=== PATIENT | female | born 1995 | race Caucasian/White ===

== ENCOUNTER 2023-06-14 | Outpatient (REF) | payer MEDICAID, SELFPAY | END 2023-06-14 00:01 | disposition home or self-care (01) | LOC: HO.HHCLNP | PROVIDERS: Visit Provider Nurse Practitioner Primary Care | DX: Z13.89 Encounter for screening for other disorder (principal) | CPT/HCPCS: 87480; 87510; 87660 ==

== ENCOUNTER 2023-06-15 09:51 | Outpatient (REF) | payer MEDICAID, SELFPAY ==
[2023-06-15 11:38] LABS: MANUAL DIFF FLAG NO
[2023-06-15 12:08] LABS: Basophils Absolute Auto 0.1 X10*3/uL (0.0-0.2); Eosinophils Absolute Auto 0.3 X10*3/uL (0.0-0.4); Eosinophils Percent Auto 3.2 % (0-4); Hematocrit 26.3 % (37.0-47.0); Imm Gran Abs Auto 0.04 X10*3/uL (0.00-0.03); Imm Gran Pct Auto 0.5 % (0.0-0.4); Lymphocytes Absolute Auto 1.9 X10*3/uL (1.2-4.9); Mean Corpuscular HGB Conc 30.4 g/dl (31.0-35.0); Mean Corpuscular Hemoglobin 23.3 pg (27.0-33.0); Mean Corpuscular Volume 76.5 fL (80.0-98.0); Mean Platelet Volume 12.6 fL (9.4-12.3); Monocytes Absolute Auto 0.7 X10*3/uL (0.1-1.2); Monocytes Percent Auto 8.8 % (2-11); Neutrophils Absolute Auto 4.8 x10*3/uL (2.0-8.3); Neutrophils Percent Auto 62.5 % (45-73); Platelet Count 315 X10*3/uL (160-400); Red Blood Count 3.44 X10*6/uL (4.20-5.50); Red Cell Distribution Width 16.1 % (11.0-16.0); White Blood Count 7.7 X10*3/uL (4.8-10.8)
[2023-06-15 12:40] LABS: Anion Gap 10 (12-20); Blood Urea Nitrogen 11 mg/dL (9-16); Calcium 9.9 mg/dL (8.4-10.2); Carbon Dioxide 26 mmol/L (22-29); Chloride 106 mmol/L (96-108); Estimated Glomerular Filt Rate > 60; Glucose Random 121 mg/dL (60-115); Iron 17 mcg/dL (30-160); Percent Iron Saturation 4 % (15-50); Potassium 3.5 mmol/L (3.3-5.1); Sodium 138 mmol/L (135-145); Total Iron Binding Capacity 432 mcg/dL (228-428); Unsaturated Iron Binding 415 ug/dL
[2023-06-15 12:44] LABS: HIV AB/AG Nonreactive (Nonreactive); HIV Num 1 0.04 S/CO (0.00-0.99); ~HepC Num1 0.12 S/CO (0.00-0.79); ~Hepatitis C Antibody Nonreactive (Nonreactive)
[2023-06-15 12:45] LABS: Syphilis Screen Nonreactive (Nonreactive)
[2023-06-15 13:37] LABS: Ferritin 7 ng/mL (10-122); TSH reflex Free T4 > 100.00 uIU/mL (0.32-4.0)
[2023-06-15 15:01] LABS: Free T4 (Free Thyroxine) 0.65 ng/dL (0.71-1.85)
[2023-06-16 17:48] LABS: Prolactin 63.1 ng/mL
== END 2023-06-15 09:52 | disposition home or self-care (01) ==
LOC: HO.HHCL 09:51
PROVIDERS: Visit Provider Nurse Practitioner Primary Care
DX: Z11.4 Encounter for screening for human immunodeficiency virus [HIV] (principal); Z11.3 Encounter for screening for infections with a predominantly sexual mode of transmission; N89.8 Other specified noninflammatory disorders of vagina; N64.3 Galactorrhea not associated with childbirth; R52 Pain, unspecified; D64.9 Anemia, unspecified; E11.65 Type 2 diabetes mellitus with hyperglycemia; Z79.4 Long term (current) use of insulin
CPT/HCPCS: 36415; 80048; 82728; 83540; 84146; 84439; 84443; 85025; 86780; 86803; 87389

== ENCOUNTER 2023-06-17 11:09 | Outpatient (REF) | payer MEDICAID, SELFPAY ==
[2023-06-17 14:12] LABS: Free T4 (Free Thyroxine) 0.68 ng/dL (0.71-1.85)
[2023-06-17 14:14] LABS: TSH reflex Free T4 > 100.00 uIU/mL (0.32-4.0)
[2023-06-18 12:07] LABS: BV Int Neg Control Negative (Negative); BV Int Pos Control Positive (Positive)
== END 2023-06-17 11:10 | disposition home or self-care (01) ==
LOC: HO.HHCL 11:09
PROVIDERS: Visit Provider Internal Medicine
DX: N89.8 Other specified noninflammatory disorders of vagina (principal); E03.9 Hypothyroidism, unspecified
CPT/HCPCS: 36415; 84439; 84443; 87480; 87510; 87660

== ENCOUNTER 2023-07-03 13:21 | Outpatient (REF) | payer MEDICAID, SELFPAY ==
--- NOTE | ~2023-07-03 | US_ITS ---
EXAMINATION: US PELVIS COMPLETE CLINICAL INFORMATION: Anemia, menorrhagia COMPARISON: None TECHNIQUE: Transabdominal and transvaginal imaging was performed. FINDINGS: The uterus is of normal size and echogenicity measuring 8.3 x 6.1 x 7.4 cm. The endometrium measures 0.6 cm in thickness with trace fluid within the endometrial canal. The right ovary is of normal size and echogenicity. The right measures 1.9 x 3.1 x 1.7 cm for a volume of 5.2 mL. The left measures 2.9 x 4.7 x 2.5 cm for a volume of 17.8 mL which is mildly enlarged with vascular flow present in multiple follicles. There is trace physiologic volume pelvic free fluid. US/US pelvic and transvaginal IMPRESSION: 1. Trace fluid within the endometrial canal. 2. Left ovary is mildly enlarged with multiple follicles, which could be seen in the setting of polycystic ovarian syndrome in the appropriate clinical setting.
== END 2023-07-03 13:22 | disposition home or self-care (01) ==
LOC: HO.US 13:21
PROVIDERS: Visit Provider Internal Medicine
DX: D50.0 Iron deficiency anemia secondary to blood loss (chronic) (principal)
CPT/HCPCS: 76830; 76856

== ENCOUNTER → 2023-07-10 11:00 | Outpatient (BNV) | payer MEDICAID, SELFPAY | PROVIDERS: Visit Provider Internal Medicine Medical Oncology | DX: D64.9 Anemia, unspecified (principal) | CPT/HCPCS: 99204 ==

== ENCOUNTER 2023-07-14 10:59 | Outpatient (REF) | payer MEDICAID, SELFPAY ==
--- NOTE | ~2023-07-14 | US_ITS ---
EXAMINATION: US DIAGNOSTIC ULTRASOUND BREAST, RIGHT CLINICAL INFORMATION: 27-year-old female complaining palpable focus of concern right breast approximate 8:00 axis, around 8 cm from the nipple. Mention of possible galactorrhea within the patient's order. COMPARISON: None available. Last imaging was [place], not available. TECHNIQUE: Ultrasound of the breast is performed with real-time alba scale imaging and color Doppler. Attention was given to the area of palpable concern as indicated by the patient in the right breast 8:00 axis. FINDINGS: There is no focal suspicious finding. There is a benign intramammary lymph node within the right breast at the 8:00 axis, 8 cm from the nipple, measuring 8 x 6 x 7 mm, with normal fatty hilum, normal feeding hilar vessels, and normal thickness cortex. This is a benign finding and appears to correlate well with the area of palpable concern. Scanning of the retroareolar region demonstrates minimal duct ectasia, with no discrete mass or filling defect seen. There is no additional solid mass, architectural abnormality, or edema in the soft tissue planes. Results were discussed with the patient at time of visit by the technologist. US/US breast RT limited mamm only IMPRESSION: Palpable abnormality right breast appears to be related to a benign intramammary lymph node at the 8:00 axis measuring up to 8 mm. Finding is benign and there are no suspicious findings. Clinical management recommended of this abnormality. ASSESSMENT: BI-RADS 2: Benign RECOMMENDATION: 1. Patient should be managed based on the clinical impression. 2. Otherwise, routine annual screening mammography at age 40. This patient's information was entered into a reminder system with a target due date for their next mammogram.
== END 2023-07-14 11:00 | disposition home or self-care (01) ==
LOC: HO.MAMMO 10:59
PROVIDERS: PCP Nurse Practitioner Primary Care; Visit Provider Nurse Practitioner Primary Care
DX: N64.3 Galactorrhea not associated with childbirth (principal); N63.13 Unspecified lump in the right breast, lower outer quadrant
CPT/HCPCS: 76642

== ENCOUNTER → 2023-07-14 11:00 | Outpatient (BNV) | payer MEDICAID, SELFPAY | PROVIDERS: PCP Nurse Practitioner Primary Care; Visit Provider Radiology Diagnostic Radiology | DX: R92.8 Other abnormal and inconclusive findings on diagnostic imaging of breast (principal) | CPT/HCPCS: 76642 ==

== ENCOUNTER 2023-08-21 10:32 | Outpatient (REF) | payer MEDICAID, SELFPAY ==
[2023-08-21 11:54] LABS: Estimated Average Glucose 189 mg/dL; Hemoglobin A1c % 8.2 % (<6.0)
[2023-08-21 12:24] LABS: Erythrocyte Sedimentation Rate 20 MM/HR (0-20)
[2023-08-21 12:57] LABS: C Reactive Protein 1.16 mg/dL (< or = 0.50); Cholesterol 137 mg/dL (<200); Free T4 (Free Thyroxine) 0.87 ng/dL (0.71-1.85); HDL Cholesterol 30 mg/dL (>40); LDL Cholesterol Calculated 90 mg/dL (<100); Thyroid Stimulating Hormone 40.46 uIU/mL (0.32-4.0); Triglycerides 89 mg/dL (<150)
[2023-08-21 13:13] LABS: Folate 13.1 ng/mL (> or = 4.0); Rheumatoid Factor < 13.0 IU/mL (<15.0); Vitamin B12 685 pg/mL (200-900)
[2023-08-21 14:23] LABS: Creatinine Urine 276.18 mg/dL; Microalbum/Creatinine Ratio Ur 10.1 ug/mg cr (<30)
[2023-08-21 15:15] LABS: CT PCR NOT DETECTED (Not Detect.); NG PCR NOT DETECTED (Not Detect.)
[2023-08-22 03:59] LABS: HBc Num1 0.14 S/CO (0.00-0.79); HBsAGNum1 0.42 S/CO (0.00-0.99); Hepatitis B Core Antibody Nonreactive (Nonreactive); Hepatitis B Surface Antigen Negative (Negative); ~Hepatitis B Surface Antibody REACTIVE (Nonreactive)
[2023-08-22 13:21] LABS: H Pylori Breath Test Negative (Negative)
[2023-08-23 11:14] LABS: Cyclic Citrullinated Peptide <16 UNITS
[2023-08-23 19:34] LABS: Lutenizing Hormone 4.9 mIU/mL; Prolactin 29.2 ng/mL
[2023-08-24 15:33] LABS: Anti Nuclear Antibody Screen NEGATIVE (NEGATIVE)
[2023-08-26 12:52] LABS: VITAMIN D (1,25 OH) D3 40 pg/mL; Vit D (1,25-Dihydroxy) Total 40 pg/mL (18-72); Vitamin D (1,25 OH) D2 <8 pg/mL
[2023-08-26 14:23] LABS: Testosterone, Free 1.1 pg/mL (0.1-6.4); Testosterone, Total 9 ng/dL (2-45)
== END 2023-08-21 10:33 | disposition home or self-care (01) ==
LOC: HO.HHCL 10:32
PROVIDERS: Visit Provider Student in an Organized Health Care Education/Training Program
DX: R10.13 Epigastric pain (principal); E11.65 Type 2 diabetes mellitus with hyperglycemia; E28.2 Polycystic ovarian syndrome; Z79.4 Long term (current) use of insulin
CPT/HCPCS: 0353U; 80061; 82043; 82570; 82607; 82652; 82746; 83001; 83002; 83013; 83036; 84146; 84402; 84403; 84439; 84443; 85652; 86038; 86140; 86200; 86431; 86704; 86706; 87340

== ENCOUNTER 2023-08-25 11:55 | Outpatient (REF) | payer MEDICAID, SELFPAY | END 2023-08-25 11:56 | disposition home or self-care (01) | LOC: HO.MDS 11:55 | PROVIDERS: Visit Provider Internal Medicine | DX: D50.8 Other iron deficiency anemias (principal) | CPT/HCPCS: 96365; J1756 ==

== ENCOUNTER 2023-08-31 11:02 | Outpatient (REF) | payer MEDICAID, SELFPAY | END 2023-08-31 11:03 | disposition home or self-care (01) | LOC: HO.MDS 11:02 | PROVIDERS: Visit Provider Internal Medicine | DX: D50.8 Other iron deficiency anemias (principal) | CPT/HCPCS: 96365; J1756 ==

== ENCOUNTER 2023-09-02 14:02 | Outpatient (REF) | payer MEDICAID, SELFPAY ==
[2023-09-02 16:19] LABS: Hematocrit 32.5 % (37.0-47.0); Hemoglobin 9.3 g/dl (12.0-16.0); Mean Corpuscular HGB Conc 28.6 g/dl (31.0-35.0); Mean Corpuscular Hemoglobin 18.4 pg (27.0-33.0); SCAN SMEAR FLAG 1
[2023-09-02 16:22] LABS: Basophils Absolute Auto 0.1 X10*3/uL (0.0-0.2); Basophils Percent Auto 1.2 % (0-2); Eosinophils Absolute Auto 0.4 X10*3/uL (0.0-0.4); Eosinophils Percent Auto 4.6 % (0-4); Imm Gran Abs Auto 0.03 X10*3/uL (0.00-0.03); Imm Gran Pct Auto 0.4 % (0.0-0.4); Lymphocytes Absolute Auto 2.1 X10*3/uL (1.2-4.9); Lymphocytes Percent Auto 26.4 % (20-40); MANUAL DIFF FLAG SCAN; Monocytes Absolute Auto 0.6 X10*3/uL (0.1-1.2); Monocytes Percent Auto 8.1 % (2-11); Neutrophils Absolute Auto 4.6 x10*3/uL (2.0-8.3); Neutrophils Percent Auto 59.3 % (45-73); PLT CLUMP 1; Red Blood Count 5.05 X10*6/uL (4.20-5.50); Red Cell Distribution Width 22.6 % (11.0-16.0)
[2023-09-02 16:30] LABS: Mean Corpuscular Volume 64.4 fL (80.0-98.0)
[2023-09-02 16:31] LABS: PLT ABN DIST 1
[2023-09-02 16:48] LABS: Platelet Count 340 X10*3/uL (160-400); White Blood Count 7.8 X10*3/uL (4.8-10.8)
[2023-09-02 16:50] LABS: SLIDE REVIEW VERIFIED
[2023-09-02 16:54] LABS: Free T4 (Free Thyroxine) 0.96 ng/dL (0.71-1.85); Thyroid Stimulating Hormone 49.82 uIU/mL (0.32-4.0)
[2023-09-02 17:03] LABS: Erythrocyte Sedimentation Rate 13 MM/HR (0-20)
[2023-09-02 17:09] LABS: Alanine Aminotransferase 53 U/L (0-31); Albumin Level 3.9 g/dL (3.5-5.0); Alkaline Phosphatase 78 U/L (39-117); Anion Gap 13 (12-20); Aspartate Amino Transferase 95 U/L (5-31); Bilirubin Total 0.3 mg/dL (0.0-1.0); Blood Urea Nitrogen 12 mg/dL (9-16); C Reactive Protein 1.24 mg/dL (< or = 0.50); Calcium 9.4 mg/dL (8.4-10.2); Carbon Dioxide 26 mmol/L (22-29); Chloride 99 mmol/L (96-108); Estimated Glomerular Filt Rate > 60; Glucose Random 441 mg/dL (60-115); Potassium 4.2 mmol/L (3.3-5.1); Sodium 134 mmol/L (135-145); Total Protein 7.6 g/dL (6.5-8.0)
== END 2023-09-02 14:03 | disposition home or self-care (01) ==
LOC: HO.HHCL 14:02
PROVIDERS: Visit Provider Student in an Organized Health Care Education/Training Program
DX: E03.9 Hypothyroidism, unspecified (principal); R52 Pain, unspecified; E11.65 Type 2 diabetes mellitus with hyperglycemia; Z79.4 Long term (current) use of insulin
CPT/HCPCS: 36415; 80053; 84439; 84443; 85025; 85652; 86140

== ENCOUNTER 2023-09-07 11:16 | Outpatient (REF) | payer MEDICAID, SELFPAY ==
[2023-09-07 11:39] LABS: MANUAL DIFF FLAG NO
[2023-09-07 11:46] LABS: Basophils Absolute Auto 0.1 X10*3/uL (0.0-0.2); Basophils Percent Auto 1.1 % (0-2); Eosinophils Absolute Auto 0.3 X10*3/uL (0.0-0.4); Hematocrit 34.3 % (37.0-47.0); Imm Gran Abs Auto 0.02 X10*3/uL (0.00-0.03); Imm Gran Pct Auto 0.3 % (0.0-0.4); Lymphocytes Absolute Auto 1.6 X10*3/uL (1.2-4.9); Lymphocytes Percent Auto 24.2 % (20-40); Mean Corpuscular HGB Conc 29.2 g/dl (31.0-35.0); Mean Corpuscular Volume 65.3 fL (80.0-98.0); Monocytes Absolute Auto 0.6 X10*3/uL (0.1-1.2); Monocytes Percent Auto 9.1 % (2-11); Neutrophils Percent Auto 60.3 % (45-73); Platelet Count 290 X10*3/uL (160-400); Red Blood Count 5.25 X10*6/uL (4.20-5.50); Red Cell Distribution Width 24.3 % (11.0-16.0); White Blood Count 6.6 X10*3/uL (4.8-10.8)
[2023-09-07 12:15] LABS: Ferritin 83 ng/mL (10-122)
== END 2023-09-07 11:17 | disposition home or self-care (01) ==
LOC: HO.MDS 11:16
PROVIDERS: Internal Medicine Medical Oncology; Visit Provider Internal Medicine
DX: D50.8 Other iron deficiency anemias (principal); N93.9 Abnormal uterine and vaginal bleeding, unspecified
CPT/HCPCS: 36415; 82728; 85025; 96365; 99202; J1756

== ENCOUNTER 2023-09-07 13:09 | Outpatient (AMB) | payer MEDICAID, SELFPAY ==
[2023-09-07 13:18] VITALS: BP 110/70; BMI 42.6
--- NOTE | 2023-09-07 13:18 | MHC.OFFVIS ---
Intake Vital Signs 09/07/23 13:18 Height 5 ft 8 in Weight 280 lb BMI 42.6 BP 110/70 Intake Visit Reasons: AUB/PCP referral Speech Coach Required: No Information Interpreted: non-clinical & clinical Newsstand Vendor: Newsstand Vendor Present (Kelle ALFRED) Accompanied by: Self / Same As Patient Allergies aspirin Adverse Reaction (Verified 09/07/23 13:27) Fatigued Is last menstrual period known: Yes HPI HPI Comments History of Present Illness Details The patient is presenting referred from PCP r regarding abnormal uterine bleeding, the patient has been complaining of irregular menstrual cycles associated passage of blood clots and pelvic cramping. Last Pap smear was? Pelvic ultrasound done on 07/03/2023 showed the following: The uterus is of normal size and echogenicity measuring 8.3 x 6.1 x 7.4 cm. The endometrium measures 0.6 cm in thickness with trace fluid within the endometrial canal. The right ovary is of normal size and echogenicity. The right measures 1.9 x 3.1 x 1.7 cm for a volume of 5.2 mL. The left measures 2.9 x 4.7 x 2.5 cm for a volume of 17.8 mL which is mildly enlarged with vascular flow present in multiple follicles. There is trace physiologic volume pelvic free fluid. FORMERLY [facility], [facility]1983 Medical History Hypothyroid Asthma Diabetes mellitus Family History Paternal Grandfather Lung cancer Social History Household Members: Family Alcohol intake: never Patient Tobacco Use Status: Never used Tobacco Substance Use Type: Marijuana service: No Current occupational status: unemployed Sexually active: No Sexual orientation: Straight/Heterosexual Gender identity: Female Physical Exam Vital Signs: BMI result Body Mass Index 42.6 Assessment & Plan Assessment & Plan (1) Abnormal uterine bleeding: Code(s): N93.9 - Abnormal uterine and vaginal bleeding, unspecified Plan: Pap smear take, GC and chlamydia taken CBC, TSH, prolactin, HCG, 17 hydroxyprogesterone, testosterone total and free order and pelvic ultrasound recently done. Discussed with the patient the different causes of abnormal bleeding including thyroid disorders, uterine and ovarian pathology, endometrial hyperplasia, carcinoma and other potential causes. Discussed with the patient the work up including CBC (to r/o anemia), TSH, pelvic Ultrasound, endometrial biopsy to r/o endometrial pathology. All questions answered and the patient verbalized understanding. Instructed the patient to schedule an appointment for an endometrial biopsy in 2 weeks. Orders: Orders TSH reflex Free T4 Today N93.9 - Abnormal uterine and vaginal bleeding, unspecified Prolactin Today N93.9 - Abnormal uterine and vaginal bleeding, unspecified HCG Quantitative Today N93.9 - Abnormal uterine and vaginal bleeding, unspecified 17 Hydroxyprogesterone Today N93.9 - Abnormal uterine and vaginal bleeding, unspecified Complete Blood Count no Diff Today N93.9 - Abnormal uterine and vaginal bleeding, unspecified Testosterone, Free/Total Today N93.9 - Abnormal uterine and vaginal bleeding, unspecified Coding Level of Care Code New Pt Level 3 (50510) Diagnoses Abnormal uterine bleeding N93.9
== END 2023-09-07 13:54 | disposition home or self-care (01) ==
LOC: HO.HWS 13:09
PROVIDERS: PCP Student in an Organized Health Care Education/Training Program; Visit Provider Obstetrics & Gynecology
DX: N93.9 Abnormal uterine and vaginal bleeding, unspecified (principal)
CPT/HCPCS: 99203

== ENCOUNTER 2023-09-07 13:47 | Outpatient (REF) | payer MEDICAID, SELFPAY ==
[2023-09-07 14:50] LABS: Hematocrit 34.1 % (37.0-47.0); Hemoglobin 9.9 g/dl (12.0-16.0); Mean Corpuscular Hemoglobin 18.8 pg (27.0-33.0); PLT CLUMP 1; Red Blood Count 5.27 X10*6/uL (4.20-5.50); Red Cell Distribution Width 24.2 % (11.0-16.0)
[2023-09-07 15:01] LABS: Mean Corpuscular Volume 64.7 fL (80.0-98.0); PLT ABN DIST 1; Platelet Count 304 X10*3/uL (160-400)
[2023-09-07 15:37] LABS: HCG Quantitative < 2 mIU/mL; TSH reflex Free T4 33.74 uIU/mL (0.32-4.0)
[2023-09-07 16:13] LABS: Free T4 (Free Thyroxine) 1.02 ng/dL (0.71-1.85)
[2023-09-08 09:09] LABS: Prolactin 33.1 ng/mL
[2023-09-08 11:00] LABS: CT PCR NOT DETECTED (Not Detect.); NG PCR NOT DETECTED (Not Detect.)
[2023-09-15 10:09] LABS: Testosterone, Total 8 ng/dL (2-45)
== END 2023-09-07 13:48 | disposition home or self-care (01) ==
LOC: HO.LAB 13:47
PROVIDERS: PCP Student in an Organized Health Care Education/Training Program; Visit Provider Obstetrics & Gynecology
DX: N93.9 Abnormal uterine and vaginal bleeding, unspecified (principal)
CPT/HCPCS: 0353U; 36415; 83498; 84146; 84402; 84403; 84439; 84443; 84702; 85027; 88142

== ENCOUNTER 2023-10-05 12:14 | Outpatient (REF) | payer MEDICAID, SELFPAY | END 2023-10-05 12:15 | disposition home or self-care (01) | LOC: HO.MDS 12:14 | PROVIDERS: Visit Provider Internal Medicine Medical Oncology | DX: D50.8 Other iron deficiency anemias (principal) | CPT/HCPCS: 96365; J2916 ==

== ENCOUNTER 2024-08-10 10:16 | Outpatient (REF) | payer MEDICAID, SELFPAY ==
[2024-08-10 11:58] LABS: Basophils Absolute Auto 0.1 X10*3/uL (0.0-0.2); Basophils Percent Auto 1.2 % (0-2); Eosinophils Absolute Auto 0.2 X10*3/uL (0.0-0.4); Eosinophils Percent Auto 3.4 % (0-4); Hematocrit 34.6 % (37.0-47.0); Hemoglobin 11.3 g/dl (12.0-16.0); Imm Gran Abs Auto 0.02 X10*3/uL (0.00-0.03); Imm Gran Pct Auto 0.3 % (0.0-0.4); Lymphocytes Absolute Auto 1.6 X10*3/uL (1.2-4.9); Lymphocytes Percent Auto 23.8 % (20-40); Mean Corpuscular HGB Conc 32.7 g/dl (31.0-35.0); Mean Corpuscular Hemoglobin 23.7 pg (27.0-33.0); Mean Corpuscular Volume 72.5 fL (80.0-98.0); Monocytes Absolute Auto 0.4 X10*3/uL (0.1-1.2); Monocytes Percent Auto 6.3 % (2-11); Neutrophils Absolute Auto 4.4 x10*3/uL (2.0-8.3); Red Blood Count 4.77 X10*6/uL (4.20-5.50); Red Cell Distribution Width 16.8 % (11.0-16.0)
[2024-08-10 12:02] LABS: Platelet Count 299 X10*3/uL (160-400); White Blood Count 6.8 X10*3/uL (4.8-10.8)
[2024-08-10 12:08] LABS: Estimated Average Glucose 283 mg/dL; Hemoglobin A1C 293.1305 umol/L; Hemoglobin A1c % 11.5 % (<6.0); Total Hemoglobin (HGBA1C) 2873.8209 umol/L
[2024-08-10 12:46] LABS: Anion Gap 14 (12-20); Blood Urea Nitrogen 13 mg/dL (9-16); Calcium 9.3 mg/dL (8.4-10.2); Carbon Dioxide 21 mmol/L (22-29); Chloride 100 mmol/L (96-108); Estimated Glomerular Filt Rate > 60; Free T4 (Free Thyroxine) < 0.42 ng/dL (0.71-1.85); HCG Quantitative < 2 mIU/mL; Potassium 4.1 mmol/L (3.3-5.1); Sodium 131 mmol/L (135-145); T4 Thyroxine < 3.0 ug/dL (4.5-12.0)
[2024-08-10 12:47] LABS: Alanine Aminotransferase 33 U/L (0-31); Albumin Level 4.1 g/dL (3.5-5.0); Alkaline Phosphatase 93 U/L (39-117); Aspartate Amino Transferase 32 U/L (5-31); Bilirubin Total 0.3 mg/dL (0.0-1.0); TSH reflex Free T4 > 100.00 uIU/mL (0.32-4.0); Total Protein 7.7 g/dL (6.5-8.0)
[2024-08-10 12:53] LABS: Ferritin 6 ng/mL (10-122)
[2024-08-10 13:52] LABS: Glucose Random 530 mg/dL (60-115)
[2024-08-11 17:44] LABS: Prolactin 25.2 ng/mL; Triiodothyronine T3 Free 1.1 pg/mL (2.3-4.2); Triiodothyronine T3 Total 40 ng/dL (76-181)
[2024-08-12 07:18] LABS: Follicle Stimulating Hormone 6.1 mIU/mL; Lutenizing Hormone 1.3 mIU/mL
[2024-08-14 16:29] LABS: Testosterone, Free 0.9 pg/mL (0.1-6.4); Testosterone, Total 5 ng/dL (2-45)
== END 2024-08-10 10:17 | disposition home or self-care (01) ==
LOC: HO.HHCL 10:16
PROVIDERS: Internal Medicine Medical Oncology; Nurse Practitioner Primary Care; Obstetrics & Gynecology; Visit Provider Internal Medicine
DX: E03.9 Hypothyroidism, unspecified (principal); N93.9 Abnormal uterine and vaginal bleeding, unspecified; E11.65 Type 2 diabetes mellitus with hyperglycemia; Z79.4 Long term (current) use of insulin; D64.9 Anemia, unspecified; N93.8 Other specified abnormal uterine and vaginal bleeding; N92.1 Excessive and frequent menstruation with irregular cycle; E28.2 Polycystic ovarian syndrome
CPT/HCPCS: 36415; 80053; 82728; 83001; 83002; 83036; 84146; 84402; 84403; 84436; 84439; 84443; 84480; 84481; 84702; 85025

== ENCOUNTER 2024-08-11 14:54 | Outpatient (AMB) | payer MEDICAID, SELFPAY ==
[2024-08-11 15:13] VITALS: BMI 42.6
--- NOTE | 2024-08-11 15:13 | A.OFFVIS_ITS ---
Vital Signs 08/11/24 15:13 Height 5 ft 8 in Weight 279 lb 15.793 oz BMI 42.6 Intake Visit Reasons: AUB Plant Breeder Required: No Information Interpreted: non-clinical & clinical Paving And Surfacing Labourer: Paving And Surfacing Labourer Present (Kelle ALFRED) Accompanied by: Self / Same As Patient Allergies aspirin Adverse Reaction (Verified 08/11/24 15:14) Fatigued HPI Comments Details: The patient is presenting for follow-up to discuss the results of her abnormal uterine bleeding workup and options of treatment. The following workup was done.: Most recent H&H= 11.3/34.6 TSH elevated, free T4 low, free T3 pending Prolactin elevated repeat prolactin pending hCG, GC and chlamydia were negative. Total testosterone within normal free not done, 17 hydroxy progesterone within normal, repeat free testosterone pending Co testing was done in 09/17 showed LSIL 07/18 Pelvic ultrasound showed the following: IMPRESSION: 1. Trace fluid within the endometrial canal. 2. Left ovary is mildly enlarged with multiple follicles, which could be seen in the setting of polycystic ovarian syndrome in the appropriate clinical setting. [facility] Medical History Hypothyroid Asthma Diabetes mellitus Family History Paternal Grandfather Lung cancer Social History Household Members: Family Alcohol intake: never Patient Tobacco Use Status: Never used Tobacco Substance Use Type: Marijuana service: No Current occupational status: unemployed Sexual orientation: Straight/Heterosexual Gender identity: Female Physical Exam Vital Signs: BMI result Body Mass Index 42.6 Office Procedures Colposcopy Colposcopy: Pre-Procedure Counseling: Before beginning the procedure, I conducted comprehensive counseling with the patient. We thoroughly discussed the procedure itself, including its details, alternatives, and all associated risks. This included but not limited to the following complications such as bleeding, infection, and injury to the vagina, bladder, and vessels, as well as the potential need for transfusion with all its associated risks. Subsequently, the patient sign the consent. Pap smear result: LSIL. Urine test in office = Negative Procedure: During the procedure, the following steps were performed: A speculum was inserted, and acetic acid was applied. Colposcopy was conducted, allowing visualization of the transformation zone. Acetowhite lesions were identified at the 11+12+1 o'clock position. Cervical biopsies were obtained from the 11+12+1 o'clock position, followed by an endocervical curettage (ECC). Vaginoscopy of the upper vagina revealed no evidence of aceto-white lesions. Hemostasis was achieved using Monsel solution, and the patient tolerated the procedure well. Post-Procedure Instructions: The patient was advised to promptly contact the office or the after hours answering service or go to the emergency room if experiencing a temperature exceeding 100.4?F, abdominal pain, nausea/vomiting, or bleeding. Additionally, the patient was instructed to abstain from vaginal intercourse and bathtub use. The patient confirmed understanding of these instructions. Discharge Instructions: The patient was instructed to schedule a follow-up appointment in 2 weeks for further evaluation and management. Please note that this note was generated using a voice recognition program, and errors may have occurred during revenue cycle consultant. [id number] of cervix including upper vagina with biopsy and ECC Procedure code (CPT) selection complete Endometrial Biopsy Details: The patient was counseled regarding the indication and benefits of endometrial sampling to rule out endometrial pathology including not limited to endometrial hyperplasia or endometrial cancer and others; The alternatives (Either do nothing vs. hysteroscopy D&C) & the risks were discussed with the patient including but not limited: pain, uterine perforation, bleeding, infection, possible injury to bladder, bowel, ureter, possible need for blood transfusion with all its possible risks. The patient verbalized understanding all questions answered and signed consent. Urine test done in the office was negative The patient was placed into the dorsal lithotomy position; a speculum was inserted in the vagina. Using aseptic technique for the procedure, the cervix was cleansed with Betadine. The anterior lip of the cervix was grasped with a single tooth tenaculum. The uterus was sounded to 7 cm with a 4 mm Pipelle was used. Tissues samples were obtained and placed in formalin, in a patient labeled container and sent to the pathology department. At the end of the procedure, there was minimal bleeding noted The patient tolerated the procedure well and was discharged in good condition with the following instructions: Nothing in the vagina until the bleeding stops. No sex until the bleeding stops, to call if any of the following occurs: fever (>100.4), flu-like symptoms, abdominal pain, heavy bleeding, four smelling vaginal discharge. The patient was instructed to schedule a Follow up appointment in 2 weeks to discuss pathology results of the biopsy and treatment options. This note was generated with a voice recognition program. Some errors may have been overlooked during the review of this note. Sometimes these errors may affect the content or meaning of a given sentence. [id number] Biopsy Results AMB Test Urine AMB Test Urine Negative Last Edit by Kelle Centeno CMA on 15:16 Results Reviewed Results Reviewed: Laboratory Last Values Tst Clinic Negative 08/11/24 15:15 Assessment & Plan Assessment & Plan (1) Abnormal uterine bleeding: Comment: Possible PCOS Code(s): N93.9 - Abnormal uterine and vaginal bleeding, unspecified Category: Medical Plan: GC/CT collected Free testosterone pending EMB done, see procedure note Instructions given to patient to schedule a follow-up appointment within a week for follow-up (2) LGSIL on Pap smear of cervix: Code(s): R87.612 - Low grade squamous intraepithelial lesion on cytologic smear of cervix (LGSIL) Category: Medical Plan: Discussed with the patient the result of her abnormal pap, its significance, risk of progression, persistence, and regression. the false positive/negative rate of a Pap smear as a screening test in detecting cervical cancer and the indication for a diagnostic test -colposcopy, biopsy, endocervical curettage. The patient verbalized understanding and agreed with the plan, all questions answered. Since last Pap was a year ago repeat Pap smear and proceed with Colposcopy biopsy/ECC done, see procedure (3) Increased prolactin level: Code(s): R79.89 - Other specified abnormal findings of blood chemistry Category: Medical Plan: Repeat prolactin test still pending will check the results and treat according (4) Abnormal thyroid function test: Code(s): R94.6 - Abnormal results of thyroid function studies Category: Medical Plan: The patient discuss the results with her PCP and is in the process of being refer to endocrinology Orders: Orders AMB Endometrial Biopsy Today N93.9 - Abnormal uterine and vaginal bleeding, unspecified AMB HCG Urine Test Today Z32.02 - Encounter for test, result negative AMB Colposcopy Today R87.612 - Low grade squamous intraepithelial lesion on cytologic smear of cervix (LGSIL) Coding Level of Care Code Est Pt Level 3 (92863) Procedure Only Diagnoses Abnormal uterine bleeding N93.9 LGSIL on Pap smear of cervix R87.612 Increased prolactin level R79.89 Abnormal thyroid function test R94.6 CPT Codes Colposcopy - CPT: 71328-Nxrisnqdc of cervix including upper vagina with biopsy and ECC ([id number]) Endometrial Biopsy - CPT: 45129-Nocxelplted Biopsy ([id number])
== END 2024-08-11 15:49 | disposition home or self-care (01) ==
PROVIDERS: PCP Student in an Organized Health Care Education/Training Program; Visit Provider Obstetrics & Gynecology
DX: N93.9 Abnormal uterine and vaginal bleeding, unspecified (principal); R87.612 Low grade squamous intraepithelial lesion on cytologic smear of cervix (LGSIL); R79.89 Other specified abnormal findings of blood chemistry; R94.6 Abnormal results of thyroid function studies; Z32.02 Encounter for pregnancy test, result negative
CPT/HCPCS: 57454; 58110; 99213

== ENCOUNTER 2024-08-11 14:54 | Outpatient (REF) | payer MEDICAID, SELFPAY ==
[2024-08-12 03:54] LABS: CT PCR NOT DETECTED (Not Detect.); NG PCR NOT DETECTED (Not Detect.)
[2024-08-18 16:23] LABS: HPV mRNA E6/E7 Detected (Not Detected)
== END 2024-08-11 14:55 | disposition home or self-care (01) ==
LOC: HO.LNP 14:54
PROVIDERS: PCP Student in an Organized Health Care Education/Training Program; Visit Provider Obstetrics & Gynecology
DX: Z12.4 Encounter for screening for malignant neoplasm of cervix (principal); Z11.51 Encounter for screening for human papillomavirus (HPV); N93.9 Abnormal uterine and vaginal bleeding, unspecified; R87.612 Low grade squamous intraepithelial lesion on cytologic smear of cervix (LGSIL); R79.89 Other specified abnormal findings of blood chemistry; R94.6 Abnormal results of thyroid function studies
CPT/HCPCS: 57454; 58110; 81025; 87491; 87591; 87624; 88175; 88305; 99212

== ENCOUNTER 2024-08-17 12:32 | Outpatient (AMB) | payer MEDICAID, SELFPAY ==
--- NOTE | 2024-08-17 13:05 | A.OFFVIS_ITS ---
Vital Signs 08/17/24 13:13 BP 122/64 Blood Pressure Location Rt brachial Intake Visit Reasons: follow up bx Intake Note: Pt has been having some light brown discharge with odor, some pelvic pain. Automotive Glass Specialist Required: No Allergies aspirin Adverse Reaction (Verified 08/17/24 13:08) Fatigued Post menopausal: No Patient : No Do you need a note to return to daycare/school/sports/work: No HPI Comments Details: Presenting post colpo for follow-up. The patient is doing well complaining of vaginal discharge associated with foul odor. In addition the patient is interested in discussing different options of control The pathology showed the following: A. Endocervix, curettage: Endocervical glandular epithelium; negative for dysplasia; no squamous epithelium present. B. Endometrium, biopsy: Predominantly blood with scant endocervical glandular epithelium and rare fragments of endometrium with breakdown; insufficient for endometrial evaluation. C. Cervix, 1:00, biopsy: Squamous and endocervical glandular mucosa with inflammation and focal atypia. D. Cervix, 11:00, biopsy: Low-grade squamous intraepithelial lesion (mild dysplasia, ABRAM 1), involving endocervical glands. E. Cervix, 12:00, biopsy: Squamous and endocervical glandular mucosa with inflammation and focal atypia [facility] Medical History Hypothyroid Asthma Diabetes mellitus Family History Paternal Grandfather Lung cancer Social History Household Members: Family Alcohol intake: never Patient Tobacco Use Status: Never used Tobacco Substance Use Type: Marijuana Patient : No service: No Current occupational status: unemployed Sexual orientation: Straight/Heterosexual Gender identity: Female Review of Systems Const All systems reviewed & are unremarkable except as noted in HPI and below Reports as per HPI and Reports no additional complaints GI Reports no additional complaints Reports no additional complaints Physical Exam Vital Signs: Last Vital Signs BP 122/64 08/17/24 13:13 General: Yes no CVA tenderness External Female Exam: normal external appearance and normal appearance of the urethra Speculum Exam - Vagina: normal appearance of the vagina, normal palpation, no lesions and no masses Speculum Exam - Cervix: normal appearance of the cervix, normal palpation, no lesions, no masses and nontender Bimanual exam- vagina & uterus: normal bimanual exam, normal palpation, uterine size normal, normal palpation, uterine shape normal, No Cervical tenderness present and non-tender Bimanual Exam- Adnexa, other: normal adnexae Back/Spine/Pelvis Back: no CVA tenderness Assessment & Plan Assessment & Plan (1) Dysplasia of cervix, low grade (ABRAM 1): Code(s): N87.0 - Mild cervical dysplasia Category: Medical Plan: Discussed with the patient the pathology results of the colposcopy biopsies & endocervical curettage ( mild dysplasia-ABRAM 1). Discussed with the patient the sensitivity specificity, positive and negative predictive value in detecting cervical cancer in addition discussed the regression, persistence and progression rates. Recommended co-testing in 12 months, if cytology and or HPV are abnormal will proceed was colposcopy biopsy and endocervical curettage, if lesions gets worse or stays persistent for 2 years will proceed with loop electric excision procedure. Instructions given to the patient to schedule a co test appointment in 1 year. All questions answered the patient verbalized understanding. (2) Bacterial vaginosis: Code(s): N76.0 - Acute vaginitis; B96.89 - Other specified bacterial agents as the cause of diseases classified elsewhere Category: Medical Plan: GC and chlamydia cultures with BV panel taken. Will treat with Flagyl 500 mg p.o. b.i.d. x 7 days, Instructions given to the patient to refrain from sexual activity or to use condoms consistently and correctly during the BV treatment regimen, not to douch, it might increase the risk for relapse, and to call if symptoms persist or recur. (3) Family planning: Code(s): Z30.09 - Encounter for other general counseling and advice on contraception Category: Social Hx Plan: Discussed with the patient the different options of control including control pills/Nuvaring, DMPA, different types of IUD ?s ( cu vs progesterone) , sterilization. All the pros, cons, risks and benefits of each were discussed with the patient. The patient decided to go ahead with Mirena IUD, so a more detailed discussion was carried on including mechanism of action, risks (infection, uterine perforation, failure with ectopic , septic AB, ovarian cyst and pelvic pain, increased breast cancer risk and others) benefits (efficient contraceptive method, others), GC/CG were taken and the patient was asked to call day one of next cycle for IUD insertion. Medications: New metronidazole 500 mg PO BID 7 days 14 tabs 0RF Coding Level of Care Code Est Pt Level 3 (37135) Diagnoses Dysplasia of cervix, low grade (ABRAM 1) N87.0 Bacterial vaginosis N76.0; B96.89 Family planning Z30.09
[2024-08-17 13:13] VITALS: BP 122/64
== END 2024-08-17 13:20 | disposition home or self-care (01) ==
PROVIDERS: PCP Student in an Organized Health Care Education/Training Program; Visit Provider Obstetrics & Gynecology
DX: N87.0 Mild cervical dysplasia (principal); N76.0 Acute vaginitis; B96.89 Other specified bacterial agents as the cause of diseases classified elsewhere; Z30.09 Encounter for other general counseling and advice on contraception
CPT/HCPCS: 99213

== ENCOUNTER 2024-08-17 12:32 | Outpatient (REF) | payer MEDICAID, SELFPAY ==
[2024-08-17 18:32] LABS: CT PCR NOT DETECTED (Not Detect.); NG PCR NOT DETECTED (Not Detect.)
[2024-08-18 11:25] LABS: Bacterial Vaginosis PCR POSITIVE (Negative); Candida Group PCR NOT DETECTED (Not Detect); Candida glab krusei PCR NOT DETECTED (Not Detect); Trichomonas vaginalis PCR NOT DETECTED (Not Detect)
== END 2024-08-17 12:33 | disposition home or self-care (01) ==
LOC: HO.LNP 12:32
PROVIDERS: PCP Student in an Organized Health Care Education/Training Program; Visit Provider Obstetrics & Gynecology
DX: N76.0 Acute vaginitis (principal); N87.0 Mild cervical dysplasia; B96.89 Other specified bacterial agents as the cause of diseases classified elsewhere; Z30.09 Encounter for other general counseling and advice on contraception
CPT/HCPCS: 0352U; 87491; 87591; 99212

== ENCOUNTER 2024-08-29 13:59 | Outpatient (AMB) | payer MEDICAID, SELFPAY ==
[2024-08-29 14:39] VITALS: BP 124/68; BMI 42.4
--- NOTE | 2024-08-29 14:39 | MHC.OFFVIS ---
Vital Signs 08/29/24 14:39 Height 5 ft 8 in Weight 279 lb BMI 42.4 BP 124/68 Blood Pressure Location Lt brachial Position Sitting Intake Visit Reasons: Iud insertion Allergies aspirin Adverse Reaction (Verified 08/29/24 14:39) Fatigued HPI Comments Details: Presenting for Mirena IUD insertion [facility] Medical History Hypothyroid Asthma Diabetes mellitus Family History Paternal Grandfather Lung cancer Social History Household Members: Family Alcohol intake: never Patient Tobacco Use Status: Never used Tobacco Substance Use Type: Marijuana service: No Current occupational status: unemployed Sexual orientation: Straight/Heterosexual Gender identity: Female Physical Exam Vital Signs: Last Vital Signs BP 124/68 08/29/24 14:39 BMI result Body Mass Index 42.4 Office Procedures IUD Insert/Removal Details Details: The patient is presenting for Mirena IUD insertion Urine test was done in the office and was negative; All the contraindications were excluded. The following possible complications were discussed with the patient: Intrauterine , Ectopic , Sepsis, Pelvic Infection, Irregular Bleeding and Amenorrhea, Perforation, Expulsion, Ovarian Cysts, Breast Cancer, The following adverse effects were discussed with the patient: alteration of menstrual bleeding pattern, including: unscheduled uterine bleeding decreased uterine bleeding increased scheduled uterine bleeding female genital tract bleeding ,amenorrhea , genital discharge , vulvovaginitis , breast pain , benign ovarian cyst and associated complications , dysmenorrhea , Gastrointestinal disorders abdominal/pelvic pain, headache/migraine , back pain , acne , depression Alternative options were discussed with the patient including but not limited: control pills, patch, NuvaRing, Depo-medroxyprogesterone acetate, Nexplanon, copper IUD, sterilization, vasectomy, others The procedure was explained in detail to patient , at the end patient signed the informed consent obtained. A no touch technique was used throughout the procedure. A speculum was placed into vagina and cervix was cleaned with betadine). A tenaculum was placed. A plastic sound was advanced through the external and internal os until it reached the fundus of the uterus, the depth was 8 cm. The sound was then withdrawn. The IUD was loaded in a sterile manner and advanced into position. The string was visualized and cut to 3 cm. Tenaculum site hemostatic. All instruments removed from vagina. Patient tolerated the procedure well. NO complications were noted. Patient was instructed to call for fever over 100.4, significant pain unrelieved by Motrin, IUD expulsion, heavy bleeding, or abnormal discharge. In addition, the following clinical considerations were discussed with the patient to call for removal: A stroke or heart attack ,Very severe or migraine headaches ,Unexplained fever ,Yellowing of the skin or whites of the eyes, as these may be signs of serious liver problems , or suspected , Pelvic pain or pain during sex ,HIV positive seroconversion in herself or her partner , Possible exposure to sexually transmitted infections Unusual vaginal discharge or genital sores , severe vaginal bleeding or bleeding that lasts a long time, or if she misses a menstrual period, Inability to feel Mirena's threads Counseled the patient that the IUD does not protect against STI's, recommended use of condoms for the first 7 days post insertion and explained to the patient that condoms are recommended for patients at risk for sexually transmitted infections. Informed the patient that Mirena IUD is FDA approved for 8 years for contraception for 5 years for the treatment of heavy menses Instructed the patient to schedule a Follow up appointment in 4 to 6 weeks following insertion. This note was generated with a voice recognition program. Some errors may have been overlooked during the review of this note. Sometimes these errors may affect the content or meaning of a given sentence. 12126-MZU Insertion Procedure code (CPT) selection complete Office Meds Mirena 21 mcg/24 hr (up to 8 years) 52 mg intrauterine device Performing Provider: Maxwell Felton MD [place]forming [place] [facility] [place] [facility] Documented (not given) by: Maxwell Felton MD on 08/29/24 14:54 Dose Route Admin Location Dispensed Lot Number Expiration Date [facility] Dress Finisher 1 device intrauterine ea Results AMB Test Urine AMB Test Urine Negative Last Edit by Emily Jaime CMA on 08/29/24 14:23 Results Reviewed Results Reviewed: Laboratory Last Values Tst Clinic Negative 08/29/24 14:23 Assessment & Plan Assessment & Plan (1) Encounter for IUD insertion: Code(s): Z30.430 - Encounter for insertion of intrauterine contraceptive device Category: Medical Plan: Mirena IUD inserted, see procedure note Orders: Orders AMB HCG Urine Test Today Z32.02 - Encounter for test, result negative AMB IUD Insertion/Removal - Practice Supplied Today Z30.430 - Encounter for insertion of intrauterine contraceptive device Medications: New Mirena (levonorgestrel) 1 device intrauterine ONCE 1 ea 0RF IUD insertion NS Z30.430 - Encounter for insertion of intrauterine contraceptive device Coding Level of Care Code Procedure Only Diagnoses Encounter for IUD insertion Z30.430 CPT Codes Details - CPT: 87461-AAI Insertion ([id number])
== END 2024-08-29 14:58 | disposition home or self-care (01) ==
LOC: HO.HWS 13:59
PROVIDERS: PCP Student in an Organized Health Care Education/Training Program; Visit Provider Obstetrics & Gynecology
DX: Z30.430 Encounter for insertion of intrauterine contraceptive device (principal); Z32.02 Encounter for pregnancy test, result negative
CPT/HCPCS: 58300

== ENCOUNTER → 2024-08-29 13:59 | Outpatient (BNVA) | payer MEDICAID, SELFPAY | PROVIDERS: PCP Student in an Organized Health Care Education/Training Program; Visit Provider Obstetrics & Gynecology | DX: Z30.430 Encounter for insertion of intrauterine contraceptive device (principal) | CPT/HCPCS: 58300; 81025; J7298 ==

== ENCOUNTER 2024-10-10 13:38 | Outpatient (AMB) | payer MEDICAID, SELFPAY ==
--- OUTSIDE RECORDS SUMMARY | 2024-10-10 13:41 | XMS_ITS | Continuity of Care Document ---
Author Organization [facility] Address [address] [place] [address]- Care Team Providers Care Sander Operator Name Role Phone Brenda ROWE, Brooke Lugo Primary Care Physician Encounter [facility] [place] Date(s): 08/17/24 - 09/16/24 [facility] [address] [place] [id number] Encounter Type: Triage Allergies, Adverse Reactions, Alerts No Known Allergies Medications Albuterol (Eqv-ProAir HFA) 1 puffs, Inhalation, Every 6 hours, 0 Refills, Maintenance, 08/10/24 11:15:00 PM EDT, Partial fill upon patient request if the prescription is for a schedule II opioid drug. Start Date: 08/10/24 Status: Ordered Repeat number: 1 amoxicillin 875 mg oral tablet TAKE 1 TABLET (875 MG) BY MOUTH 2 TIMES DAILY FOR 5 DAYS. Start Date: 09/08/23 Status: Ordered Repeat number: 1 Apri 0.15 mg-0.03 mg oral tablet 1 tablet, By Mouth, Daily, # 84 tablet, 0 Refills, Maintenance, 08/11/24 8:02:00 AM EDT, Tablet, [facility]/pharmacy #[id number], Partial fill upon patient request if the prescription is for a schedule II opioid drug., 1 tablet By Mouth Daily, 173, cm, 08/10/24 21:39:00 EDT, Height, 122.2, kg, 08/10/24 21:38:00EDT, Dry Weight Start Date: 08/11/24 Status: Ordered Quantity: 84.0 Unit: tablet Repeat number: 1 BD UF SHORT PEN NEEDLE [id number] BD UF SHORT PEN NEEDLE [id number], USE 4 TIMES A DAY WITH INSULIN Start Date: 09/08/23 Status: Ordered Repeat number: 1 escitalopram 10 mg oral tablet TAKE 1 TABLET BY MOUTH EVERY DAY IN THE MORNING Start Date: 09/08/23 Status: Ordered Repeat number: 1 famotidine 20 mg oral tablet TAKE 1 TABLET BY MOUTH EVERYDAY AT BEDTIME Start Date: 09/08/23 Status: Ordered Repeat number: 1 ferrous sulfate 325 mg oral enteric coated tablet TAKE 1 TABLET BY MOUTH WITH BREAKFAST AND WITH EVENING MEAL. DO NOT CRUSH, CHEW, OR SPLIT. Start Date: 09/08/23 Status: Ordered Repeat number: 1 FreeStyle Roxana Lite kit FreeStyle Roxana Lite kit, USE DIRECTED TO TEST BLOOD SUGAR DAILY IN THE MORNING Start Date: 09/08/23 Status: Ordered Repeat number: 1 FREESTYLE FREEDOM LITE METER FREESTYLE FREEDOM LITE METER, USE DIRECTED EVERY DAY IN THE MORNING Start Date: 09/08/23 Status: Ordered Repeat number: 1 FreeStyle Lite Strips FreeStyle Lite Strips, USE DIRECTED TO TEST BLOOD SUGAR THREE TIMES DAILY BEFORE A MEAL Start Date: 09/08/23 Status: Ordered Repeat number: 1 Humalog 100 u/ml subcutaneous injection = 30 units, Subcutaneous Infusion, 0 Refills, Maintenance, 08/10/24 11:13:00 PM EDT, Partial fill upon patient request if the prescription is for a schedule II opioid drug. Start Date: 08/10/24 Status: Ordered Repeat number: 1 hydrOXYzine hydrochloride 25 mg oral tablet TAKE 1/2-1 TABLET BY MOUTH TWICE A DAY NEEDED FOR ANXIETY ATTACKS, PANIC Start Date: 09/08/23 Status: Ordered Repeat number: 1 Insulin Lispro KwikPen 100 units/mL injectable solution INJECT 10 UNITS UNDER THE SKIN WITH BREAKFAST, WITH LUNCH, AND WITH EVENING MEAL. Start Date: 09/08/23 Status: Ordered Repeat number: 1 Lantus Solostar Pen 100 units/mL subcutaneous solution INJECT 60 UNITS UNDER THE SKIN AT BEDTIME. Start Date: 09/08/23 Status: Ordered Repeat number: 1 metFORMIN 500 mg oral tablet TAKE 1 TABLET (500 MG) BY MOUTH WITH BREAKFAST AND WITH EVENING MEAL Start Date: 09/08/23 Status: Ordered Repeat number: 1 sertraline 50 mg oral tablet PLEASE SEE ATTACHED FOR DETAILED DIRECTIONS Start Date: 09/08/23 Status: Ordered Repeat number: 1 Synthroid 0.112 mg oral tablet 2 tablet = 224 mcg, By Mouth, Daily, # 180 tablet, 3 Refills, Maintenance, 09/04/24 1:33:00 PM EST,Tablet, [facility]/pharmacy #[id number], Partial fill upon patient request if the prescription is for a scheduleII opioid drug., 172.3, cm, 09/08/23 9:56:00 EST, Height Start Date: 09/04/24 Stop Date: 08/30/25 Status: Ordered Quantity: 180.0 Unit: tablet Repeat number: 4 Indication: Hypothyroidism, unspecified traZODone 50 mg oral tablet TAKE 1 TABLET BY MOUTH AT BEDTIME NEEDED FOR INSOMNIA Start Date: 09/08/23 Status: Ordered Repeat number: 1 TRUEplus Lancets 33 gauge TRUEplus Lancets 33 gauge, USE DIRECTED TO TEST BLOOD SUGAR THREE TIMES DAILY BEFORE A MEAL Start Date: 09/08/23 Status: Ordered Repeat number: 1 Trulicity Pen 0.75 mg/0.5 mL subcutaneous solution INJECT ONE PEN (=0.75MG) SUBCUTANEOUSLY ONCE A WEEK DIRECTED Start Date: 09/08/23 Status: Ordered Repeat number: 1 Vitamin C 500 mg oral tablet TAKE 1 TABLET (500 MG) BY MOUTH IN THE MORNING Start Date: 09/08/23 Status: Ordered Repeat number: 1 Problem List Condition Confirmation Course Effective Dates Status Health Status Informant Hyperprolactinemia Confirmed Active Hypothyroidism Confirmed Active Severe obesity (BMI 35.0-39.9) with comorbidity Confirmed Active Type 2 diabetes mellitus Confirmed Active Patient Care team information Care Team Personnel Name: Brooke Gutierrez MD Position: [facility] Outreach Member Role: PCP Address: [address] [place] [address] Telecom: Care Team Related Persons Name: FAVIO MERCADO Insurance Providers Guarantor name: FRANCIE Health Plan Information #: 1 Payer: [employer] Member Number: NA Policy Number: NA Group Number: [id number]
--- NOTE | 2024-10-10 13:56 | MHC.OFFVIS ---
Intake Visit Reasons: 6 iud check Call Center Nurse: Call Center Nurse Present (Rohini) Accompanied by: Self / Same As Patient Allergies aspirin Adverse Reaction (Verified 10/10/24 13:56) Fatigued HPI Comments Details: The patient is presenting for IUD check after 1 st period following IUD insertion. The patient is having continuous vaginal bleeding since IUD insertion no associated pelvic pain or fever. In addition the patient is complaining of vaginal discharge associated with foul odor [facility] Medical History Hypothyroid Asthma Diabetes mellitus Family History Paternal Grandfather Lung cancer Social History Household Members: Family Alcohol intake: never Patient Tobacco Use Status: Never used Tobacco Substance Use Type: Marijuana service: No Current occupational status: unemployed Sexual orientation: Straight/Heterosexual Gender identity: Female Female Reproductive History Menstrual control method: progestin IUCD Review of Systems Const All systems reviewed & are unremarkable except as noted in HPI and below Physical Exam General: Yes no CVA tenderness External Female Exam: normal external appearance and normal appearance of the urethra Speculum Exam - Vagina: normal appearance of the vagina, normal palpation, no lesions and no masses Speculum Exam - Cervix: normal appearance of the cervix, normal palpation, no lesions, no masses, nontender and Other cervical findings present (IUD thread in place) Bimanual exam- vagina & uterus: normal bimanual exam, normal palpation, uterine size normal, normal palpation, uterine shape normal, No Cervical tenderness present and non-tender Bimanual Exam- Adnexa, other: normal adnexae Back/Spine/Pelvis Back: no CVA tenderness Assessment & Plan Assessment & Plan (1) IUD check up: Code(s): Z30.431 - Encounter for routine checking of intrauterine contraceptive device Category: Medical Plan: UPT done in the office was negative. Discussed with the patient the finding on physical exam, IUD string in place, the patient was reassured. Instructions given to patient to call in case of temperature above 100.4, severe cramping/pelvic pain, abnormal discharge or abnormal uterine bleeding or if she misses her menstrual cycle. Otherwise follow-up at her annual exam appointment. All questions answered, the patient verbalized understanding. (2) Bacterial vaginosis: Code(s): N76.0 - Acute vaginitis; B96.89 - Other specified bacterial agents as the cause of diseases classified elsewhere Category: Medical Plan: GC and chlamydia cultures with BV panel taken. Will treat with Flagyl 500 mg p.o. b.i.d. x 7 days, Instructions given to the patient to refrain from sexual activity or to use condoms consistently and correctly during the BV treatment regimen, not to douch, it might increase the risk for relapse, and to call if symptoms persist or recur. Medications: New metronidazole 500 mg PO BID 7 days 14 tabs 0RF Coding Level of Care Code Est Pt Level 3 (29659) Diagnoses IUD check up Z30.431 Bacterial vaginosis N76.0; B96.89
== END 2024-10-10 14:07 | disposition home or self-care (01) ==
PROVIDERS: PCP Student in an Organized Health Care Education/Training Program; Visit Provider Obstetrics & Gynecology
DX: Z30.431 Encounter for routine checking of intrauterine contraceptive device (principal); N76.0 Acute vaginitis; B96.89 Other specified bacterial agents as the cause of diseases classified elsewhere
CPT/HCPCS: 99213

== ENCOUNTER 2024-10-10 13:38 | Outpatient (REF) | payer MEDICAID, SELFPAY ==
[2024-10-10 18:23] LABS: Bacterial Vaginosis PCR POSITIVE (Negative); Candida Group PCR NOT DETECTED (Not Detect); Candida glab krusei PCR NOT DETECTED (Not Detect); Trichomonas vaginalis PCR NOT DETECTED (Not Detect)
[2024-10-10 18:55] LABS: CT PCR NOT DETECTED (Not Detect.); NG PCR NOT DETECTED (Not Detect.)
== END 2024-10-10 13:39 | disposition home or self-care (01) ==
LOC: HO.LNP 13:38
PROVIDERS: PCP Student in an Organized Health Care Education/Training Program; Visit Provider Obstetrics & Gynecology
DX: Z30.431 Encounter for routine checking of intrauterine contraceptive device (principal); N76.0 Acute vaginitis; B96.89 Other specified bacterial agents as the cause of diseases classified elsewhere
CPT/HCPCS: 0352U; 87491; 87591; 99212

== ENCOUNTER 2024-10-11 08:36 | Outpatient (REF) | payer MEDICAID, SELFPAY ==
--- NOTE | ~2024-10-11 | US_ITS ---
EXAMINATION: US ABDOMEN COMPLETE CLINICAL INFORMATION: History of recurrent upper abdominal pain with nausea and vomiting. COMPARISON: None available. TECHNIQUE: Real-time imaging of the abdominal viscera. Technically limited study secondary to bowel gas and body habitus. FINDINGS: PANCREAS: The visualized portion of the pancreas head and body are normal, portion of the pancreatic body and tail, not visualized are obscured by bowel gas. ABDOMINAL AORTA: The proximal, mid, and distal segments are normal in caliber. INFERIOR VENA CAVA: Visualized portions are normal. LIVER: The liver is normal in size. The liver contour is normal. Increased echogenicity of the liver parenchyma, this can be seen in the setting of hepatic steatosis or liver parenchymal disease. No focal hepatic lesion. There is no intrahepatic biliary duct dilatation seen. GALLBLADDER: The gallbladder is physiologically distended without evidence of stones, sludge, polyps, wall thickening or pericholecystic fluid. COMMON BILE DUCT: Normal in caliber measuring 0.4 cm in diameter. RIGHT KIDNEY: No hydronephrosis. No renal calculi or focal parenchymal lesions. The kidney measures 12.1 cm in maximum dimension. LEFT KIDNEY: No hydronephrosis. No renal calculi or focal parenchymal lesions. The kidney measures 12.6 cm in maximum dimension. SPLEEN: The spleen measures 12.1 cm in maximum dimension. FREE FLUID: None. US/US abdomen complete IMPRESSION: * Increased echogenicity of the liver parenchyma, this can be seen in the setting of hepatic steatosis or liver parenchymal disease. * No ultrasound evidence of gallbladder disease or gallstones. Electronically signed by: Yeison Simon MD 10/17/2024 05:53 PM [facility]
== END 2024-10-11 08:37 | disposition home or self-care (01) ==
LOC: HO.US 08:36
PROVIDERS: PCP Student in an Organized Health Care Education/Training Program; Visit Provider Emergency Medicine
DX: R10.10 Upper abdominal pain, unspecified (principal)
CPT/HCPCS: 76700

== ENCOUNTER 2024-12-14 17:16 | Emergency (ER) | payer MEDICAID, SELFPAY ==
--- NOTE | ~2024-12-14 | XR_ITS ---
CLINICAL HISTORY: trauma 3 view right 5th digit Comparison: None Findings: Small bony fragment of the base of the mid phalanx of the digit. No significant arthritic change. No erosions. No radiopaque foreign body. Soft tissue edema of the finger. IMPRESSION: Small avulsion fracture of the base of the mid phalanx of the 5th digit. This document has been electronically signed by: Amandeep Pena MD on 12/14/2024 19:03:36
[2024-12-14 18:10] VITALS: BP 112/68; PULSE 73; RESP 18; TEMP 36.8; O2SAT 100; BMI 41.8
--- NOTE | 2024-12-14 18:16 | ED.EXTPRO ---
HPI - Extremity Problem General Chief complaint: Extremity Injury, Upper Stated complaint: R hand pinky injury Time Seen by Provider: 12/14/24 19:34 Source: patient, RN notes reviewed and old records reviewed Mode of arrival: ambulatory Limitations: no limitations History of Present Illness ED Provider: Vivi HPI Narrative: 29-year-old female presents for evaluation right 5th finger pain. Patient reports she was sledding on Thursday, 3 days ago. She bent her right pinky finger backwards while sledding. She has been using Tylenol and ibuprofen for pain but her pain has been worsening. The finger is swollen and purple Denied any other injuries Related Data Home Medications ?Medication ?Instructions ?Recorded ?Confirmed albuterol sulfate 90 mcg/actuation 90 mcg inhalation DAILY 07/10/23 07/10/23 aerosol inhaler insulin glargine 100 unit/mL (3 60 unit subcut BEDTIME 07/10/23 07/10/23 mL) subcutaneous pen (Lantus Solostar U-100 Insulin) insulin lispro 100 unit/mL 10 unit subcut BID 07/10/23 07/10/23 subcutaneous pen levothyroxine 200 mcg tablet 200 mcg PO DAILY 07/10/23 07/10/23 (Synthroid) ascorbic acid (vitamin C) 500 mg 500 mg PO QAM 09/07/23 tablet (Vitamin C) dulaglutide 0.75 mg/0.5 mL mg subcut QWEEK 09/07/23 subcutaneous pen injector (Trulicity) famotidine 20 mg tablet 20 mg PO BEDTIME 09/07/23 hydroxyzine HCl 10 mg tablet 10 mg PO Q8H PRN itch 09/07/23 metformin 500 mg tablet 500 mg PO BID 09/07/23 sertraline 50 mg tablet mg PO 09/07/23 trazodone 50 mg tablet 50 mg PO BEDTIME PRN insomnia 09/07/23 Previous Rx's ?Medication ?Instructions ?Recorded metronidazole 500 mg tablet 500 mg PO BID 7 days #14 tabs 10/10/24 oxycodone 5 mg tablet 5 mg PO Q6H PRN pain #12 tabs 12/14/24 Allergies Allergy/AdvReac Type Severity Reaction Status Date / Time aspirin AdvReac Fatigued Verified 12/14/24 18:16 Review of Systems Constitutional: Constitutional: Denies body ache(s), Denies chills, Denies fever(s) and Denies headache(s) ENT: Denies headache(s) Musculoskeletal: Musculoskeletal: Reports arthralgias, Reports joint swelling and Reports limited range of motion Neurologic: Denies headache(s) [facility] Past Medical History Medical History Hypothyroid Asthma Diabetes mellitus Family History Family History Paternal Grandfather Lung cancer Social History Social History Household Members: Family Alcohol intake: never Patient Tobacco Use Status: Never used Tobacco Substance Use Type: Marijuana service: No Current occupational status: unemployed Sexual orientation: Straight/Heterosexual Gender identity: Female Physical Exam Vital Signs: Vital Signs: Last Vital Signs Temp 98.3 F 12/14/24 18:10 Pulse 73 12/14/24 18:10 Resp 18 12/14/24 18:10 BP 112/68 12/14/24 18:10 Pulse Ox 100 12/14/24 18:10 O2 Del Method Room Air 12/14/24 18:10 BMI result Body Mass Index 41.8 Const: General: healthy appearing, comfortable, no acute distress, alert and awake Nutritional Appearance: well nourished Orientation/consciousness: patient oriented x3 HEENT: Head: Yes normocephalic and Yes atraumatic Eyes: Eyelids: Yes eyelids normal Conjunctivae: conjunctivae normal Sclerae: sclerae normal Corneas: corneas normal Pupils: Equal, round and reactive pupils present EOM: EOMs intact bilaterally Neck: Neck: Yes full ROM Resp: Effort & Inspection: normal respiratory effort, able to speak in complete sentences and not labored Skin: General skin exam: elasticity normal Neuro: General: patient oriented x3 Cranial nerves: Yes Equal, round and reactive pupils present and Yes Bilaterally intact EOM present Cognition (Neuro): normal cognition Extrem: Other: Ecchymosis and edema to the ventral surface of the right 5th finger. She was tender to pretty much the entire finger but mostly exquisite over the PIP joint. Distal sensation intact Course Course Course Narrative: RME, this is a rapid medical exam performed by Javi Trinidad please refer to primary provider for complete H&P- 29-year-old female presents for evaluation of right 5th finger pain. She injured her finger while sledding 3 days ago. The finger is quite edematous and ecchymotic. Plan for x-rays Medical Decision Making Medical Decision Making MDM Narrative: 29-year-old female presents for evaluation of right 5th finger pain. She has a small avulsion fracture to the proximal aspect of the middle phalanx. She was put in a finger splint and cydney tape. She will be referred to hand surgery. Differential Diagnosis Differential Diagnoses: The differential diagnosis associated with the presentation includes Finger fracture Finger dislocation Contusion Finger sprain Ligamentous injury Independent Interpretation I performed an independent interpretation of an: Plain X-Ray Interpretation: Small avulsion fracture to the base of the middle phalanx Radiology Impression Discussion of test interpretation with radiology: I have reviewed the radiologist's reading. Radiologist Impression: Findings: Small bony fragment of the base of the mid phalanx of the digit. No significant arthritic change. No erosions. No radiopaque foreign body. Soft tissue edema of the finger. IMPRESSION: Small avulsion fracture of the base of the mid phalanx of the 5th digit. This document has been electronically signed by: Amandeep Pena MD on 12/14/2024 19:03:36 Discharge Plan Discharge Clinical Impression: Finger fracture, right Patient Disposition: Home, Self-Care Instructions: Finger Fracture (ED) Additional Instructions: Use ibuprofen/Tylenol for pain. You do have a tiny fracture to your right 5th finger. It is important that you follow up with Orthopedics, Dr. Melendez You may use oxycodone for severe breakthrough pain This may make you drowsy, do not drink alcohol or drive after taking it Prescriptions: New oxycodone 5 mg tablet 5 mg PO Q6H PRN (Reason: pain) Qty: 12 0RF Rx Instructions: Partial Fill upon patient request. No Action levothyroxine [Synthroid] 200 mcg Tablet 200 mcg PO DAILY albuterol sulfate 90 mcg/actuation Hfa Aerosol Inhaler 90 mcg INHALATION DAILY insulin lispro 100 unit/mL insulin pen 10 unit subcut BID insulin glargine [Lantus Solostar U-100 Insulin] 100 unit/mL (3 mL) insulin pen 60 unit subcut BEDTIME metronidazole 500 mg tablet 500 mg PO BID 7 Days Qty: 14 0RF Trulicity 0.75 mg/0.5 mL pen injector subcut QWEEK metformin 500 mg tablet 500 mg PO BID sertraline 50 mg tablet PO trazodone 50 mg tablet 50 mg PO BEDTIME PRN (Reason: insomnia) hydroxyzine HCl 10 mg tablet 10 mg PO Q8H PRN (Reason: itch) famotidine 20 mg tablet 20 mg PO BEDTIME ascorbic acid (vitamin C) [Vitamin C] 500 mg tablet 500 mg PO QAM Referrals: Sulma Melendez MD [Physician] - (5th finger fracture) Print Language: Mosotho
[2024-12-14 19:48] VITALS: BP 112/68; PULSE 73; RESP 18; TEMP 36.8; O2SAT 100
== END 2024-12-14 19:48 | disposition home or self-care (01) ==
PROVIDERS: Emergency Provider Emergency Medicine; PCP Student in an Organized Health Care Education/Training Program
DX: S62.626A Displaced fracture of middle phalanx of right little finger, initial encounter for closed fracture (principal); X50.1XXA Overexertion from prolonged static or awkward postures, initial encounter; M79.644 Pain in right finger(s); E11.9 Type 2 diabetes mellitus without complications; E03.9 Hypothyroidism, unspecified; Z79.4 Long term (current) use of insulin; Z79.899 Other long term (current) drug therapy; Z79.84 Long term (current) use of oral hypoglycemic drugs; Z79.85 Long-term (current) use of injectable non-insulin antidiabetic drugs; Y93.23 Activity, snow (alpine) (downhill) skiing, snowboarding, sledding, tobogganing and snow tubing; Y92.828 Other wilderness area as the place of occurrence of the external cause; Y99.9 Unspecified external cause status
CPT/HCPCS: 29130; 73140; 99282; 99283

== ENCOUNTER → 2024-12-14 18:16 | Outpatient (BNV) | payer MEDICAID, SELFPAY | PROVIDERS: Emergency Provider Emergency Medicine; PCP Student in an Organized Health Care Education/Training Program; Visit Provider Nuclear Medicine | DX: S62.356A Nondisplaced fracture of shaft of fifth metacarpal bone, right hand, initial encounter for closed fracture (principal) | CPT/HCPCS: 73140 ==

== ENCOUNTER 2024-12-21 11:06 | Outpatient (REF) | payer MEDICAID, SELFPAY ==
--- NOTE | ~2024-12-21 | XR_ITS ---
EXAMINATION: XR HAND, RIGHT CLINICAL INFORMATION: M79.641 - Pain in right hand COMPARISON: 12/14/2024. TECHNIQUE: PA, lateral, and oblique views of the right hand. FINDINGS: There is a comminuted intra-articular fracture with associated volar plate avulsion fracture of the proximal aspect middle phalanx, fifth digit. Minimal displacement. No gross bony healing evident. There are no additional fractures. There is no malalignment. There is no evidence of arthropathy. There is soft tissue swelling of the proximal fifth digit and dorsum of the hand. XR/XR hand RT min 3V IMPRESSION: Comminuted intra-articular fracture, with associated volar plate avulsion fracture, of the proximal aspect middle phalanx, fifth digit. Minimal displacement. Electronically signed by: Sameer Beard MD 12/21/2024 02:54 PM [place]
--- OUTSIDE RECORDS SUMMARY | 2024-12-21 13:57 | XMS_ITS | Encounter Summary ---
Author Organization [employer] Address [address] [facility] 7t [place] [address] Care Team Providers Care Executive Marketing Assistant Name Role Phone Brittney Collier MD Primary Care Pro vider Encounter Details Date Type Department Care Team (Late st Contact Info) Description 02/02/2024 Orders Only [facility] MEDICINE 230 [place], [place] [phone] Jen Leonardo ANP 230 [place] [address] Social History Tobacco Use Types Packs/Day Years Used Date Smoking Tobacco: Never Passive Smoke Exposure: Never Smokeless Tobacco: Never Alcohol Use Standard Drinks/Week Comments Not Currently 0 (1 standard drink = 0.6 oz pur e alcohol) Depression Answer Date Recorded Patient Health Questionnaire-9 Score 5 08/06/2023 Housing Stability Answer Date Recorded What is your housing situation today? I do not have housing (Staying with others, in a hotel, in a senior care, living outside on the street, on a beach, in a car, or in a park 08/06/[address] you li ve. Do you have problems with any of the following? None of the above 08/06/2023 Food Insecurity Answer Date Recorded Within the past 12 months, y ou worried that your food would run out before you got money to buy more: Never True 08/10/2023 Within the past 12 months,th e food you bought just didn't last and you didn't have enough money to get more: Never True Transportation Answer Date Recorded In the past 12 months, has l ack of transportation kept you from medical appts, meetings, work or from getting things needed for daily living? No 08/10/2023 Utilities Answer Date Recorded In the past 12 months, has t he [employer], [employer], oil or water company threatened to shut off services in your home? No 08/10/2023 Depression Answer Date Recorded Patient Health Questionnaire-2 Score 2 08/06/2023 Comments Unknown Sex and Gender Information Value Date Recorded Sex Assigned at Female 06/12/2023 2:35 PM EDT Legal Sex Female 2:33 PM EDT Gender Identity Female 06/12/2023 2:35 PM EDT Sexual Orientation Straight 06/12/2023 2: 36 PM EDT documented as of this encounter Plan of Treatment Not on file documented as of this encounter Visit Diagnoses Not on filedocumented in this encounter Additional Health Concerns Assessment Noted Time PHQ-9 Depression Total Score: 5 08/06/20 2:15 PM EDT documented as of this encounter Care Teams Executive Marketing Assistant Relationship Specialty Start Date End Date Brittney Collier MD [address] [place] [phone] PCP - General Internal Medicine 08/06/23 documented as of this encounter
--- OUTSIDE RECORDS SUMMARY | 2024-12-21 13:57 | XMS_ITS | Encounter Summary ---
Author Organization [employer] Address 75 [facility] 7 [place] [address] Care Team Providers Care Scalloper Name Role Phone Brittney Collier MD Primary Care Pro vider Reason for Visit * Reason Onset Date Comments Med Refill 12/20/2024 Encounter Details Date Type Department Care Team (Late st Contact Info) Description 12/20/2024 Refill [facility] MEDICINE 230 [place], [place] [phone] Brittney Collier MD 230 [place], [place] [phone] Type 2 diabetes mellitus with hyperglycemia, with long-term current use of insulin ([facility]); Acquired hypothyroidism Social History Tobacco Use Types Packs/Day Years Used Date Smoking Tobacco: Never Passive Smoke Exposure: Never Smokeless Tobacco: Never Alcohol Use Standard Drinks/Week Comments Not Currently 0 (1 standard drink = 0.6 oz pur e alcohol) Depression Answer Date Recorded Patient Health Questionnaire-9 Score 16 08/15/2024 Patient Health Questionnaire-9 Score 16 08/15/2024 Last PHQ-9: Questionnaire Data Not on file 1 Housing Stability Answer Date Recorded What is your housing situation today? I do not have housing (Staying with others, in a hotel, in a senior living, living outside on the street, on a [...] the past 12 months, has t he electric, gas, oil or water company threatened to shut off services in your home? No 08/10/2023 Depression Answer Date Recorded Patient Health Questionnaire-2 Score 4 08/15/2024 Comments Unknown Sex and Gender Information Value Date Recorded Sex Assigned at Female 06/12/2023 2:35 PM EDT Legal Sex Female 2:33 PM EDT Gender Identity Female 06/12/2023 2:35 PM EDT Sexual Orientation Straight 06/12/2023 2: 36 PM EDT documented as of this encounter Miscellaneous Notes * Telephone Encounter - Kendall Krishna - 12/20/2024 3:25 PM EST TC from pt requesting medication refill. Medications needing refill : cetirizine (ZyrTEC) 10 MG tablet hydrOXYzine HCl (Atarax) 25 MG tablet insulin glargine (Lantus SoloStar) 100 UNIT/ML pen omeprazole OTC (PriLOSEC OTC) 20 MG EC tablet ondansetron ODT (Zofran-ODT) 4 MG disintegrating tablet sertraline (Zoloft) 50 MG tablet Synthroid 112 MCG tablet Tirzepatide (Mounjaro) 2.5 MG/0.5ML solution auto-injector Ventolin HFA 108 (90 Base) MCG/ACT inhaler To be sent to: [facility] - [place], [place] - [address] [facility] documented in this encounter Plan of Treatment Not on file documented as of this encounter Visit Diagnoses Diagnosis Type 2 diabetes mellitus with hyperglycemia, with long-term current use of insulin ([facility]) Acquired hypothyroidism Unspecified hypothyroidism documented in this encounter Additional Health Concerns Assessment Noted Time PHQ-9 Depression Total Score: 16 024 2:07 PM EDT documented as of this encounter Care Teams Scalloper Relationship Specialty Start Date End Date Brittney Collier MD [address] [place] [phone] PCP - General Internal Medicine 08/06/23 documented as of this encounter
--- OUTSIDE RECORDS SUMMARY | 2024-12-21 13:57 | XMS_ITS | Encounter Summary ---
Author Organization [employer] Address 75 [facility] 7t [place] [address] Care Team Providers Care Quality Assurance Supervisor Final Name Role Phone Brittney Collier MD Primary Care Pro vider Encounter Details Date Type Department Care Team (Late st Contact Info) Description 11/19/2023 Abstract [facility] MEDICINE 230 [place], [place] [phone] Brittney Collier MD 230 [place], [place] [phone] Social History Tobacco Use Types Packs/Day Years [...] with others, in a hotel, in a penitentiary, living outside on the street, on a [...] t he electric, gas, oil or water [employer] threatened to shut off services in your [...] documented as of this encounter Care Teams Quality Assurance Supervisor Final Relationship Specialty Start Date End Date Brittney Collier MD [address] [place] [phone] PCP - General Internal Medicine 08/06/23 documented as of this encounter
--- OUTSIDE RECORDS SUMMARY | 2024-12-21 13:57 | XMS_ITS | Encounter Summary ---
Author Organization [employer] Address [address] [facility] 7t [place] [address] Care Team Providers Care Lining Mechanic Name Role Phone Brittney Collier MD Primary Care Pro vider Reason for Visit * Reason Comments Med Refill Encounter Details Date Type Department Care Team (Late st Contact Info) Description 12/31/2023 Refill [facility]ALK[facility] 230 [place], [place] [phone] Brooke Gutierrez MD 230 [place], [place] [phone] Social History Tobacco Use Types Packs/Day Years [...] with others, in a hotel, in a residential, living outside on the street, on a [...] documented as of this encounter Care Teams Lining Mechanic Relationship Specialty Start Date End Date Brittney Collier MD [address] [place] [phone] PCP - General Internal Medicine 08/06/23 documented as of this encounter
--- OUTSIDE RECORDS SUMMARY | 2024-12-21 13:57 | XMS_ITS | Encounter Summary ---
Author Organization [employer] Address [address] [facility] 7t [place] [address] Care Team Providers Care Manager Of Product Name Role Phone Brittney Collier MD Primary Care Pro vider Reason for Visit * Reason Comments Med Refill Encounter Details Date Type Department Care Team (Late st Contact Info) Description 05/11/2024 Refill [facility] MEDICINE 230 [place], [place] [phone] Brittney Collier MD 230 [place] [address] Social History Tobacco Use Types Packs/Day Years [...] with others, in a hotel, in a prison, living outside on the street, on a [...] documented as of this encounter Care Teams Manager Of Product Relationship Specialty Start Date End Date Brittney Collier MD [address] [place] [phone] PCP - General Internal Medicine 08/06/23 documented as of this encounter
--- OUTSIDE RECORDS SUMMARY | 2024-12-21 13:57 | XMS_ITS | Encounter Summary ---
Author Organization [employer] Address 75 [facility] 7t [place] [address] Care Team Providers Care Bench Grinder Name Role Phone Brittney Collier MD Primary Care Pro vider Reason for Visit * Reason Comments Med Refill Encounter Details Date Type Department Care Team (Late st Contact Info) Description 11/21/2024 Refill [facility] MEDICINE 230 [place], [place] [phone] Juanita Dye PharmD 230 [place], [place] [phone] Type 2 diabetes mellitus with hyperglycemia, with long-term current use of insulin ([facility]) Social History Tobacco Use Types Packs/Day Years [...] with others, in a hotel, in a detention, living outside on the street, on a [...] hyperglycemia, with long-term current use of insulin ([facility]) documented in this encounter Additional Health Concerns Assessment Noted Time PHQ-9 Depression Total Score: 16 024 2:07 PM EDT documented as of this encounter Care Teams Bench Grinder Relationship Specialty Start Date End Date Brittney Collier MD [address] [place] [phone] PCP - General Internal Medicine 08/06/23 documented as of this encounter
--- OUTSIDE RECORDS SUMMARY | 2024-12-21 13:57 | XMS_ITS | Encounter Summary ---
Author Organization [employer] Address [address] [facility] 7 [place] [address] Care Team Providers Care Healthcare Account Manager Name Role Phone Brittney Collier MD Primary Care Pro vider Reason for Visit * Reason Onset Date Comments Prior Authorization 12/13/2024 MATILDE RAMOS Reques t: Synthroid Encounter Details Date Type Department Care Team ([facility] st Contact Info) Description 12/13/2024 Telephone [facility] MEDICINE 230 [place], [place] [phone] Brittney Collier MD 230 [place], [place] [phone] Prior Authorization (MATILDE RAMOS Request: Synthroid) Social History Tobacco Use Types Packs/Day Years [...] with others, in a hotel, in a fdc, living outside on the street, on a [...] encounter Miscellaneous Notes * Telephone Encounter - Michelle Kirkland - 12/21/2024 11:34 AM EST PA for Synthroid signed and faxed to [employer]. Confirmation received and sent to [employer]. If patient calls to check status on above, please advise them to contact Pharmacy . * Telephone Encounter - Abril Galvan - 12/13/2024 2:06 PM EST PA for Synthroid from [employer] placed on PCP desk for signature. documented in this encounter Plan of Treatment Not on file documented as of this encounter Visit Diagnoses Not on filedocumented in this encounter Additional Health Concerns Assessment Noted Time PHQ-9 Depression Total Score: 16 024 2:07 PM EDT documented as of this encounter Care Teams Healthcare Account Manager Relationship Specialty Start Date End Date Brittney Collier MD [address] [place] [phone] PCP - General Internal Medicine 08/06/23 documented as of this encounter
--- OUTSIDE RECORDS SUMMARY | 2024-12-21 13:57 | XMS_ITS | Encounter Summary ---
Author Organization [employer] Address [address] [facility] 7t [place] [address] Care Team Providers Care Automotive Service Management Teacher Name Role Phone Brittney Collier MD Primary Care Pro vider Reason for Visit * Reason Comments Med Refill Encounter Details Date Type Department Care Team (Late st Contact Info) Description 09/20/2023 Refill [facility] WALK[facility] 230 [place], [place] [phone] Brooke Gutierrez MD 230 [place], [place] [phone] Social History Tobacco Use Types Packs/Day Years [...] with others, in a hotel, in a alf, living outside on the street, on a [...] documented as of this encounter Care Teams Automotive Service Management Teacher Relationship Specialty Start Date End Date Brittney Collier MD [address] [place] [phone] PCP - General Internal Medicine 08/06/23 documented as of this encounter
--- OUTSIDE RECORDS SUMMARY | 2024-12-21 13:57 | XMS_ITS | Encounter Summary ---
Author Organization [employer] Address [address] [facility] 7t [place] [address] Care Team Providers Care Manager Military Name Role Phone Brittney Collier MD Primary Care Pro vider Reason for Visit * Reason Onset Date Comments Med Refill 11/21/2024 Encounter Details Date Type Department Care Team (Late st Contact Info) Description 11/21/2024 Telephone [facility] MEDICINE 230 [place], [place] [phone] Brittney Collier MD 230 [place], [place] [phone] Med Refill Social History Tobacco Use Types Packs/Day Years [...] with others, in a hotel, in a fpc, living outside on the street, on a [...] encounter Miscellaneous Notes * Telephone Encounter - Melissa Lyn LPN - 11/21/2024 1:21 PM EST pended * Telephone Encounter - Adan Galvan - 11/21/2024 12:29 PM EST TC from pt requesting medication refill. Medications needing refill: insulin lispro (HumaLOG) 100 UNIT/ML injection Lantus SoloStar 100 UNIT/ML pen Tirzepatide (Mounjaro) 2.5 MG/0.5ML solution auto-injector hydrOXYzine HCl (Atarax) 25 MG tablet sertraline (Zoloft) 50 MG tablet To be sent to: [facility] - [place], [place] - [address] [place] [address] documented in this encounter Plan of Treatment Not on file documented as of this encounter Visit Diagnoses Not on filedocumented in this encounter Additional Health Concerns Assessment Noted Time PHQ-9 Depression Total Score: 16 024 2:07 PM EDT documented as of this encounter Care Teams Manager Military Relationship Specialty Start Date End Date Brittney Collier MD 230 [place] [phone] PCP - General Internal Medicine 08/06/23 documented as of this encounter
--- OUTSIDE RECORDS SUMMARY | 2024-12-21 13:57 | XMS_ITS | Encounter Summary ---
Author Organization [employer] Address [address] [facility] 7t [place] [address] Care Team Providers Care Middle School Librarian Name Role Phone Brittney Collier MD Primary Care Pro vider Reason for Visit * Reason Comments Med Refill Encounter Details Date Type Department Care Team (Late st Contact Info) Description 08/24/2023 Refill [facility] WALK[facility]IN C[facility] 230 [place], [place] [phone] Brooke Gutierrez MD 230 [place], [place] [phone] Social History Tobacco Use Types Packs/Day Years [...] with others, in a hotel, in a intermediate, living outside on the street, on a [...] documented as of this encounter Care Teams Middle School Librarian Relationship Specialty Start Date End Date Brittney Collier MD [address] [place] [phone] PCP - General Internal Medicine 08/06/23 documented as of this encounter
--- OUTSIDE RECORDS SUMMARY | 2024-12-21 13:57 | XMS_ITS | Encounter Summary ---
Author Organization [employer] Address [address] [facility] 7t [place] [address] Care Team Providers Care Plasma Specialist Name Role Phone Brittney Collier MD Primary Care Pro vider Reason for Visit * Reason Comments Med Refill Encounter Details Date Type Department Care Team (Late st Contact Info) Description 11/21/2024 Refill [facility] MEDICINE 230 [place], [place] [phone] Brittney Collier MD 230 [place] [address] Diabetic retinopathy screening; Type 2 diabetes mellitus with hyperglycemia, with long-term current use of insulin ([facility]); Depression with anxiety Social History Tobacco Use Types Packs/Day Years [...] as of this encounter Visit Diagnoses Diagnosis Diabetic retinopathy screening Type 2 diabetes mellitus with hyperglycemia, with long-term current use of insulin ([facility]) Depression with anxiety Dysthymic disorder documented in this encounter Additional Health Concerns Assessment Noted Time PHQ-9 Depression Total Score: 16 024 2:07 PM EDT documented as of this encounter Care Teams Plasma Specialist Relationship Specialty Start Date End Date Brittney Collier MD [address] [place], [place] [phone] PCP - General Internal Medicine 08/06/23 documented as of this encounter
--- OUTSIDE RECORDS SUMMARY | 2024-12-21 13:57 | XMS_ITS | Clinical Summary ---
Author Organization [employer] Address [address] [facility] [place] [address] Care Team Providers Care Metal Welder Name Role Phone Brittney Collier MD Primary Care Pro vider Allergies No known active allergies Medications * This document contains information received from the source organization and may not represent a complete record from that organization. Alcohol Swabs padsIndications: Type 2 diabetes mellitus with hyperglycemia, with long-term current use of insulin (CMS/HCC) 1 each if needed (to clean skin). 100 each 11 023 Active Blood Glucose Monitoring Suppl (FreeStyle Lite) w/Device kitIndications:T ype 2 diabetes mellitus with hyperglycemia, with long-term current use of insulin (CMS/HCC) 1 each in the morning. 1 kit 023 Active Continuous Blood Gluc Interior Specialist (FreeStyle Jose Angel 2 [place]) device Use as directed to monitor glucose ever 8 hours. 1 each 024 Active insulin pen needle (B-D ULTRAFINE III SHORT PEN) 31G X 8 mm miscIndications: Type 2 diabetes mellitus with hyperglycemia, with long-term current use of insulin (CMS/HCC) USE 4 TIMES PER DAY DIRECTED WITH INSULIN 100 each 2 024 Active Ascorbic Acid (vitamin C) 500 MG tablet TAKE 1 TABLET (500 MG) BY MOUTH IN THE MORNING 90 tablet 1 024 Active famotidine (Pepcid) 20 MG tablet TAKE 1 TABLET BY MOUTH EVERYDAY AT BEDTIME 90 tablet 024 Active glucose blood (FreeStyle Precision Maurilio Test) test strip Check three times a day if sensor not working 100 each 024 2024 Active FREESTYLE LITE test stripIndications :Type 2 diabetes mellitus with hyperglycemia, with long-term current use of insulin (CMS/HCC) Use to check blood sugar 3x daily Ac meals 150 each Active cetirizine (ZyrTEC) 10 MG tablet Take 1 tablet (10 mg) by mouth Once per day. 30 tablet 11 024 2024 Active omeprazole OTC (PriLOSEC OTC) 20 MG EC tablet Take 1 tablet (20 mg) by mouth before breakfast. Do not crush, chew, or split. 30 tablet 11 024 2024 Active ondansetron ODT (Zofran-ODT) 4 MG disintegrating tablet Take 1 tablet (4 mg) by mouth every 8 (eight) hours if needed for nausea or vomiting. 20 tablet Active Continuous Glucose Sensor (FreeStyle Jose Angel 2 Sensor) [facility] USE DIRECTED. CHANGE EVERY 14 DAYS 2 each 1 Active sertraline (Zoloft) 50 MG tablet TAKE 1 TABLET BY MOUTH EVERY DAY 90 tablet Active insulin lispro (HumaLOG) 100 UNIT/ML injectionIndicat ions:Diabetic retinopathy screening INJECT 10 UNITS UNDER THE SKIN WITH BREAKFAST, WITH LUNCH, AND WITH EVENING MEAL. 15 mL 2 025 Active insulin glargine (Lantus SoloStar) 100 UNIT/ML penIndications:D iabetic retinopathy screening INJECT 65 UNITS SUBCUTANEOUSLY AT BEDTIME 15 mL 1 025 Active hydrOXYzine HCl (Atarax) 25 MG tabletIndication s:Depression with anxiety TAKE 1/2-1 TABLET BY MOUTH TWICE A DAY NEEDED FOR ANXIETY ATTACKS, PANIC 40 tablet 025 Active albuterol (Ventolin HFA) 108 (90 Base) MCG/ACT inhaler Inhale 2 puffs every 6 (six) hours if needed for wheezing. INHALE 2 PUFFS EVERY 6 HOURS IF NEEDED FOR WHEEZING. 18 g 2 025 Active Tirzepatide (Mounjaro) 2.5 MG/0.5ML solution auto-injectorInd ications:Type 2 diabetes mellitus with hyperglycemia, with long-term current use of insulin ([facility]) Inject 2.5 mg under the skin 1 (one) time per week. 2 mL 025 Active Synthroid 112 MCG tabletIndication s:Acquired hypothyroidism Take 2 tablets (224 mcg) by mouth Once per day. 180 tablet 025 2025 Active Synthroid 112 MCG tabletIndication s:Acquired hypothyroidism Take 2 tablets (224 mcg) by mouth Once per day. 180 tablet 024 2024 Discontinued(R eorder (will not trigger notification to Pharmacy)) Ventolin HFA 108 (90 Base) MCG/ACT inhaler INHALE 2 PUFFS EVERY 6 HOURS IF NEEDED FOR WHEEZING. 18 g 2 024 2024 Discontinued(R eorder (will not trigger notification to Pharmacy)) Tirzepatide (Mounjaro) 2.5 MG/0.5ML solution auto-injectorInd ications:Type 2 diabetes mellitus with hyperglycemia, with long-term current use of insulin ([facility]) Inject 2.5 mg under the skin 1 (one) time per week. 2 mL 025 2024 Discontinued(R eorder (will not trigger notification to Pharmacy)) Active Problems Problem Noted Date Diagnosed Date Moderate depressive disorder 08/15/2024 Mild intermittent asthma with exacerbation 08/12 Tongue discoloration 08/12/2024 DUB (dysfunctional uterine bleeding) 08/09/2024 Assessment & Plan (08/09/2024 7:22 PM EDT): Patient has menorrhagia now, cycles have been more regular for 5m. Due to underlying conditions, I will order labs to ro uncontrolled hypothyroidism, hyepr PRL or PCOS. I explained that each one will require different rx, but there is no need to start an emergency rx now. She will fu with her PCP this week with labs, needs to rs endocrinology appt. Hb is minimally low, it doesn't need emergency rx now (she required transfusion and IV iron in the past ) and I gave her info re Iron rich meals as she apparently doesn't tolerate PO iron. Encouraged increased PO fluid intake. JYOTI (generalized anxiety disorder) 09/03/2023 Asthma 08/06/2023 Health care maintenance 08/06/2023 Morbid obesity 08/06/2023 Epigastric pain 08/06/2023 Irritability and anger 08/06/2023 Assessment & Plan (08/25/2023 11:55 AM EDT): Patient with anxiety symptoms. Self-harm thoughts with no plan or intent. Severe anxiety and family relocation from [place] to [place] are leading to an increase of symptoms. Connected with services for individual therapy with [facility]; attends sessions twice per week. Provided psychoeducation around anxiety, panic attacks and provided strategies to cope with anger. Plan is for patient to continue attending OP services and connect with clinician when needed to assess symptoms and provide support. At this time Rayna Benz Cole meets criteria for Visit Diagnoses: Problem List Items Addressed This Visit Other Anxiety Irritability and anger Patient ready to address current needs Yes Strengths include strong anaid and resilience. PLAN: 1. Follow up with [facility]: Not recommended for follow-up 2. Patient goal is to be able to control anger and continue attending therapy sessions 3. Behavioral Recommendations a. Incorporate breathing techniques into daily routine b. Continue attending therapy sessions with [facility] c. Contact [facility] program if needed for emergencies Assessment & Plan (08/10/2023 3:00 PM EDT): Patient with anxiety symptoms. Self-harm thought with no plan. Severe anxiety and family relocation from [place] to [place] are leading to an increase of symptoms. Connected with services for individual therapy with [facility]; attends sessions twice per week. Provided psychoeducation around anxiety, panic attacks and provided strategies to cope with anger. Plan is for patient to continue attending OP services and connect with clinician when needed to assess symptoms and provide support. At this time Rayna A Cole meets criteria for Visit Diagnoses: Problem List Items Addressed This Visit Other Anxiety Irritability and anger Patient ready to address current needs Yes Strengths include strong anaid and resilience. PLAN: 1. Follow up with [facility]: Not recommended for follow-up 2. Patient goal is to continue attending therapy sessions with [facility] 3. Behavioral Recommendations a. Incorporate breathing techniques into daily routine b. Continue attending therapy sessions c. Contact [facility] program if needed for emergencies PCOS (polycystic ovarian syndrome) 07/18/2023 Assessment & Plan (07/18/2023 12:40 PM EDT): Patient has irregular menstrual cycles + Pelvic US with numerous ovarian cysts. Refer to endocrinology Acquired hypothyroidism 07/18/2023 Assessment & Plan (07/18/2023 12:53 PM EDT): Uncontrolled, she was off meds for few months. Restarted levothyroxine 200mcg 1mo ago. Continue levothyroxine as above and fu TSH prior to PCP appt. Bilateral galactorrhea 06/25/2023 Assessment & Plan (07/18/2023 12:40 PM EDT): Likely related to hyperPRL Will refer to endocrinology. Iron deficiency anemia due to chronic blood loss 06/17/2023 Assessment & Plan (06/17/2023 11:11 AM EDT): Unclear if only from menstruation or also due to profound hypothyroidism. Start iron supplementation, pelvic US ordered and fu w new PCP Hyperprolactinemia 06/17/2023 Overview (07/18/2023): MRI Brain 06/2023: Enlarged pituitary gland 2cm. 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 Will refer to endocrinology given concomitant endocrinologic conditions: ?PCOS/hx hypothyroidism? Patient will bring MRI brain films with her to this appt. FU w PCP Assessment & Plan (06/17/2023 11:08 AM EDT): No prior known hx. Order MRI brain to ro prolactinoma. Diabetic retinopathy screening 06/17/2023 Type 2 diabetes mellitus wit h hyperglycemia, with long-term current use of insulin 06/17/2023 Assessment & Plan (12/30/2023 5:49 PM EST): Increase Lantus to 65y and Trulicity to 1.5mg/w, fu with PCP as scheduled. Humalog 6u today, no ketones present in urine. Continue Humalog tid ac meals 10-25u, she's not taking metformin due to nausea and abdominal pain. FU with PCP as scheduled. Assessment & Plan (06/17/2023 11:09 AM EDT): Continue Lantus 60u/d + humalog 10 tid ac meals, new rx sent to pharmacy. FU w new PCP DM supplies sent to [facility] pharmacy Resolved Problems Problem Noted Date Diagnosed Date Resolved Date Anemia 06/25/2023 08/06/2023 Encounters Date Type Department Care Team Description 12/20/2024 Refill [facility] MEDICINE [address] [place] [address] Brittney Collier MD Type 2 diabetes mellitus with hyperglycemia, with long-term current use of insulin ([facility]); Acquired hypothyroidism 12/14/2024 Orders Only [facility] External Provider, [facility] 12/13/2024 Telephone [facility] MEDICINE [address] [place] [address] Brittney Collier MD Prior Authorization ( [place] Request: Synthroid) 11/21/[address] [address] Brittney Collier MD Med Refill 11/21/2024 Refill [facility] MED[facility] [address] [place] [address] Juanita Dye, PharmD Type 2 diabetes mellitus with hyperglycemia, with long-term current use of insulin ([facility]) 11/21/2024 Refill [facility] MEDICINE [address] [place] [address] Brittney Collier MD Diabetic retinopathy screening; Type 2 diabetes mellitus with hyperglycemia, with long-term current use of insulin ([facility]); Depression with anxiety 10/21/2024 Telephone [facility] MEDICINE [address] [place] [address] Juanita Dye, PharmD 10/10/2024 Orders Only [facility]TERNAL DATA DEPARTMENT Provider, Generic External Data 10/04/2024 Refill [facility] MEDICINE [address] [place] [address] Brooke Gutierrez MD 10/03/[address] [address] Brittney Collier MD Appointment cancelation 10/03/2024 Telephone [facility] MED[facility]INE [address] [place] [address] Glenis Fiore [place] Appointment 09/29/2024 Travel 09/28/2024 2:20 PM EST Office Visit [facility] [address] [place] [address] Aleksey Morin MD Strep pharyngitis (Primary Dx); Pain of upper abdomen 09/28/2024 Travel 09/23/2024 Refill [facility] MEDICINE [address] [place] [address] Brittney Collier MD from Last 3 Months Family History Medical History Relation Name Comments Hypothyroidism Father Liver cancer Maternal Grandfather Hypertension Other Relation Name Status Comments Father Maternal Grandfather Other Social History Tobacco Use Types Packs/Day Years Used Date Smoking Tobacco: Never Passive Smoke Exposure: Never Smokeless Tobacco: Never Tobacco Cessation:Counseling Given: Not Answered Alcohol Use Standard Drinks/Week Comments Not Currently [...] Orientation Straight 06/12/2023 2: 36 PM EDT Last Filed Vital Signs Vital Sign Reading Time Taken Comments Blood Pressure 120/77 09/28/2024 1:51 PM EST Pulse 91 09/28/2024 1:51 PM EST Temperature 36.8 ??C (98.2 ??F) 09/28/2024 1:51 PM ES T Respiratory Rate 17 09/28/2024 1:51 PM EST Oxygen Saturation 100% 09/28/2024 1:51 PM EST Inhaled Oxygen Concentration - - Weight 124 kg (273 lb 9.6 oz) 09/28/2024 1:51 PM EST Height 172.7 cm (5' 8 ) 08/11/2024 10:46 AM EDT Body Mass Index 41.6 08/11/2024 10:46 AM EDT Plan of Treatment Health Maintenance Due Date Last Done Comments Dental Oral Exam 1995 Dental Prophylaxis 1995 Dental X-Ray: Bitewings 1995 Dental X-Ray: Full Mouth 1995 Diabetes: Foot Exam 2005 Eye Exam 2005 Alcohol/Substance Use Screening 2007 Family Planning (PISQ) 2010 DTaP/Tdap/Td Vaccines (1 - Tdap) 2014 Hepatitis B Vaccines (1 of 3 - 19+ 3-dose series) 2014 Pneumococcal Vaccine: Pediatrics (0 to 5 Years) and At-Risk Patients (6 to 49) Years) (1 of 2 - PCV) 2014 COVID-19 Vaccine (1 - season) 2024 Influenza Vaccine (#1) 2024 SDOH Screening 07/23/2024 07/23/2023 Diabetes: Urine Protein Screening 08/21/2024 08/21/2023 Lipid Panel 08/21/2024 08/21/2023 HPV/Cotest 09/07/2024 Pap Smear 09/07/2024 09/07/2023 Diabetes: Hemoglobin A1C 11/10/2024 024, 08/21/2023, 06/17/2023, Additional history exists Depression Monitoring (PHQ-9) 02/13/2025 08/15/2024, 08/15/2024 Depression Screening 08/15/2025 08/15/2024, 08/15/20 24 Tobacco Screening 09/28/2025 09/28/2024 Zoster Vaccines (1 of 2) 2045 RSV Patients and Patients Aged 60 years or older (1 - 1-dose 75+ series) 2070 HIV Screening Completed 06/15/2023 Hepatitis C Screening Completed 06/15/2023 HIB Vaccines Aged Out No longer eligi ble based on patient's age to complete this topic HPV Vaccines Aged Out No longer eligi ble based on patient's age to complete this topic Hepatitis A Vaccines Aged Out No long er eligible based on patient's age to complete this topic IPV Vaccines Aged Out No longer eligi ble based on patient's age to complete this topic Meningococcal Vaccine Aged Out No glenna cheikh eligible based on patient's age to complete this topic RSV under 20 months Aged Out No longe r eligible based on patient's age to complete this topic Rotavirus Vaccines Aged Out No longer eligible based on patient's age to complete this topic Procedures Procedure Name Priority Date/Time Associated Diagnosis Comments XR FINGERS 2+ VIEWS RIGHT Routine 12/14/2024 7:03 PM EST US ABDOMEN COMPLETE Routine 10/11/2024 8 :44 AM EST Pain of upper abdomen CHLAMYDIA/N. GONORRHOEAE RNA, TMA, UROGENITAL Routine 10/10/2024 1:38 PM EST BACTERIAL VAGINOSIS PANEL Routine 10/10/2024 1:38 PM EST POCT GLUCOSE Routine 09/29/2024 2:00 PM EST Type 2 diabetes mellitus with hyperglycemia, with long-term current use of insulin ([facility]) POCT INFLUENZA B (ID NOW RAPID MOLECULAR) Routine 09/28/2024 2:00 PM EST Strep pharyngitis POCT INFLUENZA A (ID NOW RAPID MOLECULAR) Routine 09/28/2024 2:00 PM EST Strep pharyngitis POCT RAPID STREP A Routine 09/28/2024 2: 00 PM EST Strep pharyngitis POCT RAPID COVID ANTIGEN Routine 09/28/2024 2:00 PM EST Strep pharyngitis HEMOGLOBIN A1C Routine 08/10/2024 10:20 AM EDT Type 2 diabetes mellitus with hyperglycemia, with long-term current use of insulin ([facility]) PAP SMEAR Routine 09/07/2023 1:47 PM EST ALBUMIN, RANDOM URINE W/CREATININE Routine 08/21/2023 10:40 AM EDT LIPID PANEL, STANDARD Routine 08/21/2023 10:40 AM EDT Type 2 diabetes mellitus with hyperglycemia, with long-term current use of insulin ([facility]) HEPATITIS C ANTIBODY REFLEX Routine 06/15/2023 10:00 AM EDT HIV ANTIBODY/ANTIGEN ([place] [facility]) Routine 06/15/2023 10:00 AM EDT from Last 3 Months or Most Recently Relevant to Health Maintenance Results * XR Fingers 2+ Views Right (12/14/2024 7:03 PM EST) Anatomical Region Laterality Modality Upper Extremities, Fingers Right Radio graphic Imaging 12/14/2024 7:03 PM EST Narrative 12/14/2024 7:05 PM EST ? [facility] ?[address] ?[place] [address] ?XRay Report ? Signed ? Patient: Cole,Rayna A ?MR#: MM ?? [id number] ? : 1995 ?Acct:[id number] ? Age/Sex: 29 / F ?ADM Date: 02/19/25 ? Loc: HO.ED ? Attending Dr: ? Ordering Physician: Gavin Trinidad ?? Date of Service: 12/14/24 ?? Procedure(s): XR finger RT min 2V ?? Accession Number(s): [id number] ? cc: Gavin Trinidad; Brittney Collier MD ? CLINICAL HISTORY: trauma ? 3 view right 5th digit ? Comparison: None ? Findings: ?? Small bony fragment of the base of the mid phalanx of the digit. ?? No significant arthritic change. ?? No erosions. No radiopaque foreign body. Soft tissue edema of the finger. ? IMPRESSION: ?? Small avulsion fracture of the base of the mid phalanx of the 5th digit. ? This document has been electronically signed by: Amandeep Pena MD on ?? 12/14/2024 19:03:36 ? Dictated By: ?Amandeep Pena MD ? Signed By: ?<Electronically signed by Amandeep Pena MD in OV> ? 12/14/24 1904 ? DD/ 1903 ? TD/TT: 12/14/241902 ? Mission Worker: ? Procedure Note Gilmer, Image - 12/14/2024 [place] [address] XRay Report Signed Patient: Rayna Galvan AMR#: [id number] : 1995Acct:[id number] Age/Sex: 29 FADM Date: 12/14/24 Loc: HO.ED Attending Dr: Ordering Physician: Gavin Trinidad Date of Service: 12/14/24 Procedure(s): XR finger RT min 2V Accession Number(s): [id number] cc: Gavin Trinidad; Brittney Collier MD CLINICAL HISTORY: trauma 3 view right 5th digit Comparison: None Findings: Small bony fragment of the base of the mid phalanx of the digit. No significant arthritic change. No erosions. No radiopaque foreign body. Soft tissue edema of the finger. IMPRESSION: Small avulsion fracture of the base of the mid phalanx of the 5th digit. This document has been electronically signed by: Amandeep Pena MD on 12/14/2024 19:03:36 Dictated By: Amandeep Pena MD Signed By: <Electronically signed by Amandeep Pena MD in OV> 12/14/241903 DD/ 02 TD/TT: 12/14/241902 Mission Worker: [facility] External Provider IMG XR PROCEDURES Final Result * US Abdomen Complete (10/11/2024 8:44 AM EST) Anatomical Region Laterality Modality Abdomen Ultrasound 10/11/2024 8:44 AM EST Narrative 10/17/2024 5:55 PM EST ? [facility] ?[address] ?[place] [address] ? Ultrasound Report ? Signed ? Patient: Yvette Galvannifer A ?MR#: MM ?? [id number] ? : 1995 ?Acct:[id number] ? Age/Sex: 28 / F ?ADM Date: 10/11/24 ? Loc: HO.US ? Attending Dr: Aleksey Morin MD ? Ordering Physician: ALEKSEY MORIN MD ?? Date of Service: 10/11/24 ?? Procedure(s): US abdomen complete ?? Accession Number(s): [id number] ? cc: ALEKSEY MORIN MD; Brittney Collier MD ? EXAMINATION: ?? US ABDOMEN COMPLETE ? CLINICAL INFORMATION: ?? History of recurrent upper abdominal pain with nausea and vomiting. ? COMPARISON: ?? None available. ? TECHNIQUE: ?? Real-time imaging of the abdominal viscera. Technically limited study ?? secondary to bowel gas and body habitus. ? FINDINGS: ? PANCREAS: The visualized portion of the pancreas head and body are ?? normal, portion of the pancreatic body and tail, not visualized are ?? obscured by bowel gas. ? ABDOMINAL AORTA: The proximal, mid, and distal segments are normal in ?? caliber. ? INFERIOR VENA CAVA: Visualized portions are normal. ? LIVER: The liver is normal in size. The liver contour is normal. ?? Increased echogenicity of the liver parenchyma, this can be seen in the ?? setting of hepatic steatosis or liver parenchymal disease. No focal ?? hepatic lesion. There is no intrahepatic biliary duct dilatation seen. ? GALLBLADDER: The gallbladder is physiologically distended without ?? evidence of stones, sludge, polyps, wall thickening or pericholecystic ?? fluid. ? COMMON BILE DUCT: Normal in caliber measuring 0.4 cm in diameter. ? RIGHT KIDNEY: No hydronephrosis. No renal calculi or focal parenchymal ?? lesions. The kidney measures 12.1 cm in maximum dimension. ? LEFT KIDNEY: No hydronephrosis. No renal calculi or focal parenchymal ?? lesions. The kidney measures 12.6 cm in maximum dimension. ? SPLEEN: The spleen measures 12.1 cm in maximum dimension. ? FREE FLUID: None. ? US/US abdomen complete ?? IMPRESSION: ? * ??Increased echogenicity of the liver parenchyma, this can be seen in ?? the setting of hepatic steatosis or liver parenchymal disease. ? * ??No ultrasound evidence of gallbladder disease or gallstones. ? Electronically signed by: ??Yeison Simon MD ??10/17/2024 05:53 PM EST ? Dictated By: ?Yeison Simon MD ? Signed By: ?<Electronically signed by Yeison Simon MD in OV> ?10/17/24 1753 ? DD/ 0844 ? TD/TT: 10/11/24 0859 ? Mission Worker: HS ? Procedure Note Gilmer, Lazaro - 10/17/[address] [address] Ultrasound Report Signed Patient: Rayna Galvan AMR#: [id number] : 1995Acct:[id number] Age/Sex: 28 / FADM Date: 10/11/24 Loc: HO.US Attending Dr: Aleksey Morin MD Ordering Physician: ALEKSEY MORIN MD Date of Service: 10/11/24 Procedure(s): US abdomen complete Accession Number(s): [id number] cc: ALEKSEY MORIN MD; Brittney Collier MD EXAMINATION: US ABDOMEN COMPLETE CLINICAL INFORMATION: History of recurrent upper abdominal pain with nausea and vomiting. COMPARISON: None available. TECHNIQUE: Real-time imaging of the abdominal viscera. Technically limited study secondary to bowel gas and body habitus. FINDINGS: PANCREAS: The visualized portion of the pancreas head and body are normal, portion of the pancreatic body and tail, not visualized are obscured by bowel gas. ABDOMINAL AORTA: The proximal, mid, and distal segments are normal in caliber. INFERIOR VENA CAVA: Visualized portions are normal. LIVER: The liver is normal in size. The liver contour is normal. Increased echogenicity of the liver parenchyma, this can be seen in the setting of hepatic steatosis or liver parenchymal disease. No focal hepatic lesion. There is no intrahepatic biliary duct dilatation seen. GALLBLADDER: The gallbladder is physiologically distended without evidence of stones, sludge, polyps, wall thickening or pericholecystic fluid. COMMON BILE DUCT: Normal in caliber measuring 0.4 cm in diameter. RIGHT KIDNEY: No hydronephrosis. No renal calculi or focal parenchymal lesions. The kidney measures 12.1 cm in maximum dimension. LEFT KIDNEY: No hydronephrosis. No renal calculi or focal parenchymal lesions. The kidney measures 12.6 cm in maximum dimension. SPLEEN: The spleen measures 12.1 cm in maximum dimension. FREE FLUID: None. US/US abdomen complete IMPRESSION: * Increased echogenicity of the liver parenchyma, this can be seen in the setting of hepatic steatosis or liver parenchymal disease. * No ultrasound evidence of gallbladder disease or gallstones. Electronically signed by: Yeison Simon MD 10/17/2024 05:53 PM EST Dictated By: Yeison Simon MD Signed By: <Electronically signed by Yeison Simon MD in OV> 10/17/24 1753 DD/ 0844 TD/TT: 10/11/24 0859 Mission Worker: HS us Aleksey Morin MD IM US PROCEDURES Final Result * (ABNORMAL) Bacterial Vaginosis (10/10/2024 1:38 PM EST) TRICHOMONAS VAGINALIS DETECTION BY PCR NOT DETECTED Not Detect [facility] BACTERIAL VAGINOSIS DETECTION BY PCR POSITIVE(A) Negative [facility] Comment:The BV organism targ ets of the Xpert Xpress MVP test can becommensal in women; Xpert Xpress MVP positive results forbacterial vaginosis should be considered in conjunction withother clinical and patient information to determine thedisease status. Organisms that are not detected by the XpertXpress MVP test have also been reported to be associatedwith BV and aerobic vaginitis.The Xpert Xpress MVP test performance has not been evaluatedin patients under the age of 14. CRISTINA GROUP DETECTION BY PCR NOT DETECTED Not Detect [facility] Cristina glab krusei PCR NOT DETECTED Not Detect [facility] 10/10/2024 1:38 PM EST 10/10/2024 3:24 PM EST us Generic External Data Provider LAB MICROBIOLOGY - GENERAL ORDERABLES Final Result [facility] [address] [place] [phone] * Chlamydia/N. Gonorrhoeae RNA, TMA, Urogenitial (10/10/2024 1:38 PM EST) CT PCR NOT DETECTED Not Detect. [facility] Comment:A not detected test result does not exclude the possibilityof infection because test results can be affected byimproper specimen collection, concurrent antibiotic therapy,or the number of organisms in the specimen which may bebelow the sensitivity of the test. As with many diagnostictests, results from the Xpert CT/NG assay should beinterpreted in conjunction with other laboratory andclinical data available to the clinician.Xpert CT/NG performance has not been evaluated in patientsless than 14 years of age. The assay should not be used forthe evaluationof suspected sexual abuse or for other medico-legalindications. Additional testing is recommended in anycircumstance when false positive or false negative resultscould lead to adverse medical, social or psychologicalconsequences. NG PCR NOT DETECTED Not Detect. [facility] Comment:A not detected test result does not exclude the possibilityof infection because test results can be affected byimproper specimen collection, concurrent antibiotic therapy,or the number of organisms in the specimen which may bebelow the sensitivity of the test. As with many diagnostictests, results from the Xpert CT/NG assay should beinterpreted in conjunction with other laboratory andclinical data available to the clinician.Xpert CT/NG performance has not been evaluated in patientsless than 14 years of age. The assay should not be used forthe evaluationof suspected sexual abuse or for other medico-legalindications. Additional testing is recommended in anycircumstance when false positive or false negative resultscould lead to adverse medical, social or psychologicalconsequences. 10/10/2024 1:38 PM EST 10/10/2024 3:24 PM EST Narrative [facility] - 10/10/2024 6:55 PM EST Vaginal Generic External Data Provider LAB MICROBIOLOGY - GENERAL ORDERABLES Final Result Performing Organization Address [facility]/ZIP Co de Phone Number [facility] [address] [place] [phone] * POCT Glucose (09/29/2024 2:00 PM EST) Glucose Blood, POC 155 60 - 200 mg/dL QC Media Lot # [id number] Lot# Expiration Date Blood Capillary blood specimen / Unknown 09/29/2024 2:00 PM EST Brittney Garcia MD POINT OF CARE VIKAS T ENTER/EDIT ORDERABLES Final Result * Influenza B (ID NOW Rapid Molecular) (09/28/2024 2:00 PM EST) Influenza B Negative Negative, Indeterminate [facility] Swab 09/28/2024 2:00 PM EST Aleksey Morin MD POINT OF CARE TEST ENTER/EDIT OR DERABLES Final Result Performing Organization Address City/[facility]/ZIP Co de Phone Number [facility] [address] [place] [phone] * Influenza A (ID NOW Rapid Molecular) (09/28/2024 2:00 PM EST) [facility] Influenza A Negative Negative, Indeterminate [facility] Swab 09/28/2024 2:00 PM EST us Aleksey Morin MD POINT OF CARE TEST ENTER/EDIT OR DERABLES Final Result Performing Organization Address [facility] de Phone Number [facility] [address] [place] [phone] * POCT Rapid COVID Ag (09/28/2024 2:00 PM EST) [facility] Rapid COVID Ag Negative [facility] Swab 09/28/2024 2:00 PM EST us Aleksey Morin MD POINT OF CARE TEST ENTER/EDIT OR DERABLES Final Result Performing Organization Address [facility] Co de Phone Number [facility] [address] [place] [phone] * (ABNORMAL) POCT rapid strep A manually resulted (09/28/2024 2:00 PM EST) [facility] Rapid Strep A Screen Positive( A) Negative, None Detected [facility] Swab 09/28/2024 2:00 PM EST us Aleksey Morin MD POINT OF CARE TEST ENTER/EDIT OR DERABLES Final Result Performing Organization Address [facility] de Phone Number [facility] [address] [place] [address] [phone] * (ABNORMAL) Hemoglobin A1c (08/10/2024 10:20 AM EDT) [facility] Hemoglobin A1c 11.5(H) <6.0 % [facility] Comment:Hemoglobin A1C Refer ence Range Adults: 4.8 - 6.0 % Non diabetic: < 6.0 % Goal: < 7.0 %Additional Action Suggested: > 8.0 %Note: Hemoglobin A1c results are invalid for patients with abnormal amounts of HbF. Blood transfusions may impact the HbA1c concentration in the patient sample. Estimated Average Glucose 283 mg/dL [facility] Comment:eAG = Estimated ave rage glucose which is %A1C expressed asaverage glucose, using the formula of the Y9E-FinoudnUezpxuw Glucose study (ADAG), Diabetes Care, Vol.31,#8,2007 Blood Venous blood specimen / Unknown 08/10/2024 10:20 AM EDT 08/10/2024 11:43 AM EDT us [facility] LAB BLOOD ORDERABLES Final Resul t [facility] [address] [place] [address] [phone] * Pap Smear (09/07/2023 1:47 PM EST) 09/07/2023 1:47 PM EST 09/08/2023 11:30 AM EST Narrative [facility] - 09/28/2023 9:19 AM EST ----- ------- Name: Rayna Galvan ? Age/Sex: 27/F ? : 1995 Unit#: [id number] ?? Attend Dr: Maxwell Felton MD ?Re09/07/23 ?Status: DEP REF ? Location: .LAB ?Disch: ? ----- ------- SPEC : [id number] ?RECD: 09/08/23 ? STATUS: ??SOUT ? REQ NUM: [id number] ? [place]: 09/07/236 ? SUBM DR: Maxwell Felton MD ? ENTERED: ??09/08/23 ?SP TYPE: Pap Smr ?OTHR DR: Brittney Collier MD ORDERED: ??Pap Smear, PAP path review ? Interpretation ?? General Category: ??Epithelial cell abnormality. ?? Adequacy: ? Endocervical component present. ?? Interpretation: ? Low grade squamous intraepithelial lesion (ABRAM I). ? HPV mRNA E6/E7: ?Not detected ? This assay detects E6/E7 viral messenger RNA (mRNA) from 14 high-risk HPV types (16, 18, ?? 31, 33, 35, 39, 45, 51, 52, 56, 58, 59, 66, 68) ?? HPV testing performed by [employer]. ??See reference laboratory ?? portion of the EMR for entire report. ?Clinical Information LMP: 07/18 Previous PAP test: Unknown date/findings Other history: Abnormal uterine and vaginal bleeding ? Material Received ?? ThinPrep-Cervical Copies To: ?? Brittney Collier MD ?? [address] [facility] ?? [place] ?? [phone] ?? Maxwell Felton MD ?? [address] [facility] ?? [place] ?? [phone] ----- ------- Signed (signature on file) Liberty Dimas MD 09/28/2319 ? ----- ------- ? END OF REPORT ? us Generic External Data Provider LAB CYTOLOGY DANA MALDONADO Final Result [facility] [address] [place] [phone] * Albumin, Random Urine W/Creatinine (08/21/2023 10:40 AM EDT) Creatinine, Urine 276.18 mg/dL [facility] Microalbumin Urine 28.0 mg/L [facility] Microalbum Creatinine Ratio Ur 10.1 <30 ug/mg cr [facility] Comment:Albumin/Creatinine R atio Reference Ranges: Normal: < 30 ug/mg creatinine Microalbuminuria: 30 - 300 ug/mg creatinineClinical Albuminuria: > 300 ug/mg creatinine 08/21/2023 10:4 0 AM EDT 08/21/2023 1:24 PM EDT us Brittney Garcia MD LAB URINE ORDERAB LES Final Result [facility] [address] [place] [address] [phone] * (ABNORMAL) Lipid Panel, Standard (08/21/2023 10:40 AM EDT) Triglycerides 89 <150 mg/dL [facility] Comment:Desirable Triglyceri de: less than 150 mg/dLBorderline High Triglyceride 150-199 mg/dLHigh Triglyceride: 200-499 mg/dLVery High Triglyceride: greater than or equal to 5OO mg/dL Cholesterol 137 <200 mg/dL [facility] Comment:Desirable Cholestero l: less than 200 mg/dLBorderline High Cholesterol: 200-239 mg/dLHigh Cholesterol: greater than 239 mg/dL LDL Cholesterol Calculated 90 <100 mg/dL [facility] Comment:Desirable LDL: less than 100 mg/dLNear Optimal/Above Optimal LDL: 110- 129 mg/dLBorderline High LDL: 130-159 mg/dLHigh LDL: 160-189 mg/dLVery High LDL: greater than or equal to 190 mg/dL HDL Cholesterol 30(L) >40 mg/dL [facility] Comment:Desirable HDL: great er than 40 mg/dL Note: This HDL assay may give artificially low results in patients with liver disease. Blood Venous blood specimen / Unknown 08/21/2023 10:40 AM EDT 08/21/2023 11:11 AM EDT Brittney Garcia MD LAB BLOOD ORDERAB LES Final Result Performing Organization Address [facility] de Phone Number [facility] [address] [place] [phone] * Hepatitis C Antibody Reflex (06/15/2023 10:00 AM EDT) Hepatitis C Antibody Nonreactive Nonreactive [facility] Comment:Antibodies to HCV no t detected; does not exclude early acuteHCV infection. 06/15/2023 10:0 0 AM EDT 06/15/2023 11:32 AM EDT Jen KNOWLES LAB BLOOD ORDERABLES Final Resul t Performing Organization Address [facility] Number [facility] [address] [place] [phone] * HIV Ab/Ag (MIKE MARR) (06/15/2023 10:00 AM EDT) HIV AB/AG Nonreactive Nonreactive [facility] Comment:HIV-1 p24 Ag and/or HIV-1/HIV-2 Ab not detected.A test result that is nonreactive does not exclude thepossibility of exposure to or infection with HIV-1 and/orHIV-2. Nonreactive results in this assay for individualswith prior exposure to HIV-1 and/or HIV-2 may be due toantigen and antibody levels that are below the limit ofdetection of this assay.The [employer] Configuration Specialist HIV Ag/Ab Combo assay result andsupplemental assay results should be interpreted inconjunction with the patient's clinical presentation,history and other laboratory results. If the results areinconsistent with clinical evidence, additional testing issuggested to confirm the result. 06/15/2023 10:0 0 AM EDT 06/15/2023 11:32 AM EDT Jen KNOWLES LAB BLOOD ORDERABLES Final Resul t [facility] [address] [place] [phone] from Last 3 Months or Most Recently Relevant to Health Maintenance Insurance [facility] STANDARD DENTAL-[facility] MEDICAID STAND ADULT Care Teams Metal Welder Relationship Specialty Start Date End Date Brittney Collier MD [address] [place] [phone] PCP - General Internal Medicine 08/06/23
--- OUTSIDE RECORDS SUMMARY | 2024-12-21 13:57 | XMS_ITS | Encounter Summary ---
Author Organization [employer] Address [address] [facility] 7t [place] [address] Care Team Providers Care Supervisor Fiber Locking Name Role Phone Brittney Collier MD Primary Care Pro vider Reason for Visit * Reason Onset Date Comments Reschedule 10/16/2023 Encounter Details Date Type Department Care Team ([facility] st Contact Info) Description 10/16/2023 Telephone [facility] MEDICINE [address] [place], [place] [phone] Brittney Collier MD [address] [place], [place] [phone] Reschedule Social History Tobacco Use Types Packs/Day Years [...] encounter Miscellaneous Notes * Telephone Encounter - Suzanna Bolivar - 10/16/2023 1:03 PM EST Tc from pt requesting r/s FUE appt with PCP, insurance underwriter attempted to r/s no availability. documented in this encounter Plan of Treatment Not on file documented as of this encounter Visit Diagnoses Not on filedocumented in this encounter Additional Health Concerns Assessment Noted Time PHQ-9 Depression Total Score: 5 08/06/20 2:15 PM EDT documented as of this encounter Care Teams Supervisor Fiber Locking Relationship Specialty Start Date End Date Brittney Collier MD [address] [place] [phone] PCP - General Internal Medicine 08/06/23 documented as of this encounter
--- OUTSIDE RECORDS SUMMARY | 2024-12-21 13:57 | XMS_ITS | Encounter Summary ---
Author Organization [employer] Address [address] [facility] 7t [place] [address] Care Team Providers Care Contracting Officer Name Role Phone Brittney Collier MD Primary Care Pro vider Encounter Details Date Type Department Care Team (Late st Contact Info) Description 12/14/2024 Orders Only [facility] External Provider, [facility] Social History Tobacco Use Types Packs/Day Years [...] with others, in a hotel, in a skilled nursing, living outside on the street, on a [...] on file documented as of this encounter Procedures Procedure Name Priority Date/Time Associated Diagnosis Comments XR FINGERS 2+ VIEWS RIGHT Routine 12/14/2024 7:03 PM EST documented in this encounter Results * XR Fingers 2+ Views Right (12/14/2024 7:03 PM EST) Anatomical Region Laterality Modality Upper Extremities, Fingers Right Radio graphic Imaging 12/14/2024 7:03 PM EST Narrative 12/14/2024 7:05 PM EST ? [facility] ?[address] ?[place] [address] ?XRay Report ? Signed ? Patient: Rayna Galvan ?MR#: [id number] ?? [id number] ? : 1995 ?Acct:[id number] ? Age/Sex: 29 / F ?ADM Date: 12/14/24 ? Loc: HO.ED ? Attending Dr: ? Ordering Physician: Gavin Trinidad ?? Date of Service: 12/14/24 ?? Procedure(s): XR finger RT min 2V ?? Accession Number(s): [id number] ? cc: Gavin Trinidad; Brittney Collier MD [...] by Amandeep Pena MD in OV> ? 12/14/241903 ? DD/ 02 ? TD/TT: 12/14/241902 ? Outside Machinist: ? Procedure Note Donotsachinter, Image - 12/14/[address] [address] XRay Report Signed Patient: Rayna Galvan AMR#: [id number] : 1995Acct:[id number] Age/Sex: 29 / FADM Date: 12/14/24 Loc: HO.ED Attending Dr: Ordering Physician: Gavin Trinidad Date of Service: 12/14/24 Procedure(s): XR finger RT min 2V Accession Number(s): [id number] cc: Gavin Trinidad; Brittney Collier MD CLINICAL [...] in OV> 12/14/241903 DD/ 02 TD/TT: 12/14/241902 Outside Machinist: [facility] External Provider IMG XR PROCEDURES Final Result documented in this encounter Visit Diagnoses Not on filedocumented in this encounter Additional Health Concerns Assessment Noted Time PHQ-9 Depression Total Score: 16 024 2:07 PM EDT documented as of this encounter Care Teams Contracting Officer Relationship Specialty Start Date End Date Brittney Collier MD [address] [place] [phone] PCP - General Internal Medicine 08/06/23 documented as of this encounter
--- OUTSIDE RECORDS SUMMARY | 2024-12-21 13:57 | XMS_ITS | Encounter Summary ---
Author Organization [employer] Address [address] [facility] 7t [place] [address] Care Team Providers Care Golf Club Repairer Name Role Phone Jen Leonardo Primary Care Provider [phone] Brittney Collier MD Primary Care Pro vider Reason for Visit * Reason Onset Date Comments New Patient 06/17/2023 Encounter Details Date Type Department Care Team (Late st Contact Info) Description 06/17/2023 Telephone [facility] MEDICINE [address] [place], [place] [phone] Eulogio Goldstein MD [address] [place], [place] [phone] New Patient Social History Tobacco Use Types Packs/Day Years Used Date Smoking Tobacco: Never Passive Smoke Exposure: Never Smokeless Tobacco: Never Alcohol Use Standard Drinks/Week Comments Not Currently 0 (1 standard drink = 0.6 oz pur e alcohol) Comments Unknown Sex and Gender Information Value Date Recorded Sex Assigned at Female 06/12/2023 2:35 PM EDT Legal Sex Female 2:33 PM EDT Gender Identity Female 06/12/2023 2:35 PM EDT Sexual Orientation Straight 06/12/2023 2: 36 PM EDT documented as of this encounter Miscellaneous Notes * Telephone Encounter - Margarita Canchola - 06/26/2023 2:50 PM EDT PAR Margarita Arora called pt to Offer SOLAR DESIGN ENGINEER appt. Pt demographics and insurance information were verified. Pt reports the following medical conditions: Thyroid, Asthma, Diabetic, and Anemic. Pt is currently taking medication: Synthroid, Lantus, Humalog, and Albuterol. Pt given SOLAR DESIGN ENGINEER appt with PCP CARMEN Spear on 07/29/2023 @ 2:15 Pm. Pt will be sent appt reminder card and medical release form and agrees to complete and to return to medical records prior to SOLAR DESIGN ENGINEER appt. * Telephone Encounter - Margarita Canchola - 06/17/2023 12:55 PM EDT Pt has been transfer over to wait list for SOLAR DESIGN ENGINEER. EFFECTIVE SINCE 06/17/2023 documented in this encounter Plan of Treatment Not on file documented as of this encounter Visit Diagnoses Not on filedocumented in this encounter Care Teams Golf Club Repairer Relationship Specialty Start Date End Date Jen Leonardo ANP [address] [place] [phone] PCP - General Family Medicine 07/10/23 08/05/23 Brittney Collier MD [address] [place] [phone] PCP - General Internal Medicine 08/06/23 documented as of this encounter
--- OUTSIDE RECORDS SUMMARY | 2024-12-21 13:57 | XMS_ITS | Encounter Summary ---
Author Organization [employer] Address [address] [place] [address] 7 [place] [address] Care Team Providers Care Experimental Mechanic Outboard Motors Name Role Phone Jen Leonardo Primary Care Provider [phone] Brittney Collier MD Primary Care Pro vider Reason for Visit * Reason Comments Med Refill Encounter Details Date Type Department Care Team (Late st Contact Info) Description 06/17/2023 Refill [facility] [address] [place] [address] [phone] Brooke Gutierrez MD [address] [place], [place] [phone] Iron deficiency anemia, unspecified iron deficiency anemia type Social History Tobacco Use Types Packs/Day Years [...] as of this encounter Visit Diagnoses Diagnosis Iron deficiency anemia, unspecified iron deficiency anemia type documented in this encounter Care Teams Experimental Mechanic Outboard Motors Relationship Specialty Start Date End Date Jen Leonardo ANP [address] [place] [address] [phone] PCP - General Family Medicine 07/10/23 08/05/23 Brittney Collier MD [address] [place] [phone] PCP - General Internal Medicine 08/06/23 documented as of this encounter
== END 2024-12-21 11:07 | disposition home or self-care (01) ==
LOC: HO.HOSX 11:06
PROVIDERS: Visit Provider Orthopaedic Surgery
DX: S62.626D Displaced fracture of middle phalanx of right little finger, subsequent encounter for fracture with routine healing (principal); M79.641 Pain in right hand; N93.9 Abnormal uterine and vaginal bleeding, unspecified; Z97.5 Presence of (intrauterine) contraceptive device; N76.0 Acute vaginitis
CPT/HCPCS: 26740; 73130; 99202; 99212

== ENCOUNTER 2024-12-21 11:07 | Outpatient (AMB) | payer MEDICAID, SELFPAY ==
--- NOTE | 2024-12-21 11:33 | A.OFFVIS_ITS ---
Vital Signs 12/21/24 11:34 Height 5 ft 8 in Weight 274 lb BMI 41.7 Intake Visit Reasons: FC-right 5th finger FC-DOI 12/12/24 Intake Note: Rayna 29 yr old right hand dominant female presents today for her right hand injury from DOI 12/12/24. States she went sledding and fell. Her right small finger went backwards. She didnt feel any pain at the moment but a few days la ter she noticed her small finger was turning black. Seen in [facility] where a fracture was confirm and her finger was splinted. Currently states she has pain, numbness only in her small finger. Denies locking of any finger. Patient is diabetic. 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 Allergies aspirin Adverse Reaction (Verified 12/21/24 11:38) Fatigued HPI HPI FC-right 5th finger FC-DOI 12/12/24: Details: Rayna is a 29 year old right hand dominant Diabetic woman who presents for a right small finger fracture, frod a sledding injury, DOI: 12/11/24. She was seen in the ED on 12/14/24 and fitted for a hand splint . She complains of pain & stiffness in her small finger. 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 Sexual orientation: Straight/Heterosexual Gender identity: Female Review of Systems Const All systems reviewed & are unremarkable except as noted in HPI and below Physical Exam Vital Signs: BMI result Body Mass Index 41.7 Const General: cooperative, healthy appearing and no acute distress Orientation/consciousness: patient oriented x3 HEENT Head: Yes normocephalic and Yes atraumatic Eyes EOM: EOMs intact bilaterally Resp Effort & Inspection: normal respiratory effort and able to speak in complete sentences Cardio Jugular venous distension: no JVD Skin General skin exam: turgor normal Rashes: no rashes Neuro General: patient oriented x3 Extrem Other: Evaluation of Right Upper Extremity: The patient is alert, oriented, and in no acute distress She has been wearing her finger splint, with her small finger held in extension since she was in the ED. Neuro: Median, Ulnar, Radial nerves motor and sensory intact Vascular: Cap refill brisk ROM: Initially she was hesitant to move her small finger when out of her splint, secondary to pain We worked on ROM exercises today in clinic Before leaving clinic she could bring her small finger from full extension, to the fingertip being about 1 cm from her palm. She will practices exercises every day while at home FDP & FDS tendons intact Skin: No lacerations or abrasions or evidence of open fracture She still has some tenderness over the volar aspect of the PIP joint. She initially had some pain when attempting range of motion, but I believe most of this was secondary to stiffness from having her finger splinted in extension for over a week. Radiographs: 3 views of the right hand were taken & viewed by me today in clinic. They show a small finger middle phalanx volar base small volar avulsion fracture Psych Appearance: grossly normal Affect: normal affect Attitude: cooperative Office Procedures AMB Fracture Care Details: Fracture care middle phalanx fracture, articular [id number] Fracture Billing Code: Fracture Billing Code Assessment & Plan Assessment & Plan (1) Fracture of middle phalanx of right little finger: Code(s): S62.626A - Displaced fracture of middle phalanx of right little finger, initial encounter for closed fracture Category: Medical Plan Assessment & Plan 1. Right small finger middle phalanx fracture, avulsion volar base From a sledding accident, DOI: 12/11/24 Seen in ED on 12/14/24 2. Right small finger numbness Improving, no lacerations I educated her about this condition I discussed operative and non-operative treatment options We will manage this conservatively, and she is in agreement This will be treated with cydney-taping as a Dynamic splint, to be worn for the next 4 weeks with daytime activities I discussed activity modifications, she is to lift nothing heavier than a cellphone for the next 3 weeks. 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 She was given a note for work today. She can also be on light duty for the next 3 weeks, 2 lb weight limit She will follow up in 4-6 weeks for [id number] check. Radiographs are necessary only if she is having trouble or re-injured the finger. Consider OT referral if she continues to have difficulty with ROM Scribed for Sulma Melendez MD by Jose Hyatt nuclear medical technologist, on 12/21/24 at 12:00 PM, EST. Orders: Orders XR hand RT min 3V Today M79.641 - Pain in right hand Coding Level of Care Code New Pt Level 4 (44765) Diagnoses Fracture of middle phalanx of right little finger S62.626A CPT Codes Fracture Care - Fracture Billing Code: Fracture Billing Code ([id number])
[2024-12-21 11:34] VITALS: BMI 41.7
== END 2024-12-21 12:18 | disposition home or self-care (01) ==
PROVIDERS: PCP Student in an Organized Health Care Education/Training Program; Visit Provider Orthopaedic Surgery
DX: S62.626A Displaced fracture of middle phalanx of right little finger, initial encounter for closed fracture (principal)
CPT/HCPCS: 26740; 99204

== ENCOUNTER → 2024-12-21 11:28 | Outpatient (BNV) | payer MEDICAID, SELFPAY | PROVIDERS: Visit Provider Radiology Diagnostic Radiology | DX: S62.626A Displaced fracture of middle phalanx of right little finger, initial encounter for closed fracture (principal); S63.436A Traumatic rupture of volar plate of right little finger at metacarpophalangeal and interphalangeal joint, initial encounter | CPT/HCPCS: 73130 ==

== ENCOUNTER 2024-12-21 12:52 | Outpatient (AMB) | payer MEDICAID, SELFPAY ==
--- NOTE | 2024-12-21 12:53 | MHC.OFFVIS ---
Intake Visit Reasons: Bleeding on Mirena Cigar Packer And Picker: Cigar Packer And Picker Present (Rohini) Accompanied by: Daughter Allergies aspirin Adverse Reaction (Verified 12/21/24 12:58) Fatigued HPI Comments Details: Presenting complaining of continuous vaginal bleeding since IUD insertion in addition to vaginal odor [facility] Medical History Hypothyroid Asthma Diabetes mellitus Family History Paternal Grandfather Lung cancer Social History Household Members: Family Alcohol intake: never Patient Tobacco Use Status: Never used Tobacco Substance Use Type: Marijuana service: No Current occupational status: employed 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 Sexual orientation: Straight/Heterosexual Gender identity: Female Review of Systems Const All systems reviewed & are unremarkable except as noted in HPI and below Physical Exam General: Yes no CVA tenderness External Female Exam: normal external appearance and normal appearance of the urethra Speculum Exam - Vagina: normal appearance of the vagina, normal palpation, no lesions and no masses Speculum Exam - Cervix: normal appearance of the cervix, normal palpation, no lesions, no masses, nontender and Other cervical findings present (IUD thread in place) Bimanual exam- vagina & uterus: normal bimanual exam, normal palpation, uterine size normal, normal palpation, uterine shape normal, No Cervical tenderness present and non-tender Bimanual Exam- Adnexa, other: normal adnexae Back/Spine/Pelvis Back: no CVA tenderness Assessment & Plan Assessment & Plan (1) Abnormal uterine bleeding: Comment: Possible PCOS Code(s): N93.9 - Abnormal uterine and vaginal bleeding, unspecified Category: Medical Plan: UPT done in the office was negative, GC/CT collected, will order CBC, TSH, hCG and pelvic ultrasound. Recommended EMB to rule out endometrial pathology including endometrial hyperplasia and/or malignancy . Instructions given the patient is schedule an appointment for EMB in a week after BV is cleared (2) Bacterial vaginosis: Code(s): N76.0 - Acute vaginitis; B96.89 - Other specified bacterial agents as the cause of diseases classified elsewhere Category: Medical Plan: GC and chlamydia cultures with BV panel taken. Per CDC recommendation, will screen for STI, HepBs Ag, HIV, RPR, Hep C Ab ordered. Will treat with Flagyl 500 mg p.o. b.i.d. x 7 days, Instructions given to the patient to refrain from sexual activity or to use condoms consistently and correctly during the BV treatment regimen, not to douch, it might increase the risk for relapse, and to call if symptoms persist or recur. Orders: Orders TSH reflex Free T4 Today N93.9 - Abnormal uterine and vaginal bleeding, unspecified HCG Quantitative Today N93.9 - Abnormal uterine and vaginal bleeding, unspecified US pelvic and transvaginal Today N93.9 - Abnormal uterine and vaginal bleeding, unspecified Syphilis Screen Today B96.89 - Other specified bacterial agents as the cause of diseases classified elsewhere, N76.0 - Acute vaginitis HIV Ab/Ag Today B96.89 - Other specified bacterial agents as the cause of diseases classified elsewhere, N76.0 - Acute vaginitis Hepatitis B Surface Antigen Today B96.89 - Other specified bacterial agents as the cause of diseases classified elsewhere, N76.0 - Acute vaginitis Hepatitis C Antibody Today B96.89 - Other specified bacterial agents as the cause of diseases classified elsewhere, N76.0 - Acute vaginitis Complete Blood Count no Diff Today N93.9 - Abnormal uterine and vaginal bleeding, unspecified Medications: New metronidazole 500 mg PO BID 7 days 14 tabs 0RF Coding Level of Care Code Est Pt Level 3 (30744) Diagnoses Abnormal uterine bleeding N93.9 Bacterial vaginosis N76.0; B96.89
--- OUTSIDE RECORDS SUMMARY | 2024-12-21 15:44 | XMS_ITS | Encounter Summary ---
Author Organization [email or web address] Address [address] [facility] 7 [place] [address] Care Team Providers Care Gyroscope Repairer Name Role Phone Brittney Collier MD Primary Care Pro vider Reason for Visit * Reason Onset Date Comments Prior Authorization 12/13/2024 MATILDE RAMOS Reques t: Synthroid Encounter Details Date Type Department Care Team ([facility] st Contact Info) Description 12/13/2024 Telephone [facility] MEDICINE [address] [place], [place] [phone] Brittney Collier MD [address] [place], [place] [phone] Prior Authorization (MATILDE RAMOS Request: Synthroid) Social [...] PA for Synthroid signed and faxed to [facility]. Confirmation received and sent to [employer]. If patient calls to check status on above, please advise them to contact Pharmacy . * Telephone Encounter - Abril Galvan - 12/13/2024 2:06 PM EST PA for Synthroid from [facility] placed on PCP desk for signature. documented in this encounter Plan of Treatment Not on file documented as of this encounter Visit Diagnoses Not on filedocumented in this encounter Additional Health Concerns Assessment Noted Time PHQ-9 Depression Total Score: 16 024 2:07 PM EDT documented as of this encounter Care Teams Gyroscope Repairer Relationship Specialty Start Date End Date Brittney Collier MD [address] [place] [phone] PCP - General Internal Medicine 08/06/23 documented as of this encounter
--- OUTSIDE RECORDS SUMMARY | 2024-12-21 15:44 | XMS_ITS | Encounter Summary ---
Author Organization [employer] Address [address] [facility] 7 [place] [address] Care Team Providers Care Wide Piece Goods Inspector Name Role Phone Brittney Collier MD Primary Care Pro vider Reason for Visit * Reason Onset Date Comments Med Refill 12/20/2024 Encounter Details Date Type Department Care Team (Late st Contact Info) Description 12/20/[address] [facility] MEDICINE [address] [place], [place] [phone] Brittney Collier MD [address] [place], [place] [phone] Type 2 diabetes mellitus with hyperglycemia, with long-term current use of insulin ([facility]); Acquired hypothyroidism Social History Tobacco Use [...] with others, in a hotel, in a nursing home, living outside on the street, on a [...] Base) MCG/ACT inhaler To be sent to: [facility] - [place], [place] - [address] [facility] documented in this encounter Plan of Treatment Not on file documented as of this encounter Visit Diagnoses Diagnosis Type 2 diabetes mellitus with hyperglycemia, with long-term current use of insulin ([facility]) Acquired hypothyroidism Unspecified hypothyroidism documented in this encounter Additional Health Concerns Assessment Noted Time PHQ-9 Depression Total Score: 16 024 2:07 PM EDT documented as of this encounter Care Teams Wide Piece Goods Inspector Relationship Specialty Start Date End Date Brittney Collier MD [address] [place] [phone] PCP - General Internal Medicine 08/06/23 documented as of this encounter
--- OUTSIDE RECORDS SUMMARY | 2024-12-21 15:44 | XMS_ITS | Encounter Summary ---
Author Organization [employer] Address [address] [facility] 7t [place] [address] Care Team Providers Care Brick And Tile Making Machine Operator Name Role Phone Brittney Collier MD Primary Care Pro vider Encounter Details Date Type Department Care Team (Late st Contact Info) Description 12/14/2024 Orders Only [facility] External Provider, [facility] Social History Tobacco Use Types Packs/Day Years [...] with others, in a hotel, in a mcc, living outside on the street, on a [...] EST Narrative 12/14/2024 7:05 PM EST ? [facility] ?[address] ?[place] [address] ?XRay Report ? Signed ? Patient: Rayna Galvan ?MR#: [id number] ?? [id number] ? : 1995 ?Acct:[id number] ? Age/Sex: 29 / F ?ADM Date: 12/14/24 ? Loc: HO.ED ? Attending Dr: ? Ordering Physician: Gavin Trinidad ?? Date of Service: 12/14/24 ?? Procedure(s): XR finger RT min 2V ?? Accession Number(s): [id number] ? cc: Gavin Trinidad; Brittney Collier MD [...] ? DD/ 02 ? TD/TT: 12/14/241902 ? Area Safety Manager: ? Procedure Note Donotsachinter, Image - 12/14/[address] [address] XRay Report Signed Patient: Rayna Galvan AMR#: [id number] : 1995Acct:[id number] Age/Sex: 29 / FADM Date: 12/14/24 Loc: HO.ED Attending Dr: Ordering Physician: Gavin Trinidad Date of Service: 12/14/24 Procedure(s): XR finger RT min 2V Accession Number(s): [id number] cc: Gavin Trinidad; Brittney Collier MD CLINICAL [...] in OV> 12/14/241903 DD/ 02 TD/TT: 12/14/241902 Area Safety Manager: [facility] External Provider IMG XR PROCEDURES Final Result documented in this encounter Visit Diagnoses Not on filedocumented in this encounter Additional Health Concerns Assessment Noted Time PHQ-9 Depression Total Score: 16 024 2:07 PM EDT documented as of this encounter Care Teams Brick And Tile Making Machine Operator Relationship Specialty Start Date End Date Brittney Collier MD [address] [place] [phone] PCP - General Internal Medicine 08/06/23 documented as of this encounter
--- OUTSIDE RECORDS SUMMARY | 2024-12-21 15:45 | XMS_ITS | Encounter Summary ---
Author Organization [employer] Address 75 [facility] 7t [place] [address] Care Team Providers Care Commercial Photographer Name Role Phone Brittney Collier MD Primary Care Pro vider Reason for Visit * Reason Comments Med Refill Encounter Details Date Type Department Care Team (Late st Contact Info) Description 12/31/2023 Refill [facility] [address] [place], [place] [phone] Brooke Gutierrez MD [address] [place], [place] [phone] Social History Tobacco Use Types Packs/Day Years [...] with others, in a hotel, in a jail, living outside on the street, on a [...] documented as of this encounter Care Teams Commercial Photographer Relationship Specialty Start Date End Date Brittney Collier MD [address] [place] [phone] PCP - General Internal Medicine 08/06/23 documented as of this encounter
--- OUTSIDE RECORDS SUMMARY | 2024-12-21 15:45 | XMS_ITS | Clinical Summary ---
Author Organization [employer] Address 75 [facility] 7t [place] [address] Care Team Providers Care Public Safety Director Name Role Phone Brittney Collier MD Primary [...] 1 kit 023 Active Continuous Blood Gluc Vmware Engineer (FreeStyle Jose Angel 2 [place]) device Use as directed to monitor glucose [...] Glucose Sensor (FreeStyle Jose Angel 2 Sensor) [facility] USE DIRECTED. CHANGE EVERY 14 DAYS 2 [...] hyperglycemia, with long-term current use of insulin ([facility]) Inject 2.5 mg under the skin 1 [...] hyperglycemia, with long-term current use of insulin ([facility]) Inject 2.5 mg under the skin 1 [...] intent. Severe anxiety and family relocation from [place] to [place] are leading to an increase of symptoms. Connected with services for individual therapy with [facility]; attends sessions twice per week. Provided [...] resilience. PLAN: 1. Follow up with [facility]: Not recommended for follow-up 2. Patient goal is to be able to control anger and continue attending therapy sessions 3. Behavioral Recommendations a. Incorporate breathing techniques into daily routine b. Continue attending therapy sessions with [facility] c. Contact [facility] program if needed for emergencies Assessment & Plan (08/10/2023 3:00 PM EDT): Patient with anxiety symptoms. Self-harm thought with no plan. Severe anxiety and family relocation from [place] to [place] are leading to an increase of symptoms. Connected with services for individual therapy with [facility]; attends sessions twice per week. Provided [...] resilience. PLAN: 1. Follow up with [facility]: Not recommended for follow-up 2. Patient goal is to continue attending therapy sessions with [facility] 3. Behavioral Recommendations a. Incorporate breathing [...] w new PCP DM supplies sent to [facility] pharmacy Resolved Problems Problem Noted Date Diagnosed Date Resolved Date Anemia 06/25/2023 08/06/2023 Encounters Date Type Department Care Team Description 12/20/2024 Refill [facility] [address] [place] [address] Brittney Collier MD Type 2 diabetes mellitus with hyperglycemia, with long-term current use of insulin ([facility]); Acquired hypothyroidism 12/14/2024 Orders Only [facility] External Provider, [facility] 12/13/2024 Telephone [facility] [address] [place] [address] Brittney Collier MD Prior Authorization ( [place] Request: Synthroid) 11/21/[address] [address] Brittney Collier MD Med Refill 11/21/2024 Refill [facility] [address] [place] [address] Juanita Dye, PharmD Type 2 diabetes mellitus with hyperglycemia, with long-term current use of insulin ([facility]) 11/21/2024 Refill [facility] [address] [place] [address] Brittney Collier MD Diabetic retinopathy screening; Type 2 diabetes mellitus with hyperglycemia, with long-term current use of insulin ([facility]); Depression with anxiety 10/21/2024 Telephone [facility] [address] [place] [address] Juanita Dye, PharmD 10/10/2024 Orders Only GENERIC EXTERNAL DATA DEPARTMENT Provider, Generic External Data 10/04/2024 Refill [facility] [address] [place] [address] Brooke Gutierrez MD 10/03/[address] [address] Brittney Collier MD Appointment cancelation 10/03/2024 Telephone [facility] [address] [place] [address] Glenis Fiore [place] Appointment 09/29/2024 Travel 09/28/2024 2:20 PM EST Office Visit [facility] [address] [place] [address] Aleksey Morin MD Strep pharyngitis (Primary Dx); Pain of upper abdomen 09/28/2024 Travel 09/23/2024 Refill [facility] [address] [place] [address] Brittney Collier MD from Last 3 Months [...] hyperglycemia, with long-term current use of insulin ([facility]) POCT INFLUENZA B (ID NOW RAPID MOLECULAR) [...] hyperglycemia, with long-term current use of insulin ([facility]) PAP SMEAR Routine 09/07/2023 1:47 PM EST ALBUMIN, RANDOM URINE W/CREATININE Routine 08/21/2023 10:40 AM EDT LIPID PANEL, STANDARD Routine 08/21/2023 10:40 AM EDT Type 2 diabetes mellitus with hyperglycemia, with long-term current use of insulin ([facility]) HEPATITIS C ANTIBODY REFLEX Routine 06/15/2023 10:00 AM EDT HIV ANTIBODY/ANTIGEN ([place] [facility]) Routine 06/15/2023 10:00 AM EDT from Last 3 Months or Most Recently Relevant to Health Maintenance Results * XR Fingers 2+ Views Right (12/14/2024 7:03 PM EST) Anatomical Region Laterality Modality Upper Extremities, Fingers Right Radio graphic Imaging 12/14/2024 7:03 PM EST Narrative 12/14/2024 7:05 PM EST ? [facility] ?[address] ?[place] [address] ?XRay Report ? Signed ? Patient: Cole,Rayna A ?MR#: MM ?? [id number] ? : 1995 ?Acct:[id number] ? Age/Sex: 29 / F ?ADM Date: 02/19/25 ? Loc: HO.ED ? Attending Dr: ? Ordering Physician: Gavin Trinidad ?? Date of Service: 12/14/24 ?? Procedure(s): XR finger RT min 2V ?? Accession Number(s): [id number] ? cc: Gavin Trinidad; Brittney Collier MD [...] ? DD/ 1903 ? TD/TT: 12/14/241902 ? Director Biomedical Engineering: ? Procedure Note Gilmer, Image - 12/14/2024 [place] [address] XRay Report Signed Patient: Rayna Galvan AMR#: [id number] : 1995Acct:[id number] Age/Sex: 29 FADM Date: 12/14/24 Loc: HO.ED Attending Dr: Ordering Physician: Gavin Trinidad Date of Service: 12/14/24 Procedure(s): XR finger RT min 2V Accession Number(s): [id number] cc: Gavin Trinidad; Brittney Collier MD CLINICAL [...] in OV> 12/14/241903 DD/ 02 TD/TT: 12/14/241902 Director Biomedical Engineering: [facility] External Provider IMG XR PROCEDURES Final Result * US Abdomen Complete (10/11/2024 8:44 AM EST) Anatomical Region Laterality Modality Abdomen Ultrasound 10/11/2024 8:44 AM EST Narrative 10/17/2024 5:55 PM EST ? [facility] ?[address] ?[place] [address] ? Ultrasound Report ? Signed ? Patient: Yvette Galvannifer A ?MR#: MM ?? [id number] ? : 1995 ?Acct:[id number] ? Age/Sex: 28 / F ?ADM Date: 10/11/24 ? Loc: HO.US ? Attending Dr: Aleksey Morin MD ? Ordering Physician: ALEKSEY MORIN MD ?? Date of Service: 10/11/24 ?? Procedure(s): US abdomen complete ?? Accession Number(s): [id number] ? cc: ALEKSEY MORIN MD; Brittney Collier [...] DD/ 0844 ? TD/TT: 10/11/24 0859 ? Director Biomedical Engineering: HS ? Procedure Note Gilmer, Lazaro - 10/17/[address] [address] Ultrasound Report Signed Patient: Rayna Galvan AMR#: [id number] : 1995Acct:[id number] Age/Sex: 28 / FADM Date: 10/11/24 Loc: HO.US Attending Dr: Aleksey Morin MD Ordering Physician: ALEKSEY MORIN MD Date of Service: 10/11/24 Procedure(s): US abdomen complete Accession Number(s): [id number] cc: ALEKSEY MORIN MD; Brittney Collier MD [...] 10/17/24 1753 DD/ 0844 TD/TT: 10/11/24 0859 Director Biomedical Engineering: HS us Aleksey Morin MD IM US PROCEDURES Final Result * (ABNORMAL) Bacterial Vaginosis (10/10/2024 1:38 PM EST) TRICHOMONAS VAGINALIS DETECTION BY PCR NOT DETECTED Not Detect [facility] BACTERIAL VAGINOSIS DETECTION BY PCR POSITIVE(A) Negative [facility] Comment:The BV organism targ ets [...] DETECTION BY PCR NOT DETECTED Not Detect [facility] Cristina glab krusei PCR NOT DETECTED Not Detect [facility] 10/10/2024 1:38 PM EST 10/10/2024 3:24 PM EST us Generic External Data Provider LAB MICROBIOLOGY - GENERAL ORDERABLES Final Result [facility] [address] [place] [phone] * Chlamydia/N. Gonorrhoeae RNA, TMA, Urogenitial (10/10/2024 1:38 PM EST) CT PCR NOT DETECTED Not Detect. [facility] Comment:A not detected test result [...] psychologicalconsequences. NG PCR NOT DETECTED Not Detect. [facility] Comment:A not detected test result [...] PM EST 10/10/2024 3:24 PM EST Narrative [facility] - 10/10/2024 6:55 PM EST Vaginal Generic External Data Provider LAB MICROBIOLOGY - GENERAL ORDERABLES Final Result Performing Organization Address [facility]/ZIP Co de Phone Number [facility] [address] [place] [phone] * POCT Glucose (09/29/2024 2:00 PM EST) Glucose Blood, POC 155 60 - 200 mg/dL QC Media Lot # [id number] Lot# Expiration Date Blood Capillary blood specimen / Unknown 09/29/2024 2:00 PM EST Brittney Garcia MD POINT OF CARE VIKAS T ENTER/EDIT ORDERABLES Final Result * Influenza B (ID NOW Rapid Molecular) (09/28/2024 2:00 PM EST) Influenza B Negative Negative, Indeterminate [facility] Swab 09/28/2024 2:00 PM EST Aleksey Morin MD POINT OF CARE TEST ENTER/EDIT OR DERABLES Final Result Performing Organization Address City/[facility]/ZIP Co de Phone Number [facility] [address] [place] [phone] * Influenza A (ID NOW Rapid Molecular) (09/28/2024 2:00 PM EST) [facility] Influenza A Negative Negative, Indeterminate [facility] Swab 09/28/2024 2:00 PM EST us Aleksey Morin MD POINT OF CARE TEST ENTER/EDIT OR DERABLES Final Result Performing Organization Address [facility] de Phone Number [facility] [address] [place] [phone] * POCT Rapid COVID Ag (09/28/2024 2:00 PM EST) [facility] Rapid COVID Ag Negative [facility] Swab 09/28/2024 2:00 PM EST us Aleksey Morin MD POINT OF CARE TEST ENTER/EDIT OR DERABLES Final Result Performing Organization Address [facility] Co de Phone Number [facility] [address] [place] [phone] * (ABNORMAL) POCT rapid strep A manually resulted (09/28/2024 2:00 PM EST) [facility] Rapid Strep A Screen Positive( A) Negative, None Detected [facility] Swab 09/28/2024 2:00 PM EST us Aleksey Morin MD POINT OF CARE TEST ENTER/EDIT OR DERABLES Final Result Performing Organization Address [facility] de Phone Number [facility] [address] [place] [phone] * (ABNORMAL) Hemoglobin A1c (08/10/2024 10:20 AM EDT) [facility] Hemoglobin A1c 11.5(H) <6.0 % [facility] Comment:Hemoglobin A1C Refer ence Range Adults: 4.8 - 6.0 % Non diabetic: < 6.0 % Goal: < 7.0 %Additional Action Suggested: > 8.0 %Note: Hemoglobin A1c results are invalid for patients with abnormal amounts of HbF. Blood transfusions may impact the HbA1c concentration in the patient sample. Estimated Average Glucose 283 mg/dL [facility] Comment:eAG = Estimated ave rage glucose which is %A1C expressed asaverage glucose, using the formula of the V8G-XbyzacrMcghtlv Glucose study (ADAG), Diabetes Care, Vol.31,#8,2007 Blood Venous blood specimen / Unknown 08/10/2024 10:20 AM EDT 08/10/2024 11:43 AM EDT us [facility] LAB BLOOD ORDERABLES Final Resul t [facility] [address] [place] [phone] * Pap Smear (09/07/2023 1:47 PM EST) 09/07/2023 1:47 PM EST 09/08/2023 11:30 AM EST Narrative [facility] - 09/28/2023 9:19 AM EST ----- ------- Name: Rayna Galvan ? Age/Sex: 27/F ? : 1995 Unit#: [id number] ?? Attend Dr: Maxwell Felton MD ?Re09/07/23 ?Status: DEP REF ? Location: .LAB ?Disch: ? ----- ------- SPEC : [id number] ?RECD: 09/08/23 ? STATUS: ??SOUT ? REQ NUM: [id number] ? BIBIA[place]: 09/07/239 ? SUBM DR: Maxwell Felton MD ? [...] 66, 68) ?? HPV testing performed by [place]. ??See reference laboratory ?? portion of the EMR for entire report. ?Clinical Information LMP: 07/18 Previous PAP test: Unknown date/findings Other history: Abnormal uterine and vaginal bleeding ? Material Received ?? ThinPrep-Cervical Copies To: ?? Brittney Collier MD ?? [address] [facility] ?? [place] ?? [phone] ?? Maxwell Felton MD ?? [address] [facility] [address] [facility] ?? [place] ?? [phone] ----- ------- Signed (signature on file) Liberty Dimas MD 09/28/2319 ? ----- ------- ? END OF REPORT ? us Generic External Data Provider LAB CYTOLOGY DANA MALDONADO Final Result [facility] [address] [place] [phone] * Albumin, Random Urine W/Creatinine (08/21/2023 10:40 AM EDT) Creatinine, Urine 276.18 mg/dL [facility] Microalbumin Urine 28.0 mg/L [facility] Microalbum Creatinine Ratio Ur 10.1 <30 ug/mg cr [facility] Comment:Albumin/Creatinine R atio Reference Ranges: Normal: < 30 ug/mg creatinine Microalbuminuria: 30 - 300 ug/mg creatinineClinical Albuminuria: > 300 ug/mg creatinine 08/21/2023 10:4 0 AM EDT 08/21/2023 1:24 PM EDT us Brittney Garcia MD LAB URINE ORDERAB LES Final Result [facility] [address] [place] [phone] * (ABNORMAL) Lipid Panel, Standard (08/21/2023 10:40 AM EDT) Triglycerides 89 <150 mg/dL [facility] Comment:Desirable Triglyceri de: less than 150 mg/dLBorderline High Triglyceride 150-199 mg/dLHigh Triglyceride: 200-499 mg/dLVery High Triglyceride: greater than or equal to 5OO mg/dL Cholesterol 137 <200 mg/dL [facility] Comment:Desirable Cholestero l: less than 200 mg/dLBorderline High Cholesterol: 200-239 mg/dLHigh Cholesterol: greater than 239 mg/dL LDL Cholesterol Calculated 90 <100 mg/dL [facility] Comment:Desirable LDL: less than 100 mg/dLNear Optimal/Above Optimal LDL: 110- 129 mg/dLBorderline High LDL: 130-159 mg/dLHigh LDL: 160-189 mg/dLVery High LDL: greater than or equal to 190 mg/dL HDL Cholesterol 30(L) >40 mg/dL [facility] Comment:Desirable HDL: great er than 40 mg/dL Note: This HDL assay may give artificially low results in patients with liver disease. Blood Venous blood specimen / Unknown 08/21/2023 10:40 AM EDT 08/21/2023 11:11 AM EDT Brittney Garcia MD LAB BLOOD ORDERAB LES Final Result Performing Organization Address [facility] de Phone Number [facility] [address] [place] [phone] * Hepatitis C Antibody Reflex (06/15/2023 10:00 AM EDT) Hepatitis C Antibody Nonreactive Nonreactive [facility] Comment:Antibodies to HCV no t detected; does not exclude early acuteHCV infection. 06/15/2023 10:0 0 AM EDT 06/15/2023 11:32 AM EDT Jen KNOWLES LAB BLOOD ORDERABLES Final Resul t Performing Organization Address [facility] Number [facility] [address] [place] [phone] * HIV Ab/Ag (MIKE MARR) (06/15/2023 10:00 AM EDT) HIV AB/AG Nonreactive Nonreactive [facility] Comment:HIV-1 p24 Ag and/or HIV-1/HIV-2 Ab not detected.A test result that is nonreactive does not exclude thepossibility of exposure to or infection with HIV-1 and/orHIV-2. Nonreactive results in this assay for individualswith prior exposure to HIV-1 and/or HIV-2 may be due toantigen and antibody levels that are below the limit ofdetection of this assay.The [employer] HIV Ag/Ab Combo assay result andsupplemental assay results should be interpreted inconjunction with the patient's clinical presentation,history and other laboratory results. If the results areinconsistent with clinical evidence, additional testing issuggested to confirm the result. 06/15/2023 10:0 0 AM EDT 06/15/2023 11:32 AM EDT Jen KNOWLES LAB BLOOD ORDERABLES Final Resul t [facility] [address] [place] [phone] from Last 3 Months or Most Recently Relevant to Health Maintenance Insurance [facility] STANDARD DENTAL-[facility] MEDICAID STAND ADULT Care Teams Public Safety Director Relationship Specialty Start Date End Date Brittney Collier MD [address] [place] [phone] PCP - General Internal Medicine 08/06/23
--- OUTSIDE RECORDS SUMMARY | 2024-12-21 15:45 | XMS_ITS | Encounter Summary ---
Author Organization [employer] Address 75 [facility] 7t [place] [address] Care Team Providers Care Ride Mechanic Name Role Phone Brittney Collier MD Primary Care Pro vider Encounter Details Date Type Department Care Team (Late st Contact Info) Description 11/19/2023 Abstract [facility] [address] [place], [place] [phone] Brittney Collier MD [address] [place], [place] [phone] Social History Tobacco Use Types Packs/Day Years [...] t he electric, gas, oil or water [employer] threatened to shut off services in your [...] documented as of this encounter Care Teams Ride Mechanic Relationship Specialty Start Date End Date Brittney Collier MD [address] [place] [phone] PCP - General Internal Medicine 08/06/23 documented as of this encounter
--- OUTSIDE RECORDS SUMMARY | 2024-12-21 15:45 | XMS_ITS | Encounter Summary ---
Author Organization [employer] Address 75 [facility] 7t [place] [address] Care Team Providers Care Advertising Sales Representative Name Role Phone Brittney Collier MD Primary Care Pro vider Reason for Visit * Reason Comments Med Refill Encounter Details Date Type Department Care Team (Late st Contact Info) Description 11/21/2024 Refill [facility] [address] [place], [place] [phone] Brittney Collier MD [address] [place] [address] Diabetic retinopathy screening; Type 2 diabetes mellitus with hyperglycemia, with long-term current use of insulin ([facility]); Depression with anxiety Social History Tobacco Use [...] with others, in a hotel, in a snf, living outside on the street, on a [...] hyperglycemia, with long-term current use of insulin ([facility]) Depression with anxiety Dysthymic disorder documented in this encounter Additional Health Concerns Assessment Noted Time PHQ-9 Depression Total Score: 16 024 2:07 PM EDT documented as of this encounter Care Teams Advertising Sales Representative Relationship Specialty Start Date End Date Brittney Collier MD [address] [place], [place] [phone] PCP - General Internal Medicine 08/06/23 documented as of this encounter
--- OUTSIDE RECORDS SUMMARY | 2024-12-21 15:45 | XMS_ITS | Encounter Summary ---
Author Organization [employer] Address 75 [facility] 7t [place] [address] Care Team Providers Care Food Selector Name Role Phone Brittney Collier MD Primary Care Pro vider Reason for Visit * Reason Onset Date Comments Med Refill 11/21/2024 Encounter Details Date Type Department Care Team (Late st Contact Info) Description 11/21/2024 Telephone [facility] [address] [place], [place] [phone] Brittney Collier MD [address] [place], [place] [phone] Med Refill Social History Tobacco Use Types [...] with others, in a hotel, in [place] [facility] [place], living outside on the street, on a [...] 50 MG tablet To be sent to: [facility] [place], [place] - [address] [place] [address] documented in this encounter Plan of Treatment Not on file documented as of this encounter Visit Diagnoses Not on filedocumented in this encounter Additional Health Concerns Assessment Noted Time PHQ-9 Depression Total Score: 16 024 2:07 PM EDT documented as of this encounter Care Teams Food Selector Relationship Specialty Start Date End Date Brittney Collier MD [address] [place] [address] PCP - General Internal Medicine 08/06/23 documented as of this encounter
--- OUTSIDE RECORDS SUMMARY | 2024-12-21 15:45 | XMS_ITS | Encounter Summary ---
Author Organization [employer] Address 75 [facility] 7t [place] [address] Care Team Providers Care Patroller Name Role Phone Jen Leonardo Primary Care Provider [phone] Brittney Collier MD Primary Care Pro vider Reason for Visit * Reason Onset Date Comments New Patient 06/17/2023 Encounter Details Date Type Department Care Team (Late st Contact Info) Description 06/17/2023 Telephone [facility] [address] [place], [place] [phone] Eulogio Goldstein MD [address] [place], [place] [phone] New Patient Social History Tobacco Use Types [...] PAR Margarita Arora called pt to Offer PROCESS INSPECTOR appt. Pt demographics and insurance information were verified. Pt reports the following medical conditions: Thyroid, Asthma, Diabetic, and Anemic. Pt is currently taking medication: Synthroid, Lantus, Humalog, and Albuterol. Pt given PROCESS INSPECTOR appt with PCP CARMEN Spear on 07/29/2023 @ 2:15 Pm. Pt will be sent appt reminder card and medical release form and agrees to complete and to return to medical records prior to PROCESS INSPECTOR appt. * Telephone Encounter - Margarita Canchola - 06/17/2023 12:55 PM EDT Pt has been transfer over to wait list for PROCESS INSPECTOR. EFFECTIVE SINCE 06/17/2023 documented in this encounter Plan of Treatment Not on file documented as of this encounter Visit Diagnoses Not on filedocumented in this encounter Care Teams Patroller Relationship Specialty Start Date End Date Jen Leonardo ANP [address] [place] [address] PCP - General Family Medicine 07/10/23 08/05/23 Brittney Collier MD [address] [place] [address] PCP - General Internal Medicine 08/06/23 documented as of this encounter
--- OUTSIDE RECORDS SUMMARY | 2024-12-21 15:45 | XMS_ITS | Encounter Summary ---
Author Organization [employer] Address [address] [facility] 7t [place] [address] Care Team Providers Care Commissary Officer Name Role Phone Brittney Collier MD Primary Care Pro vider Reason for Visit * Reason Comments Med Refill Encounter Details Date Type Department Care Team (Late st Contact Info) Description 09/20/2023 Refill [facility] 230 [place], [place] [phone] Brooke Gutierrez MD 230 [place], [place] [phone] Social History Tobacco Use Types Packs/Day Years [...] with others, in a hotel, in a correction, living outside on the street, on a [...] documented as of this encounter Care Teams Commissary Officer Relationship Specialty Start Date End Date Brittney Collier MD [address] [place] [phone] PCP - General Internal Medicine 08/06/23 documented as of this encounter
--- OUTSIDE RECORDS SUMMARY | 2024-12-21 15:45 | XMS_ITS | Encounter Summary ---
Author Organization [employer] Address 75 [facility] 7t [place] [address] Care Team Providers Care Wall Cleaner Name Role Phone Brittney Collier MD Primary Care Pro vider Encounter Details Date Type Department Care Team (Late st Contact Info) Description 02/02/2024 Orders Only [facility] 230 [place], [place] [phone] Jen Leonardo ANP 230 [place] [address] Social History Tobacco Use Types Packs/Day Years [...] the past 12 months, has t he [email or web address], [employer], oil or water company threatened to shut [...] documented as of this encounter Care Teams Wall Cleaner Relationship Specialty Start Date End Date Brittney Collier MD [address] [place] [phone] PCP - General Internal Medicine 08/06/23 documented as of this encounter
--- OUTSIDE RECORDS SUMMARY | 2024-12-21 15:45 | XMS_ITS | Encounter Summary ---
Author Organization [employer] Address 75 [facility] 7t [place] [address] Care Team Providers Care Industrial Machinery Mechanic Name Role Phone Brittney Collier MD Primary Care Pro vider Reason for Visit * Reason Onset Date Comments Reschedule 10/16/2023 Encounter Details Date Type Department Care Team ([facility] st Contact Info) Description 10/16/2023 Telephone [facility] 230 [place], [place] [phone] Brittney Collier MD 230 [place], [place] [phone] Reschedule Social History Tobacco Use Types Packs/Day [...] with others, in a hotel, in a mcfp, living outside on the street, on a [...] pt requesting r/s FUE appt with PCP, loan underwriter attempted to r/s no availability. documented in this encounter Plan of Treatment Not on file documented as of this encounter Visit Diagnoses Not on filedocumented in this encounter Additional Health Concerns Assessment Noted Time PHQ-9 Depression Total Score: 5 08/06/20 2:15 PM EDT documented as of this encounter Care Teams Industrial Machinery Mechanic Relationship Specialty Start Date End Date Brittney Collier MD [address] [place] [phone] PCP - General Internal Medicine 08/06/23 documented as of this encounter
--- OUTSIDE RECORDS SUMMARY | 2024-12-21 15:45 | XMS_ITS | Encounter Summary ---
Author Organization [employer] Address [address] [facility] 7t [place] [address] Care Team Providers Care Servicing Rep Name Role Phone Brittney Collier MD Primary Care Pro vider Reason for Visit * Reason Comments Med Refill Encounter Details Date Type Department Care Team (Late st Contact Info) Description 11/21/2024 Refill [facility] 230 [place], [place] [phone] Juanita Dye PharmD 230 [place], [place] [phone] Type 2 diabetes mellitus with hyperglycemia, with long-term current use of insulin ([facility]) Social History Tobacco Use Types Packs/Day Years [...] hyperglycemia, with long-term current use of insulin ([facility]) documented in this encounter Additional Health Concerns Assessment Noted Time PHQ-9 Depression Total Score: 16 024 2:07 PM EDT documented as of this encounter Care Teams Servicing Rep Relationship Specialty Start Date End Date Brittney Collier MD [address] [place] [phone] PCP - General Internal Medicine 08/06/23 documented as of this encounter
--- OUTSIDE RECORDS SUMMARY | 2024-12-21 15:45 | XMS_ITS | Encounter Summary ---
Author Organization [employer] Address 75 [facility] 7t [place] [address] Care Team Providers Care Magazine Writer Name Role Phone Brittney Collier MD Primary Care Pro vider Reason for Visit * Reason Comments Med Refill Encounter Details Date Type Department Care Team (Late st Contact Info) Description 08/24/2023 Refill [facility] 230 [place], [place] [phone] Brooke Gutierrez MD 230 [place], [place] [phone] Social History Tobacco Use Types Packs/Day Years [...] documented as of this encounter Care Teams Magazine Writer Relationship Specialty Start Date End Date Brittney Collier MD [address] [place] [phone] PCP - General Internal Medicine 08/06/23 documented as of this encounter
--- OUTSIDE RECORDS SUMMARY | 2024-12-21 15:45 | XMS_ITS | Encounter Summary ---
Author Organization [employer] Address [address] [place] [address] 7 [place] [address] Care Team Providers Care Cadworx Piping Designer Name Role Phone Jen Leonardo Primary Care Provider [phone] Brittney Collier MD Primary Care Pro vider Reason for Visit * Reason Comments Med Refill Encounter Details Date Type Department Care Team (Late st Contact Info) Description 06/17/2023 Refill [facility] WALK-IN CENTER [address] [place] [address] [phone] Brooke Gutierrez MD [address] [place], [place] [phone] Iron deficiency anemia, unspecified iron deficiency anemia [...] type documented in this encounter Care Teams Cadworx Piping Designer Relationship Specialty Start Date End Date Jen Leonardo ANP [address] [place] [address] [phone] PCP - General Family Medicine 07/10/23 08/05/23 Brittney Collier MD [address] [place] [phone] PCP - General Internal Medicine 08/06/23 documented as of this encounter
--- OUTSIDE RECORDS SUMMARY | 2024-12-21 15:45 | XMS_ITS | Encounter Summary ---
Author Organization [employer] Address 75 [facility] 7t [place] [address] Care Team Providers Care Cardiac Exercise Physiologist Name Role Phone Brittney Collier MD Primary Care Pro vider Reason for Visit * Reason Comments Med Refill Encounter Details Date Type Department Care Team (Late st Contact Info) Description 05/11/2024 Refill [facility] 230 [place], [place] [phone] Brittney Collier MD 230 [place] [address] Social History Tobacco Use Types Packs/Day Years [...] documented as of this encounter Care Teams Cardiac Exercise Physiologist Relationship Specialty Start Date End Date Brittney Collier MD [address] [place] [phone] PCP - General Internal Medicine 08/06/23 documented as of this encounter
== END 2024-12-21 13:51 | disposition home or self-care (01) ==
LOC: HO.HWS 12:52
PROVIDERS: PCP Student in an Organized Health Care Education/Training Program; Visit Provider Obstetrics & Gynecology
DX: N93.9 Abnormal uterine and vaginal bleeding, unspecified (principal); N76.0 Acute vaginitis; B96.89 Other specified bacterial agents as the cause of diseases classified elsewhere
CPT/HCPCS: 99213

== ENCOUNTER 2024-12-21 13:14 | Outpatient (REF) | payer MEDICAID, SELFPAY ==
--- OUTSIDE RECORDS SUMMARY | 2024-12-21 16:13 | XMS_ITS | Clinical Summary ---
Author Organization [employer] Address 75 [facility] 7t [place] [address] Care Team Providers Care Search Consultant Name Role Phone Brittney Collier MD Primary [...] 1 kit 023 Active Continuous Blood Gluc Hand Suture Winder (FreeStyle Jose Angel 2 [place]) device Use as directed to monitor glucose [...] Glucose Sensor (FreeStyle Jose Angel 2 Sensor) [facility] [place] DIRECTED. CHANGE EVERY 14 DAYS 2 [...] hyperglycemia, with long-term current use of insulin ([facility]) Inject 2.5 mg under the skin 1 [...] hyperglycemia, with long-term current use of insulin ([facility]) Inject 2.5 mg under the skin 1 [...] intent. Severe anxiety and family relocation from [place] to [place] are leading to an increase of symptoms. Connected with services for individual therapy with [facility]; attends sessions twice per week. Provided [...] and resilience. PLAN: 1. Follow up with [facility]: Not recommended for follow-up 2. Patient goal is to be able to control anger and continue attending therapy sessions 3. Behavioral Recommendations a. Incorporate breathing techniques into daily routine b. Continue attending therapy sessions with [facility] c. Contact [facility] program if needed for emergencies Assessment & Plan (08/10/2023 3:00 PM EDT): Patient with anxiety symptoms. Self-harm thought with no plan. Severe anxiety and family relocation from [place] to [place] are leading to an increase of symptoms. Connected with services for individual therapy with [facility]; attends sessions twice per week. Provided [...] and resilience. PLAN: 1. Follow up with [facility]: Not recommended for follow-up 2. Patient goal is to continue attending therapy sessions with [facility] 3. Behavioral Recommendations a. Incorporate breathing [...] w new PCP DM supplies sent to [facility] pharmacy Resolved Problems Problem Noted Date Diagnosed Date Resolved Date Anemia 06/25/2023 08/06/2023 Encounters Date Type Department Care Team Description 12/20/2024 Refill [facility] MEDICINE 230 [place] [address] Brittney Collier MD Type 2 diabetes mellitus with hyperglycemia, with long-term current use of insulin ([facility]); Acquired hypothyroidism 12/14/2024 Orders Only External Provider, [facility] 12/13/2024 Telephone [facility] MEDICINE 230 [place] [address] Brittney Collier MD Prior Authorization ( [place] Request: [employer]) 11/21/[address] [address] Brittney Collier MD Med Refill 11/21/2024 Refill [facility] MEDICINE 230 [place] [address] Juanita Dye, PharmD Type 2 diabetes mellitus with hyperglycemia, with long-term current use of insulin ([facility]) 11/21/2024 Refill [facility] MEDICINE 230 [place] [address] Brittney Collier MD Diabetic retinopathy screening; Type 2 diabetes mellitus with hyperglycemia, with long-term current use of insulin ([facility]); Depression with anxiety 10/21/2024 Telephone [facility] MEDICINE 230 [place] [address] Juanita Dye, PharmD 10/10/2024 Orders Only GENERIC EXTERNAL DATA DEPARTMENT Provider, Generic External Data 10/04/2024 Refill [facility] MEDICINE 230 [place] [address] Brooke Gutierrez MD 10/03/[address] [address] Brittney Collier MD Appointment cancelation 10/03/2024 Telephone [facility] MEDICINE 230 [place] [address] Glenis Fiore [place] Appointment 09/29/2024 Travel 09/28/2024 2:20 PM EST Office Visit [facility] WALK[facility]IN CENTER 230 [place] [address] Aleksey Morin MD Strep pharyngitis (Primary Dx); Pain of upper abdomen 09/28/2024 Travel 09/23/2024 Refill [facility] MEDICINE 230 [place] [address] Brittney Collier MD from Last 3 Months [...] with others, in a hotel, in a half-way, living outside on the street, on a [...] hyperglycemia, with long-term current use of insulin ([facility]) POCT INFLUENZA B (ID NOW RAPID MOLECULAR) [...] hyperglycemia, with long-term current use of insulin ([facility]) PAP SMEAR Routine 09/07/2023 1:47 PM EST ALBUMIN, RANDOM URINE W/CREATININE Routine 08/21/2023 10:40 AM EDT LIPID PANEL, STANDARD Routine 08/21/2023 10:40 AM EDT Type 2 diabetes mellitus with hyperglycemia, with long-term current use of insulin ([facility]) HEPATITIS C ANTIBODY REFLEX Routine 06/15/2023 10:00 AM EDT HIV ANTIBODY/ANTIGEN ([facility]) Routine 06/15/2023 10:00 AM EDT from Last 3 Months or Most Recently Relevant to Health Maintenance Results * XR Fingers 2+ Views Right (12/14/2024 7:03 PM EST) Anatomical Region Laterality Modality Upper Extremities, Fingers Right Radio graphic Imaging 12/14/2024 7:03 PM EST Narrative 12/14/2024 7:05 PM EST ? [facility] ?[address] ?[place] [address] ?XRay Report ? Signed ? Patient: Cole,Rayna A ?MR#: MM ?? [id number] ? : 1995 ?Acct:[id number] ? Age/Sex: 29 / F ?ADM Date: 02/19/25 ? Loc: HO.ED ? Attending Dr: ? Ordering Physician: Gavin Trinidad ?? Date of Service: 12/14/24 ?? Procedure(s): XR finger RT min 2V ?? Accession Number(s): [id number] ? cc: Gavin Trinidad; Brittney Collier MD [...] ? DD/ 1903 ? TD/TT: 12/14/241902 ? Pensionholder Information Clerk: ? Procedure Note Gilmer, Image - 12/14/2024 [place] [address] XRay Report Signed Patient: Rayna Galvan AMR#: [id number] : 1995Acct:[id number] Age/Sex: 29 FADM Date: 12/14/24 Loc: HO.ED Attending Dr: Ordering Physician: Gavin Trinidad Date of Service: 12/14/24 Procedure(s): XR finger RT min 2V Accession Number(s): [id number] cc: Gavin Trinidad; Brittney Collier MD CLINICAL [...] in OV> 12/14/241903 DD/ 02 TD/TT: 12/14/241902 Pensionholder Information Clerk: [facility] External Provider IMG XR PROCEDURES Final Result * US Abdomen Complete (10/11/2024 8:44 AM EST) Anatomical Region Laterality Modality Abdomen Ultrasound 10/11/2024 8:44 AM EST Narrative 10/17/2024 5:55 PM EST ? [facility] ?[address] ?[place] [address] ? Ultrasound Report ? Signed ? Patient: Yvette Galvannifer A ?MR#: [id number] ?? [id number] ? : 1995 ?Acct:[id number] ? Age/Sex: 28 / F ?ADM Date: 10/11/24 ? Loc: HO.US ? Attending Dr: Aleksey Morin MD ? Ordering Physician: ALEKSEY MORIN MD ?? Date of Service: 10/11/24 ?? Procedure(s): US abdomen complete ?? Accession Number(s): [id number] ? cc: ALEKSEY MORIN MD; Brittney Collier [...] DD/ 0844 ? TD/TT: 10/11/24 0859 ? Pensionholder Information Clerk: HS ? Procedure Note Gilmer, Lazaro - 10/17/[address] [address] Ultrasound Report Signed Patient: Rayna Galvan AMR#: [id number] : 1995Acct:[id number] Age/Sex: 28 / FADM Date: 10/11/24 Loc: HO.US Attending Dr: Aleksey Morin MD Ordering Physician: ALEKSEY MORIN MD Date of Service: 10/11/24 Procedure(s): US abdomen complete Accession Number(s): [id number] cc: ALEKSEY MORIN MD; Brittney Collier MD [...] 10/17/24 1753 DD/ 0844 TD/TT: 10/11/24 0859 Pensionholder Information Clerk: HS us Aleksey Morin MD IM US PROCEDURES Final Result * (ABNORMAL) Bacterial Vaginosis (10/10/2024 1:38 PM EST) TRICHOMONAS VAGINALIS DETECTION BY PCR NOT DETECTED Not Detect LABS BACTERIAL VAGINOSIS DETECTION BY PCR POSITIVE(A) Negative LABS Comment:The BV organism targ ets of [...] DETECTION BY PCR NOT DETECTED Not Detect LABS Cristina glab krusei PCR NOT DETECTED Not Detect LABS 10/10/2024 1:38 PM EST 10/10/2024 3:24 PM EST us Generic External Data Provider LAB MICROBIOLOGY - GENERAL ORDERABLES Final Result LABS [address] [place] [phone] * Chlamydia/N. Gonorrhoeae RNA, TMA, Urogenitial (10/10/2024 1:38 PM EST) CT PCR NOT DETECTED Not Detect. LABS Comment:A not detected test result does [...] psychologicalconsequences. NG PCR NOT DETECTED Not Detect. LABS Comment:A not detected test result does [...] PM EST 10/10/2024 3:24 PM EST Narrative LABS - 10/10/2024 6:55 PM EST Vaginal Generic External Data Provider LAB MICROBIOLOGY - GENERAL ORDERABLES Final Result Performing Organization Address [facility]/ZIP Co de Phone Number LABS [address] [place] [phone] * POCT Glucose (09/29/2024 2:00 PM EST) Glucose Blood, POC 155 60 - 200 mg/dL QC Media Lot # [id number] Lot# Expiration Date Blood Capillary blood specimen / Unknown 09/29/2024 2:00 PM EST Brittney Garcia MD POINT OF CARE VIKAS T ENTER/EDIT ORDERABLES Final Result * Influenza B (ID NOW Rapid Molecular) (09/28/2024 2:00 PM EST) Influenza B Negative Negative, Indeterminate LABS Swab 09/28/2024 2:00 PM EST Aleksey Morin MD POINT OF CARE TEST ENTER/EDIT OR DERABLES Final Result Performing Organization Address City/[facility]/ZIP Co de Phone Number LABS [address] [place] [phone] * Influenza A (ID NOW Rapid Molecular) (09/28/2024 2:00 PM EST) [facility] Influenza A Negative Negative, Indeterminate LABS Swab 09/28/2024 2:00 PM EST us Aleksey Morin MD POINT OF CARE TEST ENTER/EDIT OR DERABLES Final Result Performing Organization Address [facility] de Phone Number LABS [address] [place] [phone] * POCT Rapid COVID Ag (09/28/2024 2:00 PM EST) [facility] Rapid COVID Ag Negative [facility] Swab 09/28/2024 2:00 PM EST us Aleksey Morin MD POINT OF CARE TEST ENTER/EDIT OR DERABLES Final Result Performing Organization Address [facility] Co de Phone Number LABS [address] [place] [phone] * (ABNORMAL) POCT rapid strep A manually resulted (09/28/2024 2:00 PM EST) [facility] Rapid Strep A Screen Positive( A) Negative, None Detected LABS Swab 09/28/2024 2:00 PM EST us Aleksey Morin MD POINT OF CARE TEST ENTER/EDIT OR DERABLES Final Result Performing Organization Address [facility] de Phone Number LABS [address] [place] [phone] * (ABNORMAL) Hemoglobin A1c (08/10/2024 10:20 AM EDT) [facility] Hemoglobin A1c 11.5(H) <6.0 % [facility] Comment:Hemoglobin A1C Refer ence Range Adults: 4.8 - 6.0 % Non diabetic: < 6.0 % Goal: < 7.0 %Additional Action Suggested: > 8.0 %Note: Hemoglobin A1c results are invalid for patients with abnormal amounts of HbF. Blood transfusions may impact the HbA1c concentration in the patient sample. Estimated Average Glucose 283 mg/dL LABS Comment:eAG = Estimated ave rage glucose which is %A1C expressed asaverage glucose, using the formula of the M9K-QlnyzdpEvzkpzg Glucose study (ADAG), Diabetes Care, Vol.31,#8,2007 Blood Venous blood specimen / Unknown 08/10/2024 10:20 AM EDT 08/10/2024 11:43 AM EDT us [facility] LAB BLOOD ORDERABLES Final Resul t LABS [address] [place] [phone] * Pap Smear (09/07/2023 1:47 PM EST) 09/07/2023 1:47 PM EST 09/08/2023 11:30 AM EST Narrative LABS - 09/28/2023 9:19 AM EST ----- ------- Name: Rayna Galvan ? Age/Sex: 27/F ? : 1995 Unit#: [id number] ?? Attend Dr: Maxwell [place] MD ?Re09/07/23 ?Status: DEP REF ? Location: .LAB ?Disch: ? ----- ------- SPEC : [id number] ?RECD: 09/08/23 ? STATUS: ??SOUT ? REQ NUM: [id number] ? [place]: 09/07/23 ? SUBM DR: Maxwell [place] MD ? [...] 68) ?? HPV testing performed [place]. ??See reference laboratory ?? portion of the EMR for entire report. ?Clinical Information LMP: 07/18 Previous PAP test: Unknown date/findings Other history: Abnormal uterine and vaginal bleeding ? Material Received ?? ThinPrep-Cervical Copies To: ?? Brittney Collier MD ?? [address] [facility] ?? [place] ?? [phone] ?? Maxwell [place] MD ?? [address] [facility] [address] Sp[address] [facility] ?? [place] ?? [phone] ----- ------- Signed (signature on file) Liberty Dimas MD 09/28/2319 ? ----- ------- ? END OF REPORT ? us Generic External Data Provider LAB CYTOLOGY DANA MALDONADO Final Result LABS [address] [place] [phone] [phone] * Albumin, Random Urine W/Creatinine (08/21/2023 10:40 AM EDT) Creatinine, Urine 276.18 mg/dL [facility] Microalbumin Urine 28.0 mg/L [facility] Microalbum Creatinine Ratio Ur 10.1 <30 ug/mg cr LABS Comment:Albumin/Creatinine R atio Reference Ranges: Normal: < 30 ug/mg creatinine Microalbuminuria: 30 - 300 ug/mg creatinineClinical Albuminuria: > 300 ug/mg creatinine 08/21/2023 10:4 0 AM EDT 08/21/2023 1:24 PM EDT us Brittney Garcia MD LAB URINE ORDERAB LES Final Result LABS [address] [place] [phone] * (ABNORMAL) Lipid Panel, Standard (08/21/2023 10:40 AM EDT) Triglycerides 89 <150 mg/dL [facility] Comment:Desirable Triglyceri de: less than 150 mg/dLBorderline High Triglyceride 150-199 mg/dLHigh Triglyceride: 200-499 mg/dLVery High Triglyceride: greater than or equal to 5OO mg/dL Cholesterol 137 <200 mg/dL LABS Comment:Desirable Cholestero l: less than 200 mg/dLBorderline High Cholesterol: 200-239 mg/dLHigh Cholesterol: greater than 239 mg/dL LDL Cholesterol Calculated 90 <100 mg/dL LABS Comment:Desirable LDL: less than 100 mg/dLNear Optimal/Above Optimal LDL: 110- 129 mg/dLBorderline High LDL: 130-159 mg/dLHigh LDL: 160-189 mg/dLVery High LDL: greater than or equal to 190 mg/dL HDL Cholesterol 30(L) >40 mg/dL [facility] Comment:Desirable HDL: great er than 40 mg/dL Note: This HDL assay may give artificially low results in patients with liver disease. Blood Venous blood specimen / Unknown 08/21/2023 10:40 AM EDT 08/21/2023 11:11 AM EDT Brittney Garcia MD LAB BLOOD ORDERAB LES Final Result Performing Organization Address [facility] de Phone Number LABS [address] [place] [phone] * Hepatitis C Antibody Reflex (06/15/2023 10:00 AM EDT) Hepatitis C Antibody Nonreactive Nonreactive LABS Comment:Antibodies to HCV no t detected; does not exclude early acuteHCV infection. 06/15/2023 10:0 0 AM EDT 06/15/2023 11:32 AM EDT Jen KNOWLES LAB BLOOD ORDERABLES Final Resul t Performing Organization Address [facility] Number LABS [address] [place] [phone] * HIV Ab/Ag (MIKE MARR) (06/15/2023 10:00 AM EDT) HIV AB/AG Nonreactive Nonreactive [facility] Comment:HIV-1 p24 Ag and/or HIV-1/HIV-2 Ab not detected.A test result that is nonreactive does not exclude thepossibility of exposure to or infection with HIV-1 and/orHIV-2. Nonreactive results in this assay for individualswith prior exposure to HIV-1 and/or HIV-2 may be due toantigen and antibody levels that are below the limit ofdetection of this assay.The [employer] HIV Ag/Ab Combo assay result andsupplemental assay results should be interpreted inconjunction with the patient's clinical presentation,history and other laboratory results. If the results areinconsistent with clinical evidence, additional testing issuggested to confirm the result. 06/15/2023 10:0 0 AM EDT 06/15/2023 11:32 AM EDT Jen KNOWLES LAB BLOOD ORDERABLES Final Resul t LABS [address] [place] [phone] [phone] from Last 3 Months or Most Recently Relevant to Health Maintenance Insurance [facility] STANDARD DENTAL-[facility] MEDICAID STAND ADULT Care Teams Search Consultant Relationship Specialty Start Date End Date Brittney Collier MD [address] [place] [phone] PCP - General Internal Medicine 08/06/23
--- OUTSIDE RECORDS SUMMARY | 2024-12-21 16:13 | XMS_ITS | Encounter Summary ---
Author Organization [employer] Address 75 [facility] 7 [place] [address] Care Team Providers Care Blockman Name Role Phone Brittney Collier MD Primary Care Pro vider Reason for Visit * Reason Onset Date Comments Med Refill 12/20/2024 Encounter Details Date Type Department Care Team (Late st Contact Info) Description 12/20/2024 Refill [facility] MEDICINE 230 [place], [place] [phone] Brittney Collier MD 230 [place], [place] [phone] Type 2 diabetes mellitus with hyperglycemia, with long-term current use of insulin ([facility]); Acquired hypothyroidism Social History Tobacco Use Types [...] Base) MCG/ACT inhaler To be sent to: [facility] - [place], [place] - [address] [facility] documented in this encounter Plan of Treatment Not on file documented as of this encounter Visit Diagnoses Diagnosis Type 2 diabetes mellitus with hyperglycemia, with long-term current use of insulin ([facility]) Acquired hypothyroidism Unspecified hypothyroidism documented in this encounter Additional Health Concerns Assessment Noted Time PHQ-9 Depression Total Score: 16 024 2:07 PM EDT documented as of this encounter Care Teams Blockman Relationship Specialty Start Date End Date Brittney Collier MD [address] [place] [phone] PCP - General Internal Medicine 08/06/23 documented as of this encounter
--- OUTSIDE RECORDS SUMMARY | 2024-12-21 16:13 | XMS_ITS | Encounter Summary ---
Author Organization [employer] Address 75 [facility] 7t [place] [address] Care Team Providers Care Meat Apprentice Name Role Phone Brittney Collier MD Primary Care Pro vider Reason for Visit * Reason Comments Med Refill Encounter Details Date Type Department Care Team (Late st Contact Info) Description 08/24/2023 Refill [facility] 230 [place], [place] [phone] Brooke Gutierrez MD 230 [place], [place] [phone] Social History Tobacco Use Types Packs/Day Years [...] with others, in a hotel, in a retirement, living outside on the street, on a [...] documented as of this encounter Care Teams Meat Apprentice Relationship Specialty Start Date End Date Brittney Collier MD [address] [place] [phone] PCP - General Internal Medicine 08/06/23 documented as of this encounter
--- OUTSIDE RECORDS SUMMARY | 2024-12-21 16:13 | XMS_ITS | Encounter Summary ---
Author Organization [employer] Address 75 [facility] 7t [place] [address] Care Team Providers Care Services Tech Name Role Phone Brittney Collier MD Primary Care Pro vider Encounter Details Date Type Department Care Team (Late st Contact Info) Description 11/19/2023 Abstract [facility] MEDICINE 230 [place], [place] [phone] Brittney Collier MD 230 [place], [place] [phone] Social History Tobacco Use Types Packs/Day Years [...] t he electric, gas, oil or water [employer] threatened to shut off services in your [...] documented as of this encounter Care Teams Services Tech Relationship Specialty Start Date End Date Brittney Collier MD [address] [place] [address] PCP - General Internal Medicine 08/06/23 documented as of this encounter
--- OUTSIDE RECORDS SUMMARY | 2024-12-21 16:13 | XMS_ITS | Encounter Summary ---
Author Organization [employer] Address 75 [facility] 7t [place] [address] Care Team Providers Care Nissan Sales Consultant Name Role Phone Brittney Collier MD Primary Care Pro vider Reason for Visit * Reason Comments Med Refill Encounter Details Date Type Department Care Team (Late st Contact Info) Description 12/31/2023 Refill [facility] 230 [place], [place] [phone] Brooke Gutierrez MD 230 [place], [place] [phone] Social History Tobacco Use Types Packs/Day Years [...] with others, in a hotel, in a longterm, living outside on the street, on a [...] documented as of this encounter Care Teams Nissan Sales Consultant Relationship Specialty Start Date End Date Brittney Collier MD [address] [place] [phone] PCP - General Internal Medicine 08/06/23 documented as of this encounter
--- OUTSIDE RECORDS SUMMARY | 2024-12-21 16:13 | XMS_ITS | Encounter Summary ---
Author Organization [employer] Address 75 [facility] 7t [place] [address] Care Team Providers Care Supervisor Record Press Name Role Phone Brittney Collier MD Primary Care Pro vider Reason for Visit * Reason Comments Med Refill Encounter Details Date Type Department Care Team (Late st Contact Info) Description 11/21/2024 Refill [facility] MEDICINE 230 [place], [place] [phone] Juanita Dye PharmD 230 [place], [place] [phone] Type 2 diabetes mellitus with hyperglycemia, with long-term current use of insulin ([facility]) Social History Tobacco Use Types Packs/Day Years [...] hyperglycemia, with long-term current use of insulin ([facility]) documented in this encounter Additional Health Concerns Assessment Noted Time PHQ-9 Depression Total Score: 16 024 2:07 PM EDT documented as of this encounter Care Teams Supervisor Record Press Relationship Specialty Start Date End Date Brittney Collier MD [address] [place] [phone] PCP - General Internal Medicine 08/06/23 documented as of this encounter
--- OUTSIDE RECORDS SUMMARY | 2024-12-21 16:13 | XMS_ITS | Encounter Summary ---
Author Organization [employer] Address 75 [facility] 7 [place] [address] Care Team Providers Care Environmental Research Project Manager Name Role Phone Brittney Collier MD Primary Care Pro vider Reason for Visit * Reason Onset Date Comments Prior Authorization 12/13/2024 MATILDE RAMOS Reques t: Synthroid Encounter Details Date Type Department Care Team ([facility] st Contact Info) Description 12/13/[address] [facility] MEDICINE 230 [place], [place] [phone] Brittney Collier MD 230 [place], [place] [phone] Prior Authorization (MATILDE RAMOS Request: Synthroid) Social [...] with others, in a hotel, in a usp, living outside on the street, on a [...] PA for Synthroid signed and faxed to [employer]. Confirmation received and sent to [employer]. If patient calls to check status on above, please advise them to contact Pharmacy . * Telephone Encounter - Abril Galvan - 12/13/2024 2:06 PM EST PA for Synthroid from [employer] placed on PCP desk for signature. documented in this encounter Plan of Treatment Not on file documented as of this encounter Visit Diagnoses Not on filedocumented in this encounter Additional Health Concerns Assessment Noted Time PHQ-9 Depression Total Score: 16 024 2:07 PM EDT documented as of this encounter Care Teams Environmental Research Project Manager Relationship Specialty Start Date End Date Brittney Collier MD [address] [place] [address] PCP - General Internal Medicine 08/06/23 documented as of this encounter
--- OUTSIDE RECORDS SUMMARY | 2024-12-21 16:13 | XMS_ITS | Encounter Summary ---
Author Organization [employer] Address 75 [facility] 7t [place] [address] Care Team Providers Care Dray Truck Driver Name Role Phone Jen Leonardo Primary Care Provider [phone] Brittney Coliler MD Primary Care Pro vider Reason for Visit * Reason Onset Date Comments New Patient 06/17/2023 Encounter Details Date Type Department Care Team (Late st Contact Info) Description 06/17/[address] [facility] MEDICINE 230 [place], [place] [phone] Eulogio Goldstein MD 230 [place], [place] [phone] New Patient Social History Tobacco Use Types [...] PAR Margarita Arora called pt to Offer FIRMWARE ARCHITECT appt. Pt demographics and insurance information were verified. Pt reports the following medical conditions: Thyroid, Asthma, Diabetic, and Anemic. Pt is currently taking medication: Synthroid, Lantus, Humalog, and Albuterol. Pt given FIRMWARE ARCHITECT appt with PCP CARMEN Spear on 07/29/2023 @ 2:15 Pm. Pt will be sent appt reminder card and medical release form and agrees to complete and to return to medical records prior to FIRMWARE ARCHITECT appt. * Telephone Encounter - Margarita Canchola - 06/17/2023 12:55 PM EDT Pt has been transfer over to wait list for FIRMWARE ARCHITECT. EFFECTIVE SINCE 06/17/2023 documented in this encounter Plan of Treatment Not on file documented as of this encounter Visit Diagnoses Not on filedocumented in this encounter Care Teams Dray Truck Driver Relationship Specialty Start Date End Date Jen Leonardo ANP 230 [place] [address] PCP - General Family Medicine 07/10/23 08/05/23 Brittney Collier MD 230 [place] [address] PCP - General Internal Medicine 08/06/23 documented as of this encounter
--- OUTSIDE RECORDS SUMMARY | 2024-12-21 16:13 | XMS_ITS | Encounter Summary ---
Author Organization [employer] Address 75 [facility] 7t [place] [address] Care Team Providers Care Sorting Cows Worker Name Role Phone Brittney Collier MD Primary Care Pro vider Reason for Visit * Reason Onset Date Comments Med Refill 11/21/2024 Encounter Details Date Type Department Care Team (Late st Contact Info) Description 11/21/2024 Telephone [facility] MEDICINE 230 [place], [place] [phone] Brittney Collier MD 230 [place], [place] [phone] Med Refill Social History Tobacco Use Types [...] 50 MG tablet To be sent to: [facility] - [place], [place] - [address] [place] [address] documented in this encounter Plan of Treatment Not on file documented as of this encounter Visit Diagnoses Not on filedocumented in this encounter Additional Health Concerns Assessment Noted Time PHQ-9 Depression Total Score: 16 024 2:07 PM EDT documented as of this encounter Care Teams Sorting Cows Worker Relationship Specialty Start Date End Date Brittney Collier MD 230 [place] [address] PCP - General Internal Medicine 08/06/23 documented as of this encounter
--- OUTSIDE RECORDS SUMMARY | 2024-12-21 16:13 | XMS_ITS | Encounter Summary ---
Author Organization [employer] Address 75 [facility] 7t [place] [address] Care Team Providers Care Snowmaker Name Role Phone Brittney Collier MD Primary Care Pro vider Encounter Details Date Type Department Care Team (Late st Contact Info) Description 12/14/2024 Orders Only External Provider, [facility] Social History Tobacco Use Types Packs/Day Years [...] with others, in a hotel, in a custodial, living outside on the street, on a [...] EST Narrative 12/14/2024 7:05 PM EST ? [facility] ?[address] ?[place] [address] ?XRay Report ? Signed ? Patient: Rayna Galvan ?MR#: [id number] ?? [id number] ? : 1995 ?Acct:[id number] ? Age/Sex: 29 / F ?ADM Date: 12/14/24 ? Loc: HO.ED ? Attending Dr: ? Ordering Physician: Gavin Trinidad ?? Date of Service: 12/14/24 ?? Procedure(s): XR finger RT min 2V ?? Accession Number(s): [id number] ? cc: Gavin Trinidad; Brittney Collier MD [...] ? DD/ 02 ? TD/TT: 12/14/241902 ? Steel Pourer: ? Procedure Note Donotsachinter, Image - 12/14/[address] [address] XRay Report Signed Patient: Rayna Galvan [facility]#: [id number] : 1995Acct:[id number] Age/Sex: 29 / FADM Date: 12/14/24 Loc: HO.ED Attending Dr: Ordering Physician: Gavin Trinidad Date of Service: 12/14/24 Procedure(s): XR finger RT min 2V Accession Number(s): [id number] cc: Gavin Trinidad; Brittney Collier MD CLINICAL [...] in OV> 12/14/241903 DD/ 02 TD/TT: 12/14/241902 Steel Pourer: [facility] External Provider IMG XR PROCEDURES Final Result documented in this encounter Visit Diagnoses Not on filedocumented in this encounter Additional Health Concerns Assessment Noted Time PHQ-9 Depression Total Score: 16 024 2:07 PM EDT documented as of this encounter Care Teams Snowmaker Relationship Specialty Start Date End Date Brittney Collier MD [address] [place] [phone] PCP - General Internal Medicine 08/06/23 documented as of this encounter
--- OUTSIDE RECORDS SUMMARY | 2024-12-21 16:13 | XMS_ITS | Encounter Summary ---
Author Organization [employer] Address 75 [facility] 7t [place] [address] Care Team Providers Care Relationship Assoc Name Role Phone Brittney Collier MD Primary Care Pro vider Reason for Visit * Reason Comments Med Refill Encounter Details Date Type Department Care Team (Late st Contact Info) Description 09/20/2023 Refill [facility] 230 [place], [place] [phone] Brooke Gutierrez MD 230 [place], [place] [phone] Social History Tobacco Use Types Packs/Day Years [...] with others, in a hotel, in a assisted, living outside on the street, on a [...] documented as of this encounter Care Teams Relationship Assoc Relationship Specialty Start Date End Date Brittney Collier MD [address] [place] [phone] PCP - General Internal Medicine 08/06/23 documented as of this encounter
--- OUTSIDE RECORDS SUMMARY | 2024-12-21 16:13 | XMS_ITS | Encounter Summary ---
Author Organization [employer] Address 75 [facility] 7t [place] [address] Care Team Providers Care Wealth Management Advisor Name Role Phone Brittney Collier MD Primary Care Pro vider Encounter Details Date Type Department Care Team (Late st Contact Info) Description 02/02/2024 Orders Only [facility] MEDICINE 230 [place], [place] [phone] Jen Leonardo ANP 230 [place] [address] Social History Tobacco Use Types Packs/Day Years [...] the past 12 months, has t he [employer], [employer], oil or water company threatened to shut [...] documented as of this encounter Care Teams Wealth Management Advisor Relationship Specialty Start Date End Date Brittney Collier MD [address] [place] [address] PCP - General Internal Medicine 08/06/23 documented as of this encounter
--- OUTSIDE RECORDS SUMMARY | 2024-12-21 16:13 | XMS_ITS | Encounter Summary ---
Author Organization [employer] Address 75 [facility] 7t [place] [address] Care Team Providers Care Senior Cost Estimator Name Role Phone Brittney Collier MD Primary Care Pro vider Reason for Visit * Reason Onset Date Comments Reschedule 10/16/2023 Encounter Details Date Type Department Care Team ([facility] st Contact Info) Description 10/16/2023 Telephone [facility] MEDICINE 230 [place], [place] [phone] Brittney Collier MD 230 [place], [place] [phone] Reschedule Social History Tobacco Use Types Packs/Day [...] pt requesting r/s FUE appt with PCP, promotion writer attempted to r/s no availability. documented in this encounter Plan of Treatment Not on file documented as of this encounter Visit Diagnoses Not on filedocumented in this encounter Additional Health Concerns Assessment Noted Time PHQ-9 Depression Total Score: 5 08/06/20 2:15 PM EDT documented as of this encounter Care Teams Senior Cost Estimator Relationship Specialty Start Date End Date Brittney Collier MD [address] [place] [phone] PCP - General Internal Medicine 08/06/23 documented as of this encounter
--- OUTSIDE RECORDS SUMMARY | 2024-12-21 16:13 | XMS_ITS | Encounter Summary ---
Author Organization [employer] Address [address] [place] [address] 7 [place] [address] Care Team Providers Care Beef Pluck Trimmer Name Role Phone Jen Leonardo Primary Care Provider [phone] Brittney Collier MD Primary Care Pro vider Reason for Visit * Reason Comments Med Refill Encounter Details Date Type Department Care Team (Late st Contact Info) Description 06/17/2023 Refill [facility] [address] [place] [address] [phone] Brooke Gutierrez MD 230 [place], [place] [phone] Iron deficiency anemia, unspecified iron deficiency anemia [...] type documented in this encounter Care Teams Beef Pluck Trimmer Relationship Specialty Start Date End Date Jen Leonardo ANP [address] [place] [address] [phone] PCP - General Family Medicine 07/10/23 08/05/23 Brittney Collier MD [address] [place] [phone] PCP - General Internal Medicine 08/06/23 documented as of this encounter
--- OUTSIDE RECORDS SUMMARY | 2024-12-21 16:13 | XMS_ITS | Encounter Summary ---
Author Organization [employer] Address 75 [facility] 7t [place] [address] Care Team Providers Care Yarn Worker Name Role Phone Brittney Collier MD Primary Care Pro vider Reason for Visit * Reason Comments Med Refill Encounter Details Date Type Department Care Team (Late st Contact Info) Description 11/21/2024 Refill [facility] MEDICINE 230 [place], [place] [phone] Brittney Collier MD 230 [place] [address] Diabetic retinopathy screening; Type 2 diabetes mellitus with hyperglycemia, with long-term current use of insulin ([facility]); Depression with anxiety Social History [...] hyperglycemia, with long-term current use of insulin ([facility]) Depression with anxiety Dysthymic disorder documented in this encounter Additional Health Concerns Assessment Noted Time PHQ-9 Depression Total Score: 16 024 2:07 PM EDT documented as of this encounter Care Teams Yarn Worker Relationship Specialty Start Date End Date Brittney Collier MD [address] [place], [place] [phone] PCP - General Internal Medicine 08/06/23 documented as of this encounter
--- OUTSIDE RECORDS SUMMARY | 2024-12-21 16:13 | XMS_ITS | Encounter Summary ---
Author Organization [employer] Address 75 [facility] 7t [place] [address] Care Team Providers Care Ladle Pourer Name Role Phone Brittney Collier MD Primary Care Pro vider Reason for Visit * Reason Comments Med Refill Encounter Details Date Type Department Care Team (Late st Contact Info) Description 05/11/2024 Refill [facility] MEDICINE 230 [place], [place] [phone] Brittney Collier MD 230 [place] [address] Social History Tobacco Use Types Packs/Day Years [...] with others, in a hotel, in a chcf, living outside on the street, on a [...] documented as of this encounter Care Teams Ladle Pourer Relationship Specialty Start Date End Date Brittney Collier MD [address] [place] [address] PCP - General Internal Medicine 08/06/23 documented as of this encounter
[2024-12-21 22:02] LABS: Bacterial Vaginosis PCR POSITIVE (Negative); Candida Group PCR NOT DETECTED (Not Detect); Candida glab krusei PCR NOT DETECTED (Not Detect); Trichomonas vaginalis PCR NOT DETECTED (Not Detect)
[2024-12-21 23:52] LABS: CT PCR NOT DETECTED (Not Detect.); NG PCR NOT DETECTED (Not Detect.)
== END 2024-12-21 13:15 | disposition home or self-care (01) ==
LOC: HO.LAB 13:14
PROVIDERS: PCP Student in an Organized Health Care Education/Training Program; Visit Provider Obstetrics & Gynecology
DX: N93.9 Abnormal uterine and vaginal bleeding, unspecified (principal)
CPT/HCPCS: 81515; 84146; 84439; 84443; 84702; 85027; 86780; 86803; 87340; 87389; 87491; 87591

== ENCOUNTER 2024-12-21 13:17 | Outpatient (REF) | payer MEDICAID, SELFPAY ==
[2024-12-21 14:00] LABS: Hematocrit 29.9 % (37.0-47.0); Hemoglobin 9.5 g/dl (12.0-16.0); Mean Corpuscular HGB Conc 31.8 g/dl (31.0-35.0); Mean Corpuscular Volume 72.4 fL (80.0-98.0); Platelet Count 303 X10*3/uL (160-400); Red Blood Count 4.13 X10*6/uL (4.20-5.50); Red Cell Distribution Width 22.3 % (11.0-16.0); White Blood Count 7.3 X10*3/uL (4.8-10.8)
[2024-12-21 14:43] LABS: HCG Quantitative < 2 mIU/mL; TSH reflex Free T4 > 100.00 uIU/mL (0.32-4.0)
[2024-12-21 15:16] LABS: Free T4 (Free Thyroxine) < 0.42 ng/dL (0.71-1.85)
[2024-12-22 08:22] LABS: Syphilis Screen Nonreactive (Nonreactive)
[2024-12-22 08:53] LABS: HBsAGNum1 0.34 S/CO (0.00-0.99); HIV AB/AG Nonreactive (Nonreactive); HIV Num 1 0.05 S/CO (0.00-0.99); Hepatitis B Surface Antigen Negative (Negative); ~HepC Num1 0.14 S/CO (0.00-0.79); ~Hepatitis C Antibody Nonreactive (Nonreactive)
[2024-12-22 18:23] LABS: Prolactin 48.3 ng/mL
== END 2024-12-21 13:18 | disposition home or self-care (01) ==
LOC: HO.LNP 13:17
PROVIDERS: Visit Provider Obstetrics & Gynecology
DX: N93.9 Abnormal uterine and vaginal bleeding, unspecified (principal); N76.0 Acute vaginitis; B96.89 Other specified bacterial agents as the cause of diseases classified elsewhere
CPT/HCPCS: 84146; 84439; 84443; 84702; 85027; 86780; 86803; 87340; 87389

== ENCOUNTER 2025-01-06 15:42 | Emergency (ER) | payer MEDICAID, SELFPAY ==
[2025-01-06 15:52] VITALS: BP 114/66; PULSE 79; RESP 18; TEMP 36.6; O2SAT 98; BMI 41.6
--- NOTE | 2025-01-06 15:52 | ED_ITS ---
HPI - General Adult General Chief complaint: General Medical Stated complaint: feeling weak Time Seen by Provider: 01/06/25 19:43 History of Present Illness ED Provider: Evan PAN narrative: The patient is a 29-year-old female who received an IUD 4-1/2 months ago. She has been having ongoing low grade vaginal bleeding ever since. She says she has not really been having regular menses but has had persistent low-grade bleeding for several months. She says that over the last few days she has had episodes of lightheadedness and dizziness. Sometimes she feels short of breath on exertion. She says that in her lifetime she has had significant anemia related to vaginal bleeding. she says that she has required blood transfusions 3 or 4 times in her life because of this although her last blood transfusion was a few years ago. She wondered whether she might be sufficiently anemic on this occasion that she might need a blood transfusion and therefore came to the emergency room today. No chest pain or pleuritic pain. No pain or swelling in her legs. She estimates that she goes through about 5 or 6 pads per day. Related Data Home Medications ?Medication ?Instructions ?Recorded ?Confirmed albuterol sulfate 90 mcg/actuation 90 mcg inhalation DAILY 07/10/23 07/10/23 aerosol inhaler insulin glargine 100 unit/mL (3 60 unit subcut BEDTIME 07/10/23 07/10/23 mL) subcutaneous pen (Lantus Solostar U-100 Insulin) insulin lispro 100 unit/mL 10 unit subcut BID 07/10/23 07/10/23 subcutaneous pen levothyroxine 200 mcg tablet 200 mcg PO DAILY 07/10/23 07/10/23 (Synthroid) ascorbic acid (vitamin C) 500 mg 500 mg PO QAM 09/07/23 tablet (Vitamin C) dulaglutide 0.75 mg/0.5 mL mg subcut QWEEK 09/07/23 subcutaneous pen injector (Trulicity) famotidine 20 mg tablet 20 mg PO BEDTIME 09/07/23 hydroxyzine HCl 10 mg tablet 10 mg PO Q8H PRN itch 09/07/23 metformin 500 mg tablet 500 mg PO BID 09/07/23 sertraline 50 mg tablet mg PO 09/07/23 trazodone 50 mg tablet 50 mg PO BEDTIME PRN insomnia 09/07/23 Previous Rx's ?Medication ?Instructions ?Recorded metronidazole 500 mg tablet 500 mg PO BID 7 days #14 tabs 10/10/24 oxycodone 5 mg tablet 5 mg PO Q6H PRN pain #12 tabs 12/14/24 metronidazole 500 mg tablet 500 mg PO BID 7 days #14 tabs 12/21/24 metronidazole 500 mg tablet 500 mg PO BID 7 days #14 tabs 12/22/24 tranexamic acid 650 mg tablet 1,300 mg (2 x 650 mg) PO TID 5 01/06/25 days #30 tabs Allergies Allergy/AdvReac Type Severity Reaction Status Date / Time aspirin AdvReac Fatigued Verified 01/06/25 15:54 Review of Systems 2 Review of Systems: Yes all other systems are reviewed and are negative [facility] Past Medical History Medical History Hypothyroid Asthma Diabetes mellitus Family History Family History Paternal Grandfather Lung cancer Social History Social History Household Members: Family Alcohol intake: never Patient Tobacco Use Status: Never used Tobacco Smoked in Last 30 Days: No Use of substances other than those prescribed or required for medical reasons: Yes Substance Use Type: Marijuana Advance Directives: No Advance Directives Information Provided: No Do you have a plan to hurt others: No Plan Patient : No service: No Current occupational status: employed 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 Sexual orientation: Straight/Heterosexual Gender identity: Female Physical Exam ED Vital Signs: Vital Signs - 24 hr 01/06/25 15:52 01/06/25 19:37 01/06/25 20:59 Temperature 97.8 F 97.3 F 97.3 F Pulse Rate 79 73 73 Respiratory Rate 18 16 16 Blood Pressure 114/66 109/66 109/66 Pulse Oximetry 98 100 100 Oxygen Delivery Method Room Air Room Air Room Air BMI result Body Mass Index 41.6 Const Other: The patient is awake, alert, pleasant, cooperative. She does not appear in acute distress. She does not appear obviously acutely ill in any way. No signs of respiratory difficulty. HENMT Other: Face is symmetrical. Mucous membranes moist. Eyes General: appearance normal, both eyes and all related structures Neck Neck: Yes full ROM Resp Effort & Inspection: normal respiratory effort Auscultation: clear to auscultation bilaterally Cardio Rate: regular rate Rhythm: regular rhythm Heart sounds: S1 normal heart sound present and S2 normal heart sound present GI Other: Abdomen is soft nontender Skin Other: skin is pale and dry Neuro Other: the patient is awake and alert with normal mental status. Cranial nerves are grossly intact. She moves her extremities normally. She has normal gait. Extrem Other: No calf swelling or tenderness or asymmetry. Course Course Course Narrative: This is a rapid medical exam performed by Flaca Goldstein NP: Additional HPI, ROS, PE not included below will be deferred to primary provider. Patient is a 29-year-old female with history of anemia, DM presenting to the ED with complaint of weakness, dizziness, shortness of breath x 4 days. Has required transfusions in the past. Currently menstuating and feels this has worsened her symptoms. Appears pale in triage. Plan: labs, T&S Medical Decision Making Medical Decision Making MDM Narrative: The patient is a 29-year-old female who presents because of over 4 months of persistent low-grade vaginal bleeding. She became concerned that she might need a blood transfusion as she has required blood transfusions in the past for problems related to vaginal bleeding. Her test is negative. She does not appear ill. Her vital signs are normal. She is PERC negative. Her hemoglobin is 9.1. I do not see an indication for blood transfusion Or any other acute intervention. The patient is seen at our gynaecology Clinic. She apparently has some upcoming testing next week. I will prescribe 5 days of tranexamic acid. She should stay in touch with the gynecology office to discuss this ongoing problem for further management. Lab Data 01/06/25 15:59 01/06/25 15:59 Labs: Lab Results 01/06/25 Range/Units 15:59 WBC 6.8 (4.8-10.8) X10*3/uL RBC 4.00 L (4.20-5.50) X10*6/uL Hgb 9.1 L (12.0-16.0) g/dl Hct 28.6 L (37.0-47.0) % MCV 71.5 L (80.0-98.0) fL MCH 22.8 L (27.0-33.0) pg MCHC 31.8 (31.0-35.0) g/dl RDW 19.5 H (11.0-16.0) % Plt Count 278 (160-400) X10*3/uL MPV 10.8 (9.4-12.3) fL Immature Gran % (Auto) 0.3 (0.0-0.4) % Neut % (Auto) 52.8 (45-73) % Lymph % (Auto) 34.9 (20-40) % Brewster % (Auto) 6.9 (2-11) % Eos % (Auto) 4.1 H (0-4) % Baso % (Auto) 1.0 (0-2) % Lymph # (Auto) 2.4 (1.2-4.9) X10*3/uL Brewster # (Auto) 0.5 (0.1-1.2) X10*3/uL Eos # (Auto) 0.3 (0.0-0.4) X10*3/uL Baso # (Auto) 0.1 (0.0-0.2) X10*3/uL Abs Immat Gran (auto) 0.02 (0.00-0.03) X10*3/uL Absolute Neuts (auto) 3.6 (2.0-8.3) x10*3/uL Absolute Nucleated RBC 0.000 (0.0-0.012) X10*3/uL Nucleated RBC % (auto) 0.0 (0.0-0.2) /100WBC Sodium 140 (135-145) mmol/L Potassium 3.6 (3.3-5.1) mmol/L Chloride 107 (96-108) mmol/L Carbon Dioxide 25 (22-29) mmol/L Anion Gap 12 (12-20) BUN 12 (9-16) mg/dL Creatinine 1.14 (0.5-1.4) mg/dL Estim Creat Clear Calc 101.2 Estimated GFR 56 Random Glucose 121 H (60-115) mg/dL Calcium 9.1 (8.4-10.2) mg/dL Total Bilirubin 0.3 (0.0-1.0) mg/dL AST 27 (5-31) U/L ALT 16 (0-31) U/L Alkaline Phosphatase 57 (39-117) U/L Total Protein 7.9 (6.5-8.0) g/dL Albumin 4.1 (3.5-5.0) g/dL Beta HCG, Quant < 2 mIU/mL Discharge Plan Discharge Clinical Impression: Vaginal bleeding Patient Disposition: Home, Self-Care Additional Instructions: I have sent a prescription for medication called TXA to your pharmacy. Please take this medication 3 times a day for the next 5 days. My hope is that this will reduce the bleeding you has been experiencing. Your blood tests were good enough today that you do not need a blood transfusion. Please follow up with your telecommunications officer to discuss this bleeding further. Also please follow up with the Hematology office as recommended by your telecommunications officer. Return to the emergency room if significantly worse. Prescriptions: New tranexamic acid 650 mg tablet 1,300 mg PO TID 5 Days Qty: 30 0RF No Action metronidazole 500 mg tablet 500 mg PO BID 7 Days Qty: 14 0RF Rx Instructions: Take with food, Avoid alcohol and vinegar products levothyroxine [Synthroid] 200 mcg Tablet 200 mcg PO DAILY albuterol sulfate 90 mcg/actuation Hfa Aerosol Inhaler 90 mcg INHALATION DAILY insulin lispro 100 unit/mL insulin pen 10 unit subcut BID insulin glargine [Lantus Solostar U-100 Insulin] 100 unit/mL (3 mL) insulin pen 60 unit subcut BEDTIME oxycodone 5 mg tablet 5 mg PO Q6H PRN (Reason: pain) Qty: 12 0RF Rx Instructions: Partial Fill upon patient request. metronidazole 500 mg tablet 500 mg PO BID 7 Days Qty: 14 0RF metronidazole 500 mg tablet 500 mg PO BID 7 Days Qty: 14 0RF Trulicity 0.75 mg/0.5 mL pen injector subcut QWEEK metformin 500 mg tablet 500 mg PO BID sertraline 50 mg tablet PO trazodone 50 mg tablet 50 mg PO BEDTIME PRN (Reason: insomnia) hydroxyzine HCl 10 mg tablet 10 mg PO Q8H PRN (Reason: itch) famotidine 20 mg tablet 20 mg PO BEDTIME ascorbic acid (vitamin C) [Vitamin C] 500 mg tablet 500 mg PO QAM Interventions: ED Discharge Assessment Last Done: 01/06/25 20:59 Discharge Date/Time: 01/06/25 21:00 Print Language: Mongolian
[2025-01-06 16:03] LABS: MANUAL DIFF FLAG NO
[2025-01-06 16:08] LABS: Basophils Absolute Auto 0.1 X10*3/uL (0.0-0.2); Eosinophils Absolute Auto 0.3 X10*3/uL (0.0-0.4); Eosinophils Percent Auto 4.1 % (0-4); Hematocrit 28.6 % (37.0-47.0); Hemoglobin 9.1 g/dl (12.0-16.0); Imm Gran Abs Auto 0.02 X10*3/uL (0.00-0.03); Imm Gran Pct Auto 0.3 % (0.0-0.4); Lymphocytes Absolute Auto 2.4 X10*3/uL (1.2-4.9); Lymphocytes Percent Auto 34.9 % (20-40); Mean Corpuscular HGB Conc 31.8 g/dl (31.0-35.0); Mean Corpuscular Hemoglobin 22.8 pg (27.0-33.0); Mean Corpuscular Volume 71.5 fL (80.0-98.0); Mean Platelet Volume 10.8 fL (9.4-12.3); Monocytes Absolute Auto 0.5 X10*3/uL (0.1-1.2); Monocytes Percent Auto 6.9 % (2-11); Neutrophils Absolute Auto 3.6 x10*3/uL (2.0-8.3); Neutrophils Percent Auto 52.8 % (45-73); Platelet Count 278 X10*3/uL (160-400); Red Cell Distribution Width 19.5 % (11.0-16.0); White Blood Count 6.8 X10*3/uL (4.8-10.8)
[2025-01-06 16:25] LABS: Alanine Aminotransferase 16 U/L (0-31); Albumin Level 4.1 g/dL (3.5-5.0); Anion Gap 12 (12-20); Aspartate Amino Transferase 27 U/L (5-31); Bilirubin Total 0.3 mg/dL (0.0-1.0); Blood Urea Nitrogen 12 mg/dL (9-16); Calcium 9.1 mg/dL (8.4-10.2); Carbon Dioxide 25 mmol/L (22-29); Chloride 107 mmol/L (96-108); Creatinine Clr Calc Pharmacy 101.2; Estimated Glomerular Filt Rate 56; Glucose Random 121 mg/dL (60-115); Potassium 3.6 mmol/L (3.3-5.1); Sodium 140 mmol/L (135-145); Total Protein 7.9 g/dL (6.5-8.0)
--- OUTSIDE RECORDS SUMMARY | 2025-01-06 16:48 | XMS_ITS | Encounter Summary ---
Author Organization [employer] Address [address] [facility] 7t [place] [address] Care Team Providers Care Central Service Tech Name Role Phone Brittney Collier MD Primary Care Pro vider Reason for Visit * Reason Onset Date Comments medication request 01/02/2025 Encounter Details Date Type Department Care Team ([facility] st Contact Info) Description 01/02/2025 Telephone [facility] MEDICINE [address] [place], [place] [phone] Brittney Collier MD 230 [place], [place] [phone] medication request Social History Tobacco Use Types Packs/Day Years [...] * Telephone Encounter - Kendall Krishna - 01/02/2025 4:02 PM EDT Tc from pt requesting pen needles to be sent to [facility] pharmacy documented in this encounter Plan of Treatment Upcoming Encounters Date Type Department Care Team (Late st Contact Info) Description 03/01/2025 9:45 AM EDT Office Visit [facility] MED[facility]INE [address] [place] [phone] Brittney Collier MD [address] [place] [phone] documented as of this encounter Visit Diagnoses Not on filedocumented in this encounter Additional Health Concerns Assessment Noted Time PHQ-9 Depression Total Score: 16 024 2:07 PM EDT documented as of this encounter Care Teams Central Service Tech Relationship Specialty Start Date End Date Brittney Collier MD [address] [place] [address] [phone] PCP - General Internal Medicine 08/06/23 documented as of this encounter
--- OUTSIDE RECORDS SUMMARY | 2025-01-06 16:48 | XMS_ITS | Encounter Summary ---
Author Organization [employer] [facility] Address [address] [place] [address] [address] [place] [address] Care Team Providers Care Culinary Worker Name Role Phone Jen Leonardo Primary Care Provider [phone] Brittney Collier MD Primary Care Pro vider Reason for Visit * Reason Comments Med Refill Encounter Details Date Type Department Care Team (Late Contact Info) Description 06/17/2023 Refill [facility] [address] [place] [address] [phone] Brooke Gutierrez MD [address] [place] [address] [phone] Iron deficiency anemia, unspecified iron deficiency anemia [...] as of this encounter Plan of Treatment Upcoming Encounters Date Type Department Care Team (Late st Contact Info) Description 03/01/2025 9:45 AM EDT Office Visit [facility] [address] [place] [address] [phone] Brittney Collier MD [address] [place] [address] [phone] documented as of this encounter Visit Diagnoses Diagnosis Iron deficiency anemia, unspecified iron deficiency anemia type documented in this encounter Care Teams Culinary Worker Relationship Specialty Start Date End Date Jen Leonardo ANP 230 [place] [address] PCP - General Family Medicine 07/10/23 08/05/23 Brittney Collier MD 230 [place] [phone] PCP - General Internal Medicine 08/06/23 documented as of this encounter
--- OUTSIDE RECORDS SUMMARY | 2025-01-06 16:48 | XMS_ITS | Encounter Summary ---
Author Organization [employer] Address [address] [facility] 7t [place] [address] Care Team Providers Care Spindle Maker Name Role Phone Brittney Collier MD Primary Care Pro vider Reason for Visit * Reason Onset Date Comments Prior Authorization 12/13/2024 MATILDE RAMOS Reques t: Synthroid Encounter Details Date Type Department Care Team ([facility] st Contact Info) Description 12/13/2024 Telephone [facility] MEDICINE [address] [place], [place] [phone] Brittney Collier MD [address] [place] [address] Prior Authorization (MATILDE RAMOS Request: Synthroid) Social [...] with others, in a hotel, in a group home, living outside on the street, on [...] * Telephone Encounter - Michelle Kirkland - 12/23/2024 12:02 PM EST PA approval received for Synthroid. Scanned into [employer]. * Telephone Encounter - Michelle Kirkland - 12/21/2024 11:34 AM EST PA for Synthroid signed and faxed to [employer]. Confirmation received and sent to [employer]. If patient calls to check status on above, please advise them to contact Pharmacy . * Telephone Encounter - Abril Galvan - 12/13/2024 2:06 PM EST PA for Synthroid from [employer] placed on PCP desk for signature. documented in this encounter Plan of Treatment Upcoming Encounters Date Type Department Care Team (Late st Contact Info) Description 03/01/2025 9:45 AM EDT Office Visit [facility] MEDICINE [address] [place] [phone] Brittney Collier MD [address] [place] [address] documented as of this encounter Visit Diagnoses Not on filedocumented in this encounter Additional Health Concerns Assessment Noted Time PHQ-9 Depression Total Score: 16 024 2:07 PM EDT documented as of this encounter Care Teams Spindle Maker Relationship Specialty Start Date End Date Brittney Collier MD [address] [place] [phone] PCP - General Internal Medicine 08/06/23 documented as of this encounter
--- OUTSIDE RECORDS SUMMARY | 2025-01-06 16:48 | XMS_ITS | Encounter Summary ---
Author Organization [email or web address] Address [address] [facility] 7t [place] [address] Care Team Providers Care Chief Medical Director Name Role Phone Birttney Collier MD Primary Care Pro vider Reason for Visit * Reason Comments Med Refill Encounter Details Date Type Department Care Team (Late st Contact Info) Description 08/24/2023 Refill [facility] 230 [place], [place] [phone] Brooke Gutierrez MD 230 [place], [place] [phone] Social History Tobacco Use Types Packs/Day Years [...] Description 03/01/2025 9:45 AM EDT Office Visit [facility] MEDICINE [address] [place] [address] [phone] Brittney Collier MD [address] [place] [phone] documented as of this encounter Visit Diagnoses Not on filedocumented in this encounter Additional Health Concerns Assessment Noted Time PHQ-9 Depression Total Score: 5 08/06/20 2:15 PM EDT documented as of this encounter Care Teams Chief Medical Director Relationship Specialty Start Date End Date Brittney Collier MD [address] [place] [address] [phone] PCP - General Internal Medicine 08/06/23 documented as of this encounter
--- OUTSIDE RECORDS SUMMARY | 2025-01-06 16:48 | XMS_ITS | Encounter Summary ---
Author Organization [employer] Address [address] [facility] 7t [place] [address] Care Team Providers Care Hand Welt Butter Name Role Phone Brittney Collier MD Primary Care Pro vider Encounter Details Date Type Department Care Team (Late st Contact Info) Description 11/19/2023 Abstract [facility] MEDICINE 230 [place], [place] [phone] Brittney Collier MD [address], [place] [phone] Social History Tobacco Use Types Packs/Day Years [...] t he electric, gas, oil or water [employer] threatened to shut off services in your [...] Description 03/01/2025 9:45 AM EDT Office Visit [facility] MEDICINE [address] [place] [phone] Brittney Collier MD [address] [place] [phone] documented as of this encounter Visit Diagnoses Not on filedocumented in this encounter Additional Health Concerns Assessment Noted Time PHQ-9 Depression Total Score: 5 08/06/20 2:15 PM EDT documented as of this encounter Care Teams Hand Welt Butter Relationship Specialty Start Date End Date Brittney Collier MD [address] [place] [phone] PCP - General Internal Medicine 08/06/23 documented as of this encounter
--- OUTSIDE RECORDS SUMMARY | 2025-01-06 16:48 | XMS_ITS | Encounter Summary ---
Author Organization [employer] Address [address] [facility] 7t [place] [address] Care Team Providers Care Health Informatics Instructor Name Role Phone Brittney Collier MD Primary Care Pro vider Reason for Visit * Reason Comments Med Refill Encounter Details Date Type Department Care Team (Late st Contact Info) Description 12/31/2023 Refill [facility] [address] [place], [place] [phone] Brooke Gutierrez MD 230 [place], [place] [phone] Social History Tobacco Use Types Packs/Day Years [...] Description 03/01/2025 9:45 AM EDT Office Visit [facility] MEDICINE [address] [place] [address] [phone] Brittney Collier MD [address] [place] [phone] documented as of this encounter Visit Diagnoses Not on filedocumented in this encounter Additional Health Concerns Assessment Noted Time PHQ-9 Depression Total Score: 5 08/06/20 2:15 PM EDT documented as of this encounter Care Teams Health Informatics Instructor Relationship Specialty Start Date End Date Brittney Collier MD [address] [place] [address] [phone] PCP - General Internal Medicine 08/06/23 documented as of this encounter
--- OUTSIDE RECORDS SUMMARY | 2025-01-06 16:48 | XMS_ITS | Encounter Summary ---
Author Organization [employer] Address [address] [facility] 7t [place] [address] Care Team Providers Care Partner Marketing Intern Name Role Phone Brittney Collier MD Primary Care Pro vider Reason for Visit * Reason Onset Date Comments May recall 12/28/2024 Encounter Details Date Type Department Care Team ([facility] st Contact Info) Description 12/28/2024 Telephone [facility] MEDICINE [address] [place], [place] [phone] Brittney Collier MD [address] [place], [place] [phone] May recall Social History Tobacco Use Types Packs/Day Years [...] encounter Miscellaneous Notes * Telephone Encounter - Glenis Fiore MA - 12/28/2024 10:50 AM EST Telephone call to patient to schedule the following recall: Visit type: Office visit Appointment notes: Chronic conditions Patient agree to appointment on 03/01/25 at 9:45 AM with Agusto. documented in this encounter Plan of Treatment Upcoming Encounters Date Type Department Care Team (Late st Contact Info) Description 03/01/2025 9:45 AM EDT Office Visit [facility] MEDICINE [address] [place] [phone] Brittney Collier MD [address] [place] [phone] documented as of this encounter Visit Diagnoses Not on filedocumented in this encounter Additional Health Concerns Assessment Noted Time PHQ-9 Depression Total Score: 16 024 2:07 PM EDT documented as of this encounter Care Teams Partner Marketing Intern Relationship Specialty Start Date End Date Brittney Collier MD [address] [place] [phone] PCP - General Internal Medicine 08/06/23 documented as of this encounter
--- OUTSIDE RECORDS SUMMARY | 2025-01-06 16:48 | XMS_ITS | Encounter Summary ---
Author Organization [employer] Address [address] [facility] 7t [place] [address] Care Team Providers Care Sales Operations Assistant Name Role Phone Jen Leonardo Primary Care Provider [phone] Brittney Collier MD Primary Care Pro vider Reason for Visit * Reason Onset Date Comments New Patient 06/17/2023 Encounter Details Date Type Department Care Team (Late st Contact Info) Description 06/17/2023 Telephone [facility] MEDICINE [address] [place], [place] [phone] Eulogio Goldstein MD 230 [place], [place] [phone] New Patient Social History Tobacco Use Types [...] PAR Margarita Arora called pt to Offer AUTOMOBILE AND PROPERTY UNDERWRITER appt. Pt demographics and insurance information were verified. Pt reports the following medical conditions: Thyroid, Asthma, Diabetic, and Anemic. Pt is currently taking medication: Synthroid, Lantus, Humalog, and Albuterol. Pt given AUTOMOBILE AND PROPERTY UNDERWRITER appt with PCP CARMEN Spear on 07/29/2023 @ 2:15 Pm. Pt will be sent appt reminder card and medical release form and agrees to complete and to return to medical records prior to AUTOMOBILE AND PROPERTY UNDERWRITER appt. * Telephone Encounter - Margarita Canchola - 06/17/2023 12:55 PM EDT Pt has been transfer over to wait list for AUTOMOBILE AND PROPERTY UNDERWRITER. EFFECTIVE SINCE 06/17/2023 documented in this encounter Plan of Treatment Upcoming Encounters Date Type Department Care Team (Late st Contact Info) Description 03/01/2025 9:45 AM EDT Office Visit [facility] MEDICINE [address] [place] [phone] Brittney Collier MD [address] [place] [phone] documented as of this encounter Visit Diagnoses Not on filedocumented in this encounter Care Teams Sales Operations Assistant Relationship Specialty Start Date End Date Jen Leonardo ANP [address] [place] [phone] PCP - General Family Medicine 07/10/23 08/05/23 Brittney Collier MD [address] [place] [phone] PCP - General Internal Medicine 08/06/23 documented as of this encounter
--- OUTSIDE RECORDS SUMMARY | 2025-01-06 16:48 | XMS_ITS | Clinical Summary ---
Author Organization [employer] Address [address] [facility] 7t [place] [address] Care Team Providers Care Signs Cleaner Name Role Phone Brittney Collier MD Primary Care Pro vider Allergies No known active allergies Medications * This document contains information received from the source organization and may not represent a complete record from that organization. Alcohol Swabs padsIndications: Type 2 diabetes mellitus with hyperglycemia, with long-term current use of insulin (CMS/[facility]) 1 each if needed (to clean skin). 100 each 11 023 Active Blood Glucose Monitoring Suppl (FreeStyle Lite) w/Device kitIndications:T ype 2 diabetes mellitus with hyperglycemia, with long-term current use of insulin (CMS/HCC) 1 each in the morning. 1 kit 023 Active Continuous Blood Gluc Parts Manager (FreeStyle Jose Angel 2 [place]) device Use as directed to monitor glucose ever 8 hours. 1 each 024 Active Ascorbic Acid (vitamin C) 500 [...] sugar 3x daily Ac meals 150 each 024 Active cetirizine (ZyrTEC) 10 MG tablet Take [...] Glucose Sensor (FreeStyle Jose Angel 2 Sensor) misc USE DIRECTED. CHANGE EVERY 14 DAYS 2 [...] NEEDED FOR ANXIETY ATTACKS, PANIC 40 tablet Active albuterol (Ventolin HFA) 108 (90 Base) MCG/ACT inhaler Inhale 2 puffs every 6 (six) hours if needed for wheezing. INHALE 2 PUFFS EVERY 6 HOURS IF NEEDED FOR WHEEZING. 18 g 2 025 Active Tirzepatide (Mounjaro) 2.5 MG/0.5ML solution auto-injectorInd ications:Type 2 diabetes mellitus with hyperglycemia, with long-term current use of insulin ([facility]) Inject 2.5 mg under the skin 1 (one) time per week. 2 mL 025 Active Synthroid 112 MCG tabletIndication s:Acquired hypothyroidism Take 2 tablets (224 mcg) by mouth Once per day. 180 tablet 025 2025 Active insulin pen needle (B-D ULTRAFINE III SHORT PEN) 31G X 8 mm miscIndications: Type 2 diabetes mellitus with hyperglycemia, with long-term current use of insulin ([facility]) USE 4 TIMES PER DAY DIRECTED WITH INSULIN 100 each 2 025 Active insulin pen needle (B-D ULTRAFINE III SHORT PEN) 31G X 8 mm miscIndications: Type 2 diabetes mellitus with hyperglycemia, with long-term current use of insulin ([facility]) USE 4 TIMES PER DAY DIRECTED WITH INSULIN 100 each 2 024 2024 Discontinued(R eorder (will not trigger notification to Pharmacy)) Synthroid 112 MCG tabletIndication s:Acquired hypothyroidism Take [...] hyperglycemia, with long-term current use of insulin ([facility]) Inject 2.5 mg under the skin 1 [...] intent. Severe anxiety and family relocation from [place] to [place] are leading to an increase of symptoms. Connected with services for individual therapy with [facility]; attends sessions twice per week. Provided psychoeducation around anxiety, panic attacks and provided strategies to cope with anger. Plan is for patient to continue attending OP services and connect with clinician when needed to assess symptoms and provide support. At this time Rayna Galvan meets criteria for Visit Diagnoses: Problem List Items Addressed This Visit Other Anxiety Irritability and anger Patient ready to address current needs Yes Strengths include strong anaid and resilience. PLAN: 1. Follow up with [facility] [place]: Not recommended for follow-up 2. Patient goal is to be able to control anger and continue attending therapy sessions 3. Behavioral Recommendations a. Incorporate breathing techniques into daily routine b. Continue attending therapy sessions with [facility] c. Contact [facility] program if needed for emergencies Assessment & Plan (08/10/2023 3:00 PM EDT): Patient with anxiety symptoms. Self-harm thought with no plan. Severe anxiety and family relocation from [place] to [place] are leading to an increase of symptoms. Connected with services for individual therapy with [facility]; attends sessions twice per week. Provided psychoeducation around anxiety, panic attacks and provided strategies to cope with anger. Plan is for patient to continue attending OP services and connect with clinician when needed to assess symptoms and provide support. At this time Rayna Galvan meets criteria for Visit Diagnoses: Problem List Items Addressed This Visit Other Anxiety Irritability and anger Patient ready to address current needs Yes Strengths include strong anaid and resilience. PLAN: 1. Follow up with [facility] [place]: Not recommended for follow-up 2. Patient goal is to continue attending therapy sessions with [facility] 3. Behavioral Recommendations a. Incorporate breathing [...] w new PCP DM supplies sent to [facility] pharmacy Resolved Problems Problem Noted Date Diagnosed Date Resolved Date Anemia 06/25/2023 08/06/2023 Encounters Date Type Department Care Team Description 01/06/2025 Orders Only GENERIC EXTERNAL DATA DEPARTMENT Provider, [facility] External Data 01/06/2025 Population [facility] Risk Score [facility] () Department [address] [phone] Provider, [facility] Generic 01/02/2025 Orders Only [facility] [address] [place] [phone] Michaela Heredia MD Type 2 diabetes mellitus with hyperglycemia, with long-term current use of insulin ([facility]) 01/02/2025 Telephone [facility] [address] [place] [phone] Brittney Collier MD medication request 12/28/[address] [address] Brittney Collier MD May recall 12/21/2024 Orders Only GENERIC EXTERNAL DATA DEPARTMENT Provider, [facility] External Data 12/20/[address] [address] Brittney Collier MD Type 2 diabetes mellitus with hyperglycemia, with long-term current use of insulin ([facility]); Acquired hypothyroidism 12/14/2024 Orders Only [facility] External Provider, [facility] 12/13/2024 Telephone [facility] [address] [place] [phone] Brittney Collier MD Prior Authorization ( RACHEL Request: Synthroid) 11/21/2024 Telephone [facility] [address] [place] [address], [place] [phone] Brittney Collier MD Med Refill 11/21/2024 Refill [facility] [address] [place] [address] Juantia Dye, PharmUbaldo Type 2 diabetes mellitus with hyperglycemia, with long-term current use of insulin (CMS/HCC) 11/21/2024 Refill [facility] [address] [place] [address] Brittney Collier MD Diabetic retinopathy screening; Type 2 diabetes mellitus with hyperglycemia, with long-term current use of insulin (CMS/HCC); Depression with anxiety 10/21/2024 Telephone [facility] [address] [place] [address] Juanita Dye PharmD 10/10/2024 Orders Only GENERIC EXTERNAL DATA DEPARTMENT Provider, Generic External Data from Last 3 Months Family History Medical [...] 08/11/2024 10:46 AM EDT Plan of Treatment Upcoming Encounters Date Type Department Care Team (Late st Contact Info) Description 03/01/2025 9:45 AM EDT Office Visit [facility] [address] [place] [phone] Brittney Collier MD [address] [place] [address] Health Maintenance Due Date Last Done Comments [...] of 2 - PCV) 2014 COVID-19 Vaccine ( - season) 2024 Influenza Vaccine (#1) 2024 [...] Procedure Name Priority Date/Time Associated Diagnosis Comments COMPREHENSIVE METABOLIC PANEL Routine 01/06/2025 3:59 PM EDT CBC WITH AUTO DIFFERENTIAL Routine 01/06/2025 3:59 PM EDT CHLAMYDIA/N. GONORRHOEAE RNA, TMA, UROGENITAL Routine 12/21/2024 12:52 PM EST BACTERIAL VAGINOSIS PANEL Routine 12/21/2024 12:52 PM EST XR FINGERS 2+ VIEWS RIGHT Routine 12/14/2024 7:03 PM EST US ABDOMEN COMPLETE Routine 10/11/2024 8 :44 AM EST Pain of upper abdomen CHLAMYDIA/N. GONORRHOEAE RNA, TMA, UROGENITAL Routine 10/10/2024 1:38 PM EST BACTERIAL VAGINOSIS PANEL Routine 10/10/2024 1:38 PM EST HEMOGLOBIN A1C Routine 08/10/2024 10:20 AM EDT Type 2 diabetes mellitus with hyperglycemia, with long-term current use of insulin ([facility]) PAP SMEAR Routine 09/07/2023 1:47 PM EST ALBUMIN, RANDOM URINE W/CREATININE Routine 08/21/2023 10:40 AM EDT LIPID PANEL, STANDARD Routine 08/21/2023 10:40 AM EDT Type 2 diabetes mellitus with hyperglycemia, with long-term current use of insulin ([facility]) HEPATITIS C ANTIBODY REFLEX Routine 06/15/2023 10:00 AM EDT HIV ANTIBODY/ANTIGEN ([place] [facility]) Routine 06/15/2023 10:00 AM EDT from Last 3 Months or Most Recently Relevant to Health Maintenance Results * (ABNORMAL) CBC auto differential (01/06/2025 3:59 PM EDT) White Blood Count 6.8 4.8 - 10.8 X10*3/uL [facility] Red Blood Count 4.00(L) 4.20 - 5.50 X10*6/uL [facility] Hemoglobin 9.1(L) 12.0 - 16.0 g/dl [facility] Hematocrit 28.6(L) 37.0 - 47.0 % [facility] Mean Corpuscular Volume 71.5(L) 80.0 - 98.0 fL [facility] Mean Corpuscular Hemoglobin 22.8(L) 27.0 - 33.0 pg [facility] Mean Corpuscular HGB Conc 31.8 31.0 - 35.0 g/dl [facility] Red Cell Distribution Width 19.5(H) 11.0 - 16.0 % [facility] Platelet Count 278 160 - 400 X10*3/uL [facility] Mean Platelet Volume 10.8 9.4 - 12.3 fL [facility] Neutrophils Percent Auto 52.8 45 - 73 % [facility] Imm Gran Pct Auto 0.3 0.0 - 0.4 % [facility] Lymphocytes Percent Auto 34.9 20 - 40 % [facility] Monocytes Percent Auto 6.9 2 - 11 % [facility] Eosinophils Percent Auto 4.1(H) 0 - 4 % [facility] Basophils Percent Auto 1.0 0 - 2 % [facility] NRBC Pct Auto 0.0 0.0 - 0.2 /100WBC [facility] Neutrophils Absolute Auto 3.6 2.0 - 8.3 x10*3/uL [facility] Imm Gran Abs Auto 0.02 0.00 - 0.03 X10*3/uL [facility] Lymphocytes Absolute Auto 2.4 1.2 - 4.9 X10*3/uL [facility] Monocytes Absolute Auto 0.5 0.1 - 1.2 X10*3/uL [facility] Eosinophils Absolute Auto 0.3 0.0 - 0.4 X10*3/uL [facility] Basophils Absolute Auto 0.1 0.0 - 0.2 X10*3/uL [facility] NRBC Abs Auto 0.000 0.0 - 0.012 X10*3/uL [facility] 01/06/2025 3:59 PM EDT 01/06/2025 4:02 PM EDT Generic External Data Provider LAB BLOOD ORDERAB LES Final Result Performing Organization Address [facility] Co de Phone Number [facility] [address] [place] [phone] * (ABNORMAL) Bacterial Vaginosis (12/21/2024 12:52 PM EST) Only the most recent of2 resultswithin the time period is included. [facility] TRICHOMONAS VAGINALIS DETECTION BY PCR NOT DETECTED Not Detect [facility] BACTERIAL VAGINOSIS DETECTION BY PCR POSITIVE(A) Negative [facility] Comment:The BV organism targ ets [...] DETECTION BY PCR NOT DETECTED Not Detect [facility] Cristina glab krusei PCR NOT DETECTED Not Detect [facility] 12/21/2024 12:5 2 PM EST 12/21/2024 3:07 PM EST Generic External Data Provider LAB MICROBIOLOGY - GENERAL ORDERABLES Final Result Performing Organization Address [facility] Co de Phone Number [facility] [address] [place] [phone] * Chlamydia/N. Gonorrhoeae RNA, TMA, Urogenitial (12/21/2024 12:52 PM EST) Only the most recent of2 resultswithin the time period is included. [facility] CT PCR NOT DETECTED Not Detect. [facility] Comment:A not detected test result [...] psychologicalconsequences. NG PCR NOT DETECTED Not Detect. [facility] Comment:A not detected test result [...] lead to adverse medical, social or psychologicalconsequences. 12/21/2024 12:5 2 PM EST 12/21/2024 3:07 PM EST Narrative [facility] - 12/21/2024 11:52 PM EST Vaginal us Generic External Data Provider LAB MICROBIOLOGY - GENERAL ORDERABLES Final Result [facility] [address] [place] [phone] * XR Fingers 2+ Views Right (12/14/2024 7:03 PM EST) Anatomical Region Laterality Modality Upper Extremities, Fingers Right Radio graphic Imaging 12/14/2024 7:03 PM EST Narrative 12/14/2024 7:05 PM EST ? [facility] ?[address] ?[place], [place] [address] ?XRay Report ? Signed ? Patient: Cole,Rayna A ?MR#: MM ?? [id number] ? : 1995 ?Acct:[id number] ? Age/Sex: 29 / F ?ADM Date: 12/14/24 ? Loc: HO.ED ? Attending Dr: ? Ordering Physician: Gavin Trinidad ?? Date of Service: 12/14/24 ?? Procedure(s): XR finger RT min 2V ?? Accession Number(s): [id number] ? cc: Gavin Trinidad; Brittney Collier MD [...] ? DD/ 02 ? TD/TT: 12/14/241902 ? Management Accountant: ? Procedure Note Lazaro Scherer - 12/14/[address] [address] XRay Report Signed Patient: Rayna Galvan AMR#: [id number] : 1995Acct:[id number] Age/Sex: 29 / FADM Date: 12/14/24 Loc: HO.ED Attending Dr: Ordering Physician: Gavin Trinidad Date of Service: 12/14/24 Procedure(s): XR finger RT min 2V Accession Number(s): [id number] cc: Christopher Trinidad Maria Gabriela MD CLINICAL HISTORY: trauma 3 view right [...] in OV> 12/14/241903 DD/ 02 TD/TT: 12/14/241902 Management Accountant: [facility] External Provider IMG XR PROCEDURES Final Result * US Abdomen Complete (10/11/2024 8:44 AM EST) Anatomical Region Laterality Modality Abdomen Ultrasound 10/11/2024 8:44 AM EST Narrative 10/17/2024 5:55 PM EST ? [facility] ?[address] ?[place] [address] ? Ultrasound Report ? Signed ? Patient: Rayna Galvan ?MR#: MM ?? [id number] ? : 1995 ?Acct:[id number] ? Age/Sex: 28 / F ?ADM Date: 10/11/24 ? Loc: HO.US ? Attending Dr: Aleksey Zarco MD ? Ordering Physician: ALEKSEY ZARCO MD ?? Date of Service: 10/11/24 ?? Procedure(s): US abdomen complete ?? Accession Number(s): [id number] ? cc: ALEKSEY ZARCO MD; Brittney Collier MD ? EXAMINATION: ?? [...] DD/ 0844 ? TD/TT: 10/11/24 0859 ? Management Accountant: HS ? Procedure Note Lazaro Scherer - 10/17/[address] [address] Ultrasound Report Signed Patient: Rayna Galvan AMR#: [id number] : 1995Acct:[id number] Age/Sex: 28 / FADM Date: 10/11/24 Loc: HO.US Attending Dr: Aleksey Zarco MD Ordering Physician: ALEKSEY ZARCO MD Date of Service: 10/11/24 Procedure(s): US abdomen complete Accession Number(s): [id number] cc: ALEKSEY ZARCO MD; Brittney Collier MD EXAMINATION: US ABDOMEN [...] by Yeison Simon MD in OV> 10/17/24 1903 DD/ 0844 TD/TT: 10/11/24 0859 Management Accountant: HS us Alkesey Zarco MD [facility] US PROCEDURES Final Result * (ABNORMAL) Hemoglobin A1c (08/10/2024 10:20 AM EDT) Hemoglobin A1c 11.5(H) <6.0 % [facility] Comment:Hemoglobin A1C Refer ence Range Adults: 4.8 - 6.0 % Non diabetic: < 6.0 % Goal: < 7.0 %Additional Action Suggested: > 8.0 %Note: Hemoglobin A1c results are invalid for patients with abnormal amounts of HbF. Blood transfusions may impact the HbA1c concentration in the patient sample. Estimated Average Glucose 283 mg/dL [facility] Comment:eAG = Estimated ave rage glucose which is %A1C expressed asaverage glucose, using the formula of the L9J-PhxpegtSayjihw Glucose study (ADAG), Diabetes Care, Vol.31,#8,May. 2007 Blood Venous blood specimen / Unknown 08/10/2024 10:20 AM EDT 08/10/2024 11:43 AM EDT us [facility] LAB BLOOD ORDERABLES Final Resul t [facility] [address] [place] [phone] * Pap Smear (09/07/2023 1:47 PM EST) 09/07/2023 1:47 PM EST 09/08/2023 11:30 AM EST Narrative [facility] - 09/28/2023 9:19 AM EST ----- ------- Name: Rayna Galvan ? Age/Sex: 27/F ? : 1995 Unit#: [id number] ?? Attend Dr: Maxwell Felton MD ?Re09/07/23 ?Status: DEP REF ? Location: HO.LAB ?Disch: ? ----- ------- SPEC : [id number] ?RECD: 09/08/23 ? STATUS: ??SOUT ? REQ NUM: [id number] ? BIBIANA: 09/07/235 ? SUBM DR: Maxwell Felton MD ? [...] 66, 68) ?? HPV testing performed by [employer], [place], [place] ??See reference laboratory ?? portion of the EMR for entire report. ?Clinical Information LMP: 07/18 Previous PAP test: Unknown date/findings Other history: Abnormal uterine and vaginal bleeding ? Material Received ?? ThinPrep-Cervical Copies To: ?? Brittney Collier MD ?? [address] [facility] ?? [place] [address] ?? [phone] ?? Maxwell Felotn MD ?? [address] [place] [address] [place] [address] ?? [place] [address] ?? [phone] ----- ------- Signed (signature on file) Liberty Dimas MD 09/28/23 0919 ? ----- ------- ? END OF REPORT ? us Generic External Data Provider LAB CYTOLOGY DANA MALDONADO Final Result Performing Organization Address [facility] Co de Phone Number [facility] [address] [place] [phone] * Albumin, Random Urine W/Creatinine (08/21/2023 10:40 AM EDT) Creatinine, Urine 276.18 mg/dL [facility] Microalbumin Urine 28.0 mg/L [facility] Microalbum Creatinine Ratio Ur 10.1 <30 ug/mg cr [facility] Comment:Albumin/Creatinine R atio Reference Ranges: Normal: < 30 ug/mg creatinine Microalbuminuria: 30 - 300 ug/mg creatinineClinical Albuminuria: > 300 ug/mg creatinine 08/21/2023 10:4 0 AM EDT 08/21/2023 1:24 PM EDT us Brittney Garcia MD LAB URINE ORDERAB LES Final Result Performing Organization Address [facility] Co de Phone Number [facility] [address] [place] [phone] * (ABNORMAL) Lipid Panel, Standard (08/21/2023 10:40 AM EDT) Triglycerides 89 <150 mg/dL [facility] Comment:Desirable Triglyceri de: less than 150 mg/dLBorderline High Triglyceride 150-199 mg/dLHigh Triglyceride: 200-499 mg/dLVery High Triglyceride: greater than or equal to 5OO mg/dL Cholesterol 137 <200 mg/dL [facility] Comment:Desirable Cholestero l: less than 200 mg/dLBorderline High Cholesterol: 200-239 mg/dLHigh Cholesterol: greater than 239 mg/dL LDL Cholesterol Calculated 90 <100 mg/dL [facility] Comment:Desirable LDL: less than 100 mg/dLNear Optimal/Above Optimal LDL: 110- 129 mg/dLBorderline High LDL: 130-159 mg/dLHigh LDL: 160-189 mg/dLVery High LDL: greater than or equal to 190 mg/dL HDL Cholesterol 30(L) >40 mg/dL [facility] Comment:Desirable HDL: great er than 40 mg/dL Note: This HDL assay may give artificially low results in patients with liver disease. Blood Venous blood specimen / Unknown 08/21/2023 10:40 AM EDT 08/21/2023 11:11 AM EDT us Brittney Garcia MD LAB BLOOD ORDERAB LES Final Result Performing Organization Address [facility]/ZIP Co de Phone Number [facility] [address] [place] [phone] * Hepatitis C Antibody Reflex (06/15/2023 10:00 AM EDT) Hepatitis C Antibody Nonreactive Nonreactive [facility] Comment:Antibodies to HCV no t detected; does not exclude early acuteHCV infection. 06/15/2023 10:0 0 AM EDT 06/15/2023 11:32 AM EDT us Jen KNOWLES LAB BLOOD ORDERABLES Final Resul t Performing Organization Address [facility] Co de Phone Number [facility] [address] [place] [phone] * HIV Ab/Ag (MIKE MARR) (06/15/2023 10:00 AM EDT) HIV AB/AG Nonreactive Nonreactive [facility] Comment:HIV-1 p24 Ag and/or HIV-1/HIV-2 Ab not detected.A test result that is nonreactive does not exclude thepossibility of exposure to or infection with HIV-1 and/orHIV-2. Nonreactive results in this assay for individualswith prior exposure to HIV-1 and/or HIV-2 may be due toantigen and antibody levels that are below the limit ofdetection of this assay.The [employer] HIV Ag/Ab Combo assay result andsupplemental assay results should be interpreted inconjunction with the patient's clinical presentation,history and other laboratory results. If the results areinconsistent with clinical evidence, additional testing issuggested to confirm the result. 06/15/2023 10:0 0 AM EDT 06/15/2023 11:32 AM EDT [facility] LAB BLOOD ORDERABLES Final Resul t [facility] [address] [place] [phone] [phone] from Last 3 Months or Most Recently Relevant to Health Maintenance Insurance [facility] MEDICAID STAND ADULT Care Teams Signs Cleaner Relationship Specialty Start Date End Date Brittney Collier MD [address] [place] [phone] PCP - General Internal Medicine 08/06/23
--- OUTSIDE RECORDS SUMMARY | 2025-01-06 16:48 | XMS_ITS | Encounter Summary ---
Author Organization [employer] Address [address] [facility] [address]t [place] [address] Care Team Providers Care Scale Installer Name Role Phone Brittney Collier MD Primary Care Pro vider Reason for Visit * Reason Onset Date Comments Reschedule 10/16/2023 Encounter Details Date Type Department Care Team ([facility] st Contact Info) Description 10/16/2023 Telephone [facility] [address] [place], [place] [phone] Brittney Collier MD [address] [place], [place] [phone] Reschedule Social History Tobacco Use Types Packs/Day [...] Description 03/01/2025 9:45 AM EDT Office Visit [facility] [address] [place] [phone] Brittney Collier MD [address] [place] [address] documented as of this encounter Visit Diagnoses Not on filedocumented in this encounter Additional Health Concerns Assessment Noted Time PHQ-9 Depression Total Score: 5 08/06/20 2:15 PM EDT documented as of this encounter Care Teams Scale Installer Relationship Specialty Start Date End Date Brittney Collier MD [address] [place] [address] PCP - General Internal Medicine 08/06/23 documented as of this encounter
--- OUTSIDE RECORDS SUMMARY | 2025-01-06 16:48 | XMS_ITS | Encounter Summary ---
Author Organization [employer] Address 75 [facility] 7t [place] [address] Care Team Providers Care Certified Pharmacist Assistant Name Role Phone Brittney Collier MD Primary Care Pro vider Encounter Details Date Type Department Care Team (Late st Contact Info) Description 01/02/2025 Orders Only [facility] MEDICINE 230 [place], [place] [phone] Michaela Heredia MD 230 [place], [place] [phone] Type 2 diabetes mellitus with hyperglycemia, with long-term current use of insulin ([facility]) Social History Tobacco Use Types Packs/Day [...] with others, in a hotel, in a halfway, living outside on the street, on a [...] Description 03/01/2025 9:45 AM EDT Office Visit [facility] MEDICINE [address] [place] [address] [phone] Brittney Collier MD [address] [place] [phone] documented as of this encounter Visit Diagnoses Diagnosis Type 2 diabetes mellitus with hyperglycemia, with long-term current use of insulin ([facility]) documented in this encounter Additional Health Concerns Assessment Noted Time PHQ-9 Depression Total Score: 16 024 2:07 PM EDT documented as of this encounter Care Teams Certified Pharmacist Assistant Relationship Specialty Start Date End Date Brittney Collier MD [address] [place] [phone] PCP - General Internal Medicine 08/06/23 documented as of this encounter
--- OUTSIDE RECORDS SUMMARY | 2025-01-06 16:48 | XMS_ITS | Encounter Summary ---
Author Organization [employer] Address 75 [facility] 7t [place] [address] Care Team Providers Care Cook Roast Name Role Phone Brittney Collier MD Primary Care Pro vider Encounter Details Date Type Department Care Team (Late st Contact Info) Description 01/06/2025 Orders Only GENERIC EXTERNAL DATA DEPARTMENT Provider, Generic External Data Social History Tobacco Use Types Packs/Day Years [...] Description 03/01/2025 9:45 AM EDT Office Visit [facility] MEDICINE 230 [place], [place] [phone] Brittney Collier MD [address] [place], [place] [phone] Pending Results Name Type Priority Associated Diagnoses Date /Time Comprehensive Metabolic Panel Lab Routine 01/06/2025 3:59 PM EDT documented as of this encounter Procedures Procedure Name Priority Date/Time Associated Diagnosis Comments CBC WITH AUTO DIFFERENTIAL Routine 01/06/2025 3:59 PM EDT COMPREHENSIVE METABOLIC PANEL Routine 01/06/2025 3:59 PM EDT documented in this encounter Results * (ABNORMAL) CBC auto differential (01/06/2025 3:59 PM EDT) White Blood Count 6.8 4.8 - 10.8 X10*3/uL [facility] Red Blood Count 4.00(L) 4.20 - 5.50 X10*6/uL [facility] Hemoglobin 9.1(L) 12.0 - 16.0 g/dl [facility] Hematocrit 28.6(L) 37.0 - 47.0 % [facility] Mean Corpuscular Volume 71.5(L) 80.0 - 98.0 fL [facility] Mean Corpuscular Hemoglobin 22.8(L) 27.0 - 33.0 pg [facility] Mean Corpuscular HGB Conc 31.8 31.0 - 35.0 g/dl [facility] Red Cell Distribution Width 19.5(H) 11.0 - 16.0 % [facility] Platelet Count 278 160 - 400 X10*3/uL [facility] Mean Platelet Volume 10.8 9.4 - 12.3 fL [facility] Neutrophils Percent Auto 52.8 45 - 73 % [facility] Imm Gran Pct Auto 0.3 0.0 - 0.4 % [facility] Lymphocytes Percent Auto 34.9 20 - 40 % [facility] Monocytes Percent Auto 6.9 2 - 11 % [facility] Eosinophils Percent Auto 4.1(H) 0 - 4 % [facility] Basophils Percent Auto 1.0 0 - 2 % [facility] NRBC Pct Auto 0.0 0.0 - 0.2 /100WBC [facility] Neutrophils Absolute Auto 3.6 2.0 - 8.3 x10*3/uL [facility] Imm Gran Abs Auto 0.02 0.00 - 0.03 X10*3/uL [facility] Lymphocytes Absolute Auto 2.4 1.2 - 4.9 X10*3/uL [facility] Monocytes Absolute Auto 0.5 0.1 - 1.2 X10*3/uL [facility] Eosinophils Absolute Auto 0.3 0.0 - 0.4 X10*3/uL [facility] Basophils Absolute Auto 0.1 0.0 - 0.2 X10*3/uL [facility] NRBC Abs Auto 0.000 0.0 - 0.012 X10*3/uL [facility] 01/06/2025 3:59 PM EDT 01/06/2025 4:02 PM EDT us Generic External Data Provider LAB BLOOD ORDERAB LES Final Result [facility] [address] [place] [address] [phone] documented in this encounter Visit Diagnoses Not on filedocumented in this encounter Additional Health Concerns Assessment Noted Time PHQ-9 Depression Total Score: 16 08/15/2 024 2:07 PM EDT documented as of this encounter Care Teams Cook Roast Relationship Specialty Start Date End Date Brittney Collier MD [address] [place] [phone] PCP - General Internal Medicine 08/06/23 documented as of this encounter
--- OUTSIDE RECORDS SUMMARY | 2025-01-06 16:48 | XMS_ITS | Encounter Summary ---
Author Organization [employer] Address 75 [facility] 7t [place] [address] Care Team Providers Care Food Service Director Name Role Phone Brittney Collier MD Primary Care Pro vider Encounter Details Date Type Department Care Team (Late st Contact Info) Description 12/14/2024 Orders Only [facility] External Provider, [facility] Social History Tobacco Use Types Packs/Day Years [...] Description 03/01/2025 9:45 AM EDT Office Visit [facility] MEDICINE 230 [place] [address] Brittney Collier MD 230 [place] [phone] documented as of this encounter Procedures Procedure Name Priority Date/Time Associated Diagnosis Comments XR FINGERS 2+ VIEWS RIGHT Routine 12/14/2024 7:03 PM EST documented in this encounter Results * XR Fingers 2+ Views Right (12/14/2024 7:03 PM EST) Anatomical Region Laterality Modality Upper Extremities, Fingers Right Radio graphic Imaging 12/14/2024 7:03 PM EST Narrative 12/14/2024 7:05 PM EST ? [facility] ?[address] ?[place] [address] ?XRay Report ? Signed ? Patient: Rayna Galvan ?MR#: [id number] ?? [id number] ? : 1995 ?Acct:[id number] ? Age/Sex: 29 / F ?ADM Date: 12/14/25 ? Loc: HO.ED ? Attending Dr: ? Ordering Physician: Gavin Trinidad ?? Date of Service: 12/14/24 ?? Procedure(s): XR finger RT min 2V ?? Accession Number(s): [id number] ? cc: Gavin Trinidad; Brittney Collier MD [...] document has been electronically signed by: Amandeep Pean MD on ?? 12/14/2024 19:03:36 ? Dictated By: ?Amandeep Pena MD ? Signed By: ?<Electronically signed by Amandeep Pena MD in OV> ? 12/14/24 1904 ? DD/ 02 ? TD/TT: 12/14/241902 ? Lacing Cutter: ? Procedure Note Donotuseinterpreter, Image - 12/14/2024 [place] [address] XRay Report Signed Patient: Rayna Galvan AM[facility]#: [id number] : 1995Acct:[id number] Age/Sex: 29 / FADM Date: 12/14/24 Loc: HO.ED Attending Dr: Ordering Physician: Gavin Trinidad Date of Service: 12/14/24 Procedure(s): XR finger RT min 2V Accession Number(s): [id number] cc: Gavin Trinidad; Brittney Collier MD CLINICAL [...] in OV> 12/14/241903 DD/ 02 TD/TT: 12/14/241902 Lacing Cutter: [facility] External Provider IMG XR PROCEDURES Final Result documented in this encounter Visit Diagnoses Not on filedocumented in this encounter Additional Health Concerns Assessment Noted Time PHQ-9 Depression Total Score: 16 024 2:07 PM EDT documented as of this encounter Care Teams Food Service Director Relationship Specialty Start Date End Date Brittney Collier MD [address] [place] [phone] PCP - General Internal Medicine 08/06/23 documented as of this encounter
--- OUTSIDE RECORDS SUMMARY | 2025-01-06 16:48 | XMS_ITS | Encounter Summary ---
Author Organization [employer] Address 75 [facility] 7t [place] [address] Care Team Providers Care Lubricating Machine Tender Name Role Phone Brittney Collier MD Primary Care Pro vider Encounter Details Date Type Department Care Team (Late st Contact Info) Description 02/02/2024 Orders Only [facility] MEDICINE 230 [place], [place] [phone] Jen Leonardo ANP 230 [place] [address] Social History Tobacco Use Types Packs/Day Years [...] with others, in a hotel, in a fci, living outside on the street, on a [...] the past 12 months, has t he [employer], oil or water company threatened to shut [...] Description 03/01/2025 9:45 AM EDT Office Visit [facility] MEDICINE [address] [place] [phone] Brittney Collier MD [address] [place] [phone] documented as of this encounter Visit Diagnoses Not on filedocumented in this encounter Additional Health Concerns Assessment Noted Time PHQ-9 Depression Total Score: 5 08/06/20 2:15 PM EDT documented as of this encounter Care Teams Lubricating Machine Tender Relationship Specialty Start Date End Date Brittney Collier MD [address] [place] [phone] PCP - General Internal Medicine 08/06/23 documented as of this encounter
--- OUTSIDE RECORDS SUMMARY | 2025-01-06 16:48 | XMS_ITS | Encounter Summary ---
Author Organization [employer] Address 75 [facility] 7t [place] [address] Care Team Providers Care Gear Setter Name Role Phone Brittney Collier MD Primary Care Pro vider Encounter Details Date Type Department Care Team (Late st Contact Info) Description 12/21/2024 Orders Only GENERIC EXTERNAL DATA DEPARTMENT [...] Description 03/01/2025 9:45 AM EDT Office Visit [facility] MEDICINE 230 [place], [place] [phone] Brittney Collier MD 230 [place], [place] [phone] documented as of this encounter Procedures Procedure Name Priority Date/Time Associated Diagnosis Comments BACTERIAL VAGINOSIS PANEL Routine 12/21/2024 12:52 PM EST CHLAMYDIA/N. GONORRHOEAE RNA, TMA, UROGENITAL Routine 12/21/2024 12:52 PM EST documented in this encounter Results * Chlamydia/N. Gonorrhoeae RNA, TMA, Urogenitial (12/21/2024 12:52 PM EST) CT PCR NOT DETECTED Not Detect. [facility] Comment:A not detected test result [...] psychologicalconsequences. NG PCR NOT DETECTED Not Detect. [facility] Comment:A not detected test result [...] PM EST 12/21/2024 3:07 PM EST Narrative [facility] - 12/21/2024 11:52 PM EST Vaginal Generic External Data Provider LAB MICROBIOLOGY - GENERAL ORDERABLES Final Result [facility] [address] [place] [phone] * (ABNORMAL) Bacterial Vaginosis (12/21/2024 12:52 PM EST) TRICHOMONAS VAGINALIS DETECTION BY PCR NOT DETECTED Not Detect [facility] BACTERIAL VAGINOSIS DETECTION BY PCR POSITIVE(A) Negative [facility] Comment:The BV organism targ ets [...] DETECTION BY PCR NOT DETECTED Not Detect [facility] Cristina glab krusei PCR NOT DETECTED Not Detect [facility] 12/21/2024 12:5 2 PM EST 12/21/2024 3:07 PM EST us Generic External Data Provider LAB MICROBIOLOGY - GENERAL ORDERABLES Final Result [facility] [address] [place] [address] [phone] documented in this encounter Visit Diagnoses Not on filedocumented in this encounter Additional Health Concerns Assessment Noted Time PHQ-9 Depression Total Score: 16 024 2:07 PM EDT documented as of this encounter Care Teams Gear Setter Relationship Specialty Start Date End Date Brittney Collier MD [address] [place] [address] PCP - General Internal Medicine 08/06/23 documented as of this encounter
--- OUTSIDE RECORDS SUMMARY | 2025-01-06 16:48 | XMS_ITS | Encounter Summary ---
Author Organization [employer] Address 75 [facility] 7 [place] [address] Care Team Providers Care Press Manager Name Role Phone Brittney Collier MD Primary Care Pro vider Reason for Visit * Reason Onset Date Comments Med Refill 12/20/2024 Encounter Details Date Type Department Care Team (Late st Contact Info) Description 12/20/2024 Refill [facility] MEDICINE 230 [place], [place] [phone] Brittney Collier MD 230 [place], [place] [phone] Type 2 diabetes mellitus with hyperglycemia, with long-term current use of insulin ([facility]); Acquired hypothyroidism Social History Tobacco Use Types [...] Base) MCG/ACT inhaler To be sent to: [facility] - [place], [place] - [address] [place] [address] documented in this encounter Plan of Treatment Upcoming Encounters Date Type Department Care Team ([facility] st Contact Info) Description 03/01/2025 9:45 AM EDT Office Visit [facility] MEDICINE [address] [place] [address] [phone] Brittney Collier MD 230 [place] [address] documented as of this encounter Visit Diagnoses Diagnosis Type 2 diabetes mellitus with hyperglycemia, with long-term current use of insulin ([facility]) Acquired hypothyroidism Unspecified hypothyroidism documented in this encounter Additional Health Concerns Assessment Noted Time PHQ-9 Depression Total Score: 16 024 2:07 PM EDT documented as of this encounter Care Teams Press Manager Relationship Specialty Start Date End Date Brittney Collier MD [address] [place] [address] PCP - General Internal Medicine 08/06/23 documented as of this encounter
--- OUTSIDE RECORDS SUMMARY | 2025-01-06 16:48 | XMS_ITS | Encounter Summary ---
Author Organization [facility] Address 75 [facility] 7t [place] [address] Care Team Providers Care Sustainable Communities Designer Name Role Phone Brittney Collier MD Primary Care Pro vider Encounter Details Date Type Department Care Team (Late st Contact Info) Description 01/06/2025 Population Health Risk Score [facility] ([facility] Department 75 [facility] 7 [place] [phone] Provider, Population Health Generic Social History Tobacco Use Types Packs/Day Years [...] Description 03/01/2025 9:45 AM EDT Office Visit [facility] MEDICINE [address] [place] [address] [phone] Brittney Collier MD [address] [place] [address] documented as of this encounter Visit Diagnoses Not on filedocumented in this encounter Additional Health Concerns Assessment Noted Time PHQ-9 Depression Total Score: 16 024 2:07 PM EDT documented as of this encounter Care Teams Sustainable Communities Designer Relationship Specialty Start Date End Date Brittney Collier MD [address] [place] [address] [phone] PCP - General Internal Medicine 08/06/23 documented as of this encounter
--- OUTSIDE RECORDS SUMMARY | 2025-01-06 16:48 | XMS_ITS | Encounter Summary ---
Author Organization [employer] Address 75 [facility] 7t [place] [address] Care Team Providers Care Catshovel Driver Name Role Phone Brittney Collier MD Primary Care Pro vider Reason for Visit * Reason Comments Med Refill Encounter Details Date Type Department Care Team (Late st Contact Info) Description 05/11/2024 Refill [facility] MEDICINE 230 [place], [place] [phone] Brittney Collier MD 230 [place] [address] Social History Tobacco Use Types Packs/Day Years [...] Description 03/01/2025 9:45 AM EDT Office Visit [facility] MEDICINE [address] [place] [address] [phone] Brittney Collier MD [address] [place] [phone] documented as of this encounter Visit Diagnoses Not on filedocumented in this encounter Additional Health Concerns Assessment Noted Time PHQ-9 Depression Total Score: 5 08/06/20 2:15 PM EDT documented as of this encounter Care Teams Catshovel Driver Relationship Specialty Start Date End Date Brittney Collier MD [address] [place] [address] [phone] PCP - General Internal Medicine 08/06/23 documented as of this encounter
--- OUTSIDE RECORDS SUMMARY | 2025-01-06 16:48 | XMS_ITS | Encounter Summary ---
Author Organization [employer] Address 75 [facility] 7t [place] [address] Care Team Providers Care Mercerizing Range Controller Name Role Phone Brittney Collier MD Primary Care Pro vider Reason for Visit * Reason Comments Med Refill Encounter Details Date Type Department Care Team (Late st Contact Info) Description 09/20/2023 Refill [facility] 230 [place], [place] [phone] Brooke Gutierrez MD 230 [place], [place] [phone] Social History Tobacco Use Types Packs/Day Years [...] Description 03/01/2025 9:45 AM EDT Office Visit [facility] MEDICINE [address] [place] [address] [phone] Brittney Collier MD [address] [place] [phone] documented as of this encounter Visit Diagnoses Not on filedocumented in this encounter Additional Health Concerns Assessment Noted Time PHQ-9 Depression Total Score: 5 08/06/20 2:15 PM EDT documented as of this encounter Care Teams Mercerizing Range Controller Relationship Specialty Start Date End Date Brittney Collier MD [address] [place] [address] [phone] PCP - General Internal Medicine 08/06/23 documented as of this encounter
[2025-01-06 17:30] LABS: Alkaline Phosphatase 57 U/L (39-117)
[2025-01-06 19:37] VITALS: BP 109/66; PULSE 73; RESP 16; TEMP 36.3; O2SAT 100
[2025-01-06 20:25] LABS: HCG Quantitative < 2 mIU/mL
--- NOTE | 2025-01-06 20:38 | PC.NURSE ---
Pt a&ox4, no signs of distress Pt denies pain at this time Pts family at bedside Plan of care ongoing.
[2025-01-06 20:59] VITALS: BP 109/66; PULSE 73; RESP 16; TEMP 36.3; O2SAT 100
== END 2025-01-06 21:00 | disposition home or self-care (01) ==
PROVIDERS: Registered Nurse Emergency; Emergency Provider Emergency Medicine; PCP Student in an Organized Health Care Education/Training Program
DX: N93.9 Abnormal uterine and vaginal bleeding, unspecified (principal); R42 Dizziness and giddiness; D64.9 Anemia, unspecified; Z79.899 Other long term (current) drug therapy
CPT/HCPCS: 36415; 80053; 84702; 85025; 99283; 99284

== ENCOUNTER 2025-01-10 09:51 | Outpatient (REF) | payer MEDICAID, SELFPAY ==
[2025-01-10 10:48] LABS: Hematocrit 30.4 % (37.0-47.0); Hemoglobin 9.6 g/dl (12.0-16.0); Mean Corpuscular HGB Conc 31.6 g/dl (31.0-35.0); Mean Corpuscular Hemoglobin 22.8 pg (27.0-33.0); Mean Corpuscular Volume 72.2 fL (80.0-98.0); Platelet Count 314 X10*3/uL (160-400); Red Blood Count 4.21 X10*6/uL (4.20-5.50); Red Cell Distribution Width 19.2 % (11.0-16.0); White Blood Count 6.8 X10*3/uL (4.8-10.8)
[2025-01-10 11:19] LABS: Alanine Aminotransferase 19 U/L (0-31); Albumin Level 4.3 g/dL (3.5-5.0); Alkaline Phosphatase 62 U/L (39-117); Anion Gap 12 (12-20); Aspartate Amino Transferase 27 U/L (5-31); Bilirubin Total 0.4 mg/dL (0.0-1.0); Blood Urea Nitrogen 10 mg/dL (9-16); Calcium 9.5 mg/dL (8.4-10.2); Carbon Dioxide 26 mmol/L (22-29); Chloride 107 mmol/L (96-108); Estimated Glomerular Filt Rate > 60; Glucose Random 100 mg/dL (60-115); Potassium 3.7 mmol/L (3.3-5.1); Sodium 141 mmol/L (135-145); Total Protein 8.4 g/dL (6.5-8.0)
[2025-01-10 11:39] LABS: Free T4 (Free Thyroxine) 0.57 ng/dL (0.71-1.85); Thyroid Stimulating Hormone > 100.00 uIU/mL (0.32-4.0)
[2025-01-11 06:09] LABS: Prolactin 41.7 ng/mL
== END 2025-01-10 09:52 | disposition home or self-care (01) ==
LOC: HO.LAB 09:51
PROVIDERS: PCP Student in an Organized Health Care Education/Training Program; Visit Provider Obstetrics & Gynecology
DX: E03.9 Hypothyroidism, unspecified (principal); E11.65 Type 2 diabetes mellitus with hyperglycemia; Z79.4 Long term (current) use of insulin; N93.9 Abnormal uterine and vaginal bleeding, unspecified
CPT/HCPCS: 36415; 80053; 84146; 84439; 84443; 85027

== ENCOUNTER 2025-01-13 14:37 | Outpatient (REF) | payer MEDICAID, SELFPAY ==
--- NOTE | ~2025-01-13 | US_ITS ---
EXAMINATION: US PELVIS TRANSABDOMINAL AND TRANSVAGINAL HISTORY: N93.9 - Abnormal uterine and vaginal bleeding, unspecified COMPARISON: Comparison is made with the prior examination dated 07/03/2023. TECHNIQUE: Transabdominal and endovaginal real-time 2D alba-scale ultrasound was performed. Color Doppler was also performed. FINDINGS: Uterus: The uterus is normal in size, measuring 10.4 x 5.6 x 7.2 cm. Myometrium has a normal echotexture. There is a 9 x 8 x 11 mm fibroid in the cervix. Endometrium: The endometrial stripe measures 6 mm in thickness. An IUD is noted in the lower uterine segment. Right ovary: The right ovary measures 4.6 x 2.8 x 2.1 cm. The right ovary is normal in size and echotexture. Left ovary: The left ovary measures 4.3 x 2.5 x 3.0 cm. The left ovary is normal in size and echotexture. Color Doppler analysis of the bilateral ovarian arteries and veins is normal. Pelvic fluid: There is a small amount of fluid in the cul-de-sac.. US/US pelvic and transvaginal IMPRESSION: Malpositioned IUD in the lower uterine segment. 9 x 8 x 11 mm cervical fibroid. Electronically signed by: Jorge Kim MD 01/16/2025 07:11 AM EDT
--- OUTSIDE RECORDS SUMMARY | 2025-01-13 16:48 | XMS_ITS | Encounter Summary ---
Author Organization [employer] [facility] Address 75 [facility] 7t [place] [address] Care Team Providers Care Collection Analyst Name Role Phone Brittney Collier MD Primary Care Pro vider Encounter Details Date Type Department Care Team (Late st Contact Info) Description 01/06/2025 Population Health Risk Score [facility] (C3) Department 75 [facility] 7 [place] [phone] Provider, Population Health Generic Social [...] Description 03/01/2025 9:45 AM EDT Office Visit [facility] MEDICINE [address] [place] [address] [phone] Brittney Collier MD [address] [place] [phone] documented as of this encounter Visit Diagnoses Not on filedocumented in this encounter Additional Health Concerns Assessment Noted Time PHQ-9 Depression Total Score: 16 024 2:07 PM EDT documented as of this encounter Care Teams Collection Analyst Relationship Specialty Start Date End Date Brittney Collier MD [address] [place] [address] [phone] PCP - General Internal Medicine 08/06/23 documented as of this encounter
--- OUTSIDE RECORDS SUMMARY | 2025-01-13 16:48 | XMS_ITS | Encounter Summary ---
Author Organization [employer] Address 75 [facility] 7t [place] [address] Care Team Providers Care Shaker Plate Operator Name Role Phone Brittney Collier MD Primary Care Pro vider Reason for Visit * Reason Comments Med Refill Encounter Details Date Type Department Care Team (Late st Contact Info) Description 05/11/2024 Refill [facility] MEDICINE 230 [place], [place] [phone] Brittney Collier MD 230 [place] [address] Social History Tobacco Use Types Packs/Day Years [...] with others, in a hotel, in a care home, living outside on the street, on [...] Description 03/01/2025 9:45 AM EDT Office Visit [facility] MEDICINE [address] [place] [address] [phone] Brittney Collier MD [address] [place] [phone] documented as of this encounter Visit Diagnoses Not on filedocumented in this encounter Additional Health Concerns Assessment Noted Time PHQ-9 Depression Total Score: 5 08/06/20 2:15 PM EDT documented as of this encounter Care Teams Shaker Plate Operator Relationship Specialty Start Date End Date Brittney Collier MD [address] [place] [address] [phone] PCP - General Internal Medicine 08/06/23 documented as of this encounter
--- OUTSIDE RECORDS SUMMARY | 2025-01-13 16:48 | XMS_ITS | Encounter Summary ---
Author Organization [employer] Address 75 [facility] 7t [place] [address] Care Team Providers Care Starcher And Tenter Range Feeder Name Role Phone Brittney Collier MD Primary Care Pro vider Reason for Visit * Reason Onset Date Comments Prior Authorization 12/13/2024 MATILDE RAMOS Reques t: Synthroid Encounter Details Date Type Department Care Team ([facility] st Contact Info) Description 12/13/2024 Telephone [facility] MEDICINE 230 [place], [place] [phone] Brittney Collier MD 230 [place], [place] [phone] Prior Authorization (MATILDE RAMOS Request: Synthroid) Social [...] with others, in a hotel, in a long-term, living outside on the street, on a [...] PA approval received for Synthroid. Scanned into [employer]. * Telephone Encounter - Michelle Kirkland - 12/21/2024 11:34 AM EST PA for Synthroid signed and faxed to [employer]. Confirmation received and sent to [employer]. If patient calls to check status on above, please advise them to contact Pharmacy . * Telephone Encounter - Abril Galvan - 12/13/2024 2:06 PM EST PA for Synthroid from [employer] placed on PCP desk for signature. documented in this encounter Plan of Treatment Upcoming Encounters Date Type Department Care Team (Late st Contact Info) Description 03/01/2025 9:45 AM EDT Office Visit [facility] MEDICINE [address] [place] [phone] Brittney Collier MD 230 [place] [address] documented as of this encounter Visit Diagnoses Not on filedocumented in this encounter Additional Health Concerns Assessment Noted Time PHQ-9 Depression Total Score: 16 024 2:07 PM EDT documented as of this encounter Care Teams Starcher And Tenter Range Feeder Relationship Specialty Start Date End Date Brittney Collier MD [address] [place] [phone] PCP - General Internal Medicine 08/06/23 documented as of this encounter
--- OUTSIDE RECORDS SUMMARY | 2025-01-13 16:48 | XMS_ITS | Encounter Summary ---
Author Organization [employer] Address 75 [facility] 7t [place] [address] Care Team Providers Care Sizing Sprayer Name Role Phone Brittney Collier MD Primary Care Pro vider Encounter Details Date Type Department Care Team (Late st Contact Info) Description 11/19/2023 Abstract [facility] MEDICINE 230 [place], [place] [phone] Brittney Collier MD 230 [place], [place] [phone] Social History Tobacco Use Types Packs/Day Years [...] t he electric, gas, oil or water [employer] threatened to shut off services in your [...] Description 03/01/2025 9:45 AM EDT Office Visit [facility] MEDICINE [address] [place] [phone] Brittney Collier MD [address] [place] [phone] documented as of this encounter Visit Diagnoses Not on filedocumented in this encounter Additional Health Concerns Assessment Noted Time PHQ-9 Depression Total Score: 5 08/06/20 2:15 PM EDT documented as of this encounter Care Teams Sizing Sprayer Relationship Specialty Start Date End Date Brittney Collier MD [address] [place] [phone] PCP - General Internal Medicine 08/06/23 documented as of this encounter
--- OUTSIDE RECORDS SUMMARY | 2025-01-13 16:48 | XMS_ITS | Encounter Summary ---
Author Organization [employer] Address [address] [place] [address] Care Team Providers Care Dye Weigher Name Role Phone Brittney Collier MD Primary Care Pro vider Reason for Visit * Reason Onset Date Comments Reschedule 10/16/2023 Encounter Details Date Type Department Care Team ([facility] st Contact Info) Description 10/16/2023 Telephone [facility] MEDICINE [address] [place], [place] [phone] Brittney Collier MD [address] [place], [place] [phone] Reschedule Social History Tobacco Use Types Packs/Day [...] pt requesting r/s FUE appt with PCP, chief underwriter attempted to r/s no availability. documented in this encounter Plan of Treatment Upcoming Encounters Date Type Department Care Team (Late st Contact Info) Description 03/01/2025 9:45 AM EDT Office Visit [facility] MEDICINE [address] [place] [id number] Brittney Collier MD [address] [place] [phone] documented as of this encounter Visit Diagnoses Not on filedocumented in this encounter Additional Health Concerns Assessment Noted Time PHQ-9 Depression Total Score: 5 08/06/20 2:15 PM EDT documented as of this encounter Care Teams Dye Weigher Relationship Specialty Start Date End Date Brittney Collier MD [address] [place] [address] PCP - General Internal Medicine 08/06/23 documented as of this encounter
--- OUTSIDE RECORDS SUMMARY | 2025-01-13 16:48 | XMS_ITS | Clinical Summary ---
Author Organization [employer] Address [address] [place] [address] Care Team Providers Care Final Inspector Shuttle Name Role Phone Brittney Collier MD Primary Care Pro vider Allergies No known active allergies Medications * This document contains information received from the source organization and may not represent a complete record from that organization. Alcohol Swabs padsIndications: Type 2 diabetes mellitus with hyperglycemia, with long-term current use of insulin (CMS/[facility]) 1 each if needed (to clean skin). 100 each 11 023 Active Blood Glucose Monitoring Suppl (FreeStyle Lite) w/Device kitIndications:T ype 2 diabetes mellitus with hyperglycemia, with long-term current use of insulin (CMS/HCC) 1 each in the morning. 1 kit 023 Active Continuous Blood Gluc Adult Care Manager (FreeStyle Jose Angel 2 [place]) device Use as directed to monitor glucose [...] with long-term current use of insulin (CMS/HCC) Inject 2.5 mg under the skin 1 (one) time per week. 2 mL 025 Active insulin pen needle (B-D ULTRAFINE III SHORT PEN) 31G X 8 mm miscIndications: Type 2 diabetes mellitus with hyperglycemia, with long-term current use of insulin (CMS/HCC) USE 4 TIMES PER DAY DIRECTED WITH INSULIN 100 each 2 025 Active Synthroid 112 MCG tabletIndication s:Acquired hypothyroidism Take 2 tablets (224 mcg) by mouth before breakfast. 180 tablet 025 Active insulin pen needle (B-D ULTRAFINE III SHORT PEN) 31G X 8 mm miscIndications: Type 2 diabetes mellitus with hyperglycemia, with long-term current use of insulin ([facility]) USE 4 TIMES PER DAY DIRECTED WITH [...] hyperglycemia, with long-term current use of insulin ([facility]) Inject 2.5 mg under the skin 1 (one) time per week. 2 mL 025 2024 Discontinued(R eorder (will not trigger notification to Pharmacy)) Synthroid 112 MCG tabletIndication s:Acquired hypothyroidism Take 2 tablets (224 mcg) by mouth Once per day. 180 tablet 025 2024 Discontinued(R eorder (will not trigger [...] intent. Severe anxiety and family relocation from [place] to [place] are leading to an increase of symptoms. Connected with services for individual therapy with [facility]; attends sessions twice per week. Provided [...] and resilience. PLAN: 1. Follow up with [facility]: Not recommended for follow-up 2. Patient goal is to be able to control anger and continue attending therapy sessions 3. Behavioral Recommendations a. Incorporate breathing techniques into daily routine b. Continue attending therapy sessions with [facility] c. Contact [facility] program if needed for emergencies Assessment & Plan (08/10/2023 3:00 PM EDT): Patient with anxiety symptoms. Self-harm thought with no plan. Severe anxiety and family relocation from [place] to [place] are leading to an increase of symptoms. Connected with services for individual therapy with [facility]; attends sessions twice per week. Provided [...] and resilience. PLAN: 1. Follow up with [facility]: Not recommended for follow-up 2. Patient goal is to continue attending therapy sessions with [facility] 3. Behavioral Recommendations a. Incorporate breathing techniques into daily routine b. Continue attending therapy sessions c. Contact [facility] program if needed for emergencies PCOS (polycystic [...] w new PCP DM supplies sent to [facility] pharmacy Resolved Problems Problem Noted Date Diagnosed Date Resolved Date Anemia 06/25/2023 08/06/2023 Encounters Date Type Department Care Team Description 01/11/2025 Telephone [facility] MEDICINE [address] [place] [address] Brittney Collier MD Prior Authorization ( PA Request: Synthroid 112 MCT) 01/10/2025 Orders Only [facility] MEDICINE [address] [place] [address] Brooke Gutierrez MD Acquired hypothyroidism 01/06/2025 Orders Only GENERIC EXTERNAL DATA DEPARTMENT Provider, Generic External Data 01/06/2025 Population Health Risk Score [facility] () Department [address] [place] [address] [phone] Provider, Population Health Generic 01/02/2025 Orders Only [facility] MEDICINE [address] [place] [address] Michaela Heredia MD Type 2 diabetes mellitus with hyperglycemia, with long-term current use of insulin ([facility]) 01/02/2025 Telephone [facility] MEDICINE [address] [place] [address] Brittney Collier MD medication request 12/28/2024 Telephone [facility] MEDICINE [address] [place] [address] Brittney Collier MD May recall 12/21/2024 Orders Only GENERIC EXTERNAL DATA DEPARTMENT Provider, Generic External Data 12/20/2024 Refill [facility] MEDICINE [address] [place] [address] Brittney Collier MD Type 2 diabetes mellitus with hyperglycemia, with long-term current use of insulin ([facility]); Acquired hypothyroidism 12/14/2024 Orders Only [facility] External Provider, [facility] 12/13/2024 Telephone [facility] MEDICINE [address] [place] [address] Brittney Collier MD Prior Authorization ( PA Request: Synthroid) 11/21/2024 Telephone [facility] MEDICINE [address] [place] [address] Brittney Collier MD Med Refill 11/21/2024 Refill [facility] MEDICINE [address] [place] [address] Juanita Dye, PharmD Type 2 diabetes mellitus with hyperglycemia, with long-term current use of insulin ([facility]) 11/21/2024 Refill [facility] MEDICINE [address] [place] [address] Brittney Collier MD Diabetic retinopathy screening; Type 2 diabetes mellitus with hyperglycemia, with long-term current use of insulin ([facility]); Depression with anxiety 10/21/2024 Telephone [facility] MEDICINE [address] [place] [address] Juanita Dye, PharmD from Last 3 Months Family History Medical [...] Description 03/01/2025 9:45 AM EDT Office Visit [facility] MEDICINE [address] [place] [address] Brittney Collier MD [address] [place] [phone] Health Maintenance Due Date Last Done Comments [...] Procedure Name Priority Date/Time Associated Diagnosis Comments PROLACTIN Routine 01/10/2025 10:06 AM EDT Acquired hypothyroidism COMPREHENSIVE METABOLIC PANEL Routine 01/10/2025 10:06 AM EDT Type 2 diabetes mellitus with hyperglycemia, with long-term current use of insulin ([facility]) CBC Routine 01/10/2025 10:06 AM EDT Type 2 diabetes mellitus with hyperglycemia, with long-term current use of insulin ([facility]) TSH Routine 01/10/2025 10:06 AM EDT Acquired hypothyroidism T4, FREE Routine 01/10/2025 10:06 AM EDT Acquired hypothyroidism HCG, TOTAL, QN Routine 01/06/2025 3:59 PM EDT COMPREHENSIVE METABOLIC PANEL Routine 01/06/2025 3:59 PM EDT CBC WITH AUTO DIFFERENTIAL Routine 01/06/2025 3:59 PM EDT CHLAMYDIA/N. GONORRHOEAE RNA, TMA, UROGENITAL Routine 12/21/2024 12:52 PM EST BACTERIAL VAGINOSIS PANEL Routine 12/21/2024 12:52 PM EST XR FINGERS 2+ VIEWS RIGHT Routine 12/14/2024 7:03 PM EST HEMOGLOBIN A1C Routine 08/10/2024 10:20 AM EDT Type 2 diabetes mellitus with hyperglycemia, with long-term current use of insulin ([facility]) PAP SMEAR Routine 09/07/2023 1:47 PM EST ALBUMIN, RANDOM URINE W/CREATININE Routine 08/21/2023 10:40 AM EDT LIPID PANEL, STANDARD Routine 08/21/2023 10:40 AM EDT Type 2 diabetes mellitus with hyperglycemia, with long-term current use of insulin (CMS/HCC) HEPATITIS C ANTIBODY REFLEX Routine 06/15/2023 10:00 AM EDT HIV ANTIBODY/ANTIGEN ([facility]) Routine 06/15/2023 10:00 AM EDT from Last 3 Months or Most Recently Relevant to Health Maintenance Results * (ABNORMAL) Prolactin (01/10/2025 10:06 AM EDT) Prolactin 41.7(A) ng/mL [facility] Comment:Reference Range Fema les Non- 3.0-30.0 10.0-209.0 Postmenopausal 2.0-20.0THIS TEST WAS PERFORMED AT:[facility] [place] [phone] RIBERA MD 01/10/2025 10:0 6 AM EDT 01/10/2025 10:06 AM EDT us Generic External Data Provider LAB BLOOD ORDERAB LES Final Result [facility] [address] [place] [phone] * (ABNORMAL) CBC (01/10/2025 10:06 AM EDT) White Blood Count 6.8 4.8 - 10.8 X10*3/uL [facility] Red Blood Count 4.21 4.20 - 5.50 X10*6/uL [facility] Hemoglobin 9.6(L) 12.0 - 16.0 g/dl [facility] Hematocrit 30.4(L) 37.0 - 47.0 % [facility] Mean Corpuscular Volume 72.2(L) 80.0 - 98.0 fL [facility] Mean Corpuscular Hemoglobin 22.8(L) 27.0 - 33.0 pg [facility] Mean Corpuscular HGB Conc 31.6 31.0 - 35.0 g/dl [facility] Red Cell Distribution Width 19.2(H) 11.0 - 16.0 % [facility] Platelet Count 314 160 - 400 X10*3/uL [facility] NRBC Pct Auto 0.0 0.0 - 0.2 /100WBC [facility] NRBC Abs Auto 0.000 0.0 - 0.012 X10*3/uL [facility] Blood Venous blood specimen / Unknown 01/10/2025 10:06 AM EDT 01/10/2025 10:06 AM EDT us Brittney Garcia MD LAB BLOOD ORDERAB LES Final Result [facility] [address] [place] [phone] * (ABNORMAL) TSH (01/10/2025 10:06 AM EDT) Thyroid Stimulating Hormone >100.00(H) 0.32 - 4.0 uIU/mL [facility] Comment:Note: A sustained TS H level above 2.5 uIU/mL may warrant further investigation. TSH 3rd Generation ([facility]) Blood Venous blood specimen / Unknown 01/10/2025 10:06 AM EDT 01/10/2025 10:06 AM EDT us Brittney Garcia MD LAB BLOOD ORDERAB LES Final Result Performing Organization Address City/[facility]/ZIP Co de Phone Number [facility] [address] [place] [phone] * (ABNORMAL) T4, Free (01/10/2025 10:06 AM EDT) Free T4 (Free Thyroxine) 0.57(L) 0.71 - 1.85 ng/dL [facility] Blood Venous blood specimen / Unknown 01/10/2025 10:06 AM EDT 01/10/2025 10:06 AM EDT us Brittney Garcia MD LAB BLOOD ORDERAB LES Final Result [facility] [address] [place] [phone] * (ABNORMAL) Comprehensive Metabolic Panel (01/10/2025 10:06 AM EDT) Only the most recent of2 resultswithin the time period is included. Pathologist [facility] Sodium 141 135 - 145 mmol/L [facility] Potassium 3.7 3.3 - 5.1 mmol/L [facility] Chloride 107 96 - 108 mmol/L [facility] Carbon Dioxide 26 22 - 29 mmol/L [facility] Anion Gap 12 12 - 20 [facility] Urea Nitrogen (BUN) 10 9 - 16 mg/dL [facility] Creatinine, Serum 0.93 0.5 - 1.4 mg/dL [facility] Estimated Glomerular Filt Rate >60 [facility] Comment:Chronic Kidney Disea se: Estimated GFR < 60 mL/min/1.49r2Nusfes Kidney Disease: Estimated GFR < 15 mL/min/1.73m2 Glucose 100 60 - 115 mg/dL [facility] Calcium 9.5 8.4 - 10.2 mg/dL [facility] Bilirubin, Total 0.4 0.0 - 1.0 mg/dL [facility] Aspartate Amino Transferase 27 5 - 31 U/L [facility] Alanine Aminotransferase 19 0 - 31 U/L [facility] Total Protein 8.4(H) 6.5 - 8.0 g/dL [facility] Albumin Level 4.3 3.5 - 5.0 g/dL [facility] Alkaline Phosphatase 62 39 - 117 U/L [facility] Blood Venous blood specimen / Unknown 01/10/2025 10:06 AM EDT 01/10/2025 10:06 AM EDT us Brittney Garcia MD LAB BLOOD ORDERAB LES Final Result [facility] [address] [place] [phone] * (ABNORMAL) CBC auto differential (01/06/2025 3:59 PM EDT) White Blood Count 6.8 4.8 - 10.8 X10*3/uL [facility] Red Blood Count 4.00(L) 4.20 - 5.50 X10*6/uL [facility] Hemoglobin 9.1(L) 12.0 - 16.0 g/dl [facility] Hematocrit 28.6(L) 37.0 - 47.0 % [facility] Mean Corpuscular Volume 71.5(L) 80.0 - 98.0 fL [facility] Mean Corpuscular Hemoglobin 22.8(L) 27.0 - 33.0 pg [facility] Mean Corpuscular HGB Conc 31.8 31.0 - 35.0 g/dl [facility] Red Cell Distribution Width 19.5(H) 11.0 - 16.0 % [facility] Platelet Count 278 160 - 400 X10*3/uL [facility] Mean Platelet Volume 10.8 9.4 - 12.3 fL [facility] Neutrophils Percent Auto 52.8 45 - 73 % [facility] Imm Gran Pct Auto 0.3 0.0 - 0.4 % [facility] Lymphocytes Percent Auto 34.9 20 - 40 % [facility] Monocytes Percent Auto 6.9 2 - 11 % [facility] Eosinophils Percent Auto 4.1(H) 0 - 4 % [facility] Basophils Percent Auto 1.0 0 - 2 % [facility] NRBC Pct Auto 0.0 0.0 - 0.2 /100WBC [facility] Neutrophils Absolute Auto 3.6 2.0 - 8.3 x10*3/uL [facility] Imm Gran Abs Auto 0.02 0.00 - 0.03 X10*3/uL [facility] Lymphocytes Absolute Auto 2.4 1.2 - 4.9 X10*3/uL [facility] Monocytes Absolute Auto 0.5 0.1 - 1.2 X10*3/uL [facility] Eosinophils Absolute Auto 0.3 0.0 - 0.4 X10*3/uL [facility] Basophils Absolute Auto 0.1 0.0 - 0.2 X10*3/uL [facility] NRBC Abs Auto 0.000 0.0 - 0.012 X10*3/uL [facility] 01/06/2025 3:59 PM EDT 01/06/2025 4:02 PM EDT us Generic External Data Provider LAB BLOOD ORDERAB LES Final Result Performing Organization Address City/State/[facility] Co de Phone Number [facility] [address] [place] [phone] * hCG, Total, Quantitative (01/06/2025 3:59 PM EDT) HCG Quantitative <2 mIU/mL [facility] Comment:Weeks post LMP Appro ximate hCG(Last Menstrual Period) Range (mIU/ml)3 - 4 weeks 9 - 1304 - 5 weeks 75 - 2,6005 - 6 weeks 850 - 20,8006 - 7 weeks 4000 - 100,2007 - 12 weeks 11,500 - 289,55227 - 16 weeks 18,300 - 137,20257 - 29 weeks (2nd trimester) 1,400 - 53,90734 - 41 weeks (3rd trimester) 940 - 60,000[employer] [facility] B- hCG assay is used for the early detection ofpregnancy; it cannot be used to diagnose any conditionunrelated to . If a B-hCG level is not supportedby the clinical evidence, results should be confirmed by analternative method (qualitative urine hCG, for example). 01/06/2025 3:59 PM EDT 01/06/2025 4:02 PM EDT Generic External Data Provider LAB BLOOD ORDERAB LES Final Result Performing Organization Address [facility]/ZIP Co de Phone Number [facility] [address] [place] [phone] * (ABNORMAL) Bacterial Vaginosis (12/21/2024 12:52 PM EST) TRICHOMONAS VAGINALIS DETECTION BY PCR NOT DETECTED Not Detect [facility] BACTERIAL VAGINOSIS DETECTION BY PCR POSITIVE(A) Negative [facility] Comment:The BV organism targ ets [...] BY PCR NOT DETECTED Not Detect [facility] Cristina glab krusei PCR NOT DETECTED Not Detect [facility] 12/21/2024 12:5 2 PM EST 12/21/2024 3:07 PM EST us Generic External Data Provider LAB MICROBIOLOGY - GENERAL ORDERABLES Final Result Performing Organization Address [facility] Co de Phone Number [facility] [address] [place] [address] [phone] * Chlamydia/N. Gonorrhoeae RNA, TMA, Urogenitial (12/21/2024 12:52 PM EST) CT PCR NOT DETECTED Not Detect. [facility] Comment:A not detected test result [...] NG PCR NOT DETECTED Not Detect. [facility] Comment:A not detected test result [...] EST 12/21/2024 3:07 PM EST Narrative [facility] - 12/21/2024 11:52 PM EST Vaginal us Generic External Data Provider LAB MICROBIOLOGY - GENERAL ORDERABLES Final Result [facility] [address] [place] [phone] * XR Fingers 2+ Views Right (12/14/2024 7:03 PM EST) Anatomical Region Laterality Modality Upper Extremities, Fingers Right [employer] Imaging 12/14/2024 7:03 PM EST Narrative 12/14/2024 7:05 PM EST ? [facility] ?[address] ?[place] [address] ?XRay Report ? Signed ? Patient: Cole,Rayna A ?MR#: [id number] ?? [id number] ? : 1995 ?Acct:[id number] ? Age/Sex: 29 / F ?ADM Date: 12/14/24 ? Loc: HO.ED ? Attending Dr: ? Ordering Physician: Gavin Trinidad ?? Date of Service: 12/14/24 ?? Procedure(s): XR finger RT min 2V ?? Accession Number(s): [id number] ? cc: Gavin Trinidad; Brittney Collier MD [...] by Amandeep Pena MD in OV> ? 12/14/244 ? DD/ 02 ? TD/TT: 12/14/241902 ? Actuarial Science Professor: ? Procedure Note Gilmer, Lazaro - 12/14/[address] [address] XRay Report Signed Patient: Rayna Galvan AMR#: [id number] : 1995Acct:[id number] Age/Sex: 29 / FADM Date: 12/14/24 Loc: HO.ED Attending Dr: Ordering Physician: Gavin Trinidad Date of Service: 12/14/24 Procedure(s): XR finger RT min 2V Accession Number(s): [id number] cc: Gavin Trinidad; Brittney Collier MD CLINICAL [...] in OV> 12/14/241903 DD/ 02 TD/TT: 12/14/241902 Actuarial Science Professor: [facility] External Provider IMG XR PROCEDURES Final Result * (ABNORMAL) Hemoglobin A1c (08/10/2024 10:20 AM EDT) Hemoglobin A1c 11.5(H) <6.0 % [facility] Comment:Hemoglobin A1C Refer ence Range Adults: 4.8 - 6.0 % Non diabetic: < 6.0 % Goal: < 7.0 %Additional Action Suggested: > 8.0 %Note: Hemoglobin A1c results are invalid for patients with abnormal amounts of HbF. Blood transfusions may impact the HbA1c concentration in the patient sample. Estimated Average Glucose 283 mg/dL [facility] Comment:eAG = Estimated ave rage glucose which is %A1C expressed asaverage glucose, using the formula of the N6Y-ErjfgyrGzadibx Glucose study (ADAG), Diabetes Care, Vol.31,#8,May. 2007 Blood Venous blood specimen / Unknown 08/10/2024 10:20 AM EDT 08/10/2024 11:43 AM EDT [facility] LAB BLOOD ORDERABLES Final Resul t [facility] [address] [place] [address] [phone] * Pap Smear (09/07/2023 1:47 PM EST) 09/07/2023 1:47 PM EST 09/08/2023 11:30 AM EST Narrative [facility] - 09/28/2023 9:19 AM EST ----- ------- Name: Rayna Galvan ? Age/Sex: ? : 1995 Unit#: [id number] ?? Attend Dr: Maxwell Felton MD ?Re09/07/23 ?Status: DEP REF ? Location: HO.LAB ?Disch: ? ----- ------- SPEC : [id number] ?RECD: 09/08/23 ? STATUS: ??SOUT ? REQ NUM: [id number] ? BIBIANA: 09/07/23 ? SUBM DR: Maxwell Felton MD ? ENTERED: ??09/08/23-1242 ?SP TYPE: Pap Smr ?OTHR DR: Brittney [...] 66, 68) ?? HPV testing performed by [facility], [place], [place]. ??See reference laboratory ?? portion of the EMR for entire report. ?Clinical Information LMP: 07/18 Previous PAP test: Unknown date/findings Other history: Abnormal uterine and vaginal bleeding ? Material Received ?? ThinPrep-Cervical Copies To: ?? Brittney Collier MD ?? [address] [facility] ?? [place] [address] ?? [phone] ?? Maxwell Felton MD ?? [address] [place] [address] [address] ?? [place] [address] ?? [phone] ----- ------- Signed (signature on file) Liberty Dimas MD 09/28/23 0919 ? ----- ------- ? END OF REPORT ? us Generic External Data Provider LAB CYTOLOGY ORDE RABKO Final Result Performing Organization Address [facility] de Phone Number [facility] [address] [place] [address] [phone] * Albumin, Random Urine W/Creatinine (08/21/2023 10:40 AM EDT) Creatinine, Urine 276.18 mg/dL [facility] Microalbumin Urine 28.0 mg/L [facility] Microalbum Creatinine Ratio Ur 10.1 <30 ug/mg cr [facility] Comment:Albumin/Creatinine R atio Reference Ranges: Normal: < 30 ug/mg creatinine Microalbuminuria: 30 - 300 ug/mg creatinineClinical Albuminuria: > 300 ug/mg creatinine 08/21/2023 10:4 0 AM EDT 08/21/2023 1:24 PM EDT us Brittney Garcia MD LAB URINE ORDERAB LES Final Result Performing Organization Address [facility] Co de Phone Number [facility] [address] [place], [place] [phone] * (ABNORMAL) Lipid Panel, Standard (08/21/2023 10:40 AM EDT) Triglycerides 89 <150 mg/dL [facility] Comment:Desirable Triglyceri de: less than 150 mg/dLBorderline High Triglyceride 150-199 mg/dLHigh Triglyceride: 200-499 mg/dLVery High Triglyceride: greater than or equal to 5OO mg/dL Cholesterol 137 <200 mg/dL [facility] Comment:Desirable Cholestero l: less than 200 mg/dLBorderline High Cholesterol: 200-239 mg/dLHigh Cholesterol: greater than 239 mg/dL LDL Cholesterol Calculated 90 <100 mg/dL [facility] Comment:Desirable LDL: less than 100 mg/dLNear Optimal/Above Optimal LDL: 110- 129 mg/dLBorderline High LDL: 130-159 mg/dLHigh LDL: 160-189 mg/dLVery High LDL: greater than or equal to 190 mg/dL HDL Cholesterol 30(L) >40 mg/dL [facility] Comment:Desirable HDL: great er than 40 mg/dL Note: This HDL assay may give artificially low results in patients with liver disease. Blood Venous blood specimen / Unknown 08/21/2023 10:40 AM EDT 08/21/2023 11:11 AM EDT us Brittney Garcia MD LAB BLOOD ORDERAB LES Final Result Performing Organization Address City/[facility]/ZIP Co de Phone Number [facility] [address] [place] [phone] * Hepatitis C Antibody Reflex (06/15/2023 10:00 AM EDT) Hepatitis C Antibody Nonreactive Nonreactive [facility] Comment:Antibodies to HCV no t detected; does not exclude early acuteHCV infection. 06/15/2023 10:0 0 AM EDT 06/15/2023 11:32 AM EDT us Jen KNOWLES LAB BLOOD ORDERABLES Final Resul t Performing Organization Address City/[facility]/ZIP Co de Phone Number [facility] [address] [place] [phone] * HIV Ab/Ag (MIKE MARR) (06/15/2023 10:00 AM EDT) HIV AB/AG Nonreactive Nonreactive [facility] Comment:HIV-1 p24 Ag and/or HIV-1/HIV-2 Ab not detected.A test result that is nonreactive does not exclude thepossibility of exposure to or infection with HIV-1 and/orHIV-2. Nonreactive results in this assay for individualswith prior exposure to HIV-1 and/or HIV-2 may be due toantigen and antibody levels that are below the limit ofdetection of this assay.The [employer] HIV Ag/Ab Combo assay result andsupplemental assay results should be interpreted inconjunction with the patient's clinical presentation,history and other laboratory results. If the results areinconsistent with clinical evidence, additional testing issuggested to confirm the result. 06/15/2023 10:0 0 AM EDT 06/15/2023 11:32 AM EDT [facility] LAB BLOOD ORDERABLES Final Resul t [facility] [address] [place] [phone] from Last 3 Months or Most Recently Relevant to Health Maintenance Insurance [employer] [place] AD[place] Care Teams Final Inspector Shuttle Relationship Specialty Start Date End Date Brittney Collier MD 18 [place] [phone] PCP - General Internal Medicine 08/06/23
--- OUTSIDE RECORDS SUMMARY | 2025-01-13 16:48 | XMS_ITS | Encounter Summary ---
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 shut [...] 03/01/2025 9:45 AM EDT Office Visit [facility] [address] [place] [phone] Brittney Collier MD [address] [place] [address] documented as of this encounter Visit Diagnoses Not on filedocumented in this encounter Additional Health Concerns Assessment Noted Time PHQ-9 Depression Total Score: 5 08/06/20 2:15 PM EDT documented as of this encounter Care Teams C Python Developer Relationship Specialty Start Date End Date Brittney Collier MD [address] [place] [phone] PCP - General Internal Medicine 08/06/23 documented as of this encounter
--- OUTSIDE RECORDS SUMMARY | 2025-01-13 16:48 | XMS_ITS | Encounter Summary ---
Author Organization [employer] Address 75 [facility] 7t [place] [address] Care Team Providers Care Automation Controls Specialist Name Role Phone Brittney Collier MD Primary Care Pro vider Encounter Details Date Type Department Care Team (Late st Contact Info) Description 01/10/2025 Orders Only [facility] MED[facility]INE 230 [place], [place] [phone] Brooke Gutierrez MD 230 [place], [place] [phone] Acquired hypothyroidism Social History Tobacco Use Types [...] Description 03/01/2025 9:45 AM EDT Office Visit [facility] 230 [place] [address] Brittney Collier MD 230 [place], [place] [phone] documented as of this encounter Procedures Procedure Name Priority Date/Time Associated Diagnosis Comments PROLACTIN Routine 01/10/2025 10:06 AM EDT Acquired hypothyroidism documented in this encounter Results * (ABNORMAL) Prolactin (01/10/2025 10:06 AM EDT) Prolactin 41.7(A) ng/mL [facility] Comment:Reference Range Fema les Non- 3.0-30.0 10.0-209.0 Postmenopausal 2.0-20.0THIS TEST WAS PERFORMED AT:[employer] [place] [id number] RIBERA MD 01/10/2025 10:0 6 AM EDT 01/10/2025 10:06 AM EDT us Generic External Data Provider LAB BLOOD ORDERAB LES Final Result [facility] [address] [place] [address] [phone] documented in this encounter Visit Diagnoses Diagnosis Acquired hypothyroidism Unspecified hypothyroidism documented in this encounter Additional Health Concerns Assessment Noted Time PHQ-9 Depression Total Score: 16 024 2:07 PM EDT documented as of this encounter Care Teams Automation Controls Specialist Relationship Specialty Start Date End Date Brittney Collier MD [address] [place] [phone] PCP - General Internal Medicine 08/06/23 documented as of this encounter
--- OUTSIDE RECORDS SUMMARY | 2025-01-13 16:48 | XMS_ITS | Encounter Summary ---
Author Organization [employer] Address 75 [facility] 7t [place] [address] Care Team Providers Care Wafer Fabricator Name Role Phone Brittney Collier MD Primary Care Pro vider Reason for Visit * Reason Comments Med Refill Encounter Details Date Type Department Care Team (Late st Contact Info) Description 12/31/2023 Refill [facility] 230 [place], [place] [phone] Brooke Gutierrez MD 230 [place], [place] [phone] Social History Tobacco Use Types Packs/Day Years [...] Description 03/01/2025 9:45 AM EDT Office Visit [facility] [address] [place] [address] [phone] Brittney Collier MD [address] [place] [phone] documented as of this encounter Visit Diagnoses Not on filedocumented in this encounter Additional Health Concerns Assessment Noted Time PHQ-9 Depression Total Score: 5 08/06/20 2:15 PM EDT documented as of this encounter Care Teams Wafer Fabricator Relationship Specialty Start Date End Date Brittney Collier MD [address] [place] [address] [phone] PCP - General Internal Medicine 08/06/23 documented as of this encounter
--- OUTSIDE RECORDS SUMMARY | 2025-01-13 16:48 | XMS_ITS | Encounter Summary ---
Author Organization [employer] Address 75 [facility] 7 [place] [address] Care Team Providers Care Technical Stenographer Name Role Phone Brittney Collier MD Primary Care Pro vider Reason for Visit * Reason Onset Date Comments Prior Authorization 01/11/2025 MATILDE RAMOS Reques t: Synthroid 112 MCT Encounter Details Date Type Department Care Team (Late st Contact Info) Description 01/11/2025 Telephone [facility] 230 [place], [place] [phone] Brittney Collier MD 230 [place] [address] Prior Authorization (MATILDE RAMOS Request: Synthroid 112 MCT) Social History Tobacco Use Types Packs/Day Years [...] encounter Miscellaneous Notes * Telephone Encounter - Ryder Pereira [place] - 01/13/2025 9:08 AM EDT PA has been signed by the PCP and faxed to [employer]. Form is sent in for scanning. * Telephone Encounter - Abril Galvan - 01/11/2025 11:50 AM EDT PA for Synthroid 112 MCG from [employer] placed on PCP desk for signature. documented in this encounter Plan of Treatment Upcoming Encounters Date Type Department Care Team (Late st Contact Info) Description 03/01/2025 9:45 AM EDT Office Visit [facility] [address] [place] [phone] Brittney Collier MD 230 [place] [address] documented as of this encounter Visit Diagnoses Not on filedocumented in this encounter Additional Health Concerns Assessment Noted Time PHQ-9 Depression Total Score: 16 024 2:07 PM EDT documented as of this encounter Care Teams Technical Stenographer Relationship Specialty Start Date End Date Brittney Collier MD [address] [place] [phone] PCP - General Internal Medicine 08/06/23 documented as of this encounter
--- OUTSIDE RECORDS SUMMARY | 2025-01-13 16:48 | XMS_ITS | Encounter Summary ---
Author Organization [employer] Address 75 [facility] 7t [place] [address] Care Team Providers Care Animal Doctor Name Role Phone Brittney Collier MD Primary Care Pro vider Encounter Details Date Type Department Care Team (Late st Contact Info) Description 01/02/2025 Orders Only [facility] 230 [place], [place] [phone] Michaela Heredia MD 230 [place], [place] [phone] Type 2 diabetes mellitus with hyperglycemia, with long-term current use of insulin ([facility]) Social History Tobacco Use Types Packs/Day [...] 9:45 AM EDT Office Visit [facility] [address] [place] [address] [phone] Brittney Collier MD [address] [place] [phone] documented as of this encounter Visit Diagnoses Diagnosis Type 2 diabetes mellitus with hyperglycemia, with long-term current use of insulin ([facility]) documented in this encounter Additional Health Concerns Assessment Noted Time PHQ-9 Depression Total Score: 16 024 2:07 PM EDT documented as of this encounter Care Teams Animal Doctor Relationship Specialty Start Date End Date Brittney Collier MD [address] [place] [phone] PCP - General Internal Medicine 08/06/23 documented as of this encounter
--- OUTSIDE RECORDS SUMMARY | 2025-01-13 16:48 | XMS_ITS | Encounter Summary ---
Author Organization [employer] Address 75 [facility] 7t [place] [address] Care Team Providers Care Valver Name Role Phone Brittney Collier MD Primary [...] as of this encounter Miscellaneous Notes * Result Encounter Note - BENSON Miles - 01/06/2025 4:09 PM EDT Patient is followed by hematology documented in this encounter Plan of Treatment Upcoming Encounters Date Type Department Care Team ([facility] st Contact Info) Description 03/01/2025 9:45 AM EDT Office Visit [facility]INE [address] [place] [phone] Brittney Collier MD 230 [place] [address] documented as of this encounter Procedures Procedure Name Priority Date/Time Associated Diagnosis Comments CBC WITH AUTO DIFFERENTIAL Routine 01/06/2025 3:59 PM EDT HCG, TOTAL, QN Routine 01/06/2025 3:59 PM EDT COMPREHENSIVE METABOLIC PANEL Routine 01/06/2025 3:59 PM EDT documented in this encounter Results * hCG, Total, Quantitative (01/06/2025 3:59 PM EDT) HCG Quantitative <2 mIU/mL [facility] [place] [facility] Comment:Weeks post LMP Appro ximate hCG(Last Menstrual Period) Range (mIU/ml)3 - 4 weeks 9 - 1304 - 5 weeks 75 - 2,6005 - 6 weeks 850 - 20,8006 - 7 weeks 4000 - 100,2007 - 12 weeks 11,500 - 289,55444 - 16 weeks 18,300 - 137,07938 - 29 weeks (2nd trimester) 1,400 - 53,55642 - 41 weeks (3rd trimester) 940 - [...] Provider LAB BLOOD ORDERAB LES Final Result [facility] [address] [place] [address] [phone] * (ABNORMAL) Comprehensive Metabolic Panel (01/06/2025 3:59 PM EDT) Sodium 140 135 - 145 mmol/L [facility] Potassium 3.6 3.3 - 5.1 mmol/L [facility] Chloride 107 96 - 108 mmol/L [facility] Carbon Dioxide 25 22 - 29 mmol/L [facility] Anion Gap 12 12 - 20 [facility] Urea Nitrogen (BUN) 12 9 - 16 mg/dL [facility] Creatinine, Serum 1.14 0.5 - 1.4 mg/dL [facility] Creatinine Clr Calc Pharmacy 101.2 [facility] Comment:Provided height and weight: 172.72 cm,124.2 kg.eGFR (calculated from the MDRD study equation) and eCrCl(calculated from the Cockcroft-Gault equation) are based ondifferent parameters and may not yield comparable results.If eCrCl result is absurd, please check patient'sheight/weight. Estimated Glomerular Filt Rate 56 [facility] Comment:Chronic Kidney Disea se: Estimated GFR < 60 mL/min/1.15b3Uhwhxu Kidney Disease: Estimated GFR < 15 mL/min/1.73m2 Glucose 121(H) 60 - 115 mg/dL [facility] Calcium 9.1 8.4 - 10.2 mg/dL [facility] Bilirubin, Total 0.3 0.0 - 1.0 mg/dL [facility] Aspartate Amino Transferase 27 5 - 31 U/L [facility] Alanine Aminotransferase 16 0 - 31 U/L [facility] Total Protein 7.9 6.5 - 8.0 g/dL [facility] Albumin Level 4.1 3.5 - 5.0 g/dL [facility] Alkaline Phosphatase 57 39 - 117 U/L [facility] 01/06/2025 3:59 PM EDT 01/06/2025 4:02 PM EDT us Generic External Data Provider LAB BLOOD ORDERAB LES Final Result [facility] [address] [place] [address] [phone] * (ABNORMAL) CBC auto differential (01/06/2025 3:59 PM EDT) White Blood Count 6.8 4.8 - 10.8 X10*3/uL [facility] Red Blood Count 4.00(L) 4.20 - 5.50 X10*6/uL [facility] Hemoglobin 9.1(L) 12.0 - 16.0 g/dl [facility] Hematocrit 28.6(L) 37.0 - 47.0 % [facility] Mean Corpuscular Volume 71.5(L) 80.0 - 98.0 fL [facility] Mean Corpuscular Hemoglobin 22.8(L) 27.0 - 33.0 pg [facility] Mean Corpuscular HGB Conc 31.8 31.0 - 35.0 g/dl [facility] Red Cell Distribution Width 19.5(H) 11.0 - 16.0 % [facility] Platelet Count 278 160 - 400 X10*3/uL [facility] Mean Platelet Volume 10.8 9.4 - 12.3 fL [facility] Neutrophils Percent Auto 52.8 45 - 73 % [facility] Imm Gran Pct Auto 0.3 0.0 - 0.4 % [facility] Lymphocytes Percent Auto 34.9 20 - 40 % [facility] Monocytes Percent Auto 6.9 2 - 11 % [facility] Eosinophils Percent Auto 4.1(H) 0 - 4 % [facility] Basophils Percent Auto 1.0 0 - 2 % [facility] NRBC Pct Auto 0.0 0.0 - 0.2 /100WBC [facility] Neutrophils Absolute Auto 3.6 2.0 - 8.3 x10*3/uL [facility] Imm Gran Abs Auto 0.02 0.00 - 0.03 X10*3/uL [facility] Lymphocytes Absolute Auto 2.4 1.2 - 4.9 X10*3/uL [facility] Monocytes Absolute Auto 0.5 0.1 - 1.2 X10*3/uL [facility] Eosinophils Absolute Auto 0.3 0.0 - 0.4 X10*3/uL [facility] Basophils Absolute Auto 0.1 0.0 - 0.2 X10*3/uL [facility] NRBC Abs Auto 0.000 0.0 - 0.012 X10*3/uL [facility] 01/06/2025 3:59 PM EDT 01/06/2025 4:02 PM EDT us Generic External Data Provider LAB BLOOD ORDERAB LES Final Result Performing Organization Address City/State/[facility] Co de Phone Number [facility] [address] [place] [address] [phone] documented in this encounter Visit Diagnoses Not on filedocumented in this encounter Additional Health Concerns Assessment Noted Time PHQ-9 Depression Total Score: 16 08/15/ 024 2:07 PM EDT documented as of this encounter Care Teams Valver Relationship Specialty Start Date End Date Brittney Collier MD [address] [place] [address] PCP - General Internal Medicine 08/06/23 documented as of this encounter
--- OUTSIDE RECORDS SUMMARY | 2025-01-13 16:48 | XMS_ITS | Encounter Summary ---
Author Organization [employer] Address 75 [facility] 7t [place] [address] Care Team Providers Care Conference Specialist Name Role Phone Brittney Collier MD Primary Care Pro vider Reason for Visit * Reason Comments Med Refill Encounter Details Date Type Department Care Team (Late st Contact Info) Description 09/20/2023 Refill [facility] 230 [place], [place] [phone] Brooke Gutierrez MD 230 [place], [place] [phone] Social History Tobacco Use Types Packs/Day Years [...] 9:45 AM EDT Office Visit [facility] [address] [place] [address] [phone] Brittney Collier MD [address] [place] [phone] documented as of this encounter Visit Diagnoses Not on filedocumented in this encounter Additional Health Concerns Assessment Noted Time PHQ-9 Depression Total Score: 5 08/06/20 2:15 PM EDT documented as of this encounter Care Teams Conference Specialist Relationship Specialty Start Date End Date Brittney Collier MD [address] [place] [address] [phone] PCP - General Internal Medicine 08/06/23 documented as of this encounter
--- OUTSIDE RECORDS SUMMARY | 2025-01-13 16:48 | XMS_ITS | Encounter Summary ---
Author Organization [employer] Address 75 [facility] 7 [place] [address] Care Team Providers Care Dandy Tender Name Role Phone Brittney Collier MD Primary Care Pro vider Reason for Visit * Reason Onset Date Comments Med Refill 12/20/2024 Encounter Details Date Type Department Care Team (Late st Contact Info) Description 12/20/2024 Refill [facility] 230 [place], [place] [phone] Brittney Collier MD 230 [place], [place] [phone] Type 2 diabetes mellitus with hyperglycemia, with long-term current use of insulin ([facility]); Acquired hypothyroidism Social History [...] Base) MCG/ACT inhaler To be sent to: [facility] - [place], [place] - [address] [place] [address] documented in this encounter Plan of Treatment Upcoming Encounters Date Type Department Care Team ([facility] st Contact Info) Description 03/01/2025 9:45 AM EDT Office Visit [facility] [address] [place] [address] [phone] Brittney Collier MD 230 [place] [address] documented as of this encounter Visit Diagnoses Diagnosis Type 2 diabetes mellitus with hyperglycemia, with long-term current use of insulin ([facility]) Acquired hypothyroidism Unspecified hypothyroidism documented in this encounter Additional Health Concerns Assessment Noted Time PHQ-9 Depression Total Score: 16 024 2:07 PM EDT documented as of this encounter Care Teams Dandy Tender Relationship Specialty Start Date End Date Brittney Collier MD [address] [place] [address] PCP - General Internal Medicine 08/06/23 documented as of this encounter
--- OUTSIDE RECORDS SUMMARY | 2025-01-13 16:48 | XMS_ITS | Encounter Summary ---
Author Organization [employer] Address 75 [facility] 7t [place] [address] Care Team Providers Care Intake Specialist Name Role Phone Brittney Collier MD Primary Care Pro vider Reason for Visit * Reason Comments Med Refill Encounter Details Date Type Department Care Team (Late st Contact Info) Description 08/24/2023 Refill [facility] 230 [place], [place] [phone] Brooke Gutierrez MD 230 [place], [place] [phone] Social History Tobacco Use Types Packs/Day Years [...] Description 03/01/2025 9:45 AM EDT Office Visit [facility] [address] [place] [address] [phone] Brittney Collier MD [address] [place] [phone] documented as of this encounter Visit Diagnoses Not on filedocumented in this encounter Additional Health Concerns Assessment Noted Time PHQ-9 Depression Total Score: 5 08/06/20 2:15 PM EDT documented as of this encounter Care Teams Intake Specialist Relationship Specialty Start Date End Date Brittney Collier MD [address] [place] [address] [phone] PCP - General Internal Medicine 08/06/23 documented as of this encounter
--- OUTSIDE RECORDS SUMMARY | 2025-01-13 16:48 | XMS_ITS | Encounter Summary ---
Author Organization [employer] Address 75 [facility] 7t [place] [address] Care Team Providers Care Industrial Retrofit Designer Name Role Phone Brittney Collier MD Primary Care Pro vider Encounter Details Date Type Department Care Team (Late st Contact Info) Description 12/14/2024 Orders Only [facility] External Provider, [facility] Social History Tobacco Use Types Packs/Day [...] 9:45 AM EDT Office Visit [facility] [address] [place] [address] Brittney Collier MD 230 [place] [address] documented as of this encounter Procedures Procedure Name Priority Date/Time Associated Diagnosis Comments XR FINGERS 2+ VIEWS RIGHT Routine 12/14/2024 7:03 PM EST documented in this encounter Results * XR Fingers 2+ Views Right (12/14/2024 7:03 PM EST) Anatomical Region Laterality Modality Upper Extremities, Fingers Right [employer] Imaging 12/14/2024 7:03 PM EST Narrative 12/14/2024 7:05 PM EST ? [facility] ?[address] ?[place] [address] ?XRay Report ? Signed ? Patient: Rayna Galvan ?MR#: [id number] ?? [id number] ? : 1995 ?Acct:[id number] ? Age/Sex: 29 / F ?ADM Date: 12/14/25 ? Loc: HO.ED ? Attending Dr: ? Ordering Physician: Gavin Trinidad ?? Date of Service: 12/14/24 ?? Procedure(s): XR finger RT min 2V ?? Accession Number(s): [id number] ? cc: Gavin Trinidad; Brittney Collier MD [...] ? DD/ 02 ? TD/TT: 12/14/241902 ? Resident Care Coordinator: ? Procedure Note Donotuseinterpreter, Image - 12/14/2024 [place] [address] XRay Report Signed Patient: Rayna Galvan [facility]#: [id number] : 1995Acct:[id number] Age/Sex: 29 / FADM Date: 12/14/24 Loc: HO.ED Attending Dr: Ordering Physician: Gavin Trinidad Date of Service: 12/14/24 Procedure(s): XR finger RT min 2V Accession Number(s): [id number] cc: Gavin Trinidad; Brittney Collier MD CLINICAL [...] in OV> 12/14/241903 DD/ 02 TD/TT: 12/14/241902 Resident Care Coordinator: [facility] External Provider IMG XR PROCEDURES Final Result documented in this encounter Visit Diagnoses Not on filedocumented in this encounter Additional Health Concerns Assessment Noted Time PHQ-9 Depression Total Score: 16 024 2:07 PM EDT documented as of this encounter Care Teams Industrial Retrofit Designer Relationship Specialty Start Date End Date Brittney Collier MD [address] [place] [phone] PCP - General Internal Medicine 08/06/23 documented as of this encounter
--- OUTSIDE RECORDS SUMMARY | 2025-01-13 16:48 | XMS_ITS | Encounter Summary ---
Author Organization [employer] Address 75 [facility] 7t [place] [address] Care Team Providers Care Sourcing Assistant Name Role Phone Jen Leonardo Primary Care Provider [phone] Brittney Collier MD Primary Care Pro vider Reason for Visit * Reason Onset Date Comments New Patient 06/17/2023 Encounter Details Date Type Department Care Team (Late st Contact Info) Description 06/17/[address] [facility] MEDICINE 230 [place], [place] [phone] Eulogio Goldstein MD 230 [place], [place] [phone] New Patient Social History Tobacco Use Types [...] PAR Margarita Arora called pt to Offer FOREST EXAMINER appt. Pt demographics and insurance information were verified. Pt reports the following medical conditions: Thyroid, Asthma, Diabetic, and Anemic. Pt is currently taking medication: Synthroid, Lantus, Humalog, and Albuterol. Pt given FOREST EXAMINER appt with PCP CARMEN Spear on 07/29/2023 @ 2:15 Pm. Pt will be sent appt reminder card and medical release form and agrees to complete and to return to medical records prior to FOREST EXAMINER appt. * Telephone Encounter - Margarita Canchola - 06/17/2023 12:55 PM EDT Pt has been transfer over to wait list for FOREST EXAMINER. EFFECTIVE SINCE 06/17/2023 documented in this encounter Plan of Treatment Upcoming Encounters Date Type Department Care Team (Late st Contact Info) Description 03/01/2025 9:45 AM EDT Office Visit [facility] MEDICINE [address] [place] [phone] Brittney Collier MD [address] [place] [phone] documented as of this encounter Visit Diagnoses Not on filedocumented in this encounter Care Teams Sourcing Assistant Relationship Specialty Start Date End Date Jen Leonardo ANP [address] [place] [phone] PCP - General Family Medicine 07/10/23 08/05/23 Brittney Collier MD [address] [place] [phone] PCP - General Internal Medicine 08/06/23 documented as of this encounter
--- OUTSIDE RECORDS SUMMARY | 2025-01-13 16:49 | XMS_ITS | Encounter Summary ---
Author Organization [employer] Address [address] [facility] 7t [place] [address] Care Team Providers Care Hose Tubing Backer Name Role Phone Brittney Collier MD Primary [...] Office Visit [facility] [address] [place], [place] [phone] Brittney Collier MD [address] [place], [place] [phone] documented as of this encounter Procedures Procedure Name Priority Date/Time Associated Diagnosis Comments BACTERIAL VAGINOSIS PANEL Routine 12/21/2024 12:52 PM EST CHLAMYDIA/N. GONORRHOEAE RNA, TMA, UROGENITAL Routine 12/21/2024 12:52 PM EST documented in this encounter Results * Chlamydia/N. Gonorrhoeae RNA, TMA, Urogenitial (12/21/2024 12:52 PM EST) CT PCR NOT DETECTED Not Detect. [facility] Comment:A not detected test result [...] psychologicalconsequences. NG PCR NOT DETECTED Not Detect. [facility] Comment:A not detected test result [...] PM EST 12/21/2024 3:07 PM EST Narrative [facility] - 12/21/2024 11:52 PM EST Vaginal Generic External Data Provider LAB MICROBIOLOGY - GENERAL ORDERABLES Final Result [facility] [address] [place] [phone] * (ABNORMAL) Bacterial Vaginosis (12/21/2024 12:52 PM EST) TRICHOMONAS VAGINALIS DETECTION BY PCR NOT DETECTED Not Detect [facility] BACTERIAL VAGINOSIS DETECTION BY PCR POSITIVE(A) Negative [facility] Comment:The BV organism targ ets [...] DETECTION BY PCR NOT DETECTED Not Detect [facility] Cristina glab krusei PCR NOT DETECTED Not Detect [facility] 12/21/2024 12:5 2 PM EST 12/21/2024 3:07 PM EST us Generic External Data Provider LAB MICROBIOLOGY - GENERAL ORDERABLES Final Result [facility] [address] [place] [address] [phone] documented in this encounter Visit Diagnoses Not on filedocumented in this encounter Additional Health Concerns Assessment Noted Time PHQ-9 Depression Total Score: 16 024 2:07 PM EDT documented as of this encounter Care Teams Hose Tubing Backer Relationship Specialty Start Date End Date Brittney Collier MD [address] [place] [phone] PCP - General Internal Medicine 08/06/23 documented as of this encounter
--- OUTSIDE RECORDS SUMMARY | 2025-01-13 16:49 | XMS_ITS | Encounter Summary ---
Author Organization [employer] Address [address] [facility] 7t [place] [address] Care Team Providers Care Roofing Plant Supervisor Name Role Phone Brittney Collier MD Primary Care Pro vider Reason for Visit * Reason Onset Date Comments medication request 01/02/2025 Encounter Details Date Type Department Care Team ([facility] st Contact Info) Description 01/02/2025 Telephone [facility] [address] [place], [place] [phone] Brittney Collier MD [address] [place], [place] [phone] medication request Social History Tobacco Use Types [...] encounter Miscellaneous Notes * Telephone Encounter - Jennifer Rolon RN - 01/11/2025 3:36 PM EDT Telephone call x3 to pt. Explained message below from Dr Gutierrez: that thyroid levels are very abnormal and may be contributing to anemia. Explained that it is very important for pt to take Synthroid medication, informed new Rx sent because pt has not picked up Synthroid since 08/22/24. Explained PA underway and to nut picker med ulises at [facility] pharmacy. Explained to get thyroid labs repeated a few days before upcoming 03/01/25 appt with PCP so that they can be reviewed at appt. Pt verbalized understanding. * Telephone Encounter - Jennifer Rolon RN - 01/11/2025 8:55 AM EDT Telephone call x2 to pt, no answer, left voicemail. Called other number on file, reached lisette, asked her to tell pt to call [facility]. Will task to call again. * Telephone Encounter - Jennifer Rolon RN - 01/10/2025 4:24 PM EDT Telephone call x1 to pt to advise of below results, medication update, and plan of care. No answer at both numbers, left voicemail to call back [facility]. Will task to call again. * Telephone Encounter - Jennifer Rolon RN - 01/10/2025 4:17 PM EDT ----- Message from Brooke Gutierrez MD sent at 01/10/2025 3:22 PM EDT ----- Labs on 01/10/2025 showed uncontrolled hypothyroidism and microcytic anemia apparently from DUB, tinod been seen by ELECTRICAL MAINTENANCE ENGINEER and by hematology who will do an IV iron supplementation. Please call patient and tell her that she needs to restart taking Synthroid (last pickup x 30 days was on 08/22/2024) devang uncontrolled hypothyroidism is probably producing her abnormal bleeding and anemia. I will senda new prescription and she is to check thyroid function test in about 6 to 8 weeks and follow-up with PCP * Telephone Encounter - Kendall Krishna - 01/02/2025 4:02 PM EDT Tc from pt requesting pen needles to be sent to [facility] pharmacy documented in this encounter Plan of Treatment Upcoming Encounters Date Type Department Care Team (Late st Contact Info) Description 03/01/2025 9:45 AM EDT Office Visit [facility] [address] [place] [phone] Brittney Collier MD [address] [place] [phone] documented as of this encounter Visit Diagnoses Not on filedocumented in this encounter Additional Health Concerns Assessment Noted Time PHQ-9 Depression Total Score: 16 024 2:07 PM EDT documented as of this encounter Care Teams Roofing Plant Supervisor Relationship Specialty Start Date End Date Brittney Collier MD [address] [place] [phone] PCP - General Internal Medicine 08/06/23 documented as of this encounter
--- OUTSIDE RECORDS SUMMARY | 2025-01-13 16:49 | XMS_ITS | Encounter Summary ---
Author Organization [employer] Address [address] [facility] 7t [place] [address] Care Team Providers Care Hose Finisher Name Role Phone Brittney Collier MD Primary Care Pro vider Reason for Visit * Reason Onset Date Comments May recall 12/28/2024 Encounter Details Date Type Department Care Team ([facility] st Contact Info) Description 12/28/2024 Telephone [facility] [address] [place], [place] [phone] Brittney Collier MD [address] [place], [place] [phone] May recall Social History Tobacco Use Types [...] Description 03/01/2025 9:45 AM EDT Office Visit [facility] [address] [place] [phone] Brittney Collier MD [address] [place] [phone] documented as of this encounter Visit Diagnoses Not on filedocumented in this encounter Additional Health Concerns Assessment Noted Time PHQ-9 Depression Total Score: 16 024 2:07 PM EDT documented as of this encounter Care Teams Hose Finisher Relationship Specialty Start Date End Date Brittney Collier MD [address] [place] [phone] PCP - General Internal Medicine 08/06/23 documented as of this encounter
--- OUTSIDE RECORDS SUMMARY | 2025-01-13 16:49 | XMS_ITS | Encounter Summary ---
Author Organization [employer] [facility] Address [address] [place] [address] 7[address] [place] [address] Care Team Providers Care Fitness Leader Name Role Phone Jen Leonardo Primary Care Provider [phone] Brittney Collier MD Primary Care Pro vider Reason for Visit * Reason Comments Med Refill Encounter Details Date Type Department Care Team (Late Contact Info) Description 06/17/2023 Refill [facility] [address] [place] [address] [phone] Brooke Gutierrez MD [address] [place] [address] [phone] Iron deficiency anemia, unspecified iron deficiency anemia [...] 03/01/2025 9:45 AM EDT Office Visit [facility] [address] [place] [address] [phone] Brittney Collier MD [address] [place] [address] [phone] documented as of this encounter Visit Diagnoses Diagnosis Iron deficiency anemia, unspecified iron deficiency anemia type documented in this encounter Care Teams Fitness Leader Relationship Specialty Start Date End Date Jen Leonardo ANP [address] [place] [phone] PCP - General Family Medicine 07/10/23 08/05/23 Brittney Collier MD [address] [place] [address] PCP - General Internal Medicine 08/06/23 documented as of this encounter
== END 2025-01-13 14:38 | disposition home or self-care (01) ==
LOC: HO.US 14:37
PROVIDERS: Visit Provider Obstetrics & Gynecology
DX: N93.9 Abnormal uterine and vaginal bleeding, unspecified (principal)
CPT/HCPCS: 76830; 76856

== ENCOUNTER → 2025-01-13 14:39 | Outpatient (BNV) | payer MEDICAID, SELFPAY | PROVIDERS: Visit Provider Radiology Diagnostic Radiology | DX: N93.9 Abnormal uterine and vaginal bleeding, unspecified (principal) | CPT/HCPCS: 76830; 76856 ==

== ENCOUNTER 2025-01-16 14:32 | Outpatient (AMB) | payer MEDICAID, SELFPAY ==
--- NOTE | 2025-01-16 14:52 | A.OFFVIS_ITS ---
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 Fifty-seven Prolactin was elevated 48.3 repeated was persistently elevated at 47.7 GC/CT was negative Pelvic ultrasound showed the following: Uterus: The uterus is normal in size, measuring 10.4 x 5.6 x 7.2 cm. Myometrium has a normal echotexture. There is a 9 x 8 x 11 mm fibroid in the cervix. Endometrium: The endometrial stripe measures 6 mm in thickness. An IUD is noted in the lower uterine segment. Right ovary: The right ovary measures 4.6 x 2.8 x 2.1 cm. The right ovary is normal in size and echotexture. Left ovary: The left ovary measures 4.3 x 2.5 x 3.0 cm. The left ovary is normal in size and echotexture. Color Doppler analysis of the bilateral ovarian arteries and veins is normal. Pelvic fluid: There is a small amount of fluid in the cul-de-sac.. 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 Sexual orientation: Straight/Heterosexual Gender identity: Female Review of Systems Const All systems reviewed & are unremarkable except as noted in HPI and below Reports as per HPI and Reports no additional complaints GI Reports no additional complaints Reports no additional complaints Physical Exam General: Yes no CVA tenderness External Female Exam: normal external appearance and normal appearance of the urethra Speculum Exam - Vagina: normal appearance of the vagina, normal palpation, no lesions and no masses Speculum Exam - Cervix: normal appearance of the cervix, normal palpation, no lesions, no masses, nontender and Other cervical findings present (IUD thread in place) Bimanual exam- vagina & uterus: normal bimanual exam, normal palpation, uterine size normal, normal palpation, uterine shape normal, No Cervical tenderness present and non-tender Bimanual Exam- Adnexa, other: normal adnexae Back/Spine/Pelvis Back: no CVA tenderness Office Procedures Endometrial Biopsy Details: The patient was counseled regarding the indication and benefits of endometrial sampling to rule out endometrial pathology including not limited to endometrial hyperplasia or endometrial cancer and others; The alternatives (Either do nothing vs. hysteroscopy D&C) & the risks were discussed with the patient including but not limited: pain, uterine perforation, bleeding, infection, possible injury to bladder, bowel, ureter, possible need for blood transfusion with all its possible risks. The patient verbalized understanding all questions answered and signed consent. Urine test done in the office was negative The patient was placed into the dorsal lithotomy position; a speculum was inserted in the vagina. Using aseptic technique for the procedure, the cervix was cleansed with Betadine. The anterior lip of the cervix was grasped with a single tooth tenaculum. The uterus was sounded to 7 cm with a 4 mm Pipelle was used. Tissues samples were obtained and placed in formalin, in a patient labeled container and sent to the pathology department. At the end of the procedure, there was minimal b leeding noted The patient tolerated the procedure well and was discharged in good condition with the following instructions: Nothing in the vagina until the bleeding stops. No sex until the bleeding stops, to call if any of the following occurs: fever (>100.4), flu-like symptoms, abdominal pain, heavy bleeding, four smelling vaginal discharge. The patient was instructed to schedule a Follow up appointment in 2 weeks to discuss pathology results of the biopsy and treatment options. This note was generated with a voice recognition program. Some errors may have been overlooked during the review of this note. Sometimes these errors may affect the content or meaning of a given sentence. 73184-Sdmmevixzvo Biopsy IUD Insert/Removal Details Details: The patient is presenting for IUD removal and IUD reinsertion. Her last menstrual period was within the last 5 days, Urine test was done in the office and was negative; All the contraindications were excluded. The following possible complications were discussed with the patient: Intrauterine , Ectopic , Sepsis, Pelvic Infection, Irregular Bleeding and Amenorrhea, Perforation, Expulsion, Ovarian Cysts, Breast Cancer. The following adverse effects were discussed with the patient: alteration of menstrual bleeding pattern, including: unscheduled uterine bleeding decreased uterine bleeding increased scheduled uterine bleeding female genital tract bleeding ,amenorrhea , genital discharge , vulvovaginitis , breast pain , benign ovarian cyst and associated complications , dysmenorrhea , Gastrointestinal disorders abdominal/pelvic pain, headache/migraine , back pain , acne , depression Alternative options were discussed with the patient including but not limited: control pills, patch, NuvaRing, Depo-medroxyprogesterone acetate, Nexplanon, copper IUD, sterilization, vasectomy, others The procedure was explained in detail to patient , at the end patient signed the informed consent obtained. Alternative options were discussed with the patient The patient signed the consent and agreed with the plan; all questions answered. Urine test was done in the office and was negative Preop dx: Requesting IUD removal and Reinsertion Op: IUD removal and Mirena insertion Post op dx: same EBL= 10 cc Procedure: The patient was put in the dorsal lithotomy position a speculum was inserted in the vagina the IUD thread identified. Using a Yamilet clamp the thread was grasped and the IUD pulled out with no complications. A no touch technique was used throughout the procedure. A speculum was placed into vagina and cervix was cleaned with betadine). A tenaculum was placed. A plastic sound was advanced through the external and internal os until it reached the fundus of the uterus, the depth was 8 cm. The sound was then withdrawn. The IUD was loaded in a sterile manner and advanced into position. The string was visualized and cut to 3 cm. Tenaculum site hemostatic. All instruments removed from vagina. Patient tolerated the procedure well. NO complications were noted. Patient was instructed to call for fever over 100.4, significant pain unrelieved by Motrin, IUD expulsion, heavy bleeding, or abnormal discharge. In addition, the following clinical considerations were discussed with the patient to call for removal: A stroke or heart attack ,Very severe or migraine headaches ,Unexplained fever ,Yellowing of the skin or whites of the eyes, as these may be signs of serious liver problems , or suspected , Pelvic pain or pain during sex ,HIV positive seroconversion in herself or her partner , Possible exposure to sexually transmitted infections Unusual vaginal discharge or genital sores , severe vaginal bleeding or bleeding that lasts a long time, or if she misses a menstrual period, Inability to feel Mirena's threads Counseled the patient that the IUD does not protect against STI's, recommended use of condoms for the first 7 days post insertion and explained to the patient that condoms are recommended for patients at risk for sexually transmitted infections. Follow up appointment made for 4 weeks following insertion. Date of removal in no more than five years for DUB treatment and 8 years for contraception from today?s date was d/w patient. This note was generated with a voice recognition program. Some errors may have been overlooked during the review of this note. Sometimes these errors may affect the content or meaning of a given sentence. 74392-QIH Insertion 46100-PHY Removal Procedure code (CPT) selection complete Office Meds Mirena 21 mcg/24 hr (up to 8 years) 52 mg intrauterine device Performing Provider: Maxwell Felton MD Performing Location: [facility] Documented (not given) by: Maxwell Felton MD on 01/16/25 15:24 Dose Route Admin Location Dispensed Lot Number Expiration Date [facility] Roll Examiner 1 device intrauterine ea Assessment & Plan Assessment & Plan (1) Abnormal uterine bleeding: Comment: Possible PCOS Anemia Code(s): N93.9 - Abnormal uterine and vaginal bleeding, unspecified Category: Medical Plan: The patient is scheduled with heme Onc for IV transfusion. EMB done, see procedure note IUD removed and reinserted (2) Increased prolactin level: Code(s): R79.89 - Other specified abnormal findings of blood chemistry Category: Medical Plan: Will refer to Endocrinology for further management (3) Malpositioned IUD: Code(s): T83.32XA - Displacement of intrauterine contraceptive device, initial encounter Category: Medical Plan: Discussed with the patient the finding on ultrasound showing malpositioned IUD, commended for Mirena removal and reinsertion, IUD removed and new Mirena IUD inserted (4) Hypothyroid: Code(s): E03.9 - Hypothyroidism, unspecified Category: Medical Plan: Instructions given to patient to schedule an appointment with her PCP for further management Instructed the patient to call our office back in case a referral appointment is not scheduled, missed or canceled so that we will assist on rescheduling another appointment, the patient verbalized understanding agreed with the plan. (5) Bacterial vaginosis: Code(s): N76.0 - Acute vaginitis; B96.89 - Other specified bacterial agents as the cause of diseases classified elsewhere Category: Medical Plan: BV panel collected, metronidazole 500 mg p.o. b.i.d. for 7 days given to patient's pharmacy. Instructions given the patient not to have unprotected intercourse for a week and to call in case symptoms persist, any pelvic pain fever above 100.4 any other symptom Orders: Orders AMB Endometrial Biopsy Today N93.9 - Abnormal uterine and vaginal bleeding, unspecified AMB IUD Insertion/Removal - Practice Supplied Today T83.32XA - Displacement of intrauterine contraceptive device, initial encounter, Z30.433 - Encounter for removal and reinsertion of intrauterine contraceptive device Referrals Endocrinology Referral R79.89 - Other specified abnormal findings of blood chemistry Medications: New metronidazole 500 mg PO BID 7 days 14 tabs 0RF Mirena (levonorgestrel) 1 device intrauterine ONCE 1 ea 0RF IUD removal and reinsertion NS T83.32XA - Displacement of intrauterine contraceptive device, initial encounter, Z30.433 - Encounter for removal and reinsertion of intrauterine contraceptive device Coding Level of Care Code Est Pt Level 3 (91688) Procedure Only Diagnoses Abnormal uterine bleeding N93.9 Increased prolactin level R79.89 Malpositioned IUD T83.32XA Hypothyroid E03.9 Bacterial vaginosis N76.0; B96.89 CPT Codes Endometrial Biopsy - CPT: 94551-Imaxcgynbnn Biopsy ([id number]) Details - CPT: 76829-VXW Insertion ([id number]) Details - CPT: 82049-ADV Removal ([id number])
== END 2025-01-16 15:39 | disposition home or self-care (01) ==
LOC: HO.HWS 14:32
PROVIDERS: Visit Provider Obstetrics & Gynecology
DX: T83.32XA Displacement of intrauterine contraceptive device, initial encounter (principal); Z30.433 Encounter for removal and reinsertion of intrauterine contraceptive device; N93.9 Abnormal uterine and vaginal bleeding, unspecified; R79.89 Other specified abnormal findings of blood chemistry
CPT/HCPCS: 58100; 58300; 58301

== ENCOUNTER 2025-01-16 14:32 | Outpatient (REF) | payer MEDICAID, SELFPAY ==
[2025-01-17 15:10] LABS: CT PCR NOT DETECTED (Not Detect.); NG PCR NOT DETECTED (Not Detect.)
== END 2025-01-16 14:33 | disposition home or self-care (01) ==
LOC: HO.LNP 14:32
PROVIDERS: Visit Provider Obstetrics & Gynecology
DX: Z30.433 Encounter for removal and reinsertion of intrauterine contraceptive device (principal); R94.6 Abnormal results of thyroid function studies; N93.9 Abnormal uterine and vaginal bleeding, unspecified
CPT/HCPCS: 58100; 58300; 58301; 87491; 87591; 88305

== ENCOUNTER 2025-02-06 17:53 | Emergency (ER) | payer MEDICAID, SELFPAY ==
[2025-02-06] VITALS (7 sets, daily range): BP systolic 96–116; BP diastolic 50–72; PULSE 103–124; RESP 13–19; TEMP 37.6–38.9; O2SAT 96–97; BMI 30.4
--- NOTE | ~2025-02-06 | US_ITS ---
CLINICAL HISTORY: left pelvic pain US pelvis transabdominal and transvaginal with Doppler Comparison: None Findings: Transabdominal scanning performed for overall anatomy. Transvaginal scanning performed for additional detail. Anteverted uterus is 10.8 cm length. Normal myometrium. Endometrium 2 mm thickness. Right ovary 3.3 x 2.3 x 2.1 cm, corresponds to a volume of 8.4 mL. Left ovary 6.3 x 4.1 x 3.7 cm, corresponds to a volume of 50 mL. Normal color Doppler with arterial/venous spectral tracing of both ovaries. Small amount of free fluid, likely physiologic. IMPRESSION: 1. Markedly enlarged left ovary. Normal arterial and venous flow however, torsion can not be entirely excluded. This document has been electronically signed by: Toney Ryder MD on 02/06/2025 21:07:54
--- NOTE | 2025-02-06 18:22 | ED_ITS ---
HPI - General Adult General Chief complaint: Vaginal Bleeding Stated complaint: Left ovary hurts N/D/V Time Seen by Provider: 02/06/25 20:28 Source: patient Limitations: no limitations History of Present Illness ED Provider: Val Jesus PA-C HPI narrative: Patient is a 29-year-old female with a history of morbid obesity, hypothyroidism, cervical dysplasia, anemia, dysfunctional uterine bleeding who presents with abdominal pain x3 days. Patient states she has been having heavy bleeding for the past month, soaking through a pad every 1-2 hours. Patient states over the past day, the bleeding has subsided, she has not had to change her pad and several hours. Patient describes her pain as ?ovary pain?. Pain within left lower abdomen, unable to describe the nature of her symptoms, but states it has become severe. Associated nausea, chills, dizziness and headache. Denies constipation, diarrhea, new vaginal discharge or risk for STD. Related Data Home Medications ?Medication ?Instructions ?Recorded ?Confirmed albuterol sulfate 90 mcg/actuation 90 mcg inhalation DAILY 07/10/23 07/10/23 aerosol inhaler insulin glargine 100 unit/mL (3 60 unit subcut BEDTIME 07/10/23 07/10/23 mL) subcutaneous pen (Lantus Solostar U-100 Insulin) insulin lispro 100 unit/mL 10 unit subcut BID 07/10/23 07/10/23 subcutaneous pen levothyroxine 200 mcg tablet 200 mcg PO DAILY 07/10/23 07/10/23 (Synthroid) ascorbic acid (vitamin C) 500 mg 500 mg PO QAM 09/07/23 tablet (Vitamin C) dulaglutide 0.75 mg/0.5 mL 0.75 mg subcut QWEEK 09/07/23 subcutaneous pen injector (Trulicity) famotidine 20 mg tablet 20 mg PO BEDTIME 09/07/23 hydroxyzine HCl 10 mg tablet 10 mg PO Q8H PRN itch 09/07/23 metformin 500 mg tablet 500 mg PO BID 09/07/23 sertraline 50 mg tablet mg PO 09/07/23 trazodone 50 mg tablet 50 mg PO BEDTIME PRN insomnia 09/07/23 Previous Rx's ?Medication ?Instructions ?Recorded oxycodone 5 mg tablet 5 mg PO Q6H PRN pain #12 tabs 12/14/24 metronidazole 500 mg tablet 500 mg PO BID 7 days #14 tabs 12/22/24 tranexamic acid 650 mg tablet 1,300 mg (2 x 650 mg) PO TID 5 01/06/25 days #30 tabs metronidazole 500 mg tablet 500 mg PO BID 7 days #14 tabs 01/16/25 Allergies Allergy/AdvReac Type Severity Reaction Status Date / Time aspirin AdvReac Fatigued Verified 02/06/25 18:19 Review of Systems 2 Review of Systems: Yes all other systems are reviewed and are negative Constitutional: Constitutional: Reports chills, Denies fatigue and Denies fever(s) Cardiovascular: Cardiovascular: Denies chest pain and Denies dyspnea Respiratory: Respiratory: Denies cough and Denies dyspnea Gastrointestinal: Gastrointestinal: Reports abdominal pain, Denies constipation, Denies diarrhea and Denies vomiting Genitourinary: Genitourinary: Denies vaginal discharge and Reports other (Vaginal bleeding) Endocrine: Endocrine: Denies fatigue PMFSH Past Medical History Attestation statement: The following information was validated with the patient. 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 Sexual orientation: Straight/Heterosexual Gender identity: Female Physical Exam ED Vital Signs: Vital Signs - 24 hr 02/06/25 18:15 02/06/25 21:17 02/06/25 21:32 Temperature 102.0 F H Pulse Rate 124 H 112 H Respiratory Rate 16 Blood Pressure 101/67 96/55 L 100/50 L Pulse Oximetry 97 Oxygen Delivery Method Room Air 02/06/25 21:47 Temperature Pulse Rate 104 H Respiratory Rate 19 Blood Pressure 103/57 L Pulse Oximetry 96 Oxygen Delivery Method Room Air BMI result Body Mass Index 30.4 Const Other: Alert, appears lethargic Orientation/consciousness: patient oriented x3 Resp Effort & Inspection: normal respiratory effort Cardio Other: Normal peripheral perfusion GI Other: Abdomen is soft, obese, nondistended, focal moderate to severe tenderness in left lower quadrant to pelvic region, with moderate involuntary guarding Other: Deferred Skin Other: Warm dry no rash Neuro General: patient oriented x3, gait normal, no focal motor deficits and CN's II- XI intact bilaterally Psych Other: Cooperative Course Course Course Narrative: This is a Rapid Medical Examination (RME) performed by Morro Recinos PA-C in triage. Full HPI, ROS, assessment and treatment plan per primary provider in the Main ED. 02/06/251823 RACHEL Norman Hx: 29 yo female hx anemia requiring iron infusions here w/ heavy vaginal bleeding, left lower abdominal pain, dysuria, weakness, and fatigue since IUD placement 1 mo ago. now going through 3 pads/hour over the last two days. states she cannot drive as she feels too dizzy/weak. denies concern for STI PE/vitals: ill appearing, tachy, febrile Plan: labs, UA, lactic, US Patient brought back to main ED bed. tylenol ordered. Reevaluation(s) Reevaluation #1: sepsis identified, patient was found to be febrile, she is tachycardic, when she was initially assessed in triage a lactic acid was ordered but not blood cultures, unclear why. The lactic is 1.9, adding blood cultures, starting weight based IV fluid, starting ceftriaxone. She has a transvaginal ultrasound pending at this time, if it was normal, I will be obtaining a CT scan of the abdomen. Time: 21:00 Reevaluation #2: We have no gynecology coverage, there was concern for torsion on the ultrasound, I am reaching out to [facility] now Time: 21:22 Reevaluation #3: Speaking with Dr. Quesada from [facility], she is happy to accept the patient, she was requesting that I reach out to [facility] to see if there are additional findings on the ultrasound that were not commented on; IUD placement, are there ovarian cysts , other secondary signs of torsion/edema etc. we will arrange for transport now..... Repeat H&H resulting, she now is 7.9 and 24.8, we will be ordering blood products, the patient has been consented for transfusion..... I am also adding on additional antibiotic coverage, doxycycline and Flagyl IV Time: 21:57 Additional Reevaluation(s): Speaking with the radiologist Dr. Ziegler from [facility], he has verifying that the IUD is in proper placement, there are no large ovarian cysts, she has tiny follicles, he states that it was difficult to determine if there are secondary signs of torsion, Medications Administered Generic Name Dose Route Start Last Admin Trade Name Freq PRN Reason Stop Dose Admin Sodium Chloride 2,721.54 mls @ 2,721.54 mls/hr 02/06/25 21:41 02/06/25 21:53 Ns 30 ml/kg infuse over 1 hr (2721.54 ml) 02/06/25 22:40 2,721.54 mls/hr IV Administration .Q1H STA Discontinued Medications Generic Name Dose Route Start Last Admin Trade Name Freq PRN Reason Stop Dose Admin Acetaminophen 975 mg 02/06/25 18:26 02/06/25 19:39 Acetaminophen 325 Mg Tablet PO 02/06/25 18:27 975 mg ONCE ONE Administration Acetaminophen 975 mg 02/06/25 20:57 02/06/25 21:46 Acetaminophen 325 Mg Tablet PO 02/06/25 20:58 Not Given ONCE ONE Ceftriaxone Sodium 2 gm 02/06/25 20:57 02/06/25 21:08 Ceftriaxone Sodium 2 Gm Vial IVPUSH 02/06/25 20:58 2 gm ONCE ONE Administration Sodium Chloride 1,000 mls @ 999 mls/hr 02/06/25 21:00 02/06/25 21:08 Ns IV 02/06/25 22:00 999 mls/hr .Q1H1M AARON Administration Ondansetron HCl 4 mg 02/06/25 20:57 02/06/25 21:08 Ondansetron Hcl 4 Mg/2 Ml Vial IVPUSH 02/06/25 20:58 4 mg ONCE ONE Administration Procedures Procedure Narrative Procedure Narrative: Ultrasound-guided IV 1-3/4 inch 18 gauge IV placed in left upper extremity, adequate blood return, flushes well secured with Tegaderm Ultrasound-guided 20 gauge 1 16 in IV placed in right AC, adequate blood return, flushes well, secured with Tegaderm Both IVs performed by Val Jesus PA-C Medical Decision Making Medical Decision Making MDM Narrative: Patient is a 29-year-old female with a history of morbid obesity, hypothyroidism, cervical dysplasia, anemia, dysfunctional uterine bleeding who presents with abdominal pain x3 days. Patient states she has been having heavy bleeding for the past month, soaking through a pad every 1-2 hours. Patient states over the past day, the bleeding has subsided, she has not had to change her pad and several hours. Patient describes her pain as ?ovary pain?. Pain within left lower abdomen, unable to describe the nature of her symptoms, but states it has become severe. Associated nausea, chills, dizziness and headache. Denies constipation, diarrhea, new vaginal discharge or risk for STD. Problem: Obesity, dysfunctional uterine bleeding History: Per patient I have considered the following differential diagnoses: TOA, torsion, PID, diverticulitis, sepsis Plan: Screening labs and a transvaginal ultrasound were ordered from triage. She was recently tested for gonorrhea and chlamydia, both were negative, TOA and PID less likely. However, the patient just spiked a temperature, we are concerned for sepsis, when she was initially assessed in triage a lactic acid was ordered but not blood cultures, unclear why. The lactic is 1.9, adding blood cultures, starting weight based IV fluid, starting ceftriaxone. She has a transvaginal ultrasound pending at this time, if it was normal, I will be obtaining a CT scan of the abdomen. I am also repeating her hemoglobin and hematocrit given the degree of the bleeding she has been experiencing over the past month. I have independently reviewed the following tests: Labs: Significant leukocytosis of 19.7 with left shift and bandemia, H and H 8.5 and 26.8, repeat H&H 7.9 and 24.8, no electrolyte abnormality, not , lactic 1.9, GC and chlamydia screens obtained on January 16 were negative Transvaginal ultrasound:Findings: Transabdominal scanning performed for overall anatomy. Transvaginal scanning performed for additional detail. Anteverted uterus is 10.8 cm length. Normal myometrium. Endometrium 2 mm thickness. Right ovary 3.3 x 2.3 x 2.1 cm, corresponds to a volume of 8.4 mL. Left ovary 6.3 x 4.1 x 3.7 cm, corresponds to a volume of 50 mL. Normal color Doppler with arterial/venous spectral tracing of both ovaries. Small amount of free fluid, likely physiologic. IMPRESSION: 1. Markedly enlarged left ovary. Normal arterial and venous flow however, torsion can not be entirely excluded. This document has been electronically signed by: Toney Ryder MD on 02/06/2025 21:07:54 Lab Data 02/06/25 21:28 02/06/25 19:15 Labs: Lab Results 02/06/25 02/06/25 Range/Units 19:15 21:28 WBC 19.7 H (4.8-10.8) X10*3/uL RBC 3.75 L (4.20-5.50) X10*6/uL Hgb 8.5 L 7.9 L (12.0-16.0) g/dl Hct 26.8 L 24.8 L (37.0-47.0) % MCV 71.5 L (80.0-98.0) fL MCH 22.7 L (27.0-33.0) pg MCHC 31.7 (31.0-35.0) g/dl RDW 18.1 H (11.0-16.0) % Plt Count 314 (160-400) X10*3/uL MPV 12.5 H (9.4-12.3) fL Immature Gran % (Auto) Cancelled Neut % (Auto) Cancelled Lymph % (Auto) Cancelled [place] % (Auto) Cancelled Eos % (Auto) Cancelled Baso % (Auto) Cancelled Lymph # (Auto) Cancelled [place] # (Auto) Cancelled Eos # (Auto) Cancelled Baso # (Auto) Cancelled Abs Immat Gran (auto) Cancelled Absolute Neuts (auto) Cancelled Absolute Nucleated RBC 0.000 (0.0-0.012) X10*3/uL Nucleated RBC % (auto) 0.0 (0.0-0.2) /100WBC Neutrophils % (Manual) 86 H (45-73) % Band Neutrophils % 8 H (3-5) % Lymphocytes % (Manual) 3 L (20-40) % Eosinophils % (Manual) 1 (0-4) % Basophils % (Manual) 2 (0-2) % Abs Neuts (Manual) 18.5 H (2.0-8.3) X10*3/uL Lymphocytes # (Manual) 0.6 L (1.2-4.9) X10*3/uL Eosinophils # (Manual) 0.2 (0.0-0.4) X10*3/uL Basophils # (Manual) 0.4 H (0.0-0.2) X10*3/uL Platelet Estimate NORMAL (NORMAL) Plt Morphology Comment NORMAL RBC Morphology NORMAL Smear Tech's Comments MANUAL DIFF Sodium 134 L (135-145) mmol/L Potassium 3.6 (3.3-5.1) mmol/L Chloride 101 (96-108) mmol/L Carbon Dioxide 21 L (22-29) mmol/L Anion Gap 16 (12-20) BUN 9 (9-16) mg/dL Creatinine 1.15 (0.5-1.4) mg/dL Estim Creat Clear Calc 85.0 Estimated GFR 56 Random Glucose 128 H (60-115) mg/dL Lactic Acid 1.9 (0.5-2.0) mmol/L Calcium 9.3 (8.4-10.2) mg/dL Total Bilirubin 0.8 (0.0-1.0) mg/dL AST 25 (5-31) U/L ALT 12 (0-31) U/L Alkaline Phosphatase 59 (39-117) U/L Total Protein 7.9 (6.5-8.0) g/dL Albumin 4.0 (3.5-5.0) g/dL Beta HCG, Quant < 2 mIU/mL Blood Type B Positive Antibody Screen NEGATIVE Crossmatch See Detail Critical Care Time Critical Care Time Critical Care Time: Yes Total Critical Care Time: 30 Attestation: I Val Jesus PA-C have personally performed 30 minutes of critical care time not including lines and procedures Discharge Plan Discharge Clinical Impression: Left ovarian enlargement, Fever Patient Disposition: Xfer Acute [facility] Prescriptions: No Action metronidazole 500 mg tablet 500 mg PO BID 7 Days Qty: 14 0RF Rx Instructions: Take with food, Avoid alcohol and vinegar products tranexamic acid 650 mg tablet 1,300 mg PO TID 5 Days Qty: 30 0RF levothyroxine [Synthroid] 200 mcg Tablet 200 mcg PO DAILY albuterol sulfate 90 mcg/actuation Hfa Aerosol Inhaler 90 mcg INHALATION DAILY insulin lispro 100 unit/mL insulin pen 10 unit subcut BID insulin glargine [Lantus Solostar U-100 Insulin] 100 unit/mL (3 mL) insulin pen 60 unit subcut BEDTIME oxycodone 5 mg tablet 5 mg PO Q6H PRN (Reason: pain) Qty: 12 0RF Rx Instructions: Partial Fill upon patient request. Mirena 21 mcg/24hr (up to 8 yrs) 52 mg intrauterine device 1 device intrauterine ONCE Qty: 1 0RF metronidazole 500 mg tablet 500 mg PO BID 7 Days Qty: 14 0RF Trulicity 0.75 mg/0.5 mL pen injector 0.75 mg subcut QWEEK metformin 500 mg tablet 500 mg PO BID sertraline 50 mg tablet PO trazodone 50 mg tablet 50 mg PO BEDTIME PRN (Reason: insomnia) hydroxyzine HCl 10 mg tablet 10 mg PO Q8H PRN (Reason: itch) famotidine 20 mg tablet 20 mg PO BEDTIME ascorbic acid (vitamin C) [Vitamin C] 500 mg tablet 500 mg PO QAM Print Language: Guyanese
--- NOTE | 2025-02-06 18:22 | ECG_ITS ---
Test Reason : WEAKNESS Blood Pressure : */* mmHG Vent. Rate : 119 BPM Atrial Rate : 119 BPM P-R Int : 140 ms QRS Dur : 82 ms QT Int : 336 ms P-R-T Axes : 47 33 83 degrees QTcB Int : 472 ms Sinus tachycardia Nonspecific T wave abnormality Abnormal ECG No previous ECGs available Referred By: Alisha Recinos Electronically Signed By: ADE ROMO MD
--- OUTSIDE RECORDS SUMMARY | 2025-02-06 18:45 | XMS_ITS | Encounter Summary ---
Author Organization [employer] Address [address] [facility] 7t [place] [address] Care Team Providers Care Academic Specialist Name Role Phone Brittney Collier MD Primary Care Pro vider Encounter Details Date Type Department Care Team (Late st Contact Info) Description 02/02/2024 Orders Only [facility] [address] [place], [place] [phone] Jen Leonardo ANP [address] [place] [address] Social History Tobacco Use Types Packs/Day Years [...] the past 12 months, has t he [employer], oil or water company threatened to shut [...] Description 03/01/2025 9:45 AM EDT Office Visit [facility] [address] [place] [phone] Brittney Collier MD [address] [place] [phone] documented as of this encounter Visit Diagnoses Not on filedocumented in this encounter Additional Health Concerns Assessment Noted Time PHQ-9 Depression Total Score: 5 08/06/20 2:15 PM EDT documented as of this encounter Care Teams Academic Specialist Relationship Specialty Start Date End Date Brittney Collier MD [address] [place] [phone] PCP - General Internal Medicine 08/06/23 documented as of this encounter
--- OUTSIDE RECORDS SUMMARY | 2025-02-06 18:45 | XMS_ITS | Encounter Summary ---
Author Organization [employer] Address [address] [facility] 7t [place] [address] Care Team Providers Care Spool Sorter Name Role Phone Brittney Collier MD Primary Care Pro vider Reason for Visit * Reason Comments Med Refill Encounter Details Date Type Department Care Team (Late st Contact Info) Description 09/20/2023 Refill [facility] [address] [place], [place] [phone] Brooke Gutierrez MD [address] [place], [place] [phone] Social History Tobacco Use Types Packs/Day Years [...] [facility] [address] [place] [address] [phone] Brittney Collier MD [address] [place] [phone] documented as of this encounter Visit Diagnoses Not on filedocumented in this encounter Additional Health Concerns Assessment Noted Time PHQ-9 Depression Total Score: 5 08/06/20 2:15 PM EDT documented as of this encounter Care Teams Spool Sorter Relationship Specialty Start Date End Date Brittney Collier MD [address] [place] [address] [phone] PCP - General Internal Medicine 08/06/23 documented as of this encounter
--- OUTSIDE RECORDS SUMMARY | 2025-02-06 18:45 | XMS_ITS | Encounter Summary ---
Author Organization [employer] Address [address] [facility] 7t [place] [address] Care Team Providers Care Digester Operator Helper Name Role Phone Jen Leonardo Primary Care Provider [phone] Brittney Collier MD Primary Care Pro vider Reason for Visit * Reason Onset Date Comments New Patient 06/17/2023 Encounter Details Date Type Department Care Team (Late st Contact Info) Description 06/17/2023 Telephone [facility] [address] [place], [place] [phone] Eulogio Goldstein MD 230 [place], [place] [phone] New Patient Social History Tobacco Use Types [...] PAR Margarita Arora called pt to Offer INJECTION MOLDING MACHINE SETTER appt. Pt demographics and insurance information were verified. Pt reports the following medical conditions: Thyroid, Asthma, Diabetic, and Anemic. Pt is currently taking medication: Synthroid, Lantus, Humalog, and Albuterol. Pt given INJECTION MOLDING MACHINE SETTER appt with PCP CARMEN Spear on 07/29/2023 @ 2:15 Pm. Pt will be sent appt reminder card and medical release form and agrees to complete and to return to medical records prior to INJECTION MOLDING MACHINE SETTER appt. * Telephone Encounter - Margarita Canchola - 06/17/2023 12:55 PM EDT Pt has been transfer over to wait list for INJECTION MOLDING MACHINE SETTER. EFFECTIVE SINCE 06/17/2023 documented in this encounter Plan of Treatment Upcoming Encounters Date Type Department Care Team (Late st Contact Info) Description 03/01/2025 9:45 AM EDT Office Visit [facility] [address] [place] [phone] Brittney Collier MD [address] [place] [phone] documented as of this encounter Visit Diagnoses Not on filedocumented in this encounter Care Teams Digester Operator Helper Relationship Specialty Start Date End Date Jen Leonardo ANP [address] [place] [phone] PCP - General Family Medicine 07/10/23 08/05/23 Brittney Collier MD [address] [place] [phone] PCP - General Internal Medicine 08/06/23 documented as of this encounter
--- OUTSIDE RECORDS SUMMARY | 2025-02-06 18:45 | XMS_ITS | Encounter Summary ---
Author Organization [employer] Address [address] [facility] 7t [place] [address] Care Team Providers Care Marketing Content Specialist Name Role Phone Brittney Collier MD Primary Care Pro vider Reason for Visit * Reason Comments Med Refill Encounter Details Date Type Department Care Team (Late st Contact Info) Description 12/31/2023 Refill [facility] [address] [place], [place] [phone] Brooke Gutierrez MD 230 [place], [place] [phone] Social History Tobacco Use Types Packs/Day Years [...] 9:45 AM EDT Office Visit [facility] [address] [place] [address] [phone] Brittney Collier MD [address] [place] [phone] documented as of this encounter Visit Diagnoses Not on filedocumented in this encounter Additional Health Concerns Assessment Noted Time PHQ-9 Depression Total Score: 5 08/06/20 2:15 PM EDT documented as of this encounter Care Teams Marketing Content Specialist Relationship Specialty Start Date End Date Brittney Collier MD [address] [place] [address] [phone] PCP - General Internal Medicine 08/06/23 documented as of this encounter
--- OUTSIDE RECORDS SUMMARY | 2025-02-06 18:45 | XMS_ITS | Encounter Summary ---
Author Organization [employer] Address [address] [facility] 7t [place] [address] Care Team Providers Care Taproom Attendant Name Role Phone Brittney Collier MD Primary Care Pro vider Encounter Details Date Type Department Care Team (Late st Contact Info) Description 11/19/2023 Abstract [facility] 230 [place], [place] [phone] Brittney Collier MD 230 [place], [place] [phone] Social History Tobacco Use Types Packs/Day Years [...] t he electric, gas, oil or water [employer] threatened to shut off services in your [...] Description 03/01/2025 9:45 AM EDT Office Visit [facility] [address] [place] [phone] Brittney Collier MD [address] [place] [phone] documented as of this encounter Visit Diagnoses Not on filedocumented in this encounter Additional Health Concerns Assessment Noted Time PHQ-9 Depression Total Score: 5 08/06/20 2:15 PM EDT documented as of this encounter Care Teams Taproom Attendant Relationship Specialty Start Date End Date Brittney Collier MD [address] [place] [phone] PCP - General Internal Medicine 08/06/23 documented as of this encounter
--- OUTSIDE RECORDS SUMMARY | 2025-02-06 18:45 | XMS_ITS | Encounter Summary ---
Author Organization [employer] Address [address] [facility] 7t [place] [address] Care Team Providers Care Integrated Pest Management Technician Name Role Phone Brittney Collier MD Primary Care Pro vider Reason for Visit * Reason Comments Med Refill Encounter Details Date Type Department Care Team (Late st Contact Info) Description 05/11/2024 Refill [facility] [address] [place], [place] [phone] Brittney Collier MD [address] [place] [address] Social History Tobacco Use Types Packs/Day Years [...] Description 03/01/2025 9:45 AM EDT Office Visit [facility] [address] [place] [address] [phone] Brittney Collier MD [address] [place] [phone] documented as of this encounter Visit Diagnoses Not on filedocumented in this encounter Additional Health Concerns Assessment Noted Time PHQ-9 Depression Total Score: 5 08/06/20 2:15 PM EDT documented as of this encounter Care Teams Integrated Pest Management Technician Relationship Specialty Start Date End Date Brittney Collier MD [address] [place] [address] [phone] PCP - General Internal Medicine 08/06/23 documented as of this encounter
--- OUTSIDE RECORDS SUMMARY | 2025-02-06 18:45 | XMS_ITS | Encounter Summary ---
Author Organization [employer] Address [address] [facility] [address] [place] [address] Care Team Providers Care Valet Parking Attendant Name Role Phone Brittney Collier MD Primary Care Pro vider Encounter Details Date Type Department Care Team (Late st Contact Info) Description 01/02/2025 Orders Only [facility] [address] [place], [place] [phone] Michaela Heredia MD [address] [place], [place] [phone] Type 2 diabetes mellitus with hyperglycemia, with long-term current use of insulin ([facility]) Social History Tobacco Use Types [...] Description 03/01/2025 9:45 AM EDT Office Visit [facility] [address] [place] [address] [phone] Brittney Collier MD [address] [place] [phone] documented as of this encounter Visit Diagnoses Diagnosis Type 2 diabetes mellitus with hyperglycemia, with long-term current use of insulin ([facility]) documented in this encounter Additional Health Concerns Assessment Noted Time PHQ-9 Depression Total Score: 16 024 2:07 PM EDT documented as of this encounter Care Teams Valet Parking Attendant Relationship Specialty Start Date End Date Brittney Collier MD [address] [place] [phone] PCP - General Internal Medicine 08/06/23 documented as of this encounter
--- OUTSIDE RECORDS SUMMARY | 2025-02-06 18:45 | XMS_ITS | Clinical Summary ---
Author Organization [employer] Address [address] [facility] [address] [place] [address] Care Team Providers Care Recovery Auditor Name Role Phone Brittney Collier MD Primary Care Pro vider Allergies No known active allergies Medications * This document contains information received from the source organization and may not represent a complete record from that organization. Alcohol Swabs padsIndications: Type 2 diabetes mellitus with hyperglycemia, with long-term current use of insulin (CMS/[facility]) 1 each if needed (to clean skin). 100 each 11 023 Active Blood Glucose Monitoring Suppl (FreeStyle Lite) w/Device kitIndications:T ype 2 diabetes mellitus with hyperglycemia, with long-term current use of insulin (CMS/HCC) 1 each in the morning. 1 kit 023 Active Continuous Blood Gluc Linker Up (FreeStyle Jose Angel [address]) device Use as directed to monitor glucose [...] FOR WHEEZING. 18 g 2 025 Active insulin pen needle (B-D ULTRAFINE III SHORT PEN) 31G X 8 mm miscIndications: Type 2 diabetes mellitus with hyperglycemia, with long-term current use of insulin ([facility]) USE 4 TIMES PER DAY DIRECTED WITH INSULIN 100 each 2 Active Synthroid 112 MCG tabletIndication s:Acquired hypothyroidism Take 2 tablets (224 mcg) by mouth before breakfast. 180 tablet 025 Active Tirzepatide (Mounjaro) 5 MG/0.5ML solution auto-injector Inject 5 mg under the skin every 7 (seven) days. 2 mL 025 Active Tirzepatide (Mounjaro) 2.5 MG/0.5ML solution auto-injectorInd ications:Type 2 diabetes mellitus with hyperglycemia, with long-term current use of insulin ([facility]) Inject 2.5 mg under the skin 1 (one) time per week. 2 mL 025 2024 Discontinued(O ther) Synthroid 112 MCG tabletIndication s:Acquired hypothyroidism Take [...] intent. Severe anxiety and family relocation from [place] to [place] are leading to an increase of symptoms. Connected with services for individual therapy with [facility]; attends sessions twice per week. Provided [...] and resilience. PLAN: 1. Follow up with [facility]: Not recommended for follow-up 2. Patient goal is to be able to control anger and continue attending therapy sessions 3. Behavioral Recommendations a. Incorporate breathing techniques into daily routine b. Continue attending therapy sessions with [facility] c. Contact [facility] program if needed for emergencies Assessment & Plan (08/10/2023 3:00 PM EDT): Patient with anxiety symptoms. Self-harm thought with no plan. Severe anxiety and family relocation from [place] are leading to an increase of symptoms. Connected with services for individual therapy with [facility]; attends sessions twice per week. Provided [...] and resilience. PLAN: 1. Follow up with [facility]: Not recommended for follow-up 2. Patient goal is to continue attending therapy sessions with [facility] 3. Behavioral Recommendations a. Incorporate breathing techniques into daily routine b. Continue attending therapy sessions c. Contact [facility] program if needed for emergencies PCOS (polycystic [...] w new PCP DM supplies sent to [facility] pharmacy Resolved Problems Problem Noted Date Diagnosed Date Resolved Date Anemia 06/25/2023 08/06/2023 Encounters Date Type Department Care Team Description 02/01/2025 Refill [facility] MED & PEDS [address] [place] [address] Brittney Collier MD Type 2 diabetes mellitus with hyperglycemia, with long-term current use of insulin (CMS/HCC) 01/24/2025 Telephone [facility] [address] [facility] [place] [address] Soledad Patel, RN 01/23/2025 Orders Only [facility] [address] [facility] [place] [address] Brittney Collier MD 01/11/2025 Telephone [facility] [address] [facility] [place] [address] Brittney Collier MD Prior Authorization ( [place] Request: Synthroid 112 MCT) 01/10/2025 Orders Only [facility] [address] [facility] [place] [address] Brooke Gutierrez MD Acquired hypothyroidism 01/06/2025 Orders Only GENERIC EXTERNAL DATA DEPARTMENT Provider, Generic External Data 01/06/2025 [facility] Risk Score [facility] () Department [address] [place] [phone] Provider, [facility] Generic 01/02/2025 Orders Only [facility] [address] [facility] [place] [address] Michaela Heredia MD Type 2 diabetes mellitus with hyperglycemia, with long-term current use of insulin (CMS/HCC) 01/02/2025 Telephone [facility] [place] [address] Brittney Collier MD medication request 12/28/2024 Telephone [facility] [address] [place] [address] Brittney Collier MD May recall 12/21/2024 Orders Only GENERIC EXTERNAL DATA DEPARTMENT Provider, Generic External Data 12/20/2024 Refill [facility] [address] [place] [address] Brittney Collier MD Type 2 diabetes mellitus with hyperglycemia, with long-term current use of insulin (CMS/HCC); Acquired hypothyroidism 12/14/2024 Orders Only [facility] External Provider, [facility] 12/13/2024 Telephone [facility] [address] [place] [address] Brittney Collier MD Prior Authorization ( [place] Request: Synthroid) 11/21/2024 Telephone [facility]IC[facility] [address] [place], [place] [phone] Brittney Collier MD Med Refill 11/21/2024 Refill [facility] [address] [place], [place] [phone] Juanita Dye, PharmD Type 2 diabetes mellitus with hyperglycemia, with long-term current use of insulin (CMS/HCC) 11/21/2024 Refill [facility] [address] [place], [place] [phone] Brittney Collier MD Diabetic retinopathy screening; Type 2 diabetes mellitus with hyperglycemia, with long-term current use of insulin (CMS/HCC); Depression with anxiety from Last 3 Months Family History Medical [...] Office Visit [facility] [address] [place] [phone] Brittney Collier MD [address] [place] [address] Health Maintenance Due Date Last Done Comments [...] 08/21/2023, 06/17/2023, Additional history exists Depression Monitoring 02/13/2025 08/15/2024, 024 Depression Screening 08/15/2025 08/15/2024, 08/15/20 24 Tobacco [...] with long-term current use of insulin ([facility]) CBC Routine 01/10/2025 10:06 AM EDT Type 2 diabetes mellitus with hyperglycemia, with long-term current use of insulin ([facility]) TSH Routine 01/10/2025 10:06 AM EDT Acquired [...] with long-term current use of insulin ([facility]) PAP SMEAR Routine 09/07/2023 1:47 PM EST ALBUMIN, RANDOM URINE W/CREATININE Routine 08/21/2023 10:40 AM EDT LIPID PANEL, STANDARD Routine 08/21/2023 10:40 AM EDT Type 2 diabetes mellitus with hyperglycemia, with long-term current use of insulin ([facility]) HEPATITIS C ANTIBODY REFLEX Routine 06/15/2023 10:00 AM EDT HIV ANTIBODY/ANTIGEN ([facility]) Routine 06/15/2023 10:00 AM EDT from Last 3 Months or Most Recently Relevant to Health Maintenance Results * (ABNORMAL) Prolactin (01/10/2025 10:06 AM EDT) Pathologist [facility] Prolactin 41.7(A) ng/mL [facility] Comment:Reference Range Fema les Non- 3.0-30.0 10.0-209.0 Postmenopausal 2.0-20.0THIS TEST WAS PERFORMED AT:[address] [place] [id number] RIBERA MD 01/10/2025 10:0 6 AM EDT 01/10/2025 10:06 AM EDT us Generic External Data Provider LAB BLOOD ORDERAB LES Final Result [facility] [address] [place] [phone] * (ABNORMAL) CBC (01/10/2025 10:06 AM EDT) Pathologist [facility] White Blood Count 6.8 4.8 - 10.8 X10*3/uL [facility] Red Blood Count 4.21 4.20 - 5.50 X10*6/uL [facility] Hemoglobin 9.6(L) 12.0 - 16.0 g/dl [facility] Hematocrit 30.4(L) 37.0 - 47.0 % [facility] Mean Corpuscular Volume 72.2(L) 80.0 - 98.0 fL [facility] Mean Corpuscular Hemoglobin 22.8(L) 27.0 - 33.0 pg [facility] Mean Corpuscular HGB Conc 31.6 31.0 - 35.0 g/dl [facility] Red Cell Distribution Width 19.2(H) 11.0 - 16.0 % [facility] Platelet Count 314 160 - 400 X10*3/uL [facility] NRBC Pct Auto 0.0 0.0 - 0.2 /100WBC [facility] NRBC Abs Auto 0.000 0.0 - 0.012 X10*3/uL [facility] Blood Venous blood specimen / Unknown 01/10/2025 10:06 AM EDT 01/10/2025 10:06 AM EDT Brittney Garcia MD LAB BLOOD ORDERAB LES Final Result Performing Organization Address [facility]/ZIP Co de Phone Number [facility] [address] [place] [phone] * (ABNORMAL) TSH (01/10/2025 10:06 AM EDT) Thyroid Stimulating Hormone >100.00(H) 0.32 - 4.0 uIU/mL [facility] Comment:Note: A sustained TS H level above 2.5 uIU/mL may warrant further investigation. TSH 3rd Generation ([facility] [employer]) Blood Venous blood specimen / Unknown 01/10/2025 10:06 AM EDT 01/10/2025 10:06 AM EDT Brittney Garcia MD LAB BLOOD ORDERAB LES Final Result Performing Organization Address [facility] Co de Phone Number [facility] [address] [place] [phone] * (ABNORMAL) T4, Free (01/10/2025 10:06 AM EDT) Free T4 (Free Thyroxine) 0.57(L) 0.71 - 1.85 ng/dL [facility] Blood Venous blood specimen / Unknown 01/10/2025 10:06 AM EDT 01/10/2025 10:06 AM EDT Brittney Garcia MD LAB BLOOD ORDERAB LES Final Result Performing Organization Address City/[facility]/ZIP Co de Phone Number [facility] [address] [place] [address] [phone] * (ABNORMAL) Comprehensive Metabolic Panel (01/10/2025 10:06 AM EDT) Only the most recent of2 resultswithin the time period is included. Sodium 141 135 - 145 mmol/L [facility] Potassium 3.7 3.3 - 5.1 mmol/L [facility] Chloride 107 96 - 108 mmol/L [facility] Carbon Dioxide 26 22 - 29 mmol/L [facility] Anion Gap 12 12 - 20 [facility] Urea Nitrogen (BUN) 10 9 - 16 mg/dL [facility] Creatinine, Serum 0.93 0.5 - 1.4 mg/dL [facility] Estimated Glomerular Filt Rate >60 [facility] Comment:Chronic Kidney Disea se: Estimated GFR < 60 mL/min/1.91h9Ussvqg Kidney Disease: Estimated GFR < 15 mL/min/1.73m2 Glucose 100 60 - 115 mg/dL [facility] Calcium 9.5 8.4 - 10.2 mg/dL [facility] Bilirubin, Total 0.4 0.0 - 1.0 mg/dL [facility] Aspartate Amino Transferase 27 5 - 31 U/L [facility] Alanine Aminotransferase 19 0 - 31 U/L [facility] Total Protein 8.4(H) 6.5 - 8.0 g/dL [facility] Albumin Level 4.3 3.5 - 5.0 g/dL [facility] Alkaline Phosphatase 62 39 - 117 U/L [facility] Blood Venous blood specimen / Unknown 01/10/2025 10:06 AM EDT 01/10/2025 10:06 AM EDT us Brittney Garcia MD LAB BLOOD ORDERAB LES Final Result [facility] [address] [place] [address] [phone] * (ABNORMAL) CBC auto differential (01/06/2025 3:59 PM EDT) White Blood Count 6.8 4.8 - 10.8 X10*3/uL [facility] Red Blood Count 4.00(L) 4.20 - 5.50 X10*6/uL [facility] Hemoglobin 9.1(L) 12.0 - 16.0 g/dl [facility] Hematocrit 28.6(L) 37.0 - 47.0 % [facility] Mean Corpuscular Volume 71.5(L) 80.0 - 98.0 fL [facility] Mean Corpuscular Hemoglobin 22.8(L) 27.0 - 33.0 pg [facility] Mean Corpuscular HGB Conc 31.8 31.0 - 35.0 g/dl [facility] Red Cell Distribution Width 19.5(H) 11.0 - 16.0 % [facility] Platelet Count 278 160 - 400 X10*3/uL [facility] Mean Platelet Volume 10.8 9.4 - 12.3 fL [facility] Neutrophils Percent Auto 52.8 45 - 73 % [facility] Imm Gran Pct Auto 0.3 0.0 - 0.4 % [facility] Lymphocytes Percent Auto 34.9 20 - 40 % [facility] Monocytes Percent Auto 6.9 2 - 11 % [facility] Eosinophils Percent Auto 4.1(H) 0 - 4 % [facility] Basophils Percent Auto 1.0 0 - 2 % [facility] NRBC Pct Auto 0.0 0.0 - 0.2 /100WBC [facility] Neutrophils Absolute Auto 3.6 2.0 - 8.3 x10*3/uL [facility] Imm Gran Abs Auto 0.02 0.00 - 0.03 X10*3/uL [facility] Lymphocytes Absolute Auto 2.4 1.2 - 4.9 X10*3/uL [facility] Monocytes Absolute Auto 0.5 0.1 - 1.2 X10*3/uL [facility] Eosinophils Absolute Auto 0.3 0.0 - 0.4 X10*3/uL [facility] Basophils Absolute Auto 0.1 0.0 - 0.2 X10*3/uL [facility] NRBC Abs Auto 0.000 0.0 - 0.012 X10*3/uL [facility] 01/06/2025 3:59 PM EDT 01/06/2025 4:02 PM EDT Generic External Data Provider LAB BLOOD ORDERAB LES Final Result Performing Organization Address [facility] Co de Phone Number [facility] [address] [place] [phone] * hCG, Total, Quantitative (01/06/2025 3:59 PM EDT) HCG Quantitative <2 mIU/mL [facility] Comment:Weeks post LMP Appro ximate hCG(Last Menstrual Period) Range (mIU/ml)3 - 4 weeks 9 - 1304 - 5 weeks 75 - 2,6005 - 6 weeks 850 - 20,8006 - 7 weeks 4000 - 100,2007 - 12 weeks 11,500 - 289,41285 - 16 weeks 18,300 - 137,78809 - 29 weeks (2nd trimester) 1,400 - 53,88170 - 41 weeks (3rd trimester) 940 - [...] ORDERAB LES Final Result Performing Organization Address [facility]/ZIP Co de Phone Number [facility] [address] [place] [phone] * (ABNORMAL) Bacterial Vaginosis (12/21/2024 12:52 PM EST) TRICHOMONAS VAGINALIS DETECTION BY PCR NOT DETECTED Not Detect [facility] BACTERIAL VAGINOSIS DETECTION BY PCR POSITIVE(A) Negative [facility] Comment:The BV organism targ ets [...] DETECTION BY PCR NOT DETECTED Not Detect [facility] Cristina glab krusei PCR NOT DETECTED Not Detect [facility] 12/21/2024 12:5 2 PM EST 12/21/2024 3:07 PM EST us Generic External Data Provider LAB MICROBIOLOGY - GENERAL ORDERABLES Final Result [facility] [address] [place] [phone] * Chlamydia/N. Gonorrhoeae RNA, TMA, Urogenitial (12/21/2024 12:52 PM EST) CT PCR NOT DETECTED Not Detect. [facility] Comment:A not detected test result [...] psychologicalconsequences. NG PCR NOT DETECTED Not Detect. [facility] Comment:A not detected test result [...] PM EST 12/21/2024 3:07 PM EST Narrative [facility] - 12/21/2024 11:52 PM EST Vaginal us Generic External Data Provider LAB MICROBIOLOGY - GENERAL ORDERABLES Final Result [facility] [address] [place] [phone] * XR Fingers 2+ Views Right (12/14/2024 7:03 PM EST) Anatomical Region Laterality Modality Upper Extremities, Fingers Right Radio graphic Imaging 12/14/2024 7:03 PM EST Narrative 12/14/2024 7:05 PM EST ? [facility] ?[address] [facility]. ?[place] [address] ?XRay Report ? Signed ? Patient: Rayna Galvan ?MR#: [id number] ?? [id number] ? : 1995 ?Acct:[id number] ? Age/Sex: 29 / F ?ADM Date: 02/19/25 ? Loc: HO.ED ? Attending Dr: ? Ordering Physician: Gavin Trinidad ?? Date of Service: 12/14/24 ?? Procedure(s): XR finger RT min 2V ?? Accession Number(s): [id number] ? cc: Gavin Trinidad; Brittney Collier MD [...] ? DD/ 02 ? TD/TT: 12/14/241902 ? Cytometry Technologist: ? Procedure Note Donotuseinterpreter, Image - 12/14/2024 [place] [address] XRay Report Signed Patient: Rayna Galvan AMR#: [id number] : 1995Acct:[id number] Age/Sex: Date: 12/14/24 Loc: HO.ED Attending Dr: Ordering Physician: Gavin Trinidad Date of Service: 12/14/24 Procedure(s): XR finger RT min 2V Accession Number(s): [id number] cc: Gavin Trinidad; Brittney Collier MD CLINICAL [...] in OV> 12/14/241903 DD/ 02 TD/TT: 12/14/241902 Cytometry Technologist: [facility] External Provider IMG XR PROCEDURES Final Result * (ABNORMAL) Hemoglobin A1c (08/10/2024 10:20 AM EDT) Hemoglobin A1c 11.5(H) <6.0 % [facility] Comment:Hemoglobin A1C Refer ence Range Adults: 4.8 - 6.0 % Non diabetic: < 6.0 % Goal: < 7.0 %Additional Action Suggested: > 8.0 %Note: Hemoglobin A1c results are invalid for patients with abnormal amounts of HbF. Blood transfusions may impact the HbA1c concentration in the patient sample. Estimated Average Glucose 283 mg/dL [facility] Comment:eAG = Estimated ave rage glucose which is %A1C expressed asaverage glucose, using the formula of the B5V-VjrxzfdVatmjji Glucose study (ADAG), Diabetes Care, Vol.31,#8,May. 2007 Blood Venous blood specimen / Unknown 08/10/2024 10:20 AM EDT 08/10/2024 11:43 AM EDT [facility] LAB BLOOD ORDERABLES Final Resul t Performing Organization Address City/State/[facility] Co de Phone Number [facility] [address] [place] [phone] * Pap Smear (09/07/2023 1:47 PM EST) 09/07/2023 1:47 PM EST 09/08/2023 11:30 AM EST Narrative [facility] - 09/28/2023 9:19 AM EST ----- ------- Name: Rayna Galvan ? Age/Sex: 27/F ? : 1995 Unit#: [id number] ?? Attend Dr: Maxwell Felton MD ?Re09/07/23 ?Status: DEP REF ? Location: .LAB ?Disch: ? ----- ------- SPEC : [id number] ?RECD: 09/08/23 ? STATUS: ??SOUT ? REQ NUM: [id number] ? BIBIANA: 09/07/23 ? SUBM DR: Maxwell [...] 66, 68) ?? HPV testing performed by [facility], [place], [place]. ??See reference laboratory ?? portion of the EMR for entire report. ?Clinical Information LMP: 07/18 Previous PAP test: Unknown date/findings Other history: Abnormal uterine and vaginal bleeding ? Material Received ?? ThinPrep-Cervical Copies To: ?? Brittney Collier MD ?? [address] [facility] ?? [place] [address] ?? [phone] ?? Maxwell Felton MD ?? [address] [place] [address] Dr. Spann [facility] ?? [place] [address] ?? [phone] ----- ------- Signed (signature on file) Liberty Dimas MD 09/28/23 0919 ? ----- ------- ? END OF REPORT ? us Generic External Data Provider LAB CYTOLOGY DANA MALDONADO Final Result Performing Organization Address [facility] Co de Phone Number [facility] [address] [place] [phone] * Albumin, Random Urine W/Creatinine (08/21/2023 10:40 AM EDT) Creatinine, Urine 276.18 mg/dL [facility] Microalbumin Urine 28.0 mg/L [facility] Microalbum Creatinine Ratio Ur 10.1 <30 ug/mg cr [facility] Comment:Albumin/Creatinine R atio Reference Ranges: Normal: < 30 ug/mg creatinine Microalbuminuria: 30 - 300 ug/mg creatinineClinical Albuminuria: > 300 ug/mg creatinine 08/21/2023 10:4 0 AM EDT 08/21/2023 1:24 PM EDT us Brittney Garcia MD LAB URINE ORDERAB LES Final Result Performing Organization Address [facility] Co de Phone Number [facility] [address] [place] [phone] * (ABNORMAL) Lipid Panel, Standard (08/21/2023 10:40 AM EDT) Triglycerides 89 <150 mg/dL [facility] Comment:Desirable Triglyceri de: less than 150 mg/dLBorderline High Triglyceride 150-199 mg/dLHigh Triglyceride: 200-499 mg/dLVery High Triglyceride: greater than or equal to 5OO mg/dL Cholesterol 137 <200 mg/dL [facility] Comment:Desirable Cholestero l: less than 200 mg/dLBorderline High Cholesterol: 200-239 mg/dLHigh Cholesterol: greater than 239 mg/dL LDL Cholesterol Calculated 90 <100 mg/dL [facility] Comment:Desirable LDL: less than 100 mg/dLNear Optimal/Above Optimal LDL: 110- 129 mg/dLBorderline High LDL: 130-159 mg/dLHigh LDL: 160-189 mg/dLVery High LDL: greater than or equal to 190 mg/dL HDL Cholesterol 30(L) >40 mg/dL [facility] Comment:Desirable HDL: great er than 40 mg/dL Note: This HDL assay may give artificially low results in patients with liver disease. Blood Venous blood specimen / Unknown 08/21/2023 10:40 AM EDT 08/21/2023 11:11 AM EDT us Brittney Garcia MD LAB BLOOD ORDERAB LES Final Result Performing Organization Address [facility]/ZIP Co de Phone Number [facility] [address] [place] [phone] * Hepatitis C Antibody Reflex (06/15/2023 10:00 AM EDT) Hepatitis C Antibody Nonreactive Nonreactive [facility] Comment:Antibodies to HCV no t detected; does not exclude early acuteHCV infection. 06/15/2023 10:0 0 AM EDT 06/15/2023 11:32 AM EDT us Jen KNOWLES LAB BLOOD ORDERABLES Final Resul t Performing Organization Address [facility] Co de Phone Number [facility] [address] [place] [phone] * HIV Ab/Ag (MIKE MARR) (06/15/2023 10:00 AM EDT) HIV AB/AG Nonreactive Nonreactive [facility] Comment:HIV-1 p24 Ag and/or HIV-1/HIV-2 Ab not detected.A test result that is nonreactive does not exclude thepossibility of exposure to or infection with HIV-1 and/orHIV-2. Nonreactive results in this assay for individualswith prior exposure to HIV-1 and/or HIV-2 may be due toantigen and antibody levels that are below the limit ofdetection of this assay.[employer] HIV Ag/Ab Combo assay result andsupplemental assay results should be interpreted inconjunction with the patient's clinical presentation,history and other laboratory results. If the results areinconsistent with clinical evidence, additional testing issuggested to confirm the result. 06/15/2023 10:0 0 AM EDT 06/15/2023 11:32 AM EDT [facility] LAB BLOOD ORDERABLES Final Resul t [facility] [address] [place] [address] [phone] from Last 3 Months or Most Recently Relevant to Health Maintenance Insurance [employer]ARD [employer]-[facility] MEDICAID STAND ADULT Care Teams Recovery Auditor Relationship Specialty Start Date End Date Brittney Collier MD [address] [place] [phone] PCP - General Internal Medicine 08/06/23
--- OUTSIDE RECORDS SUMMARY | 2025-02-06 18:45 | XMS_ITS | Encounter Summary ---
Author Organization [employer] Address [address] [facility] 7t [place] [address] Care Team Providers Care Blueprint Blocker Name Role Phone Brittney Collier MD Primary Care Pro vider Reason for Visit * Reason Comments Med Refill Encounter Details Date Type Department Care Team (Late st Contact Info) Description 08/24/2023 Refill [facility] [address] [place], [place] [phone] Brooke Gutierrez MD [address] [place], [place] [phone] Social History Tobacco Use Types Packs/Day Years [...] Description 03/01/2025 9:45 AM EDT Office Visit [facility] [address] [place] [address] [phone] Brittney Collier MD [address] [place] [phone] documented as of this encounter Visit Diagnoses Not on filedocumented in this encounter Additional Health Concerns Assessment Noted Time PHQ-9 Depression Total Score: 5 08/06/20 2:15 PM EDT documented as of this encounter Care Teams Blueprint Blocker Relationship Specialty Start Date End Date Brittney Collier MD [address] [place] [address] [phone] PCP - General Internal Medicine 08/06/23 documented as of this encounter
--- OUTSIDE RECORDS SUMMARY | 2025-02-06 18:45 | XMS_ITS | Encounter Summary ---
Author Organization [employer] Address 75 [facility] 7t [place] [address] Care Team Providers Care Ux Specialist Name Role Phone Brittney Collier MD Primary Care Pro vider Reason for Visit * Reason Onset Date Comments Reschedule 10/16/2023 Encounter Details Date Type Department Care Team ([facility] st Contact Info) Description 10/16/2023 Telephone [facility] [address] [place], [place] [phone] Brittney Collier MD [address] [place], [place] [phone] Reschedule Social History Tobacco Use Types Packs/Day [...] with others, in a hotel, in a long term, living outside on the street, on a [...] pt requesting r/s FUE appt with PCP, commercial loan underwriter attempted to r/s no availability. documented in this encounter Plan of Treatment Upcoming Encounters Date Type Department Care Team (Late st Contact Info) Description 03/01/2025 9:45 AM EDT Office Visit [facility] [address] [place] [phone] Brittney Collier MD [address] [place] [phone] documented as of this encounter Visit Diagnoses Not on filedocumented in this encounter Additional Health Concerns Assessment Noted Time PHQ-9 Depression Total Score: 5 08/06/20 2:15 PM EDT documented as of this encounter Care Teams Ux Specialist Relationship Specialty Start Date End Date Brittney Collier MD [address] [place] [phone] PCP - General Internal Medicine 08/06/23 documented as of this encounter
--- OUTSIDE RECORDS SUMMARY | 2025-02-06 18:45 | XMS_ITS | Encounter Summary ---
Author Organization [employer] Address 75 [facility] 7t [place] [address] Care Team Providers Care Clinical Director Name Role Phone Brittney Collier MD Primary Care Pro vider Reason for Visit * Reason Onset Date Comments Med Refill 02/01/2025 Encounter Details Date Type Department Care Team (Late st Contact Info) Description 02/01/2025 Refill [facility] [address] [place] [address] Brittney Collier MD [address] [place] [address] Type 2 diabetes mellitus with hyperglycemia, with long-term current use of insulin ([facility]) Social History Tobacco Use Types Packs/Day [...] Telephone Encounter - Melissa Lyn LPN - 02/01/2025 10:31 AM EDT Next dose pended,please send if agreeable.Next appointment 5.7.25 documented in this encounter Plan of Treatment Upcoming Encounters Date Type Department Care Team (Late st Contact Info) Description 03/01/2025 9:45 AM EDT Office Visit [facility] [address] [place] [phone] Brittney Collier MD [address] [place] [phone] documented as of this encounter Visit Diagnoses Diagnosis Type 2 diabetes mellitus with hyperglycemia, with long-term current use of insulin ([facility]) documented in this encounter Additional Health Concerns Assessment Noted Time PHQ-9 Depression Total Score: 16 024 2:07 PM EDT documented as of this encounter Care Teams Clinical Director Relationship Specialty Start Date End Date Brittney Collier MD [address] [place] [phone] PCP - General Internal Medicine 08/06/23 documented as of this encounter
--- OUTSIDE RECORDS SUMMARY | 2025-02-06 18:45 | XMS_ITS | Encounter Summary ---
Author Organization [facility] Address [address] [place] [address] [address] [place] [address] Care Team Providers Care Brass Chaser Name Role Phone Jen Leonardo Primary Care Provider [phone] Brittney Collier MD Primary Care Pro vider Reason for Visit * Reason Comments Med Refill Encounter Details Date Type Department Care Team (Late Contact Info) Description 06/17/2023 Refill [facility] [address] [place] [address] [phone] Brooke Gutierrez MD [address] [place] [phone] Iron deficiency anemia, unspecified iron deficiency anemia [...] 9:45 AM EDT Office Visit [facility] [address] [place] [address] [phone] Brittney Collier MD [address] [place] [address] [phone] documented as of this encounter Visit Diagnoses Diagnosis Iron deficiency anemia, unspecified iron deficiency anemia type documented in this encounter Care Teams Brass Chaser Relationship Specialty Start Date End Date Jen Leonardo ANP [address] [place] [address] PCP - General Family Medicine 07/10/23 08/05/23 Brittney Collier MD [address] [place] [address] PCP - General Internal Medicine 08/06/23 documented as of this encounter
[2025-02-06 19:35] LABS: Lactic Acid 1.9 mmol/L (0.5-2.0)
[2025-02-06 19:36] LABS: White Blood Count 19.7 X10*3/uL (4.8-10.8)
[2025-02-06 19:37] LABS: Alanine Aminotransferase 12 U/L (0-31); Alkaline Phosphatase 59 U/L (39-117); Anion Gap 16 (12-20); Aspartate Amino Transferase 25 U/L (5-31); Bilirubin Total 0.8 mg/dL (0.0-1.0); Blood Urea Nitrogen 9 mg/dL (9-16); Calcium 9.3 mg/dL (8.4-10.2); Carbon Dioxide 21 mmol/L (22-29); Chloride 101 mmol/L (96-108); Estimated Glomerular Filt Rate 56; Glucose Random 128 mg/dL (60-115); Potassium 3.6 mmol/L (3.3-5.1); Sodium 134 mmol/L (135-145); Total Protein 7.9 g/dL (6.5-8.0)
[2025-02-06 19:38] LABS: Hematocrit 26.8 % (37.0-47.0); Hemoglobin 8.5 g/dl (12.0-16.0); Mean Corpuscular HGB Conc 31.7 g/dl (31.0-35.0); Mean Corpuscular Hemoglobin 22.7 pg (27.0-33.0); Mean Corpuscular Volume 71.5 fL (80.0-98.0); Mean Platelet Volume 12.5 fL (9.4-12.3); Platelet Count 314 X10*3/uL (160-400); Red Blood Count 3.75 X10*6/uL (4.20-5.50); Red Cell Distribution Width 18.1 % (11.0-16.0)
[2025-02-06] MEDS: Acetaminophen 325 MG TABLET 975 MG PO (19:39)
[2025-02-06 19:44] LABS: HCG Quantitative < 2 mIU/mL
[2025-02-06 20:05] LABS: PLT ABN DIST 1
[2025-02-06 20:13] LABS: Band Neutrophils Percent 8 % (3-5); Basophils Abs Manual 0.4 X10*3/uL (0.0-0.2); Basophils Percent Manual 2 % (0-2); Eosinophils Absolute Manual 0.2 X10*3/uL (0.0-0.4); Eosinophils Percent Manual 1 % (0-4); Lymphocytes Absolute Manual 0.6 X10*3/uL (1.2-4.9); Lymphocytes Percent Manual 3 % (20-40); Neutrophils Absolute Manual 18.5 X10*3/uL (2.0-8.3); Neutrophils Percent Manual 86 % (45-73); Platelet Estimate NORMAL (NORMAL); Platelet Morphology Comment NORMAL; SLIDE REVIEW MANUAL DIFF
[2025-02-06 20:14] LABS: RBC Morphology NORMAL
--- NOTE | 2025-02-06 20:45 | PC.NURSE ---
Notified provider of pt temp and pulse taken in triage as well at lab results- WBC elevated/ Sepsis alert called. working to establish access. PT difficult stick. provider at bedside for ultrasound guided line
[2025-02-06] MEDS: ondansetron HCL 4 MG/2 ML VIAL IVPUSH (21:08)
[2025-02-06] MEDS: 0.9 % Sodium Chloride 1,000 ML 999 ML IV (21:08)
[2025-02-06] MEDS: cefTRIAXone sodium 2 GM VIAL IVPUSH (21:08)
[2025-02-06 21:34] LABS: Hematocrit 24.8 % (37.0-47.0); Hemoglobin 7.9 g/dl (12.0-16.0)
[2025-02-06] MEDS: 0.9 % Sodium Chloride 2,721.54 ML 2721.54 ML IV (21:53)
[2025-02-06] MEDS: metroNIDAZOLE/NS 500 MG/100 ML PIGGYBACK 100 MG IV (22:23)
--- NOTE | 2025-02-06 22:52 | PC.NURSE ---
Report given to Florencia at [place] [phone]
[2025-02-06 23:01] LABS: COVID-19 Test Negative (Negative); IDNOW Serial# 6674DD1D
--- NOTE | 2025-02-06 23:30 | PC.NURSE ---
PT pulled IV out while getting up from commode, used call andrew to notify RN. First bag of fluids infused. informed provider who states line needs to be placed by [facility] as pt his an acute transfer and jasmyn is at bedside ready for transport
[2025-02-07 03:38] VITALS: BP 120/74; PULSE 106; RESP 14; TEMP 37.9; O2SAT 96
--- NOTE | 2025-02-08 07:45 | PC.NURSE ---
late note: alexi Mccabe, primary RN, pt discharged around 2345 via EMS to [facility], with blood running.
== END 2025-02-06 23:46 | disposition short-term general hospital (02) ==
PROVIDERS: Physician Assistant Medical; Emergency Provider Emergency Medicine; PCP Student in an Organized Health Care Education/Training Program
DX: N93.8 Other specified abnormal uterine and vaginal bleeding (principal); R50.9 Fever, unspecified; N83.9 Noninflammatory disorder of ovary, fallopian tube and broad ligament, unspecified; R11.2 Nausea with vomiting, unspecified; R51.9 Headache, unspecified; R00.0 Tachycardia, unspecified; R42 Dizziness and giddiness; R10.2 Pelvic and perineal pain; E11.9 Type 2 diabetes mellitus without complications; Z11.52 Encounter for screening for COVID-19; Z79.899 Other long term (current) drug therapy; Z79.4 Long term (current) use of insulin
CPT/HCPCS: 36415; 76830; 76856; 80053; 83605; 84702; 85007; 85014; 85018; 85025; 85027; 86850; 86900; 86901; 86923; 87040; 87635; 93005; 93975; 96374; 96375; 99285; J0696; J1836; J2405; P9016

== ENCOUNTER → 2025-02-06 18:22 | Outpatient (BNV) | payer MEDICAID, SELFPAY | PROVIDERS: Emergency Provider Emergency Medicine; PCP Student in an Organized Health Care Education/Training Program; Visit Provider Internal Medicine Cardiovascular Disease | DX: R00.0 Tachycardia, unspecified (principal) | CPT/HCPCS: 93010 ==

== ENCOUNTER → 2025-02-06 18:27 | Outpatient (BNV) | payer MEDICAID, SELFPAY | PROVIDERS: PCP Student in an Organized Health Care Education/Training Program; Visit Provider Student in an Organized Health Care Education/Training Program | DX: R10.2 Pelvic and perineal pain (principal) | CPT/HCPCS: 76830; 76856; 93975 ==